=== PATIENT | female | born 1945 | race Caucasian/White ===

== ENCOUNTER 2016-07-03 12:09 | Inpatient (IN) | payer MEDICARE, OTHER ==
[2016-07-03] MEDS ORDERED: Aspirin Low Dose CHEW TAB* 81 MG PO ONE (12:24)
[2016-07-03 12:42] LABS: Hematocrit 39 % (35-47); Hemoglobin 12.9 g/dl (12.0-16.0); Mean Corpuscular HGB Conc 33 g/dl (31-36); Mean Corpuscular Hemoglobin 33 pg (27-31); Mean Corpuscular Volume 98 fL (80-97); Mean Platelet Volume 7 um3 (7.4-10.4); Red Blood Count 3.94 10^6/ul (4.0-5.4); Red Cell Distribution Width 14 % (10.5-15); White Blood Count 4.1 10^3/ul (3.5-10.8)
[2016-07-03] MEDS ORDERED: Diltiazem DRIP* 100 MG/100 ML ADDV.BAG IVPB ONE (12:43)
[2016-07-03 12:55] LABS: Albumin 2.9 g/dL (3.2-5.2); BUN/Creatinine Ratio 9.8 (8-20); Calcium 7.9 mg/dL (8.6-10.3); EGFR African American 15.7 (>60); EGFR Non-African American 12.2 (>60); Globulin 3.2 g/dL (2-4); Potassium 3.5 mmol/L (3.5-5.0); Total Bilirubin 0.6 mg/dL (0.2-1.0); Total Protein 6.1 g/dL (6.4-8.9)
[2016-07-03 13:01] LABS: Troponin I 2.07 ng/mL (<0.04)
[2016-07-03] MEDS ORDERED: Levofloxacin 500 MG IVPREMIX(* 500 MG/100 ML BAG IVPB ONE (13:07)
[2016-07-03] MEDS ORDERED: NS 0.9% 1000 ML* 1,000 ML IV ONE ×3 (13:07→14:40)
--- NOTE | 2016-07-03 13:19 | RAD ---
INDICATION: Weakness COMPARISON: Chest x-ray dated October 19, 2014 TECHNIQUE: Single AP portable view of the chest was obtained. FINDINGS: Image quality is compromised due to the relative inferiority of a portable chest x-ray. The heart and mediastinum exhibit normal size and contour. Relative to the previous chest x-ray the pulmonary vasculature is slightly engorged and indistinct. The lungs are otherwise grossly clear. There is no evidence of a large pleural effusion. Visualized bones are normal for the patient's age. IMPRESSION: In the correct clinical setting chest x-ray findings could BE compatible with exacerbation of congestive heart failure.
[2016-07-03] MEDS ORDERED: Heparin DRIP 25,000 UNITS(*) 25,000 UNITS/500 ML BAG IVPB SCH ×2 (13:30→15:00)
[2016-07-03 13:32] LABS: T4 8.5 g/dL (6.09-12.23)
[2016-07-03 13:33] LABS: TSH (Thyroid Stimulating Horm) 1.05 mcIU/mL (0.34-5.60)
[2016-07-03] MEDS ORDERED: HYDROcodone/ACETAMIN 5-325 MG* 1 TAB PO ONE (13:35)
[2016-07-03] MEDS ORDERED: Heparin VIAL(*) 5000 UNITS/ML VIAL (FIVE THOUSAND) IV SCH ×2 (14:00→15:00)
[2016-07-03] MEDS ORDERED: Diltiazem DRIP* 100 MG/100 ML ADDV.BAG IVPB SCH (15:00)
[2016-07-03] MEDS ORDERED: Potassium Chlor TAB* 20 MEQ TAB.ER PO ONE (15:11)
[2016-07-03 15:55] LABS: Magnesium 1.6 mg/dL (1.9-2.7)
[2016-07-03] MEDS ORDERED: Amiodarone 360 MG IVPREMIX* 360 MG/200 ML BAG IV ONE (15:56)
[2016-07-03] MEDS ORDERED: Amiodarone 150 MG IVPREMIX* 150 MG/100 ML BAG IV ONE ×2 (15:56)
[2016-07-03] MEDS: Amiodarone 360 MG IVPREMIX* 360 MG/200 ML BAG IV SCH ×2 (16:00→21:39)
[2016-07-03] MEDS ORDERED: Magnesium Sulfate 2 GM IV* 2 GM/50 ML BAG IVPB ONE (16:05)
[2016-07-03] MEDS: cefTRIAXone VIAL(*) 1,000 MG in NS 0.9% 50 ML* 50 ML IVPB SCH (16:07)
[2016-07-03] MEDS: Hydrocortisone INJ* 100 MG VIAL IV SCH (16:12)
[2016-07-03] MEDS: oxyCODONE TAB* 5 MG TAB PO PRN ×2 (16:24→22:53)
[2016-07-03] MEDS: Oseltamivir CAP* 30 MG CAP PO SCH (16:24)
[2016-07-03] MEDS: NS 0.9% 1000 ML* 1,000 ML IV SCH (16:38)
[2016-07-03] MEDS ORDERED: Azithromycin IV(*) 500 MG in NS 0.9% 250 ML* 250 ML IVPB SCH (17:00)
[2016-07-03] MEDS: Gabapentin CAP(*) 300 MG PO SCH ×2 (17:26→20:41)
[2016-07-03 18:54] LABS: BUN/Creatinine Ratio 10.6 (8-20); Calcium 7.1 mg/dL (8.6-10.3); EGFR African American 16.1 (>60); EGFR Non-African American 12.5 (>60); Potassium 4.4 mmol/L (3.5-5.0)
[2016-07-03 19:15] LABS: Troponin I 1.75 ng/mL (<0.04)
[2016-07-03] MEDS: Topiramate TAB(*) 100 MG PO SCH (20:41)
[2016-07-03] MEDS: Memantine XR CAP* 28 MG CAP.XR PO SCH (20:41)
[2016-07-03] MEDS: NON FORMULARY MED* (Melatonin [Melatonin] 10 MG) PO SCH (21:15)
[2016-07-03] MEDS: Vancomycin CAP* 125 MG CAP PO SCH (21:20)
--- NOTE | 2016-07-03 21:35 | PN ---
Hospitalist Progress Note Pt with hx of c-diff, pt states that if abx ordered it has been recommended by her MD that she be put on vanco PO due to hx, discussed risk associated with this and alternative of placing on pro-biotics, pt would like to proceed with PO vanco per her MD recommendations, will obtain records in am to clarify, placed on po vanco for now, await cdiff studies
--- NOTE | 2016-07-03 21:50 | ED ---
Polo Dubois Claudia, scribed for Antoine Frances MD on 07/03/16 at 1230 . Complex/Multi-Sys Presentation - HPI Summary HPI Summary: 71 year old female presents to the ED via EMS for a persistent cough and GARCIA. Pt notes that she has had this cough for about 1.5 weeks and it has worsened and causes her to have terrible GARCIA. Pt also admits to a mild fever. Pt denies being hospitalized in the past month and no recent use of antibiotics in the last week. History records reviewed. May 2015 she had a stress test and was deemed low risk. March 2015 echocardiogram is essentially nml. A note from consultation for abd pain,diarrhea and confusion; there they list mitral valve disorder, DONTRELL, as well as heart diastolic failure secondary to verapno. - History Of Current Complaint Chief Complaint: EDWeakness Time Seen by Provider: 07/03/16 12:24 Hx Obtained From: Patient, Medical Records Onset/Duration: Lasting Weeks, Still Present Associated Signs And Symptoms: Positive: Headache, Cough - Allergies/Home Medications Allergies/Adverse Reactions: Allergies Allergy/AdvReac Type Severity Reaction Status Date / Time Penicillins Allergy Intermediate Rash And Verified 07/20/15 12:43 Itching Verapamil AdvReac See Comment Verified 07/20/15 12:43 Home Medications: Home Medications Lisinopril TAB* [Prinivil TAB 5 MG*] 5 mg PO DAILY 07/03/16 [History Confirmed 07/03/16] Magnesium 500 mg PO DAILY 07/03/16 [History Confirmed 07/03/16] Potassium Chlor TAB* 20 meq PO BID 07/03/16 [History Confirmed 07/03/16] PMH/Surg Hx/FS Hx/Imm Hx Previously Healthy: Yes Endocrine/Hematology History: Reports: Hx Thyroid Disease, Hx Anemia Denies: Hx Diabetes, Hx Unexplained Bleeding Comment Only: Other Endocrine/Hematological Disorders - hypothalmus related headaches Cardiovascular History: Reports: Hx Angina, Hx Congestive Heart Failure - HX OF D/T DRUG REACTION, Hx Hypertension - TAKES MEDICATION Denies: Hx Aneurysm, Hx Angioplasty, Hx Auto Implanted Cardiovert Defib, Hx Cardiac Arrest, Hx Cardiomegaly, Hx Congenital Heart Disease, Hx Coronary Artery Disease, Hx Deep Vein Thrombosis, Hx Hypercholesterolemia, Hx Hypotension , Hx Pacemaker/ICD, Hx Peripheral Vascular Disease, Hx Rheumatic Fever, Hx Syncope, Hx Valvular Heart Disease, Other Cardiovascular Problems/Disorders Respiratory History: Reports: Hx Sleep Apnea - Bipap, Other Respiratory Problems /Disorders - SLEEP APNEA W/ BIPAP Denies: Hx Asthma, Hx Chronic Bronchitis, Hx Chronic Obstructive Pulmonary Disease (COPD), Hx Cystic Fibrosis, Hx Lung Cancer, Hx Pleural Effusion, Hx Pneumonia, Hx Pulmonary Edema, Hx Pulmonary Embolism, Hx Seasonal Allergies GI History: Reports: Hx Gall Bladder Disease, Hx Gastroesophageal Reflux Disease , Hx Irritable Bowel, Other GI Disorders - GERD Denies: Hx Cirrhosis, Hx Crohn's Disease, Hx Diverticulosis, Hx Gastrointestinal Bleed, Hx Hiatal Hernia, Hx Jaundice, Hx Obstructive Bowel, Hx Ileostomy, Hx Pyloric Stenosis, Hx Ulcer History: Denies: Hx Renal Disease Comment Only: Other Problems/Disorders - Burning on urination Musculoskeletal History: Reports: Hx Arthritis, Hx Rheumatoid Arthritis - WAS TREATED FOR IT, THEN STOPPED HER MEDS, Hx Back Problems, Hx Bursitis - Hip, Other Musculoskeletal History - ARTHRITIS LEFT HIP Denies: Hx Fibromyalgia, Hx Gout, Hx Orthopedic Injury, Hx Osteoporosis, Hx Scoliosis, Hx Tendonitis Sensory History: Reports: Hx Contacts or Glasses Denies: Hx Cataracts, Hx Eye Injury, Hx Eye Prosthesis, Hx Glaucoma, Hx Legally Blind, Hx Macular Degeneration, Hx Vision Problem, Hx Deafness, Hx Hearing Aid, Hx Hearing Problem, Other Sensory Impairments Opthamlomology History: Reports: Hx Contacts or Glasses Denies: Hx Cataracts, Hx Eye Injury, Hx Eye Prosthesis, Hx Glaucoma, Hx Legally Blind, Hx Macular Degeneration, Hx Vision Problem, Other Sensory Impairments Neurological History: Reports: Hx Headaches - CHRONIC CLUSTER GARCIA, Hx Migraine Denies: Hx Dementia, Hx Developmental Delay, Hx Seizures, Hx Spinal Cord Injury, Hx Transient Ischemic Attacks (TIA), Other Neuro Impairments/Disorders Psychiatric History: Reports: Hx Depression Denies: Hx Anxiety, Hx Panic Disorder - Cancer History Hx Chemotherapy: No Hx Radiation Therapy: No - Surgical History Surgery Procedure, Year, and Place: CHOLECYESTOMY [facility], DEVIATED SEPTUM [facility] COLECTOMY Hx Anesthesia Reactions: No - Immunization History Date of Tetanus Vaccine: unknown Infectious Disease History: No Infectious Disease History: Reports: Traveled Outside the [place] in Last 30 Days - [place] Denies: Hx Clostridium Difficile, Hx Hepatitis, Hx Human Immunodeficiency Virus (HIV), Hx Shingles, Hx Tuberculosis - Family History Family History: COPD, AFIB - Social History Occupation: Retired Lives: With Family Alcohol Use: None Substance Use Type: Reports: None Hx Tobacco Use: No Smoking Status (MU): Never Smoked Tobacco Have You Smoked in the Last Year: No Review of Systems Constitutional: Negative Eyes: Negative ENT: Negative Cardiovascular: Negative Positive: Cough Positive: Diarrhea Genitourinary: Negative Musculoskeletal: Negative Skin: Negative Positive: Headache Psychological: Normal All Other Systems Reviewed And Are Negative: Yes Physical Exam Triage Information Reviewed: Yes Vital Signs On Initial Exam: Initial Vitals Temp Pulse Resp BP Pulse Ox 98.2 F 100 22 118/46 98 07/03/16 12:16 07/03/16 12:16 07/03/16 12:16 07/03/16 12:16 07/03/16 12:16 Vital Signs Reviewed: Yes Appearance: Negative: Well-Appearing - uncomfortable with frequent harsh cough, tachypneic Eyes: Positive: EOMI ENT: Positive: Other - mucosa dry Neck: Positive: Supple Respiratory/Lung Sounds: Positive: Breath Sounds Present, Rales - right, Rhonchi - right Cardiovascular: Positive: Tachycardia - HR initially presented in the 170s but is currently at sinus tach of 117. Negative: Rub, Leg Edema Left, Leg Edema Right Abdomen Description: Positive: Nontender, Soft - flat Musculoskeletal: Negative: Edema Left, Edema Right Neurological: Positive: Alert, Oriented to Person Place, Time Psychiatric: Positive: Other - logical coherent Procedures - Procedure Summary Procedure Summary: US: Heart evaluation shows what geneally appears to be LVH with thickened LV with hypodynamic function with LV abel coapting. Diagnostics - Vital Signs Vital Signs Temp Pulse Resp BP Pulse Ox 07/03/16 12:16 98.2 F 100 22 118/46 98 - Laboratory Lab Results: Lab Results 07/03/16 07/03/16 07/03/16 Range/Units 12:36 12:36 12:36 WBC 4.1 (3.5-10.8) 10^3/ul RBC 3.94 L (4.0-5.4) 10^6/ul Hgb 12.9 (12.0-16.0) g/dl Hct 39 (35-47) % MCV 98 H (80-97) fL MCH 33 H (27-31) pg MCHC 33 (31-36) g/dl RDW 14 (10.5-15) % Plt Count 184 (150-450) 10^3/ul MPV 7 L (7.4-10.4) um3 Neut % (Auto) 80.3 (38-83) % Lymph % (Auto) 9.6 L (25-47) % [place] % (Auto) 10.0 H (1-9) % Eos % (Auto) 0 (0-6) % Baso % (Auto) 0.1 (0-2) % Absolute Neuts (auto) 3.3 (1.5-7.7) 10^3/ul Absolute Lymphs (auto) 0.4 L (1.0-4.8) 10^3/ul Absolute Monos (auto) 0.4 (0-0.8) 10^3/ul Absolute Eos (auto) 0 (0-0.6) 10^3/ul Absolute Basos (auto) 0 (0-0.2) 10^3/ul Absolute Nucleated RBC 0 10^3/ul Nucleated RBC % 0.1 INR (Anticoag Therapy) (0.89-1.11) Sodium 121 L (133-145) mmol/L Potassium 3.5 (3.5-5.0) mmol/L Chloride 91 L (101-111) mmol/L Carbon Dioxide 14 L* (22-32) mmol/L Anion Gap 16 H (2-11) mmol/L BUN 36 H (6-24) mg/dL Creatinine 3.67 H (0.51-0.95) mg/dL Est GFR ( Amer) 15.7 (>60) Est GFR (Non-Af Amer) 12.2 (>60) BUN/Creatinine Ratio 9.8 (8-20) Glucose 112 H (70-100) mg/dL Lactic Acid 3.3 H* (0.5-2.0) mmol/L Calcium 7.9 L (8.6-10.3) mg/dL Magnesium 1.6 L (1.9-2.7) mg/dL Total Bilirubin 0.60 (0.2-1.0) mg/dL AST 86 H (13-39) U/L ALT 28 (7-52) U/L Alkaline Phosphatase 44 (34-104) U/L Troponin I 2.07 H* (<0.04) ng/mL B-Natriuretic Peptide ( - 100) pg/mL Total Protein 6.1 L (6.4-8.9) g/dL Albumin 2.9 L (3.2-5.2) g/dL Globulin 3.2 (2-4) g/dL Albumin/Globulin Ratio 0.9 L (1-3) Procalcitonin (<0.6) ng/mL TSH 1.05 (0.34-5.60) mcIU/mL Thyroxine (T4) 8.50 (6.09-12.23) g/dL Influenza A (Rapid) (Negative) Influenza B (Rapid) (Negative) 07/03/16 07/03/16 07/03/16 Range/Units 12:36 12:36 12:36 WBC (3.5-10.8) 10^3/ul RBC (4.0-5.4) 10^6/ul Hgb (12.0-16.0) g/dl Hct (35-47) % MCV (80-97) fL MCH (27-31) pg MCHC (31-36) g/dl RDW (10.5-15) % Plt Count (150-450) 10^3/ul MPV (7.4-10.4) um3 Neut % (Auto) (38-83) % Lymph % (Auto) (25-47) % [place] % (Auto) (1-9) % Eos % (Auto) (0-6) % Baso % (Auto) (0-2) % Absolute Neuts (auto) (1.5-7.7) 10^3/ul Absolute Lymphs (auto) (1.0-4.8) 10^3/ul Absolute Monos (auto) (0-0.8) 10^3/ul Absolute Eos (auto) (0-0.6) 10^3/ul Absolute Basos (auto) (0-0.2) 10^3/ul Absolute Nucleated RBC 10^3/ul Nucleated RBC % INR (Anticoag Therapy) 1.04 (0.89-1.11) Sodium (133-145) mmol/L Potassium (3.5-5.0) mmol/L Chloride (101-111) mmol/L Carbon Dioxide (22-32) mmol/L Anion Gap (2-11) mmol/L BUN (6-24) mg/dL Creatinine (0.51-0.95) mg/dL Est GFR ( Amer) (>60) Est GFR (Non-Af Amer) (>60) BUN/Creatinine Ratio (8-20) Glucose (70-100) mg/dL Lactic Acid (0.5-2.0) mmol/L Calcium (8.6-10.3) mg/dL Magnesium (1.9-2.7) mg/dL Total Bilirubin (0.2-1.0) mg/dL AST (13-39) U/L ALT (7-52) U/L Alkaline Phosphatase (34-104) U/L Troponin I (<0.04) ng/mL B-Natriuretic Peptide 232 H ( - 100) pg/mL Total Protein (6.4-8.9) g/dL Albumin (3.2-5.2) g/dL Globulin (2-4) g/dL Albumin/Globulin Ratio (1-3) Procalcitonin 16.3 H (<0.6) ng/mL TSH (0.34-5.60) mcIU/mL Thyroxine (T4) (6.09-12.23) g/dL Influenza A (Rapid) (Negative) Influenza B (Rapid) (Negative) 07/03/16 Range/Units 12:47 WBC (3.5-10.8) 10^3/ul RBC (4.0-5.4) 10^6/ul Hgb (12.0-16.0) g/dl Hct (35-47) % MCV (80-97) fL MCH (27-31) pg MCHC (31-36) g/dl RDW (10.5-15) % Plt Count (150-450) 10^3/ul MPV (7.4-10.4) um3 Neut % (Auto) (38-83) % Lymph % (Auto) (25-47) % [place] % (Auto) (1-9) % Eos % (Auto) (0-6) % Baso % (Auto) (0-2) % Absolute Neuts (auto) (1.5-7.7) 10^3/ul Absolute Lymphs (auto) (1.0-4.8) 10^3/ul Absolute Monos (auto) (0-0.8) 10^3/ul Absolute Eos (auto) (0-0.6) 10^3/ul Absolute Basos (auto) (0-0.2) 10^3/ul Absolute Nucleated RBC 10^3/ul Nucleated RBC % INR (Anticoag Therapy) (0.89-1.11) Sodium (133-145) mmol/L Potassium (3.5-5.0) mmol/L Chloride (101-111) mmol/L Carbon Dioxide (22-32) mmol/L Anion Gap (2-11) mmol/L BUN (6-24) mg/dL Creatinine (0.51-0.95) mg/dL Est GFR ( Amer) (>60) Est GFR (Non-Af Amer) (>60) BUN/Creatinine Ratio (8-20) Glucose (70-100) mg/dL Lactic Acid (0.5-2.0) mmol/L Calcium (8.6-10.3) mg/dL Magnesium (1.9-2.7) mg/dL Total Bilirubin (0.2-1.0) mg/dL AST (13-39) U/L ALT (7-52) U/L Alkaline Phosphatase (34-104) U/L Troponin I (<0.04) ng/mL B-Natriuretic Peptide ( - 100) pg/mL Total Protein (6.4-8.9) g/dL Albumin (3.2-5.2) g/dL Globulin (2-4) g/dL Albumin/Globulin Ratio (1-3) Procalcitonin (<0.6) ng/mL TSH (0.34-5.60) mcIU/mL Thyroxine (T4) (6.09-12.23) g/dL Influenza A (Rapid) Positive H (Negative) Influenza B (Rapid) Negative (Negative) Result Diagrams: 07/03/16 12:36 07/03/16 18:25 Lab Statement: Any lab studies that have been ordered have been reviewed, and results considered in the medical decision making process. - Radiology CXR Xray Interpretation: Positive (See Comments) - IN THE CORRECT CLINICAL SETTING CHEST XRAY FINDINGS COULD BE COMPATIBLE WITH EXACERBATION OF CHF Radiology Interpretation Completed By: Radiologist - EKG 12:16 EKG Rhythm: Atrial Fibrillation - 175 BEATS/MIN 12:46 Cardiac Rate: Tachycardia EKG Rhythm: Sinus Tachycardia - 115 BEATS/MIN Re-Evaluation - Re-Evaluation 1 Re-Evaluation Time: 12:52 Comment: Patient spontaneously converted to sinus tachycardia. This EKG shows no ST changes and P enlargement in II. Also biphasic P and V1 suggestion of atrial enlargement. Complex Multi-Symp Course/Dx Assessment/Plan: She presents with tachycardia, evidence of sepsis, dehydration and volume depletion. Flu turns up positive. I informed hospitalist, Dr. Reagan is involved and she will be admitted. - Diagnoses Provider Diagnoses: SEPSIS, NSTEMI (non-ST elevated myocardial infarction) - Physician Notifications Discussed Care Of Patient With: Dr. Reagan is notified ot the patient and will consult. Dr. Godoy is informed of the patient and will accept patient for admission to [facility] [place]. Time Discussed With Above Provider: 13:07 - Critical Care Time Critical Care Time: 75-104 min - 90 minutes Discharge - Discharge Plan Condition: Stable Disposition: ADMITTED TO [facility] The documentation as recorded by the Polo alvares Claudia accurately reflects the service I personally performed and the decisions made by me, Antoine Frances MD.
[2016-07-03] MEDS ORDERED: Amiodarone 360 MG IVPREMIX* 360 MG/200 ML BAG IV SCH (22:00)
--- NOTE | 2016-07-03 23:29 | CONS ---
CARDIOLOGY CONSULTATION: DATE OF CONSULT: 07/03/16 REASON FOR CONSULTATION: Atrial fibrillation and elevated troponin. CHIEF COMPLAINT: Headaches, coughing, and diarrhea. HISTORY OF PRESENT ILLNESS: Mrs. Saez is a 71-year-old woman seen by my partner Dr. Laura Root for history of congestive heart failure when on high- dose verapamil. The patient states she was in stable health until she and her [place] grand kids and many other children and she and her both developed a severe viral illness with marked coughing. The patient states she never sought medical attention for her symptoms and her insisted she come in today after several days of severe coughing, headaches, diarrhea, nausea , and vomiting. In the emergency room, she was found to be in atrial fibrillation with a rapid ventricular rate, which broke prior to my seeing her and she is being treated for presumed sepsis. The patient states that she feels a bit better than when she came in but also mentioned that she does not really remember how she was feeling when she came in. PAST MEDICAL HISTORY: The patient has a past medical history of congestive heart failure, on high-dose verapamil; longstanding cluster headaches, treated by Dr. Tarango in [facility]; hypertension; obstructive sleep apnea ( severe); anemia with myelodysplasia; facial neuralgia; depression; B12 deficiency; possible connective tissue disease, treated transiently for rheumatoid arthritis; degenerative arthritis; reflux; vitamin D deficiency. CURRENT OUTPATIENT MEDICATIONS: Uncertain, but medication documented a year ago, 05/14/15, included: 1. Prednisone 20 mg a day. 2. Potassium 40 mEq a day. 3. Oxycodone p.r.n. 4. Relpax 40 mg a day. 5. Topiramate 200 mg a day. 6. Verapamil ER 120 mg q.h.s. and 80 mg p.o. b.i.d. a.m. and noon. 7. Neurontin 300 mg t.i.d. 8. Voltaren 1% p.r.n. 9. Lansoprazole 30 mg a day. 10. Cymbalta 30 mg t.i.d. 11. Lasix 20 mg a day. 12. Melatonin 3 mg p.r.n. 13. MultiVites. 14. Namenda XR 28 mg a day. ALLERGIES: Include PENICILLIN and high-dose VERAPAMIL, she is intolerant to. SOCIAL HISTORY: The patient is , supportive . Her daughter lives in [place]. She has 2 grandchildren. She has never smoked. No history of alcohol intake. No recreational drug use. FAMILY HISTORY: Significant for the patient's mother of polymyalgia rheumatica at age 79. She has brothers with heart disease. REVIEW OF SYSTEMS: See history of present illness. The patient denies chest pain, pressure, heaviness. Prior to her bronchitis, she denied exercise intolerance. They had traveled to [place] without problems and she was feeling well other than the above events. PHYSICAL EXAMINATION: The patient is an elderly woman, lying at 30 degrees, appears ill. She is 5 foot 4 inches, weighs a 158 pounds with a BMI of 27.1, blood pressure 118/46, pulses range from 100 to 160, temperature 98.2, saturation 98% on room air. While in the room, however, the patient's blood pressure was documented as 88 systolic. Skin is warm and dry. HEENT: Pupils are equal and round. Mucous membranes are somewhat dry. Neck: Without appreciable increase in JVD, palpable carotid pulses. Did not hear bruits, but oxygen on. Breath sounds diffuse, loud, rhonchi, and diminished throughout, predominantly diminished in the right mid lung base. Coronary: S1, S2, tachycardic gallop. Abdomen: Active bowel sounds, soft and nontender. Lower extremities were warm. DIAGNOSTIC STUDIES/LAB DATA: Chest x-ray today interpreted as congestive heart failure with engorgement of the pulmonary vasculature. No effusions or infiltrates noted. A 12-lead ECG today initially showed atrial fibrillation with a rapid ventricular rate of 175 beats a minute. QRS axis -30, normal intraventricular conduction time, poor R-wave progression with Qs in V1 and V2 and possible old inferior wall AR with Qs in lead III and aVF. Diffuse nonspecific ST changes. Repeat EKG post spontaneous electrical cardioversion shows sinus tachycardia, 115 beats a minutes, QRS axis -45. Normal AV and IV conduction times. Qs in V1 and V2 and left axis deviation with Qs in leads III and aVF. ST segments are normal. Her cardiac testing from 05/14/15 shows an exercise nuclear stress test showing she could exercise to stage 3 of the standard Dave protocol, and no inducible ischemia by nuclear criteria with an ejection fraction of 82% post exercise. Her echo from 03/11/15 showed mild left ventricular hypertrophy with an ejection fraction of 60% to 65% and abnormal diastolic feeling, normal right ventricular function, trace mitral and tricuspid insufficiency. Labs: White count 4.1, hemoglobin 12.9, platelets 184, sodium 121, potassium 3.5, chloride 91, bicarb 14, BUN 36, creatinine 3.67, glucose 112. AST elevated at 86, ALT 28, troponin #1 2.07, BMP of 232. Procalcitonin elevated at 16.3, TSH 1.05, thyroxine 8.4. Influenza A positive. Lipids from 06/30/16 showed total cholesterol 286, triglycerides 162, LDL cholesterol 191, and HDL cholesterol 62. IMPRESSION: In summary, Mrs. Saez is a 71-year-old woman who developed a respiratory illness following exposure to a large class of toddlers who was quite ill at home with persistent coughing, shortness of breath, nausea, vomiting, and diarrhea presented to the emergency room with atrial fibrillation and rapid ventricular rate, has mild elevation in troponins, and is testing positive for influenza A. Her chest x-ray suggestive of mild congestive heart failure, but no evidence of pneumonia. Additionally, the patient is acidemic. She has renal insufficiency, progressed significantly from March when her creatinine was 1.08. For the infectious issues, I will defer to the hospitalist service, but it appears that the influenza A led to complications of atrial fibrillation, tachycardia, and possibly some diastolic congestive heart failure. I am most suspicious of the atrial fibrillation as related to a combination of her influenza A including secondary metabolic derangements and acidemia as well as her underlying obstructive sleep apnea. It is uncertain how long she has had the atrial fibrillation, although it is a good time that she broke in the emergency room. I recommend unfractionated heparin for now and consideration of outpatient anticoagulation for a month at a minimum. When I examined her, her blood pressure was low. If able, I would continue her on her outpatient verapamil, perhaps convert to short-acting for the next 24 hours to ensure she tolerates this and we can adjust the dose as based on blood pressure and heart rate to avoid precipitating cluster head aches. The patient at risk for diastolic congestive heart failure and based on past history of systolic congestive heart failure, I do recommend we update an echo to ensure she does have a tachycardic cardiomyopathy. With elevated troponins, although her stress test a year ago is reassuring, if she is on chronic steroids and a family history of atherosclerotic heart disease , HTN and elevated LDL cholesterol, this does put her at risk for underlying coronary artery disease. Her second EKG showing normal ST is reassuring, but we should check serial EKGs and troponins. Consideration for adding a statin can be made as well and she is going to need a followup stress test versus cath, but non-urgently. She is too sick to undergo testing with either with these at this point in time. I am reluctant to withdraw the verapamil because of her history of severe cluster headaches but consideration of decreasing the verapamil and adding low- dose beta yann could be made, but I would do this in conjunction with Neurology, who has been following her actively over the years. She should get an aspirin 81 mg a day in addition to the unfractionated heparin and statin. Addressing the patient's severe sleep apnea well while inpatient is also going to be important for her pulmonary infectious and cardiac health. To summarize, the patient needs supportive care for her influenza including hydration and addressing her acidemia, appropriate oxygen replacement. For her cardiac issues, we will start a statin. Rate lowering agents are needed, with her history of cluster headaches, OK to continue verapamil or verapamil plus beta- yann and we will add unfractionated heparin and aspirin should help any other underlying ischemia. Differential for her elevated troponins includes CAD, atrial fibrillation alone and more. We will follow her actively with you. CC: Dr. Root; Dr. Nichelle Burgess* [id number]/[facility] #: [id number] [facility]
[2016-07-03 23:41] LABS: Urine Bacteria 1+ (Absent); Urine Bilirubin Negative (Negative); Urine Glucose Negative (Negative); Urine Nitrite Negative (Negative)
[2016-07-04] MEDS: Hydrocortisone INJ* 100 MG VIAL IV SCH ×2 (00:15→08:17)
--- NOTE | 2016-07-04 00:59 | HP ---
HISTORY AND PHYSICAL: DATE OF ADMISSION: 07/03/16 PRIMARY CARE PROVIDER: Dr. Burgess. CONSULTING CRISIS CLINICIAN: Dr. Reagan. ATTENDING PHYSICIAN: Dr. Adan Almonte *(report dictated by Andrew Gonzalez NP) CHIEF COMPLAINT: 1. Cough. 2. Weakness. HISTORY OF PRESENT ILLNESS: Mrs. Saez is a 71-year-old female patient. She has a history of osteoarthritis, fibromyalgia, CHF, hypertension, DONTRELL, chronic pain, restless leg syndrome, facial neuralgia, depression, GERD, cluster headaches, AFib, and PMR. She comes in today stating over the last 7 to 10 days , she has had sore throat, rhinorrhea, cough, chills. She states she recently was exposed to her with similar symptoms and also a grandchild with similar symptoms as well. The patient states that she also over the last 3 to 4 days has been having diarrhea 4 to 5 times a day. No recent antibiotics. She states she has been feeling short of breath. She has not been feeling well. She denies taking any [id number] medications such as Tylenol Cold and Flu or Advil Cold and Flu. She denies any naproxen or Aleve products. She does state that she was having some dyspnea on exertion, little bit short of breath. She in fact did not call the ambulance today, it was her because she just was not getting any better despite several days and she was getting progressively worse. She denies having abdominal pain. Denies any chest pain currently. She states that she did not have any palpitations or any fluttering in her chest. She came to the ER, was found to be in AFib with RVR, acute renal failure, elevated troponin of 2, and appeared to be septic from most likely influenza. Because of this, the hospitalist service was asked to evaluate for admission. PAST MEDICAL HISTORY: Significant for: 1. Osteoarthritis. 2. Fibromyalgia. 3. CHF. 4. Hypertension. 5. DONTRELL. 6. Chronic pain. 7. Restless leg. 8. Facial neuralgia. 9. Depression. 10. GERD. 11. Cluster headaches. 12. AFib, is newly diagnosed today and is paroxysmal. 13. PMR. PAST SURGICAL HISTORY: 1. Laparoscopic cholecystectomy. 2. Polypectomy. HOME MEDICATIONS: According to her recall: 1. Multivitamin 1 tablet daily. 2. Gabapentin 900 mg p.o. 4 times a day. 3. Magnesium 500 mg daily. 4. Potassium 20 mEq p.o. b.i.d. 5. Lisinopril 5 mg daily. 6. Cymbalta 90 mg daily. 7. Relpax 40 mg p.o. daily as needed. 8. Voltaren 1 application topically 4 times a day as needed. 9. Prevacid 30 mg p.o. daily. 10. Lactobacillus 1 capsule p.o. daily. 11. Melatonin 10 mg at bedtime. 12. Topamax 200 mg at bedtime. 13. Potassium 20 mEq p.o. daily. 14. Namenda 28 mg p.o. at bedtime. 15. Oxycodone 5 mg p.o. every 4 hours as needed. 16. Calan 80 mg take as directed. 17. Calan 120 mg p.o. daily. 18. Prednisone, she is actually on 12.5 mg p.o. daily. ALLERGIES TO MEDICATIONS: Include: 1. PENICILLIN. 2. VERAPAMIL, although she is taking it currently. FAMILY HISTORY: Her mother had PMR. Father had an CT and diabetes. SOCIAL HISTORY: She does not smoke, does not drink. Surrogate decision maker is her . REVIEW OF SYSTEMS: There is no documented fever. She denied having any significant weight change. There was no double vision. There was no ear discharge. There was no rhinorrhea. There was no sore throat. There was no thyroid enlargement. Denies having any chest pain. There is dyspnea on exertion. No orthopnea, no nocturnal dyspnea. There is no abdominal pain, no nausea, no vomiting. There was diarrhea. No dysuria. No frequency. No loss of consciousness. No pruritus. No skin ulcerations. Review of 14 systems completed, all others negative. PHYSICAL EXAMINATION GENERAL: At this time, Mrs. Saez is a 71-year-old female patient. She does appear to be ill. She does not appear to be in any acute distress. She is not tachypneic. She is talking in full sentences. VITAL SIGNS: Blood pressure 118/46, the last blood pressure is 85/45 with a pulse in the one-teens, respirations 20, O2 sat 98%, temperature 98.2. HEENT: Head is atraumatic and normocephalic. Eyes: EOMs are intact. Sclerae anicteric and not pale. Throat: Oral mucosa appears to be dry. No oropharyngeal erythema. NECK: Supple. LUNGS: She had rhonchi throughout. Equal diaphragmatic expansion. HEART: Sounds S1 and S2. Irregularly irregular rate. No murmurs, rubs, or gallops. ABDOMEN: Soft, flat, and nontender. Bowel sounds are present. EXTREMITIES: Pulses 2+ throughout. Able to move all 4 extremities with 5/5 strength. SKIN: Grossly intact. NEUROLOGIC: The patient is awake. She is alert. She is oriented x3. Tongue midline, lead security officer were equal, no focal neurologic deficits. LABORATORY DATA: Labs today revealed a WBC of 4.1, RBC of 3.94, hemoglobin of 2.9, hematocrit of 39, platelet count of 180. Sodium was 121, potassium was 3.5 , chloride of 91, bicarb 14, BUN 36, creatinine of 3.67, glucose 112, lactic 3.3 , calcium 7.9, total bili 0.6, AST 86, ALT 28, alk phos 44, troponin 2.07. BNP of 232. Albumin was 2.9, procalcitonin 16.3, TSH 1.05. Her influenza A was positive. EKG today, initial EKG showed atrial fibrillation with rate of 175. Repeat EKG showed a normal sinus rhythm with estimated sinus tachycardia, rate of 115. No ST elevations or T-wave inversions were noted. It was reviewed to previous EKGs, it is similar with the exception of the fact that the tachycardia is new and the previous EKG today does show atrial fibrillation, which also was new for the patient. Chest x-ray obtained today, which under my review, there does appear to be pulmonary vascular congestion. Radiology read it as in the correct clinical setting, the chest x-ray findings could be compatible with exacerbation of CHF. She did have an echo, which showed an EF lastly of 60% to 65% and she had a normal stress test last year. Old medical records reviewed. ASSESSMENT AND PLAN: Mrs. Saez is a 71-year-old female patient coming in today complaints of cough, sore throat, shortness of breath, and now having 4 to 5 days of diarrhea. She will be admitted under inpatient status for: 1. Severe sepsis as evidenced by again, she was noted to be tachycardic. She has flu positive. In addition to this, she has acute renal failure and an elevated troponin probably from demand ischemia. She is rhonchorous on exam. I do want to check her Strep legionella antigen and Strep pneumoniae antigen. In addition of this, go ahead and check her stools as well for C. diff and send off a stool culture and check a rotavirus and norovirus as well. She was pancultured already down here in the ED, which we will continue to follow cultures and titrate antibiotic therapy. We will give her 2 L of fluid upfront and then normal saline at 100 as she appears to be dry. 2. Acute renal failure with possible acute tubular necrosis. At this point, we will go ahead and send off a FENa. We will go ahead and place a Steward and we will continue to monitor her urine output and I will avoid nephrotoxic agent. She was taking lisinopril, we will hold that for now and renally dose medications. 3. Elevated troponin. At this point, again it is probably demand ischemia. She is not having any chest pain. Stress test was normal in addition of this a year ago; in addition to this, what is reassuring she had no ST elevations on the EKGs. The plans at this point, we will cycle her troponins, place her on the heparin and baby aspirin, get an echo, and we will continue to follow. 4. Congestive heart failure. I do not believe she is in congestive heart failure at this point, we will follow. 5. Hyponatremia. We will send off a urine osmal, send urine sodium to help us delineate where this is coming from, but it is probably dehydration, we will hydrate and we will follow. 6. Obstructive sleep apnea. She does not wear a CPAP and she states she has been tested and has been negative, but would like to follow up with her primary. 7. Hypertension. Holding her Calan for the time being and we are holding the lisinopril. 8. Atrial fibrillation. We will go ahead and strive for rate control with diltiazem and a heparin drip. Her blood pressures are hovering in the 90s. She is mentating well. Should she become hypotensive, obviously I would stop this and we will go ahead and put her on probably amiodarone. 9. Hypotension. Again, probably dehydration. In addition of this, she probably will need stress dose steroids. She is on a low dose of prednisone at all times. 10. Restless leg syndrome. Continue meds as prescribed. 11. Facial neuralgia. Continue meds as prescribed. 12. Depression. Continue Cymbalta. 13. Gastroesophageal reflux disease. Continue PPI therapy. 14. Cluster headaches. I am stopping the Calan because of the hypotension and just putting her on diltiazem for her rate control. If she does have recurrent headaches while she is here, we can consider putting her back on this if her blood pressure would tolerate, possibly get Neuro involved. 15. Polymyalgia rheumatica. Continue meds as prescribed with the exception we are going to put her on stress dose steroids. 16. DVT prophylaxis. She will be on heparin drip. 17. Code status. Full code. 18. Fluid, electrolytes, nutrition. She can have a regular diet. TIME SPENT: Time spent on this admission 90 minutes, greater than half the time was spent [id number] with the patient obtaining my history and physical, other half the time was spent going over the plan of care with the patient and implementing the plan of care. I did discuss the plan of care with my attending , Dr. Almonte, he is in agreement. ANDREW GONZALEZ NP CC: Dr. Burgess; Dr. Reagan* [id number]/CPS #: [id number]
[2016-07-04] MEDS: oxyCODONE TAB* 5 MG TAB PO PRN ×3 (03:24→20:48)
[2016-07-04] MEDS: NS 0.9% 1000 ML* 1,000 ML IV SCH (03:27)
[2016-07-04 05:51] LABS: Hematocrit 31 % (35-47); Hemoglobin 10.5 g/dl (12.0-16.0); Mean Corpuscular HGB Conc 34 g/dl (31-36); Mean Corpuscular Hemoglobin 33 pg (27-31); Mean Corpuscular Volume 97 fL (80-97); Mean Platelet Volume 7 um3 (7.4-10.4); Red Cell Distribution Width 14 % (10.5-15); White Blood Count 6.3 10^3/ul (3.5-10.8)
[2016-07-04 06:25] LABS: BUN/Creatinine Ratio 11.9 (8-20); Calcium 7.6 mg/dL (8.6-10.3); EGFR African American 16.9 (>60); EGFR Non-African American 13.2 (>60); Potassium 4.1 mmol/L (3.5-5.0)
[2016-07-04] MEDS: Lansoprazole SOLUTAB* 30 MG PO SCH (08:18)
[2016-07-04] MEDS: Aspirin EC Low Dose* 81 MG TAB.EC PO SCH (08:18)
[2016-07-04] MEDS: Gabapentin CAP(*) 300 MG PO SCH ×4 (08:18→20:48)
[2016-07-04] MEDS: DULoxetine DR CAP* 30 MG CAP.DR PO SCH (08:18)
[2016-07-04] MEDS: Oseltamivir CAP* 30 MG CAP PO SCH (08:18)
[2016-07-04] MEDS: Vancomycin CAP* 125 MG CAP PO SCH ×4 (08:18→20:48)
--- NOTE | 2016-07-04 11:32 | PN ---
Critical Care Services: 71 year old white female admitted yesterday with the following problems: 1. CAP - is strep antigen positive. 2. renal failure - creatinine in 3s - apparently recent onset 3. metabolic acidosis - high anion gap - probably related to renal failure and diarrhea 4. AFIb - first known episode, resolved on amiodarone. 4. Hyponatremia: possibly SIADH from pneumonia, but may also be partly due to the renal failure. Vital Signs: Temp Pulse Resp BP SpO2 FiO2 98.2 F 84 19 136/65 98 Physical Exam: Gen:Up in bed and appears comfortable. Eating breakfast. Lungs: Crackles on right anteriorly Cardiac: Reg rhythm Back:No CVA tenderness Extremities:Warm. No cyanosis or edema Fluid Balance (Past 24 Hours): 07/04/16 06:59 Intake Total 4633 Output Total 500 Balance +4133 Weight 175 lb Intake: IVPB 3601 NS (0.9%) 1601 Medicated IV 682 CC - Amiodarone 449 Heparin 233 Oral 350 Output: Urine 500 Labs: 07/04/16 07/04/16 07/04/16 01:15 05:35 05:35 WBC 6.3 Hgb 10.5 Hct 31 Plt Count 165 APTT 59.4 H Sodium 123 L Potassium 4.1 Chloride 97 L Carbon Dioxide 11 L* Anion Gap 15 H BUN 41 H Creatinine 3.44 H Glucose 106 H NOTE: APTT drawn on a heparin drip. Studies: Urine positive for strep pneumo antigen. Blood cultures negative so far. Nutrition: Regular diet Impression: Multiple medical problems, including pneumococcal pneumonia and newly discovered renal failure. Other problems include metabolic acidosis (probably multifactorial) and hyponatremia (SIADH vs renal failure). Plan: 1. Rx pneumonia with ceftriaxone. 2. Renal consult to evaluate renal failure 3. Limit fluids for the hyponatremia. 4. D/C amiodarone and heparin (for transient AFib) Critical Care Time: 40 minutes
[2016-07-04] MEDS ORDERED: NS 0.9% 1000 ML* 1,000 ML IV SCH (12:00)
--- NOTE | 2016-07-04 14:50 | ECHO ---
Patient: ROEL FRY [facility] Rec#: [id number] : 1945 Date: 07/04/2016 Age: 71y Height: 160 cm / 63.0 in Weight: 71.7 kg / 158.0 lbs Sex: F BSA: 1.8 Room#: ICU 8 Admit Date#: 07/03/2016 Type: Inpatient Referring: Andrew Gonzalez NP Reading: Dee Reagan MD [employer] Operator: Tierra Tijerina RN RDCS CC: Nichelle Burgess MD Transthoracic Echocardiogram Indication: Atrial fibrillation BP: 142/68 HR: 87 Rhythm: NSR Findings History: HTN, cluster headaches, dyslipidemia, DONTRELL, RA, anemia with myelodysplasia Technical Comments: The study is technically limited due to patient body habitus. Completed at 1315. Left Ventricle: The left ventricular chamber size is normal. Mild to moderate concentric left ventricular hypertrophy is observed. Global left ventricular wall motion and contractility are within normal limits. There is normal left ventricular systolic function. The estimated ejection fraction is 50-55%. Normal left ventricular diastolic filling is observed. Left Atrium: The left atrial chamber size is normal. Right Ventricle: The right ventricular chamber size and systolic function are within normal limits. Right Atrium: The right atrial cavity size is normal. Aortic Valve: The aortic valve is trileaflet. The aortic valve leaflets are mildly thickened. There is a trace of aortic regurgitation. There is no evidence of aortic stenosis. Mitral Valve: The mitral valve leaflets are mildly thickened. There is moderate mitral regurgitation. There is no evidence of mitral stenosis. Tricuspid Valve: The tricuspid valve leaflets are normal. There is trace tricuspid regurgitation. Unable to estimate the right ventricular systolic pressure. Pulmonic Valve: The pulmonic valve appears normal. There is a trace pulmonic regurgitation. There is no pulmonic stenosis. Pericardium: There is no significant pericardial effusion. A pericardial fat pad is visualized. Aorta: There is mild dilatation of the ascending aorta. There is no dilatation of the aortic arch. The aortic root is normal in size. Pulmonary Artery: The main pulmonary artery is not well visualized. Venous: The inferior vena cava appears normal in size. There is less than 50% respiratory change in the inferior vena cava dimension. Conclusions Mild to moderate concentric left ventricular hypertrophy is observed. Global left ventricular wall motion and contractility are within normal limits. The estimated ejection fraction is 50-55%. The right ventricular chamber size and systolic function are within normal limits. There is a trace of aortic regurgitation with aortic valve sclerosis. There is moderate mitral regurgitation. There is trace tricuspid regurgitation. Unable to estimate the right ventricular systolic pressure. Compared with prior echo of 03/11/15, EF previously 60-65%, MR has incresed from trace. Measurements Name Value Normal Range RVDdMajor (2D) 3.4 cm (2.2 - 4.4) RAd ISD 4CH 4.1 cm (3.4 - 4.9) RA (A4C)W 3.7 cm (2.9 - 4.6) IVSd (2D) 1.3 cm (0.6 - 1) LVPWd (2D) 1.2 cm (0.6 - 1) LVIDd (2D) 4.1 cm (3.6 - 5.4) LVIDs (2D) 2.8 cm - LV FS (2D) 31 % (25 - 45) Aortic Annulus 1.9 cm (1.4 - 2.6) Ao root diameter (2D) 3.1 cm (2.1 - 3.5) Ascending Ao 3.5 cm (2.1 - 3.4) Aortic arch 2.4 cm (1.8 - 3.4) LA dimension (AP) 2D 3.3 cm (2.3 - 3.8) LAd ISD 4CH 5.2 cm (2.9 - 5.3) LA ISD 4CH W 3.8 cm (2.5 - 4.5) Name Value Normal Range LA ESV SP 4CH (A/L) 51 ml - LA ESV SP 2CH (A/L) 39 ml - LA ESV BP (A/L) 48 ml - LA ESV BP (A/L) index 27.4 ml/m2 - LA ESV SP 4CH (MOD) 48 ml - LA ESV SP 2CH (MOD) 38 ml - Name Value Normal Range MV E-wave Vmax 1.1 m/sec - MV deceleration time 150 msec - MV A-wave Vmax 0.85 m/sec - MV E:A ratio 1.3 ratio - LV septal e' Vmax 0.08 m/sec - LV lateral e' Vmax 0.12 m/sec - LV E:e' septal ratio 13.8 ratio - LV E:e' lateral ratio 9.2 ratio - Name Value Normal Range AV Vmax 1.3 m/sec - LVOT Vmax 0.94 m/sec - NORY Vmax 0.69 m/sec - Name Value Normal Range IVC diameter 1.7 cm - Name Value Normal Range PV Vmax 0.8 m/sec -
[2016-07-04] MEDS: cefTRIAXone VIAL(*) 1,000 MG in NS 0.9% 50 ML* 50 ML IVPB SCH (15:11)
[2016-07-04] MEDS: Lisinopril TAB* 5 MG PO SCH (15:11)
--- NOTE | 2016-07-04 15:25 | PN ---
Subjective Date of Service: 07/04/16 - CC: SOB, diarrhea. Interval History: Breathing has improved, but pt continue to c/o generalized fatigue, coughing. No awareness of palpitations, racing, CP. Medications Active Medications: Aspirin (Aspirin Ec Low Dose*) 81 mg PO DAILY [facility] Last Admin: 07/04/16 08:18 Dose: 81 mg Duloxetine HCl (Cymbalta Cap*) 90 mg PO DAILY [facility] Last Admin: 07/04/16 08:18 Dose: 90 mg Gabapentin (Neurontin Cap(*)) 300 mg PO QID [facility] Last Admin: 07/04/16 13:07 Dose: 300 mg Heparin Sodium (Porcine) (Heparin Flush Picc/Ml/Cvc(*)) 1 ml FLUSH Q12H [facility] Last Admin: 07/04/16 11:22 Dose: Not Given Heparin Sodium (Porcine) (Heparin Vial(*)) 5,000 units SUBCUT Q12HR [facility] Ceftriaxone Sodium 1,000 mg/ (Sodium Chloride) 50 mls @ 200 mls/hr IVPB Q24H [facility] Last Admin: 07/04/16 15:11 Dose: 200 mls/hr Sodium Chloride (Ns 0.9% 1000 Ml*) 1,000 mls @ 5 mls/hr IV PER RATE [facility] Stop: 07/05/16 11:59 Last Admin: 07/04/16 13:07 Dose: 5 mls/hr Lansoprazole (Prevacid Solutab*) 30 mg PO DAILY [facility] Last Admin: 07/04/16 08:18 Dose: 30 mg Lisinopril (Prinivil Tab*) 5 mg PO DAILY [facility] Last Admin: 07/04/16 15:11 Dose: 5 mg Memantine (Namenda Xr Cap*) 28 mg PO BEDTIME [facility] Last Admin: 07/03/16 20:41 Dose: 28 mg Non-Formulary Medication (Melatonin [Melatonin]) 10 mg PO BEDTIME [facility] Last Admin: 07/03/16 21:15 Dose: Not Given Oxycodone HCl (Roxycodone Tab*) 5 mg PO Q4H PRN PRN Reason: PAIN Last Admin: 07/04/16 15:19 Dose: 5 mg Prednisone (Deltasone Tab*) 20 mg PO DAILY [facility] Topiramate (Topamax(*)) 200 mg PO BEDTIME [facility] Last Admin: 07/03/16 20:41 Dose: 200 mg Vancomycin HCl (Vancomycin Cap*) 125 mg PO QID [facility] Last Admin: 07/04/16 13:07 Dose: 125 mg Objective Vital Signs: Temp Pulse Resp BP Pulse Ox 98.2 F 87 16 144/66 97 07/04/16 11:20 07/04/16 14:00 07/04/16 14:00 07/04/16 14:00 07/04/16 14:00 Oxygen Devices in Use Now: Nasal Cannula Appearance: elderly female lying 20 degrees, appears wan but in NAD. Eyes: PERRLA Ears/Nose/Mouth/Throat: Mucous Membranes Moist Neck: Trachea Midline Respiratory: Symmetrical Chest Expansion and Respiratory Effort - persistent wheezing and rhonchi, coughs with deep breathing. Cardiovascular: RRR - no murmer. Skin: No Rash or Ulcers Neurological: Alert and Oriented x 3 Laboratory Results: 07/04/16 05:35 07/04/16 05:35 INR (Anticoag Therapy) 1.04 (0.89-1.11) 07/03/16 12:36 APTT 59.4 seconds (26.0-36.3) H 07/04/16 01:15 Total Bilirubin 0.60 mg/dL (0.2-1.0) 07/03/16 12:36 AST 86 U/L (13-39) H 07/03/16 12:36 ALT 28 U/L (7-52) 07/03/16 12:36 Alkaline Phosphatase 44 U/L (34-104) 07/03/16 12:36 B-Natriuretic Peptide 232 pg/mL (-100) H 07/03/16 12:36 Total Protein 6.1 g/dL (6.4-8.9) L 07/03/16 12:36 Albumin 2.9 g/dL (3.2-5.2) L 07/03/16 12:36 Globulin 3.2 g/dL (2-4) 07/03/16 12:36 Albumin/Globulin Ratio 0.9 (1-3) L 07/03/16 12:36 TSH 1.05 mcIU/mL (0.34-5.60) 07/03/16 12:36 07/03/16 07/03/16 07/03/16 16:01 18:25 21:20 Troponin I 1.78 H* 1.75 H* 1.47 H* Diagnostic Imaging: ECHO: EF 55-60%, Moderate MR (MR is new). EKG Data: Normal sinus rhythm Assessment/Plan 71 yo female with several days of respiratory illness, progressively sicker, presented to the ER yesterday with afib, RVR, Influenza A +, Strep Ag +, marked anion gap acidosis, MATTIE, small bump in troponins. The patient feels better s/p steroids, antibiotics, rate control, heparin and amoiodarone which kept her in NSR. Echo shows new MR, LV function mildly decreased from most recent baseline, no new wall motion abnormalities. Points of Discussion: Paroxysmal A. fib: Unknown duration, continue UF heparin for now, plan on outpatient anticoagulation. Rhythm: D/c of amiodarone noted, continue with supportive care of ID, option to resume diltiazem, verapamil or start beta yann when able. Troponin elevation: mild and stable, differential of demand ischemia vs. significant CAD + demand vs. afib alone. I don't recommend cath or stress now, when stable from pulmonary and ID standpoint consider a chemical or ambulatory stress test. Treat CAD risks Consider adding statin for LDL cholesterol o 191 ( or updating).
[2016-07-04] MEDS: NON FORMULARY MED* (Melatonin [Melatonin] 10 MG) PO SCH (20:38)
[2016-07-04] MEDS: Topiramate TAB(*) 100 MG PO SCH (20:48)
[2016-07-04] MEDS: Memantine XR CAP* 28 MG CAP.XR PO SCH (20:48)
[2016-07-04] MEDS: Heparin VIAL(*) 5000 UNITS/ML VIAL (FIVE THOUSAND) SUBCUT SCH (20:49)
[2016-07-05] MEDS ORDERED: Metoprolol Tartrate TAB* 25 MG PO ONE (02:00)
[2016-07-05] MEDS: oxyCODONE TAB* 5 MG TAB PO PRN ×2 (04:02→21:26)
[2016-07-05 05:18] LABS: Hematocrit 30 % (35-47); Hemoglobin 10.1 g/dl (12.0-16.0); Mean Corpuscular HGB Conc 34 g/dl (31-36); Mean Corpuscular Hemoglobin 33 pg (27-31); Mean Corpuscular Volume 97 fL (80-97); Mean Platelet Volume 7 um3 (7.4-10.4); Red Cell Distribution Width 14 % (10.5-15); White Blood Count 7.6 10^3/ul (3.5-10.8)
[2016-07-05 05:27] LABS: BUN/Creatinine Ratio 12.6 (8-20); Calcium 8.1 mg/dL (8.6-10.3); EGFR African American 17.6 (>60); EGFR Non-African American 13.7 (>60); Potassium 3.6 mmol/L (3.5-5.0)
--- NOTE | 2016-07-05 08:01 | RAD ---
INDICATION: Pneumonia. COMPARISON: Comparison is made with a prior study from July 03, 2016. TECHNIQUE: A portable view of the chest was obtained. FINDINGS: The heart is within normal limits on this portable exam. There is a PICC on the right side. The catheter tip projects over the right atrium. There are bilateral nodular infiltrates which appear new from the prior exam most consistent with pneumonia. No pleural effusion is seen. IMPRESSION: NEW BILATERAL INFILTRATES MOST CONSISTENT WITH PNEUMONIA, RECOMMEND FOLLOW-UP CHEST X-RAY STUDIES TO RESOLUTION.
[2016-07-05] MEDS ORDERED: Furosemide IV* 10 MG/ML 10 ML VIAL (100 MG) IV ONE ×2 (08:03)
[2016-07-05] MEDS: Lansoprazole SOLUTAB* 30 MG PO SCH (08:07)
[2016-07-05] MEDS: predniSONE TAB* 20 MG PO SCH (08:07)
[2016-07-05] MEDS: Aspirin EC Low Dose* 81 MG TAB.EC PO SCH (08:08)
[2016-07-05] MEDS: Lisinopril TAB* 5 MG PO SCH (08:08)
[2016-07-05] MEDS: Gabapentin CAP(*) 300 MG PO SCH ×4 (08:09→21:25)
[2016-07-05] MEDS: DULoxetine DR CAP* 30 MG CAP.DR PO SCH (08:09)
[2016-07-05] MEDS: Heparin VIAL(*) 5000 UNITS/ML VIAL (FIVE THOUSAND) SUBCUT SCH ×2 (08:12→21:26)
--- NOTE | 2016-07-05 08:19 | PN ---
Subjective Date of Service: 07/05/16 Interval History: Feels better today. No new c/o. She feels she is too weak to go home today. Objective Active Medications: Aspirin (Aspirin Ec Low Dose*) 81 mg PO DAILY [facility] Last Admin: 07/04/16 08:18 Dose: 81 mg Duloxetine HCl (Cymbalta Cap*) 90 mg PO DAILY [facility] Last Admin: 07/04/16 08:18 Dose: 90 mg Furosemide (Lasix Iv*) 40 mg IV ONCE ONE Stop: 07/05/16 08:04 Gabapentin (Neurontin Cap(*)) 300 mg PO QID [facility] Last Admin: 07/04/16 20:48 Dose: 300 mg Heparin Sodium (Porcine) (Heparin Flush Picc/Ml/Cvc(*)) 1 ml FLUSH Q12H [facility] Last Admin: 07/04/16 20:49 Dose: 1 ml Heparin Sodium (Porcine) (Heparin Vial(*)) 5,000 units SUBCUT Q12HR [facility] Last Admin: 07/04/16 20:49 Dose: 5,000 units Ceftriaxone Sodium 1,000 mg/ (Sodium Chloride) 50 mls @ 200 mls/hr IVPB Q24H [facility] Last Admin: 07/04/16 15:11 Dose: 200 mls/hr Lansoprazole (Prevacid Solutab*) 30 mg PO DAILY [facility] Last Admin: 07/04/16 08:18 Dose: 30 mg Lisinopril (Prinivil Tab*) 5 mg PO DAILY [facility] Last Admin: 07/04/16 15:11 Dose: 5 mg Memantine (Namenda Xr Cap*) 28 mg PO BEDTIME [facility] Last Admin: 07/04/16 20:48 Dose: 28 mg Non-Formulary Medication (Melatonin [Melatonin]) 10 mg PO BEDTIME [facility] Last Admin: 07/04/16 20:38 Dose: Not Given Oxycodone HCl (Roxycodone Tab*) 5 mg PO Q4H PRN PRN Reason: PAIN Last Admin: 07/05/16 04:02 Dose: 5 mg Prednisone (Deltasone Tab*) 20 mg PO DAILY [facility] Topiramate (Topamax(*)) 200 mg PO BEDTIME [facility] Last Admin: 07/04/16 20:48 Dose: 200 mg Vital Signs 07/04/16 07/04/16 07/04/16 08:28 08:30 09:00 Temperature Pulse Rate 81 81 83 Respiratory 20 22 22 Rate Blood Pressure 129/65 125/56 144/74 (mmHg) O2 Sat by Pulse 98 98 99 Oximetry 07/04/16 07/04/16 07/04/16 09:30 10:00 10:30 Temperature Pulse Rate 82 81 82 Respiratory 19 18 19 Rate Blood Pressure 118/73 121/64 132/62 (mmHg) O2 Sat by Pulse 97 98 98 Oximetry 07/04/16 07/04/16 07/04/16 11:00 11:20 11:30 Temperature 98.2 F Pulse Rate 84 81 Respiratory 19 19 Rate Blood Pressure 136/65 126/65 (mmHg) O2 Sat by Pulse 98 98 Oximetry 07/04/16 07/04/16 07/04/16 12:00 12:30 13:00 Temperature Pulse Rate 82 85 81 Respiratory 21 25 19 Rate Blood Pressure 135/65 140/67 134/70 (mmHg) O2 Sat by Pulse 98 98 97 Oximetry 07/04/16 07/04/16 07/04/16 13:30 14:00 14:30 Temperature Pulse Rate 87 87 86 Respiratory 20 23 26 Rate Blood Pressure 150/70 144/66 158/69 (mmHg) O2 Sat by Pulse 97 97 97 Oximetry 07/04/16 07/04/16 07/04/16 15:00 16:15 17:27 Temperature 97.5 F Pulse Rate 89 80 Respiratory 23 20 16 Rate Blood Pressure 138/65 136/64 (mmHg) O2 Sat by Pulse 97 95 Oximetry 07/04/16 07/04/16 07/04/16 19:27 20:00 20:29 Temperature Pulse Rate 92 Respiratory 18 28 18 Rate Blood Pressure (mmHg) O2 Sat by Pulse 96 Oximetry 07/04/16 07/04/16 07/04/16 20:48 22:48 23:37 Temperature Pulse Rate 104 Respiratory 18 28 28 Rate Blood Pressure 166/79 (mmHg) O2 Sat by Pulse 91 Oximetry 07/05/16 07/05/16 07/05/16 00:05 00:51 04:02 Temperature Pulse Rate Respiratory 18 Rate Blood Pressure 166/86 (mmHg) O2 Sat by Pulse 93 Oximetry 07/05/16 07/05/16 06:02 07:41 Temperature 98.4 F Pulse Rate 93 Respiratory 20 28 Rate Blood Pressure 127/55 (mmHg) O2 Sat by Pulse 86 Oximetry Oxygen Devices in Use Now: Nasal Cannula Appearance: Alert, sitting up in bed. In good psirits. Looks comfortable. Eyes: No Scleral Icterus Ears/Nose/Mouth/Throat: Clear Oropharnyx, Mucous Membranes Moist Neck: No Thyroid Enlargement, Masses, - - JVD at 30 degrees Respiratory: Symmetrical Chest Expansion and Respiratory Effort, Clear to Percussion - mild to mod rhonchi BL Cardiovascular: NL Sounds; No Murmurs; No JVD, RRR, No Edema, - Extremities: No Edema, No Clubbing, Cyanosis, - Skin: No Rash or Ulcers, No Nodules or Sclerosis, - Neurological: Alert and Oriented x 3, NL Sensation, - - Speech very halting. Result Diagrams: 07/05/16 04:45 07/05/16 04:45 Additional Lab and Data: Lab Results 07/03/16 07/03/16 07/03/16 Range/Units 12:36 12:36 12:36 WBC 4.1 (3.5-10.8) 10^3/ul RBC 3.94 L (4.0-5.4) 10^6/ul Hgb 12.9 (12.0-16.0) g/dl Hct 39 (35-47) % MCV 98 H (80-97) fL MCH 33 H (27-31) pg MCHC 33 (31-36) g/dl RDW 14 (10.5-15) % Plt Count 184 (150-450) 10^3/ul MPV 7 L (7.4-10.4) um3 Neut % (Auto) 80.3 (38-83) % Lymph % (Auto) 9.6 L (25-47) % [place] % (Auto) 10.0 H (1-9) % Eos % (Auto) 0 (0-6) % Baso % (Auto) 0.1 (0-2) % Absolute Neuts (auto) 3.3 (1.5-7.7) 10^3/ul Absolute Lymphs (auto) 0.4 L (1.0-4.8) 10^3/ul Absolute Monos (auto) 0.4 (0-0.8) 10^3/ul Absolute Eos (auto) 0 (0-0.6) 10^3/ul Absolute Basos (auto) 0 (0-0.2) 10^3/ul Absolute Nucleated RBC 0 10^3/ul Nucleated RBC % 0.1 INR (Anticoag Therapy) (0.89-1.11) Sodium 121 L (133-145) mmol/L Potassium 3.5 (3.5-5.0) mmol/L Chloride 91 L (101-111) mmol/L Carbon Dioxide 14 L* (22-32) mmol/L Anion Gap 16 H (2-11) mmol/L BUN 36 H (6-24) mg/dL Creatinine 3.67 H (0.51-0.95) mg/dL Est GFR ( Amer) 15.7 (>60) Est GFR (Non-Af Amer) 12.2 (>60) BUN/Creatinine Ratio 9.8 (8-20) Glucose 112 H (70-100) mg/dL Lactic Acid 3.3 H* (0.5-2.0) mmol/L Calcium 7.9 L (8.6-10.3) mg/dL Magnesium 1.6 L (1.9-2.7) mg/dL Total Bilirubin 0.60 (0.2-1.0) mg/dL AST 86 H (13-39) U/L ALT 28 (7-52) U/L Alkaline Phosphatase 44 (34-104) U/L Troponin I 2.07 H* (<0.04) ng/mL B-Natriuretic Peptide ( - 100) pg/mL Total Protein 6.1 L (6.4-8.9) g/dL Albumin 2.9 L (3.2-5.2) g/dL Globulin 3.2 (2-4) g/dL Albumin/Globulin Ratio 0.9 L (1-3) Procalcitonin (<0.6) ng/mL TSH 1.05 (0.34-5.60) mcIU/mL Thyroxine (T4) 8.50 (6.09-12.23) g/dL Influenza A (Rapid) (Negative) Influenza B (Rapid) (Negative) 07/03/16 07/03/16 07/03/16 Range/Units 12:36 12:36 12:36 WBC (3.5-10.8) 10^3/ul RBC (4.0-5.4) 10^6/ul Hgb (12.0-16.0) g/dl Hct (35-47) % MCV (80-97) fL MCH (27-31) pg MCHC (31-36) g/dl RDW (10.5-15) % Plt Count (150-450) 10^3/ul MPV (7.4-10.4) um3 Neut % (Auto) (38-83) % Lymph % (Auto) (25-47) % [place] % (Auto) (1-9) % Eos % (Auto) (0-6) % Baso % (Auto) (0-2) % Absolute Neuts (auto) (1.5-7.7) 10^3/ul Absolute Lymphs (auto) (1.0-4.8) 10^3/ul Absolute Monos (auto) (0-0.8) 10^3/ul Absolute Eos (auto) (0-0.6) 10^3/ul Absolute Basos (auto) (0-0.2) 10^3/ul Absolute Nucleated RBC 10^3/ul Nucleated RBC % INR (Anticoag Therapy) 1.04 (0.89-1.11) Sodium (133-145) mmol/L Potassium (3.5-5.0) mmol/L Chloride (101-111) mmol/L Carbon Dioxide (22-32) mmol/L Anion Gap (2-11) mmol/L BUN (6-24) mg/dL Creatinine (0.51-0.95) mg/dL Est GFR ( Amer) (>60) Est GFR (Non-Af Amer) (>60) BUN/Creatinine Ratio (8-20) Glucose (70-100) mg/dL Lactic Acid (0.5-2.0) mmol/L Calcium (8.6-10.3) mg/dL Magnesium (1.9-2.7) mg/dL Total Bilirubin (0.2-1.0) mg/dL AST (13-39) U/L ALT (7-52) U/L Alkaline Phosphatase (34-104) U/L Troponin I (<0.04) ng/mL B-Natriuretic Peptide 232 H ( - 100) pg/mL Total Protein (6.4-8.9) g/dL Albumin (3.2-5.2) g/dL Globulin (2-4) g/dL Albumin/Globulin Ratio (1-3) Procalcitonin 16.3 H (<0.6) ng/mL TSH (0.34-5.60) mcIU/mL Thyroxine (T4) (6.09-12.23) g/dL Influenza A (Rapid) (Negative) Influenza B (Rapid) (Negative) 07/03/16 Range/Units 12:47 WBC (3.5-10.8) 10^3/ul RBC (4.0-5.4) 10^6/ul Hgb (12.0-16.0) g/dl Hct (35-47) % MCV (80-97) fL MCH (27-31) pg MCHC (31-36) g/dl RDW (10.5-15) % Plt Count (150-450) 10^3/ul MPV (7.4-10.4) um3 Neut % (Auto) (38-83) % Lymph % (Auto) (25-47) % [place] % (Auto) (1-9) % Eos % (Auto) (0-6) % Baso % (Auto) (0-2) % Absolute Neuts (auto) (1.5-7.7) 10^3/ul Absolute Lymphs (auto) (1.0-4.8) 10^3/ul Absolute Monos (auto) (0-0.8) 10^3/ul Absolute Eos (auto) (0-0.6) 10^3/ul Absolute Basos (auto) (0-0.2) 10^3/ul Absolute Nucleated RBC 10^3/ul Nucleated RBC % INR (Anticoag Therapy) (0.89-1.11) Sodium (133-145) mmol/L Potassium (3.5-5.0) mmol/L Chloride (101-111) mmol/L Carbon Dioxide (22-32) mmol/L Anion Gap (2-11) mmol/L BUN (6-24) mg/dL Creatinine (0.51-0.95) mg/dL Est GFR ( Amer) (>60) Est GFR (Non-Af Amer) (>60) BUN/Creatinine Ratio (8-20) Glucose (70-100) mg/dL Lactic Acid (0.5-2.0) mmol/L Calcium (8.6-10.3) mg/dL Magnesium (1.9-2.7) mg/dL Total Bilirubin (0.2-1.0) mg/dL AST (13-39) U/L ALT (7-52) U/L Alkaline Phosphatase (34-104) U/L Troponin I (<0.04) ng/mL B-Natriuretic Peptide ( - 100) pg/mL Total Protein (6.4-8.9) g/dL Albumin (3.2-5.2) g/dL Globulin (2-4) g/dL Albumin/Globulin Ratio (1-3) Procalcitonin (<0.6) ng/mL TSH (0.34-5.60) mcIU/mL Thyroxine (T4) (6.09-12.23) g/dL Influenza A (Rapid) Positive H (Negative) Influenza B (Rapid) Negative (Negative) Microbiology and Other Data: Microbiology 07/03/16 22:50 Legionella Urinary Antigen - Final Urine Negative Legionella Streptococcus pneumoniae Ag Screen - Final Positive S. Pneumo Antigen 07/03/16 15:00 Nasal Screen MRSA (PCR)(JESSIE) - Final Nasal Mrsa Negative Assess/Plan/Problems-Billing Assessment: - Patient Problems (1) Severe sepsis Current Visit: Yes Status: Acute Code(s): A41.9 - SEPSIS, UNSPECIFIED ORGANISM; R65.20 - SEVERE SEPSIS WITHOUT SEPTIC SHOCK SNOMED Code(s): 95057178 Comment: Acidosis improved. Afebrile. BP back to normal, was low first hospital day. Flu swab pending. Pneumococcal antigen positive. Contine ceftriaxone. (2) PAF (paroxysmal atrial fibrillation) Current Visit: Yes Status: Acute Code(s): I48.0 - PAROXYSMAL ATRIAL FIBRILLATION SNOMED Code(s): 439091586 Comment: NSR on 07/05/16. Consider anticoagulation. (3) Volume overload Current Visit: Yes Status: Acute Code(s): E87.70 - FLUID OVERLOAD, UNSPECIFIED SNOMED Code(s): 89246239 Comment: Balance 5233 ml 07/04/16. Furosemide 40 mg IV 07/05/16. BMP 07/06/16. (4) Temporal arteritis Current Visit: Yes Status: Acute Code(s): M31.6 - OTHER GIANT CELL ARTERITIS SNOMED Code(s): 901552970 Comment: Under care of Dr. Tarango. Recently on prednisone 15 mg daily. ESR 07/06/16. Continue prednisone 20 mg daily for now. (5) Hypercholesterolemia Current Visit: Yes Status: Acute Code(s): E78.00 - PURE HYPERCHOLESTEROLEMIA , UNSPECIFIED SNOMED Code(s): 29729839 Comment: LDL 191 12/2014. Atorvastatin 20 mg daily to start 07/06/16. Lipid profile 07/06. (6) GERD (gastroesophageal reflux disease) Current Visit: Yes Status: Acute Code(s): K21.9 - GASTRO-ESOPHAGEAL REFLUX DISEASE WITHOUT ESOPHAGITIS SNOMED Code(s): 194938554 Comment: Continue lansoprazole.
[2016-07-05] MEDS: Metoprolol Tartrate IV* 1 MG/ML 5 ML VIAL IV PRN (11:11)
[2016-07-05] MEDS: Metoprolol Tartrate TAB* 25 MG PO SCH ×2 (11:13→21:25)
[2016-07-05] MEDS: cefTRIAXone VIAL(*) 1,000 MG in NS 0.9% 50 ML* 50 ML IVPB SCH (15:03)
[2016-07-05] MEDS ORDERED: Atorvastatin* 20 MG TAB PO SCH (17:00)
[2016-07-05] MEDS: Topiramate TAB(*) 100 MG PO SCH (21:25)
[2016-07-05] MEDS: Memantine XR CAP* 28 MG CAP.XR PO SCH (21:26)
[2016-07-05] MEDS ORDERED: Alteplase (CATHFLO)* 2 MG VIAL IV ONE (21:34)
[2016-07-06 01:07] LABS: BUN/Creatinine Ratio 13.5 (8-20); Calcium 8.4 mg/dL (8.6-10.3); EGFR African American 18.6 (>60); EGFR Non-African American 14.4 (>60); Magnesium 1.9 mg/dL (1.9-2.7); Potassium 3.7 mmol/L (3.5-5.0)
[2016-07-06 04:24] LABS: BUN/Creatinine Ratio 14.3 (8-20); Calcium 8.8 mg/dL (8.6-10.3); EGFR African American 19.2 (>60); HDL Cholesterol 22.1 mg/dL; Potassium 3.4 mmol/L (3.5-5.0)
[2016-07-06] MEDS: Heparin VIAL(*) 5000 UNITS/ML VIAL (FIVE THOUSAND) SUBCUT SCH (07:52)
[2016-07-06] MEDS: oxyCODONE TAB* 5 MG TAB PO PRN ×2 (07:53→13:27)
[2016-07-06] MEDS: predniSONE TAB* 20 MG PO SCH (07:53)
[2016-07-06] MEDS: Metoprolol Tartrate TAB* 25 MG PO SCH ×2 (07:53→20:33)
[2016-07-06] MEDS: Aspirin EC Low Dose* 81 MG TAB.EC PO SCH (07:54)
[2016-07-06] MEDS: Gabapentin CAP(*) 300 MG PO SCH ×2 (07:54→20:32)
[2016-07-06] MEDS: Lansoprazole SOLUTAB* 30 MG PO SCH (07:54)
[2016-07-06] MEDS ORDERED: Furosemide IV* 10 MG/ML VIAL (40 MG) IV ONE ×2 (09:31→13:56)
[2016-07-06] MEDS ORDERED: Furosemide IV* 10 MG/ML VIAL (40 MG) ONE (09:48)
[2016-07-06] MEDS ORDERED: Potassium Chlor TAB* 20 MEQ TAB.ER PO ONE (10:13)
[2016-07-06 11:17] LABS: Hematocrit 30 % (35-47); Hemoglobin 10.2 g/dl (12.0-16.0); Mean Corpuscular HGB Conc 34 g/dl (31-36); Mean Corpuscular Hemoglobin 33 pg (27-31); Mean Corpuscular Volume 97 fL (80-97); Mean Platelet Volume 7 um3 (7.4-10.4); Red Blood Count 3.07 10^6/ul (4.0-5.4); Red Cell Distribution Width 14 % (10.5-15); White Blood Count 10.3 10^3/ul (3.5-10.8)
[2016-07-06] MEDS: Heparin DRIP 25,000 UNITS(*) 25,000 UNITS/500 ML BAG IVPB SCH (11:34)
[2016-07-06] MEDS: Heparin VIAL(*) 5000 UNITS/ML VIAL (FIVE THOUSAND) IV SCH (11:35)
--- NOTE | 2016-07-06 13:21 | RAD ---
INDICATION: Renal failure COMPARISON: Similar examination dated October 19, 2014 TECHNIQUE: Real-time ultrasound examination of the bilateral kidneys and urinary bladder including grayscale and Doppler color flow analysis. FINDINGS: The right kidney measures 10 x 4.4 x 5.5 cm. The cortex measures a minimum width of 1.1 cm. There is a benign cyst incidentally noted. The left kidney measures 10.8 x 5.5 x 5.0 cm. IMPRESSION: No hydronephrosis or other acute abnormality of either kidney.
[2016-07-06] MEDS: Oseltamivir CAP* 30 MG CAP PO SCH (13:26)
[2016-07-06] MEDS: Verapamil TAB* 80 MG PO SCH ×2 (13:26→21:46)
--- NOTE | 2016-07-06 14:12 | PN ---
Subjective Date of Service: 07/06/16 Interval History: Pt is more SOB today. Needed to be placed on 10 L mask. confused last night, but today oriented, but occasionally confused as per daughter [place] visiting [place] Objective Active Medications: Aspirin (Aspirin Ec Low Dose*) 81 mg PO DAILY [facility] Last Admin: 07/06/16 07:54 Dose: 81 mg Atorvastatin Calcium (Lipitor*) 20 mg PO 1700 [facility] Furosemide (Lasix Iv*) 40 mg IV ONCE ONE Stop: 07/06/16 13:57 Gabapentin (Neurontin Cap(*)) 300 mg PO BID [facility] Last Admin: 07/06/16 07:54 Dose: 300 mg Heparin Sodium (Porcine) (Heparin Flush Picc/Ml/Cvc(*)) 1 ml FLUSH Q12H [facility] Last Admin: 07/06/16 07:51 Dose: 1 ml Heparin Sodium (Porcine) (Heparin Vial(*)) 0 units IV .PER PROTOCOL [facility] PRN Reason: Protocol Last Admin: 07/06/16 11:35 Dose: 5,900 units Ceftriaxone Sodium 1,000 mg/ (Sodium Chloride) 50 mls @ 200 mls/hr IVPB Q24H [facility] Last Admin: 07/05/16 15:03 Dose: 200 mls/hr Heparin Sodium/Dextrose (Heparin Drip 25,000 Units(*)) 25,000 units in 500 mls @ 0 mls/hr IVPB .PER RATE [facility]; Per Protocol PRN Reason: Protocol Last Admin: 07/06/16 11:34 Dose: 22 mls/hr Lactobacillus Rhamnosus (Culturelle*) 1 cap PO BID [facility] Lansoprazole (Prevacid Solutab*) 30 mg PO DAILY [facility] Last Admin: 07/06/16 07:54 Dose: 30 mg Memantine (Namenda Xr Cap*) 28 mg PO BEDTIME [facility] Last Admin: 07/05/16 21:26 Dose: 28 mg Metoprolol Tartrate (Lopressor Iv*) 5 mg IV Q3H PRN PRN Reason: TACHYCARDIA Last Admin: 07/05/16 11:11 Dose: 5 mg Metoprolol Tartrate (Lopressor Tab*) 25 mg PO BID [facility] Last Admin: 07/06/16 07:53 Dose: 25 mg Oseltamivir Phosphate (Tamiflu Cap*) 30 mg PO DAILY [facility] Stop: 07/10/16 09:01 Last Admin: 07/06/16 13:26 Dose: 30 mg Oxycodone HCl (Roxycodone Tab*) 5 mg PO Q4H PRN PRN Reason: PAIN Last Admin: 07/06/16 13:27 Dose: 5 mg Pharmacy Profile Note (Coumadin Daily Reminder*) 1 note FOLLOW UP 1700 [facility] Prednisone (Deltasone Tab*) 20 mg PO DAILY [facility] Last Admin: 07/06/16 07:53 Dose: 20 mg Topiramate (Topamax(*)) 200 mg PO BEDTIME [facility] Last Admin: 07/05/16 21:25 Dose: 200 mg Vancomycin HCl (Vancomycin Cap*) 250 mg PO Q8HR [facility] Verapamil HCl (Calan Tab*) 80 mg PO TID [facility] Last Admin: 07/06/16 13:26 Dose: 80 mg Warfarin Sodium (Coumadin Tab(*)) 5 mg PO DAILY@1700 [facility] PRN Reason: Protocol Vital Signs 07/05/16 07/05/16 07/05/16 15:38 16:22 18:22 Temperature 97.8 F Pulse Rate 106 Respiratory 28 23 28 Rate Blood Pressure 113/59 (mmHg) O2 Sat by Pulse 94 Oximetry 07/05/16 07/05/16 07/05/16 18:38 19:50 20:00 Temperature 97.7 F Pulse Rate 109 Respiratory 19 28 Rate Blood Pressure 114/76 (mmHg) O2 Sat by Pulse 94 94 Oximetry 07/05/16 07/05/16 07/05/16 21:25 21:26 23:25 Temperature Pulse Rate Respiratory 28 28 28 Rate Blood Pressure (mmHg) O2 Sat by Pulse Oximetry 07/05/16 07/05/16 07/06/16 23:26 23:55 00:00 Temperature Pulse Rate 91 Respiratory 28 32 Rate Blood Pressure 157/77 (mmHg) O2 Sat by Pulse 92 94 Oximetry 07/06/16 07/06/16 07/06/16 00:08 03:02 03:04 Temperature Pulse Rate 106 115 93 Respiratory 28 28 Rate Blood Pressure 121/48 160/72 134/73 (mmHg) O2 Sat by Pulse 94 95 95 Oximetry 07/06/16 07/06/16 07/06/16 07:52 07:53 07:54 Temperature 97.3 F Pulse Rate 107 Respiratory 22 22 Rate Blood Pressure 134/72 (mmHg) O2 Sat by Pulse 84 Oximetry 07/06/16 07/06/16 07/06/16 08:00 09:53 09:54 Temperature Pulse Rate Respiratory 24 20 20 Rate Blood Pressure (mmHg) O2 Sat by Pulse Oximetry 07/06/16 13:27 Temperature Pulse Rate Respiratory 24 Rate Blood Pressure (mmHg) O2 Sat by Pulse Oximetry Oxygen Devices in Use Now: Simple Face Mask - at 10 l Appearance: 74 yo F in nAD, aAOx3, poor historian Eyes: No Scleral Icterus, PERRLA Ears/Nose/Mouth/Throat: NL Teeth, Lips, Gums Neck: NL Appearance and Movements; NL JVP, Trachea Midline Respiratory: - - rales b/l Cardiovascular: NL Sounds; No Murmurs; No JVD, RRR Abdominal: NL Sounds; No Tenderness; No Distention Lymphatic: No Cervical Adenopathy Extremities: No Edema, No Clubbing, Cyanosis Skin: No Rash or Ulcers, No Nodules or Sclerosis Neurological: NL Muscle Strength and Tone Result Diagrams: 07/06/16 10:55 07/06/16 10:55 Additional Lab and Data: Lab Results 07/03/16 07/03/16 07/03/16 Range/Units 12:36 12:36 12:36 WBC 4.1 (3.5-10.8) 10^3/ul RBC 3.94 L (4.0-5.4) 10^6/ul Hgb 12.9 (12.0-16.0) g/dl Hct 39 (35-47) % MCV 98 H (80-97) fL MCH 33 H (27-31) pg MCHC 33 (31-36) g/dl RDW 14 (10.5-15) % Plt Count 184 (150-450) 10^3/ul MPV 7 L (7.4-10.4) um3 Neut % (Auto) 80.3 (38-83) % Lymph % (Auto) 9.6 L (25-47) % [place] % (Auto) 10.0 H (1-9) % Eos % (Auto) 0 (0-6) % Baso % (Auto) 0.1 (0-2) % Absolute Neuts (auto) 3.3 (1.5-7.7) 10^3/ul Absolute Lymphs (auto) 0.4 L (1.0-4.8) 10^3/ul Absolute Monos (auto) 0.4 (0-0.8) 10^3/ul Absolute Eos (auto) 0 (0-0.6) 10^3/ul Absolute Basos (auto) 0 (0-0.2) 10^3/ul Absolute Nucleated RBC 0 10^3/ul Nucleated RBC % 0.1 INR (Anticoag Therapy) (0.89-1.11) Sodium 121 L (133-145) mmol/L Potassium 3.5 (3.5-5.0) mmol/L Chloride 91 L (101-111) mmol/L Carbon Dioxide 14 L* (22-32) mmol/L Anion Gap 16 H (2-11) mmol/L BUN 36 H (6-24) mg/dL Creatinine 3.67 H (0.51-0.95) mg/dL Est GFR ( Amer) 15.7 (>60) Est GFR (Non-Af Amer) 12.2 (>60) BUN/Creatinine Ratio 9.8 (8-20) Glucose 112 H (70-100) mg/dL Lactic Acid 3.3 H* (0.5-2.0) mmol/L Calcium 7.9 L (8.6-10.3) mg/dL Magnesium 1.6 L (1.9-2.7) mg/dL Total Bilirubin 0.60 (0.2-1.0) mg/dL AST 86 H (13-39) U/L ALT 28 (7-52) U/L Alkaline Phosphatase 44 (34-104) U/L Troponin I 2.07 H* (<0.04) ng/mL B-Natriuretic Peptide ( - 100) pg/mL Total Protein 6.1 L (6.4-8.9) g/dL Albumin 2.9 L (3.2-5.2) g/dL Globulin 3.2 (2-4) g/dL Albumin/Globulin Ratio 0.9 L (1-3) Procalcitonin (<0.6) ng/mL TSH 1.05 (0.34-5.60) mcIU/mL Thyroxine (T4) 8.50 (6.09-12.23) g/dL Influenza A (Rapid) (Negative) Influenza B (Rapid) (Negative) 01/07/1907/03/16 07/03/16 Range/Units 12:36 12:36 12:36 WBC (3.5-10.8) 10^3/ul RBC (4.0-5.4) 10^6/ul Hgb (12.0-16.0) g/dl Hct (35-47) % MCV (80-97) fL MCH (27-31) pg MCHC (31-36) g/dl RDW (10.5-15) % Plt Count (150-450) 10^3/ul MPV (7.4-10.4) um3 Neut % (Auto) (38-83) % Lymph % (Auto) (25-47) % [place] % (Auto) (1-9) % Eos % (Auto) (0-6) % Baso % (Auto) (0-2) % Absolute Neuts (auto) (1.5-7.7) 10^3/ul Absolute Lymphs (auto) (1.0-4.8) 10^3/ul Absolute Monos (auto) (0-0.8) 10^3/ul Absolute Eos (auto) (0-0.6) 10^3/ul Absolute Basos (auto) (0-0.2) 10^3/ul Absolute Nucleated RBC 10^3/ul Nucleated RBC % INR (Anticoag Therapy) 1.04 (0.89-1.11) Sodium (133-145) mmol/L Potassium (3.5-5.0) mmol/L Chloride (101-111) mmol/L Carbon Dioxide (22-32) mmol/L Anion Gap (2-11) mmol/L BUN (6-24) mg/dL Creatinine (0.51-0.95) mg/dL Est GFR ( Amer) (>60) Est GFR (Non-Af Amer) (>60) BUN/Creatinine Ratio (8-20) Glucose (70-100) mg/dL Lactic Acid (0.5-2.0) mmol/L Calcium (8.6-10.3) mg/dL Magnesium (1.9-2.7) mg/dL Total Bilirubin (0.2-1.0) mg/dL AST (13-39) U/L ALT (7-52) U/L Alkaline Phosphatase (34-104) U/L Troponin I (<0.04) ng/mL B-Natriuretic Peptide 232 H ( - 100) pg/mL Total Protein (6.4-8.9) g/dL Albumin (3.2-5.2) g/dL Globulin (2-4) g/dL Albumin/Globulin Ratio (1-3) Procalcitonin 16.3 H (<0.6) ng/mL TSH (0.34-5.60) mcIU/mL Thyroxine (T4) (6.09-12.23) g/dL Influenza A (Rapid) (Negative) Influenza B (Rapid) (Negative) 07/03/16 Range/Units 12:47 WBC (3.5-10.8) 10^3/ul RBC (4.0-5.4) 10^6/ul Hgb (12.0-16.0) g/dl Hct (35-47) % MCV (80-97) fL MCH (27-31) pg MCHC (31-36) g/dl RDW (10.5-15) % Plt Count (150-450) 10^3/ul MPV (7.4-10.4) um3 Neut % (Auto) (38-83) % Lymph % (Auto) (25-47) % [place] % (Auto) (1-9) % Eos % (Auto) (0-6) % Baso % (Auto) (0-2) % Absolute Neuts (auto) (1.5-7.7) 10^3/ul Absolute Lymphs (auto) (1.0-4.8) 10^3/ul Absolute Monos (auto) (0-0.8) 10^3/ul Absolute Eos (auto) (0-0.6) 10^3/ul Absolute Basos (auto) (0-0.2) 10^3/ul Absolute Nucleated RBC 10^3/ul Nucleated RBC % INR (Anticoag Therapy) (0.89-1.11) Sodium (133-145) mmol/L Potassium (3.5-5.0) mmol/L Chloride (101-111) mmol/L Carbon Dioxide (22-32) mmol/L Anion Gap (2-11) mmol/L BUN (6-24) mg/dL Creatinine (0.51-0.95) mg/dL Est GFR ( Amer) (>60) Est GFR (Non-Af Amer) (>60) BUN/Creatinine Ratio (8-20) Glucose (70-100) mg/dL Lactic Acid (0.5-2.0) mmol/L Calcium (8.6-10.3) mg/dL Magnesium (1.9-2.7) mg/dL Total Bilirubin (0.2-1.0) mg/dL AST (13-39) U/L ALT (7-52) U/L Alkaline Phosphatase (34-104) U/L Troponin I (<0.04) ng/mL B-Natriuretic Peptide ( - 100) pg/mL Total Protein (6.4-8.9) g/dL Albumin (3.2-5.2) g/dL Globulin (2-4) g/dL Albumin/Globulin Ratio (1-3) Procalcitonin (<0.6) ng/mL TSH (0.34-5.60) mcIU/mL Thyroxine (T4) (6.09-12.23) g/dL Influenza A (Rapid) Positive H (Negative) Influenza B (Rapid) Negative (Negative) Microbiology and Other Data: Microbiology 07/03/16 22:50 Legionella Urinary Antigen - Final Urine Negative Legionella Streptococcus pneumoniae Ag Screen - Final Positive S. Pneumo Antigen 07/03/16 15:00 Nasal Screen MRSA (PCR)(JESSIE) - Final Nasal Mrsa Negative Assess/Plan/Problems-Billing Assessment: 71 yo F with h/o CHF, severe c. Diff (2 years ago) presented with sepsis, Influenza A, Strep pneumo PNA, A. fib with RVR - Patient Problems (1) Acute respiratory failure with hypoxemia Comment: Due to pneumonia and CHF (2) Severe sepsis Comment: due to strep pneumo pneumonia and Influenza A. Severe sepsis with acute renal failure and respratory failure was present at admission Cont Ceftriaxone and Tamiflu Due to h/o severe and life threatening C. diff infection 2 years ago family was alererted by doctors from [facility] to tx prophylactically with PO Vancomycin if pt requires antibiotics. Although there is no evidence re: prophylaxis with PO Vancomycin in pt with h/o c. diff who need antibiotic tx for other condition, pt is severely ill and it may be life threatening if she develops C. Diff. At this point the benefit of tx with PO Vanco outweights the risks and will start PO Vanc and cont Culturelle. (3) PAF (paroxysmal atrial fibrillation) Comment: currently in NSR, but is in A. fib nightly will start heparin gtt and coumadin for antocoagulation. Risks d/w pt and family. Cont metoprolol and restart Verapamil. echo shows EF 55% (4) Acute diastolic CHF (congestive heart failure) Comment: CXR from 07/05/16 consistent with b/l pneumonia and CHF will cont daily weights and 2 x Lasix IV 40 mg each today. (5) Temporal arteritis Comment: Under care of Dr. Tarango. Recently on prednisone 15 mg daily. ESR 07/06/16 at 120. Continue prednisone 20 mg daily for now. (6) Cluster headache Comment: none today. Verapamil restarted today (7) Acute renal failure Comment: due to severe sepsis renal US unremarkable FeNa 0.6 suggests prerenal azotemia, but abnormal UA with granular casts may be suggestive of ATN At this point I believe it is due to a combination of prerenal and ATN. due to worsening respiratory status will tx pt woith Lasix and monitor creat closely (8) Troponin I above reference range Comment: max at 1.7 at admission suspect demand ischemia. Echo shows mod MR and no wall motion abn. Cardiology consulted, no further diagnostics recommended (9) DVT prophylaxis Comment: on heparin gtt. coumadin started on 07/06/16, INR daily
[2016-07-06] MEDS: Vancomycin CAP* 250 MG CAP PO SCH ×2 (15:15→21:46)
[2016-07-06 16:08] LABS: FIO2 9
[2016-07-06 16:12] LABS: PCO2 Arterial 32 mmHg (35-45)
[2016-07-06] MEDS: Albuterol/Ipratropium NEB.SOL* Albuterol 2.5 MG/Ipratropium 0.5 MG 3 ML INH SCH ×2 (16:34→19:29)
--- NOTE | 2016-07-06 16:35 | PN ---
Progress Note - Progress Note Note: [facility] Progress Note Patient seen previously by Dr Almonte Admitted with Pneumonia...Strep Ag positive and Influenza A positive and TERRY for which she initially received IV fluids being overall positive >6.5 liters in first 2 days. She has since lost about 1 liter between ytdy and today so far. Contacted by Dr Zhao re concern for her respiratory status and possibility of decline to needing intubation and mechanical ventilation Reports she has received Lasix to treat for concern re pulmonary edema Seen up on 4th floor Patient laying in bed with O2 FM asleep When awakened looks about, makes eye contact, and is speaking in rather full sentences Does not appear toxic Has a fair cough effort but as she says "I was never one to expectorate" There is no audible congestion She is not using Strap muscles SBP 96 HR 73 RR 23 Skin no cyanosis, no diaphoresis Sclerae anicteric JVP no elevated Neck w/o stridor Lungs with good air entry, no wheezes Cor Irreg, no rub Abd soft, nontender Ext no cord, no calf tenderness, no significant edema RUE with PICC ABC 7.35/32/75 (FM) BUN/creat 43/3.0 BNP 1183 Last CXR is w/o central vascular prominence but demonstrates patchy alveolar and interstitial infiltrates more prominent on right vs left IMP: Hypoxemic Respiratory Failure mostly consequence of Influenza A and Strep pneumonia I am dubious that this is a consequence of CHF/hydrostatic pulmonary edema TERRY...stable over course of last few days A Fib...is on Heparin gtt Hyponatremia...I note that even on admission in 2013 her Na level was 130 , pneumonia and flu may be exacerbating as well as renal failure Hx Sleep Apnea Hx HTN Hx CHF Hx Anemia PLAN/REC: Concur with plans to move to ICU for closer observation I do not see immediate need for mechanical ventilatory support Can try changing to high flow NC Encourage cough and deep breathing and either expectoration or swallowing of phlegm Keep HOB raised As opposed to aggressive efforts to diurese would favor avoiding administration of added fluids Diuretics could been given with goal of maintaining euvolemia/ fluids balanced As she is currently on Prednisone in a moderate dose would continue same Discussed with Dr Zhao
[2016-07-06] MEDS: cefTRIAXone VIAL(*) 1,000 MG in NS 0.9% 50 ML* 50 ML IVPB SCH (16:37)
[2016-07-06] MEDS: Warfarin TAB(*) 5 MG PO SCH (16:45)
[2016-07-06] MEDS: Atorvastatin* 20 MG TAB PO SCH (16:45)
[2016-07-06] MEDS: Metoprolol Tartrate IV* 1 MG/ML 5 ML VIAL IV PRN (20:29)
[2016-07-06] MEDS: Lactobacillus Acidophilu (GG)* 1 CAP CAP PO SCH (20:33)
[2016-07-06] MEDS: Memantine XR CAP* 28 MG CAP.XR PO SCH (20:33)
[2016-07-06] MEDS: Topiramate TAB(*) 100 MG PO SCH (21:47)
[2016-07-07] MEDS: Albuterol/Ipratropium NEB.SOL* Albuterol 2.5 MG/Ipratropium 0.5 MG 3 ML INH SCH ×4 (01:28→19:25)
[2016-07-07] MEDS: Heparin DRIP 25,000 UNITS(*) 25,000 UNITS/500 ML BAG IVPB SCH ×2 (04:47→21:38)
[2016-07-07 05:20] LABS: Hematocrit 28 % (35-47); Hemoglobin 9.3 g/dl (12.0-16.0); Mean Corpuscular HGB Conc 34 g/dl (31-36); Mean Corpuscular Hemoglobin 32 pg (27-31); Mean Corpuscular Volume 97 fL (80-97); Mean Platelet Volume 7 um3 (7.4-10.4); Red Blood Count 2.87 10^6/ul (4.0-5.4); Red Cell Distribution Width 14 % (10.5-15); White Blood Count 9.5 10^3/ul (3.5-10.8)
[2016-07-07] MEDS: Vancomycin CAP* 250 MG CAP PO SCH ×3 (05:45→21:30)
--- NOTE | 2016-07-07 07:57 | PN ---
Subjective Date of Service: 07/07/16 Interval History: pt feels well today. no new complaints. confusion from last night resolved.On Vapotherm Objective Active Medications: Albuterol/Ipratropium (Duoneb Neb.Navya*) 1 neb INH [id number] AWAKE [facility] Last Admin: 07/07/16 07:29 Dose: 1 neb Aspirin (Aspirin Ec Low Dose*) 81 mg PO DAILY [facility] Last Admin: 07/06/16 07:54 Dose: 81 mg Atorvastatin Calcium (Lipitor*) 20 mg PO 1700 [facility] Last Admin: 07/06/16 16:45 Dose: 20 mg Gabapentin (Neurontin Cap(*)) 300 mg PO BID [facility] Last Admin: 07/06/16 20:32 Dose: 300 mg Heparin Sodium (Porcine) (Heparin Flush Picc/Ml/Cvc(*)) 1 ml FLUSH Q12H [facility] Last Admin: 07/06/16 21:12 Dose: Not Given Heparin Sodium (Porcine) (Heparin Vial(*)) 0 units IV .PER PROTOCOL [facility] PRN Reason: Protocol Last Admin: 07/06/16 11:35 Dose: 5,900 units Ceftriaxone Sodium 1,000 mg/ (Sodium Chloride) 50 mls @ 200 mls/hr IVPB Q24H [facility] Last Admin: 07/06/16 16:37 Dose: 200 mls/hr Heparin Sodium/Dextrose (Heparin Drip 25,000 Units(*)) 25,000 units in 500 mls @ 0 mls/hr IVPB .PER RATE CARMEN; Per Protocol PRN Reason: Protocol Last Admin: 07/07/16 04:47 Dose: 22 mls/hr Lactobacillus Rhamnosus (Culturelle*) 1 cap PO BID [facility] Last Admin: 07/06/16 20:33 Dose: 1 cap Lansoprazole (Prevacid Solutab*) 30 mg PO DAILY [facility] Last Admin: 07/06/16 07:54 Dose: 30 mg Memantine (Namenda Xr Cap*) 28 mg PO BEDTIME [facility] Last Admin: 07/06/16 20:33 Dose: 28 mg Metoprolol Tartrate (Lopressor Iv*) 5 mg IV Q3H PRN PRN Reason: TACHYCARDIA Last Admin: 07/06/16 20:29 Dose: 5 mg Metoprolol Tartrate (Lopressor Tab*) 25 mg PO BID [facility] Last Admin: 07/06/16 20:33 Dose: 25 mg Oseltamivir Phosphate (Tamiflu Cap*) 30 mg PO DAILY [facility] Stop: 07/10/16 09:01 Last Admin: 07/06/16 13:26 Dose: 30 mg Oxycodone HCl (Roxycodone Tab*) 5 mg PO Q4H PRN PRN Reason: PAIN Last Admin: 07/06/16 13:27 Dose: 5 mg Pharmacy Profile Note (Coumadin Daily Reminder*) 1 note FOLLOW UP 1700 [facility] Last Admin: 07/06/16 16:58 Dose: 1 note Prednisone (Deltasone Tab*) 20 mg PO DAILY [facility] Last Admin: 07/06/16 07:53 Dose: 20 mg Topiramate (Topamax(*)) 200 mg PO BEDTIME [facility] Last Admin: 07/06/16 21:47 Dose: 200 mg Vancomycin HCl (Vancomycin Cap*) 250 mg PO Q8HR [facility] Last Admin: 07/07/16 05:45 Dose: 250 mg Verapamil HCl (Calan Tab*) 80 mg PO TID [facility] Last Admin: 07/06/16 21:46 Dose: 80 mg Warfarin Sodium (Coumadin Tab(*)) 5 mg PO DAILY@1700 [facility] PRN Reason: Protocol Last Admin: 07/06/16 16:45 Dose: 5 mg Vital Signs 07/06/16 07/06/16 07/06/16 07:53 07:54 08:00 Temperature Pulse Rate Respiratory 22 22 24 Rate Blood Pressure (mmHg) O2 Sat by Pulse Oximetry 07/06/16 07/06/16 07/06/16 09:53 09:54 13:27 Temperature Pulse Rate Respiratory 20 20 24 Rate Blood Pressure (mmHg) O2 Sat by Pulse Oximetry 07/06/16 07/06/16 07/06/16 15:22 15:50 16:28 Temperature 98.2 F Pulse Rate 76 Respiratory 24 18 20 Rate Blood Pressure 107/55 (mmHg) O2 Sat by Pulse 93 Oximetry 07/06/16 07/06/16 07/06/16 16:30 16:40 16:45 Temperature Pulse Rate 73 73 Respiratory 25 26 Rate Blood Pressure 104/64 96/54 (mmHg) O2 Sat by Pulse 96 94 Oximetry 07/06/16 07/06/16 07/06/16 17:00 17:15 17:30 Temperature 97.4 F Pulse Rate 71 71 70 Respiratory 26 26 26 Rate Blood Pressure 92/59 97/59 89/56 (mmHg) O2 Sat by Pulse 99 99 99 Oximetry 07/06/16 07/06/16 07/06/16 17:45 17:46 18:00 Temperature Pulse Rate 70 70 71 Respiratory 27 24 27 Rate Blood Pressure 86/52 90/55 93/58 (mmHg) O2 Sat by Pulse 99 99 99 Oximetry 07/06/16 07/06/16 07/06/16 18:15 18:30 18:45 Temperature Pulse Rate 76 Respiratory 30 26 26 Rate Blood Pressure 105/71 118/72 121/61 (mmHg) O2 Sat by Pulse 90 99 100 Oximetry 07/06/16 07/06/16 07/06/16 19:00 19:15 19:30 Temperature Pulse Rate 79 80 Respiratory 25 24 21 Rate Blood Pressure 128/101 105/80 114/71 (mmHg) O2 Sat by Pulse 100 99 99 Oximetry 07/06/16 07/06/16 07/06/16 19:45 20:00 20:15 Temperature Pulse Rate 82 81 86 Respiratory 18 23 23 Rate Blood Pressure 112/60 109/55 111/53 (mmHg) O2 Sat by Pulse 98 99 99 Oximetry 07/06/16 07/06/16 07/06/16 20:30 20:32 20:52 Temperature Pulse Rate 102 Respiratory 22 24 Rate Blood Pressure 95/49 111/52 (mmHg) O2 Sat by Pulse 98 Oximetry 07/06/16 07/06/16 07/06/16 21:00 22:00 22:49 Temperature Pulse Rate Respiratory 25 24 24 Rate Blood Pressure (mmHg) O2 Sat by Pulse 99 98 99 Oximetry 07/06/16 07/06/16 07/07/16 23:00 23:15 00:00 Temperature Pulse Rate Respiratory 24 24 Rate Blood Pressure (mmHg) O2 Sat by Pulse 98 98 98 Oximetry 07/07/16 07/07/16 07/07/16 01:00 01:10 01:37 Temperature Pulse Rate Respiratory 26 22 23 Rate Blood Pressure 89/56 (mmHg) O2 Sat by Pulse 100 100 Oximetry 07/07/16 07/07/16 07/07/16 01:41 02:00 03:00 Temperature Pulse Rate Respiratory 24 25 27 Rate Blood Pressure 90/50 93/56 89/52 (mmHg) O2 Sat by Pulse 100 100 100 Oximetry 07/07/16 07/07/16 07/07/16 03:02 03:25 04:00 Temperature 98.3 F Pulse Rate Respiratory 26 27 Rate Blood Pressure 88/56 92/62 (mmHg) O2 Sat by Pulse 100 100 Oximetry 07/07/16 07/07/16 07/07/16 04:59 05:00 06:00 Temperature Pulse Rate Respiratory 24 31 31 Rate Blood Pressure 96/49 (mmHg) O2 Sat by Pulse 100 100 Oximetry 07/07/16 07:29 Temperature Pulse Rate 106 Respiratory 35 Rate Blood Pressure (mmHg) O2 Sat by Pulse 95 Oximetry Oxygen Devices in Use Now: High Flow Nasal Cannula - at 90% 02, 40 L flow of Vapotherm Appearance: 71 yo f in nAd, AAOx3 Eyes: No Scleral Icterus, PERRLA Ears/Nose/Mouth/Throat: NL Teeth, Lips, Gums, Mucous Membranes Moist Neck: NL Appearance and Movements; NL JVP, Trachea Midline Respiratory: Symmetrical Chest Expansion and Respiratory Effort, - - coarse rhonchi throughout Cardiovascular: NL Sounds; No Murmurs; No JVD, - - tachy, in a. fib Abdominal: NL Sounds; No Tenderness; No Distention, No Hepatosplenomegaly Lymphatic: No Cervical Adenopathy Extremities: No Edema, No Clubbing, Cyanosis Skin: No Rash or Ulcers, No Nodules or Sclerosis Neurological: Alert and Oriented x 3, NL Muscle Strength and Tone Result Diagrams: 07/07/16 05:01 07/06/16 10:55 Additional Lab and Data: Lab Results 07/03/16 07/03/16 07/03/16 Range/Units 12:36 12:36 12:36 WBC 4.1 (3.5-10.8) 10^3/ul RBC 3.94 L (4.0-5.4) 10^6/ul Hgb 12.9 (12.0-16.0) g/dl Hct 39 (35-47) % MCV 98 H (80-97) fL MCH 33 H (27-31) pg MCHC 33 (31-36) g/dl RDW 14 (10.5-15) % Plt Count 184 (150-450) 10^3/ul MPV 7 L (7.4-10.4) um3 Neut % (Auto) 80.3 (38-83) % Lymph % (Auto) 9.6 L (25-47) % [place] % (Auto) 10.0 H (1-9) % Eos % (Auto) 0 (0-6) % Baso % (Auto) 0.1 (0-2) % Absolute Neuts (auto) 3.3 (1.5-7.7) 10^3/ul Absolute Lymphs (auto) 0.4 L (1.0-4.8) 10^3/ul Absolute Monos (auto) 0.4 (0-0.8) 10^3/ul Absolute Eos (auto) 0 (0-0.6) 10^3/ul Absolute Basos (auto) 0 (0-0.2) 10^3/ul Absolute Nucleated RBC 0 10^3/ul Nucleated RBC % 0.1 INR (Anticoag Therapy) (0.89-1.11) Sodium 121 L (133-145) mmol/L Potassium 3.5 (3.5-5.0) mmol/L Chloride 91 L (101-111) mmol/L Carbon Dioxide 14 L* (22-32) mmol/L Anion Gap 16 H (2-11) mmol/L BUN 36 H (6-24) mg/dL Creatinine 3.67 H (0.51-0.95) mg/dL Est GFR ( Amer) 15.7 (>60) Est GFR (Non-Af Amer) 12.2 (>60) BUN/Creatinine Ratio 9.8 (8-20) Glucose 112 H (70-100) mg/dL Lactic Acid 3.3 H* (0.5-2.0) mmol/L Calcium 7.9 L (8.6-10.3) mg/dL Magnesium 1.6 L (1.9-2.7) mg/dL Total Bilirubin 0.60 (0.2-1.0) mg/dL AST 86 H (13-39) U/L ALT 28 (7-52) U/L Alkaline Phosphatase 44 (34-104) U/L Troponin I 2.07 H* (<0.04) ng/mL B-Natriuretic Peptide ( - 100) pg/mL Total Protein 6.1 L (6.4-8.9) g/dL Albumin 2.9 L (3.2-5.2) g/dL Globulin 3.2 (2-4) g/dL Albumin/Globulin Ratio 0.9 L (1-3) Procalcitonin (<0.6) ng/mL TSH 1.05 (0.34-5.60) mcIU/mL Thyroxine (T4) 8.50 (6.09-12.23) g/dL Influenza A (Rapid) (Negative) Influenza B (Rapid) (Negative) 07/03/16 07/03/16 07/03/16 Range/Units 12:36 12:36 12:36 WBC (3.5-10.8) 10^3/ul RBC (4.0-5.4) 10^6/ul Hgb (12.0-16.0) g/dl Hct (35-47) % MCV (80-97) fL MCH (27-31) pg MCHC (31-36) g/dl RDW (10.5-15) % Plt Count (150-450) 10^3/ul MPV (7.4-10.4) um3 Neut % (Auto) (38-83) % Lymph % (Auto) (25-47) % [place] % (Auto) (1-9) % Eos % (Auto) (0-6) % Baso % (Auto) (0-2) % Absolute Neuts (auto) (1.5-7.7) 10^3/ul Absolute Lymphs (auto) (1.0-4.8) 10^3/ul Absolute Monos (auto) (0-0.8) 10^3/ul Absolute Eos (auto) (0-0.6) 10^3/ul Absolute Basos (auto) (0-0.2) 10^3/ul Absolute Nucleated RBC 10^3/ul Nucleated RBC % INR (Anticoag Therapy) 1.04 (0.89-1.11) Sodium (133-145) mmol/L Potassium (3.5-5.0) mmol/L Chloride (101-111) mmol/L Carbon Dioxide (22-32) mmol/L Anion Gap (2-11) mmol/L BUN (6-24) mg/dL Creatinine (0.51-0.95) mg/dL Est GFR ( Amer) (>60) Est GFR (Non-Af Amer) (>60) BUN/Creatinine Ratio (8-20) Glucose (70-100) mg/dL Lactic Acid (0.5-2.0) mmol/L Calcium (8.6-10.3) mg/dL Magnesium (1.9-2.7) mg/dL Total Bilirubin (0.2-1.0) mg/dL AST (13-39) U/L ALT (7-52) U/L Alkaline Phosphatase (34-104) U/L Troponin I (<0.04) ng/mL B-Natriuretic Peptide 232 H ( - 100) pg/mL Total Protein (6.4-8.9) g/dL Albumin (3.2-5.2) g/dL Globulin (2-4) g/dL Albumin/Globulin Ratio (1-3) Procalcitonin 16.3 H (<0.6) ng/mL TSH (0.34-5.60) mcIU/mL Thyroxine (T4) (6.09-12.23) g/dL Influenza A (Rapid) (Negative) Influenza B (Rapid) (Negative) 07/03/16 Range/Units 12:47 WBC (3.5-10.8) 10^3/ul RBC (4.0-5.4) 10^6/ul Hgb (12.0-16.0) g/dl Hct (35-47) % MCV (80-97) fL MCH (27-31) pg MCHC (31-36) g/dl RDW (10.5-15) % Plt Count (150-450) 10^3/ul MPV (7.4-10.4) um3 Neut % (Auto) (38-83) % Lymph % (Auto) (25-47) % [place] % (Auto) (1-9) % Eos % (Auto) (0-6) % Baso % (Auto) (0-2) % Absolute Neuts (auto) (1.5-7.7) 10^3/ul Absolute Lymphs (auto) (1.0-4.8) 10^3/ul Absolute Monos (auto) (0-0.8) 10^3/ul Absolute Eos (auto) (0-0.6) 10^3/ul Absolute Basos (auto) (0-0.2) 10^3/ul Absolute Nucleated RBC 10^3/ul Nucleated RBC % INR (Anticoag Therapy) (0.89-1.11) Sodium (133-145) mmol/L Potassium (3.5-5.0) mmol/L Chloride (101-111) mmol/L Carbon Dioxide (22-32) mmol/L Anion Gap (2-11) mmol/L BUN (6-24) mg/dL Creatinine (0.51-0.95) mg/dL Est GFR ( Amer) (>60) Est GFR (Non-Af Amer) (>60) BUN/Creatinine Ratio (8-20) Glucose (70-100) mg/dL Lactic Acid (0.5-2.0) mmol/L Calcium (8.6-10.3) mg/dL Magnesium (1.9-2.7) mg/dL Total Bilirubin (0.2-1.0) mg/dL AST (13-39) U/L ALT (7-52) U/L Alkaline Phosphatase (34-104) U/L Troponin I (<0.04) ng/mL B-Natriuretic Peptide ( - 100) pg/mL Total Protein (6.4-8.9) g/dL Albumin (3.2-5.2) g/dL Globulin (2-4) g/dL Albumin/Globulin Ratio (1-3) Procalcitonin (<0.6) ng/mL TSH (0.34-5.60) mcIU/mL Thyroxine (T4) (6.09-12.23) g/dL Influenza A (Rapid) Positive H (Negative) Influenza B (Rapid) Negative (Negative) Microbiology and Other Data: Microbiology 07/03/16 22:50 Legionella Urinary Antigen - Final Urine Negative Legionella Streptococcus pneumoniae Ag Screen - Final Positive S. Pneumo Antigen 07/03/16 15:00 Nasal Screen MRSA (PCR)(JESSIE) - Final Nasal Mrsa Negative Assess/Plan/Problems-Billing Assessment: 71 yo F with h/o CHF, severe c. Diff (2 years ago) presented with sepsis, Influenza A, Strep pneumo PNA, A. fib with RVR - Patient Problems (1) Acute respiratory failure with hypoxemia Comment: Due to pneumonia and CHF transferred to ICU on 07/06/16 for worsening resp failure. appreciate Dr. Cowan' s imput. cont Vapotherm (2) Severe sepsis Comment: due to strep pneumo pneumonia and Influenza A. Severe sepsis with acute renal failure and respratory failure was present at admission Cont Ceftriaxone and Tamiflu Due to h/o severe and life threatening C. diff infection 2 years ago family was alerted by doctors from [facility] to tx prophylactically with PO Vancomycin if pt requires antibiotics. Although there is no evidence re: prophylaxis with PO Vancomycin in pt with h/o c. diff who need antibiotic tx for other condition, pt is severely ill and it may be life threatening if she develops C. Diff. At this point the benefit of tx with PO Vanco outweights the risks and will cont PO Vanc and cont Culturelle. (3) PAF (paroxysmal atrial fibrillation) Comment: currently .A. fib. cont BB and verapamil and lopressor IV prn. cont heparin gtt and coumadin for anticoagulation. Echo shows EF 55% (4) Acute diastolic CHF (congestive heart failure) Comment: CXR from 07/05/16 consistent with b/l pneumonia and CHF today pt appears euvolemic. (5) Temporal arteritis Comment: Under care of Dr. Tarango. Recently on prednisone 15 mg daily. ESR 07/06/16 at 120. Continue prednisone 20 mg daily for now. (6) Cluster headache Comment: none today. cont Verapamil (7) Acute renal failure Comment: due to severe sepsis renal US unremarkable FeNa 0.6 suggests prerenal azotemia, but abnormal UA with granular casts may be due to ATN At this point I believe it is due to a combination of prerenal and ATN. BMP pending today. no diuretics planned. (8) Troponin I above reference range Comment: max at 1.7 at admission suspect demand ischemia. Echo shows mod MR and no wall motion abn. Cardiology consulted, no further diagnostics recommended (9) DVT prophylaxis Comment: on heparin gtt. coumadin started on 07/06/16, INR daily
--- NOTE | 2016-07-07 08:22 | PN ---
Progress Note - Progress Note Note: [facility] Progress Note Patient laying in bed sleeping HF NC in place When awakened focuses gaze, participates in conversation, speaks in full phrases /sentences Says she slept OK Says she feels breathing is better SBP 119 HR 115 irreg RR 31 SpO2 100 (HF NC) UO 2275 ml ytdy I/Os neg 612 ml last 24 hrs Skin no cyanosis, no diaphoresis Sclerae anicteric, pupils equal JVP not elevated Lungs with good air entry, no wheezes, coarse crackles R>L Cor Irreg, no rub, no murmur Abd soft, nontender Ext no cord, no calf tenderness, no significant edema RUE with PICC WBC 9.5 Hgb 9.3 Plt 178 IMP: Hypoxemic Respiratory Failure mostly consequence of Influenza A and Strep pneumonia Remain dubious that this is a consequence of CHF/hydrostatic pulmonary edema TERRY...stable over course of last few days A Fib...is on Heparin gtt Hx Sleep Apnea Hx HTN Hx CHF Hx Anemia PLAN/REC: Continue with Tamiflu and Ceftriaxone Continue with HF NC Encourage cough and deep breathing and either expectoration or swallowing of phlegm Pulmonary toilet efforts...perhaps Flutter Valve or Incentive Spirometer Update CXR Keep HOB raised Maintain Fluids balanced that is, I~O Mobilize to at least chair position in bed if not to OOB if tolerated Discussed with Resp Tx and the rest of the ICU Multi-D team this AM
[2016-07-07 08:56] LABS: BUN/Creatinine Ratio 16.5 (8-20); Calcium 8.6 mg/dL (8.6-10.3); EGFR Non-African American 20.3 (>60); Potassium 3.3 mmol/L (3.5-5.0)
[2016-07-07] MEDS: Gabapentin CAP(*) 300 MG PO SCH ×2 (09:15→20:20)
[2016-07-07] MEDS: Verapamil TAB* 80 MG PO SCH ×3 (09:15→20:21)
[2016-07-07] MEDS: predniSONE TAB* 20 MG PO SCH (09:15)
[2016-07-07] MEDS: Oseltamivir CAP* 30 MG CAP PO SCH (09:15)
[2016-07-07] MEDS: Lactobacillus Acidophilu (GG)* 1 CAP CAP PO SCH ×2 (09:15→20:20)
[2016-07-07] MEDS: Metoprolol Tartrate TAB* 25 MG PO SCH ×2 (09:15→20:21)
[2016-07-07] MEDS: Lansoprazole SOLUTAB* 30 MG PO SCH (09:15)
[2016-07-07] MEDS: Aspirin EC Low Dose* 81 MG TAB.EC PO SCH (09:16)
[2016-07-07] MEDS ORDERED: Potassium Chloride LIQUID* 20 MEQ PACKET PO ONE (10:00)
--- NOTE | 2016-07-07 11:51 | RAD ---
HISTORY: Follow-up pneumonia COMPARISONS: July 05, 2016 VIEWS:1: Single frontal portable view of the chest at 11:30 AM FINDINGS: LINES AND TUBES: A right-sided PICC line is noted with the tip overlying the cavoatrial junction. CARDIOMEDIASTINAL SILHOUETTE: The cardiomediastinal silhouette is normal for portable technique. PLEURA: The costophrenic angles are sharp. No pleural abnormalities are noted. LUNG PARENCHYMA: Again noted is diffuse multifocal patchy alveolar opacification throughout both lungs arce. This is stable from the previous examination ABDOMEN: The upper abdomen is clear. There is no subphrenic gas. BONES AND SOFT TISSUES: No bone or soft tissue abnormalities are noted. IMPRESSION: STABLE DIFFUSE BILATERAL CONSOLIDATION. RECOMMEND FOLLOW-UP UNTIL RESOLUTION TO EXCLUDE UNDERLYING PULMONARY PARENCHYMAL PATHOLOGY
[2016-07-07] MEDS: Heparin VIAL(*) 5000 UNITS/ML VIAL (FIVE THOUSAND) IV SCH (14:33)
[2016-07-07] MEDS: Atorvastatin* 20 MG TAB PO SCH (16:34)
[2016-07-07] MEDS: Warfarin TAB(*) 5 MG PO SCH (16:34)
[2016-07-07] MEDS: cefTRIAXone VIAL(*) 1,000 MG in NS 0.9% 50 ML* 50 ML IVPB SCH (16:35)
[2016-07-07] MEDS: Topiramate TAB(*) 100 MG PO SCH (20:20)
[2016-07-07] MEDS: Memantine XR CAP* 28 MG CAP.XR PO SCH (20:21)
[2016-07-08] MEDS: Albuterol/Ipratropium NEB.SOL* Albuterol 2.5 MG/Ipratropium 0.5 MG 3 ML INH SCH ×4 (01:22→19:15)
[2016-07-08] MEDS: Vancomycin CAP* 250 MG CAP PO SCH ×3 (06:31→20:41)
[2016-07-08 06:43] LABS: Hematocrit 26 % (35-47); Hemoglobin 8.8 g/dl (12.0-16.0); Mean Corpuscular HGB Conc 34 g/dl (31-36); Mean Corpuscular Hemoglobin 33 pg (27-31); Mean Corpuscular Volume 98 fL (80-97); Mean Platelet Volume 8 um3 (7.4-10.4); Red Blood Count 2.66 10^6/ul (4.0-5.4); Red Cell Distribution Width 14 % (10.5-15); White Blood Count 7.8 10^3/ul (3.5-10.8)
[2016-07-08 06:46] LABS: Add Diff/Slide Review? Slide Review Added; Comments Flag Yes
[2016-07-08 06:56] LABS: BUN/Creatinine Ratio 19.3 (8-20); Calcium 8.8 mg/dL (8.6-10.3); EGFR African American 33.2 (>60); EGFR Non-African American 25.8 (>60); Potassium 3.8 mmol/L (3.5-5.0)
[2016-07-08] MEDS ORDERED: Docusate CAP* 100 MG PO PRN (07:59)
[2016-07-08] MEDS: Aspirin EC Low Dose* 81 MG TAB.EC PO SCH (08:40)
[2016-07-08] MEDS: Lactobacillus Acidophilu (GG)* 1 CAP CAP PO SCH ×2 (08:40→20:38)
[2016-07-08] MEDS: Oseltamivir CAP* 30 MG CAP PO SCH (08:40)
[2016-07-08] MEDS: oxyCODONE TAB* 5 MG TAB PO PRN ×4 (08:40→20:37)
[2016-07-08] MEDS: predniSONE TAB* 20 MG PO SCH (08:40)
[2016-07-08] MEDS: Lansoprazole SOLUTAB* 30 MG PO SCH (08:40)
[2016-07-08] MEDS: Verapamil TAB* 80 MG PO SCH ×3 (08:40→20:39)
[2016-07-08] MEDS: Gabapentin CAP(*) 300 MG PO SCH ×2 (08:40→20:39)
[2016-07-08] MEDS: Metoprolol Tartrate TAB* 25 MG PO SCH ×2 (08:41→20:40)
[2016-07-08] MEDS: Heparin DRIP 25,000 UNITS(*) 25,000 UNITS/500 ML BAG IVPB SCH (09:29)
--- NOTE | 2016-07-08 09:43 | ADMNOTE ---
Subjective Date of Service: 07/08/16 Review of Systems - Measurements Intake and Output: Intake and Output Last 24 Hours 07/06/16 07/07/16 07/08/16 07/09/16 06:59 06:59 06:59 06:59 Intake Total 1200 1663 874 Output Total 1540 2275 1450 Balance -340 -612 -576 Weight 164 lb 0.383 oz 161 lb 6.407 oz Intake: IV Fluids 170 200 NS (0.9%) 170 200 Medicated IV 273 294 Heparin 273 294 Oral 1200 1220 380 Output: Urine 1540 2275 1450 Other: # Bowel Movements 0 Estimated Stool Amount Small # Voids 0 3 Objective Active Medications: Albuterol/Ipratropium (Duoneb Neb.Navya*) 1 neb INH [id number] AWAKE [facility] Last Admin: 07/08/16 07:34 Dose: 1 neb Aspirin (Aspirin Ec Low Dose*) 81 mg PO DAILY [facility] Last Admin: 07/08/16 08:40 Dose: 81 mg Atorvastatin Calcium (Lipitor*) 20 mg PO 1700 [facility] Last Admin: 07/07/16 16:34 Dose: 20 mg Docusate Sodium (Colace Cap*) 100 mg PO BID PRN PRN Reason: CONSTIPATION Last Admin: 07/08/16 08:40 Dose: 100 mg Gabapentin (Neurontin Cap(*)) 300 mg PO BID [facility] Last Admin: 07/08/16 08:40 Dose: 300 mg Heparin Sodium (Porcine) (Heparin Flush Picc/Ml/Cvc(*)) 1 ml FLUSH Q12H [facility] Last Admin: 07/08/16 08:41 Dose: 1 ml Heparin Sodium (Porcine) (Heparin Vial(*)) 0 units IV .PER PROTOCOL [facility] PRN Reason: Protocol Last Admin: 07/07/16 14:33 Dose: 3,200 units Ceftriaxone Sodium 1,000 mg/ (Sodium Chloride) 50 mls @ 200 mls/hr IVPB Q24H [facility] Last Admin: 07/07/16 16:35 Dose: 200 mls/hr Heparin Sodium/Dextrose (Heparin Drip 25,000 Units(*)) 25,000 units in 500 mls @ 0 mls/hr IVPB .PER RATE CARMEN; Per Protocol PRN Reason: Protocol Last Admin: 07/08/16 09:29 Dose: 25 mls/hr Lactobacillus Rhamnosus (Culturelle*) 1 cap PO BID [facility] Last Admin: 07/08/16 08:40 Dose: 1 cap Lansoprazole (Prevacid Solutab*) 30 mg PO DAILY [facility] Last Admin: 07/08/16 08:40 Dose: 30 mg Memantine (Namenda Xr Cap*) 28 mg PO BEDTIME [facility] Last Admin: 07/07/16 20:21 Dose: 28 mg Metoprolol Tartrate (Lopressor Iv*) 5 mg IV Q3H PRN PRN Reason: TACHYCARDIA Last Admin: 07/06/16 20:29 Dose: 5 mg Metoprolol Tartrate (Lopressor Tab*) 25 mg PO BID [facility] Last Admin: 07/08/16 08:41 Dose: 25 mg Oseltamivir Phosphate (Tamiflu Cap*) 30 mg PO DAILY [facility] Last Admin: 07/08/16 08:40 Dose: 30 mg Oxycodone HCl (Roxycodone Tab*) 5 mg PO Q4H PRN PRN Reason: PAIN Last Admin: 07/08/16 08:40 Dose: 5 mg Pharmacy Profile Note (Coumadin Daily Reminder*) 1 note FOLLOW UP 1700 [facility] Last Admin: 07/07/16 16:34 Dose: 1 note Prednisone (Deltasone Tab*) 20 mg PO DAILY [facility] Last Admin: 07/08/16 08:40 Dose: 20 mg Topiramate (Topamax(*)) 200 mg PO BEDTIME [facility] Last Admin: 07/07/16 20:20 Dose: 200 mg Vancomycin HCl (Vancomycin Cap*) 250 mg PO Q8HR [facility] Last Admin: 07/08/16 06:31 Dose: Not Given Verapamil HCl (Calan Tab*) 80 mg PO TID [facility] Last Admin: 07/08/16 08:40 Dose: 80 mg Warfarin Sodium (Coumadin Tab(*)) 5 mg PO DAILY@1700 [facility] PRN Reason: Protocol Last Admin: 07/07/16 16:34 Dose: 5 mg Vital Signs 07/07/16 07/07/16 07/07/16 10:00 11:00 12:00 Temperature Pulse Rate 97 95 81 Respiratory 27 27 29 Rate Blood Pressure 112/55 122/51 90/48 (mmHg) O2 Sat by Pulse 96 96 93 Oximetry 07/07/16 07/07/16 07/07/16 12:33 12:58 13:00 Temperature 97.9 F Pulse Rate 107 69 Respiratory 31 24 Rate Blood Pressure 88/37 (mmHg) O2 Sat by Pulse 96 91 Oximetry 07/07/16 07/07/16 07/07/16 13:28 14:00 15:00 Temperature Pulse Rate 73 74 79 Respiratory 32 31 30 Rate Blood Pressure 97/46 101/47 (mmHg) O2 Sat by Pulse 95 96 97 Oximetry 07/07/16 07/07/16 07/07/16 15:49 16:00 17:00 Temperature 98.4 F Pulse Rate 80 80 Respiratory 27 28 Rate Blood Pressure 102/50 97/48 (mmHg) O2 Sat by Pulse 96 98 Oximetry 07/07/16 07/07/16 07/07/16 18:00 19:00 19:26 Temperature Pulse Rate 87 73 Respiratory 27 29 Rate Blood Pressure 119/52 103/48 (mmHg) O2 Sat by Pulse 96 91 93 Oximetry 07/07/16 07/07/16 07/07/16 19:59 20:00 20:50 Temperature 97.8 F Pulse Rate Respiratory 22 24 Rate Blood Pressure 97/50 (mmHg) O2 Sat by Pulse 94 Oximetry 07/07/16 07/07/16 07/07/16 21:00 22:00 23:00 Temperature Pulse Rate Respiratory 27 24 24 Rate Blood Pressure 102/58 117/54 122/60 (mmHg) O2 Sat by Pulse 96 95 95 Oximetry 07/07/16 07/07/16 07/08/16 23:01 23:09 00:00 Temperature Pulse Rate Respiratory 24 21 Rate Blood Pressure (mmHg) O2 Sat by Pulse 95 95 96 Oximetry 07/08/16 07/08/16 07/08/16 00:01 00:10 01:00 Temperature Pulse Rate Respiratory 25 22 25 Rate Blood Pressure 112/55 105/58 (mmHg) O2 Sat by Pulse 96 96 Oximetry 07/08/16 07/08/16 07/08/16 01:24 02:00 02:30 Temperature Pulse Rate Respiratory 19 23 22 Rate Blood Pressure 109/55 (mmHg) O2 Sat by Pulse 96 Oximetry 07/08/16 07/08/16 07/08/16 03:00 03:17 03:46 Temperature Pulse Rate Respiratory 26 22 Rate Blood Pressure 101/81 (mmHg) O2 Sat by Pulse 95 96 Oximetry 07/08/16 07/08/16 07/08/16 04:00 05:00 05:06 Temperature 98.0 F Pulse Rate Respiratory 25 26 20 Rate Blood Pressure 135/64 123/60 (mmHg) O2 Sat by Pulse 95 96 Oximetry 07/08/16 07/08/16 07/08/16 06:00 07:37 07:46 Temperature 97.4 F Pulse Rate 74 Respiratory 26 22 Rate Blood Pressure 128/59 (mmHg) O2 Sat by Pulse 97 97 Oximetry Oxygen Devices in Use Now: High Flow Nasal Cannula - at 90% 02, 40 L flow of Vapotherm Result Diagrams: 07/08/16 06:30 07/08/16 06:30 Additional Lab and Data: Lab Results 07/03/16 07/03/16 07/03/16 Range/Units 12:36 12:36 12:36 WBC 4.1 (3.5-10.8) 10^3/ul RBC 3.94 L (4.0-5.4) 10^6/ul Hgb 12.9 (12.0-16.0) g/dl Hct 39 (35-47) % MCV 98 H (80-97) fL MCH 33 H (27-31) pg MCHC 33 (31-36) g/dl RDW 14 (10.5-15) % Plt Count 184 (150-450) 10^3/ul MPV 7 L (7.4-10.4) um3 Neut % (Auto) 80.3 (38-83) % Lymph % (Auto) 9.6 L (25-47) % [place] % (Auto) 10.0 H (1-9) % Eos % (Auto) 0 (0-6) % Baso % (Auto) 0.1 (0-2) % Absolute Neuts (auto) 3.3 (1.5-7.7) 10^3/ul Absolute Lymphs (auto) 0.4 L (1.0-4.8) 10^3/ul Absolute Monos (auto) 0.4 (0-0.8) 10^3/ul Absolute Eos (auto) 0 (0-0.6) 10^3/ul Absolute Basos (auto) 0 (0-0.2) 10^3/ul Absolute Nucleated RBC 0 10^3/ul Nucleated RBC % 0.1 INR (Anticoag Therapy) (0.89-1.11) Sodium 121 L (133-145) mmol/L Potassium 3.5 (3.5-5.0) mmol/L Chloride 91 L (101-111) mmol/L Carbon Dioxide 14 L* (22-32) mmol/L Anion Gap 16 H (2-11) mmol/L BUN 36 H (6-24) mg/dL Creatinine 3.67 H (0.51-0.95) mg/dL Est GFR ( Amer) 15.7 (>60) Est GFR (Non-Af Amer) 12.2 (>60) BUN/Creatinine Ratio 9.8 (8-20) Glucose 112 H (70-100) mg/dL Lactic Acid 3.3 H* (0.5-2.0) mmol/L Calcium 7.9 L (8.6-10.3) mg/dL Magnesium 1.6 L (1.9-2.7) mg/dL Total Bilirubin 0.60 (0.2-1.0) mg/dL AST 86 H (13-39) U/L ALT 28 (7-52) U/L Alkaline Phosphatase 44 (34-104) U/L Troponin I 2.07 H* (<0.04) ng/mL B-Natriuretic Peptide ( - 100) pg/mL Total Protein 6.1 L (6.4-8.9) g/dL Albumin 2.9 L (3.2-5.2) g/dL Globulin 3.2 (2-4) g/dL Albumin/Globulin Ratio 0.9 L (1-3) Procalcitonin (<0.6) ng/mL TSH 1.05 (0.34-5.60) mcIU/mL Thyroxine (T4) 8.50 (6.09-12.23) g/dL Influenza A (Rapid) (Negative) Influenza B (Rapid) (Negative) 07/03/16 07/03/16 07/03/16 Range/Units 12:36 12:36 12:36 WBC (3.5-10.8) 10^3/ul RBC (4.0-5.4) 10^6/ul Hgb (12.0-16.0) g/dl Hct (35-47) % MCV (80-97) fL MCH (27-31) pg MCHC (31-36) g/dl RDW (10.5-15) % Plt Count (150-450) 10^3/ul MPV (7.4-10.4) um3 Neut % (Auto) (38-83) % Lymph % (Auto) (25-47) % [place] % (Auto) (1-9) % Eos % (Auto) (0-6) % Baso % (Auto) (0-2) % Absolute Neuts (auto) (1.5-7.7) 10^3/ul Absolute Lymphs (auto) (1.0-4.8) 10^3/ul Absolute Monos (auto) (0-0.8) 10^3/ul Absolute Eos (auto) (0-0.6) 10^3/ul Absolute Basos (auto) (0-0.2) 10^3/ul Absolute Nucleated RBC 10^3/ul Nucleated RBC % INR (Anticoag Therapy) 1.04 (0.89-1.11) Sodium (133-145) mmol/L Potassium (3.5-5.0) mmol/L Chloride (101-111) mmol/L Carbon Dioxide (22-32) mmol/L Anion Gap (2-11) mmol/L BUN (6-24) mg/dL Creatinine (0.51-0.95) mg/dL Est GFR ( Amer) (>60) Est GFR (Non-Af Amer) (>60) BUN/Creatinine Ratio (8-20) Glucose (70-100) mg/dL Lactic Acid (0.5-2.0) mmol/L Calcium (8.6-10.3) mg/dL Magnesium (1.9-2.7) mg/dL Total Bilirubin (0.2-1.0) mg/dL AST (13-39) U/L ALT (7-52) U/L Alkaline Phosphatase (34-104) U/L Troponin I (<0.04) ng/mL B-Natriuretic Peptide 232 H ( - 100) pg/mL Total Protein (6.4-8.9) g/dL Albumin (3.2-5.2) g/dL Globulin (2-4) g/dL Albumin/Globulin Ratio (1-3) Procalcitonin 16.3 H (<0.6) ng/mL TSH (0.34-5.60) mcIU/mL Thyroxine (T4) (6.09-12.23) g/dL Influenza A (Rapid) (Negative) Influenza B (Rapid) (Negative) 07/03/16 Range/Units 12:47 WBC (3.5-10.8) 10^3/ul RBC (4.0-5.4) 10^6/ul Hgb (12.0-16.0) g/dl Hct (35-47) % MCV (80-97) fL MCH (27-31) pg MCHC (31-36) g/dl RDW (10.5-15) % Plt Count (150-450) 10^3/ul MPV (7.4-10.4) um3 Neut % (Auto) (38-83) % Lymph % (Auto) (25-47) % [place] % (Auto) (1-9) % Eos % (Auto) (0-6) % Baso % (Auto) (0-2) % Absolute Neuts (auto) (1.5-7.7) 10^3/ul Absolute Lymphs (auto) (1.0-4.8) 10^3/ul Absolute Monos (auto) (0-0.8) 10^3/ul Absolute Eos (auto) (0-0.6) 10^3/ul Absolute Basos (auto) (0-0.2) 10^3/ul Absolute Nucleated RBC 10^3/ul Nucleated RBC % INR (Anticoag Therapy) (0.89-1.11) Sodium (133-145) mmol/L Potassium (3.5-5.0) mmol/L Chloride (101-111) mmol/L Carbon Dioxide (22-32) mmol/L Anion Gap (2-11) mmol/L BUN (6-24) mg/dL Creatinine (0.51-0.95) mg/dL Est GFR ( Amer) (>60) Est GFR (Non-Af Amer) (>60) BUN/Creatinine Ratio (8-20) Glucose (70-100) mg/dL Lactic Acid (0.5-2.0) mmol/L Calcium (8.6-10.3) mg/dL Magnesium (1.9-2.7) mg/dL Total Bilirubin (0.2-1.0) mg/dL AST (13-39) U/L ALT (7-52) U/L Alkaline Phosphatase (34-104) U/L Troponin I (<0.04) ng/mL B-Natriuretic Peptide ( - 100) pg/mL Total Protein (6.4-8.9) g/dL Albumin (3.2-5.2) g/dL Globulin (2-4) g/dL Albumin/Globulin Ratio (1-3) Procalcitonin (<0.6) ng/mL TSH (0.34-5.60) mcIU/mL Thyroxine (T4) (6.09-12.23) g/dL Influenza A (Rapid) Positive H (Negative) Influenza B (Rapid) Negative (Negative) Microbiology and Other Data: Microbiology 07/03/16 22:50 Legionella Urinary Antigen - Final Urine Negative Legionella Streptococcus pneumoniae Ag Screen - Final Positive S. Pneumo Antigen 07/03/16 15:00 Nasal Screen MRSA (PCR)(JESSIE) - Final Nasal Mrsa Negative Assess/Plan/Problems-Billing Assessment: 71 yo F with h/o CHF, severe c. Diff (2 years ago) presented with sepsis, Influenza A, Strep pneumo PNA, A. fib with RVR - Patient Problems (1) Acute respiratory failure with hypoxemia Comment: Due to pneumonia and CHF transferred to ICU on 07/06/16 for worsening resp failure. appreciate Dr. Cowan' s imput. cont Vapotherm (2) Severe sepsis Comment: due to strep pneumo pneumonia and Influenza A. Severe sepsis with acute renal failure and respratory failure was present at admission Cont Ceftriaxone and Tamiflu Due to h/o severe and life threatening C. diff infection 2 years ago family was alerted by doctors from [facility] to tx prophylactically with PO Vancomycin if pt requires antibiotics. Although there is no evidence re: prophylaxis with PO Vancomycin in pt with h/o c. diff who need antibiotic tx for other condition, pt is severely ill and it may be life threatening if she develops C. Diff. At this point the benefit of tx with PO Vanco outweights the risks and will cont PO Vanc and cont Culturelle. (3) PAF (paroxysmal atrial fibrillation) Comment: currently .A. fib. cont BB and verapamil and lopressor IV prn. cont heparin gtt and coumadin for anticoagulation. Echo shows EF 55% (4) Acute diastolic CHF (congestive heart failure) Comment: CXR from 07/05/16 consistent with b/l pneumonia and CHF today pt appears euvolemic. (5) Temporal arteritis Comment: Under care of Dr. Tarango. Recently on prednisone 15 mg daily. ESR 07/06/16 at 120. Continue prednisone 20 mg daily for now. (6) Cluster headache Comment: none today. cont Verapamil (7) Acute renal failure Comment: due to severe sepsis renal US unremarkable FeNa 0.6 suggests prerenal azotemia, but abnormal UA with granular casts may be due to ATN At this point I believe it is due to a combination of prerenal and ATN. BMP pending today. no diuretics planned. (8) Troponin I above reference range Comment: max at 1.7 at admission suspect demand ischemia. Echo shows mod MR and no wall motion abn. Cardiology consulted, no further diagnostics recommended (9) DVT prophylaxis Comment: on heparin gtt. coumadin started on 07/06/16, INR daily
--- NOTE | 2016-07-08 15:12 | PN ---
Subjective Date of Service: 07/08/16 Interval History: pt feels better today. coughing up more Objective Active Medications: Albuterol/Ipratropium (Duoneb Neb.Navya*) 1 neb INH [id number] AWAKE [facility] Last Admin: 07/08/16 13:20 Dose: 1 neb Aspirin (Aspirin Ec Low Dose*) 81 mg PO DAILY [facility] Last Admin: 07/08/16 08:40 Dose: 81 mg Atorvastatin Calcium (Lipitor*) 20 mg PO 1700 [facility] Last Admin: 07/07/16 16:34 Dose: 20 mg Docusate Sodium (Colace Cap*) 100 mg PO BID PRN PRN Reason: CONSTIPATION Last Admin: 07/08/16 08:40 Dose: 100 mg Gabapentin (Neurontin Cap(*)) 300 mg PO BID [facility] Last Admin: 07/08/16 08:40 Dose: 300 mg Heparin Sodium (Porcine) (Heparin Flush Picc/Ml/Cvc(*)) 1 ml FLUSH Q12H [facility] Last Admin: 07/08/16 08:41 Dose: 1 ml Heparin Sodium (Porcine) (Heparin Vial(*)) 0 units IV .PER PROTOCOL [facility] PRN Reason: Protocol Last Admin: 07/07/16 14:33 Dose: 3,200 units Ceftriaxone Sodium 1,000 mg/ (Sodium Chloride) 50 mls @ 200 mls/hr IVPB Q24H [facility] Last Admin: 07/07/16 16:35 Dose: 200 mls/hr Heparin Sodium/Dextrose (Heparin Drip 25,000 Units(*)) 25,000 units in 500 mls @ 0 mls/hr IVPB .PER RATE [facility]; Per Protocol PRN Reason: Protocol Last Admin: 07/08/16 09:29 Dose: 25 mls/hr Lactobacillus Rhamnosus (Culturelle*) 1 cap PO BID [facility] Last Admin: 07/08/16 08:40 Dose: 1 cap Lansoprazole (Prevacid Solutab*) 30 mg PO DAILY [facility] Last Admin: 07/08/16 08:40 Dose: 30 mg Memantine (Namenda Xr Cap*) 28 mg PO BEDTIME [facility] Last Admin: 07/07/16 20:21 Dose: 28 mg Metoprolol Tartrate (Lopressor Iv*) 5 mg IV Q3H PRN PRN Reason: TACHYCARDIA Last Admin: 07/06/16 20:29 Dose: 5 mg Metoprolol Tartrate (Lopressor Tab*) 25 mg PO BID [facility] Last Admin: 07/08/16 08:41 Dose: 25 mg Oseltamivir Phosphate (Tamiflu Cap*) 30 mg PO DAILY [facility] Last Admin: 07/08/16 08:40 Dose: 30 mg Oxycodone HCl (Roxycodone Tab*) 5 mg PO Q4H PRN PRN Reason: PAIN Last Admin: 07/08/16 12:27 Dose: 5 mg Pharmacy Profile Note (Coumadin Daily Reminder*) 1 note FOLLOW UP 1700 [facility] Last Admin: 07/07/16 16:34 Dose: 1 note Prednisone (Deltasone Tab*) 20 mg PO DAILY [facility] Last Admin: 07/08/16 08:40 Dose: 20 mg Topiramate (Topamax(*)) 200 mg PO BEDTIME [facility] Last Admin: 07/07/16 20:20 Dose: 200 mg Vancomycin HCl (Vancomycin Cap*) 250 mg PO Q8HR [facility] Last Admin: 07/08/16 06:31 Dose: Not Given Verapamil HCl (Calan Tab*) 80 mg PO TID [facility] Last Admin: 07/08/16 08:40 Dose: 80 mg Warfarin Sodium (Coumadin Tab(*)) 5 mg PO DAILY@1700 [facility] PRN Reason: Protocol Last Admin: 07/07/16 16:34 Dose: 5 mg Vital Signs 07/07/16 07/07/16 07/07/16 15:49 16:00 17:00 Temperature 98.4 F Pulse Rate 80 80 Respiratory 27 28 Rate Blood Pressure 102/50 97/48 (mmHg) O2 Sat by Pulse 96 98 Oximetry 07/07/16 07/07/16 07/07/16 18:00 19:00 19:26 Temperature Pulse Rate 87 73 Respiratory 27 29 Rate Blood Pressure 119/52 103/48 (mmHg) O2 Sat by Pulse 96 91 93 Oximetry 07/07/16 07/07/16 07/07/16 19:59 20:00 20:50 Temperature 97.8 F Pulse Rate Respiratory 22 24 Rate Blood Pressure 97/50 (mmHg) O2 Sat by Pulse 94 Oximetry 07/07/16 07/07/16 07/07/16 21:00 22:00 23:00 Temperature Pulse Rate Respiratory 27 24 24 Rate Blood Pressure 102/58 117/54 122/60 (mmHg) O2 Sat by Pulse 96 95 95 Oximetry 07/07/16 07/07/16 07/08/16 23:01 23:09 00:00 Temperature Pulse Rate Respiratory 24 21 Rate Blood Pressure (mmHg) O2 Sat by Pulse 95 95 96 Oximetry 07/08/16 07/08/16 07/08/16 00:01 00:10 01:00 Temperature Pulse Rate Respiratory 25 22 25 Rate Blood Pressure 112/55 105/58 (mmHg) O2 Sat by Pulse 96 96 Oximetry 07/08/16 07/08/16 07/08/16 01:24 02:00 02:30 Temperature Pulse Rate Respiratory 19 23 22 Rate Blood Pressure 109/55 (mmHg) O2 Sat by Pulse 96 Oximetry 07/08/16 07/08/16 07/08/16 03:00 03:17 03:46 Temperature Pulse Rate Respiratory 26 22 Rate Blood Pressure 101/81 (mmHg) O2 Sat by Pulse 95 96 Oximetry 07/08/16 07/08/16 07/08/16 04:00 05:00 05:06 Temperature 98.0 F Pulse Rate Respiratory 25 26 20 Rate Blood Pressure 135/64 123/60 (mmHg) O2 Sat by Pulse 95 96 Oximetry 07/08/16 07/08/16 07/08/16 06:00 07:37 07:46 Temperature 97.4 F Pulse Rate 74 Respiratory 26 22 Rate Blood Pressure 128/59 (mmHg) O2 Sat by Pulse 97 97 Oximetry 07/08/16 07/08/16 12:29 13:23 Temperature 98.2 F Pulse Rate 66 Respiratory 17 Rate Blood Pressure (mmHg) O2 Sat by Pulse 97 Oximetry Oxygen Devices in Use Now: High Flow Nasal Cannula - at 40% 02, 40 L flow of Vapotherm Appearance: 71 yo f in nAd, aAOx3 Eyes: No Scleral Icterus, PERRLA Ears/Nose/Mouth/Throat: NL Teeth, Lips, Gums, Mucous Membranes Moist Neck: NL Appearance and Movements; NL JVP Respiratory: Symmetrical Chest Expansion and Respiratory Effort, - - rhonchi b/ l lower to mid lungs Cardiovascular: NL Sounds; No Murmurs; No JVD, RRR Abdominal: NL Sounds; No Tenderness; No Distention, No Hepatosplenomegaly Lymphatic: No Cervical Adenopathy Extremities: No Edema, No Clubbing, Cyanosis Skin: No Rash or Ulcers, No Nodules or Sclerosis Neurological: Alert and Oriented x 3, NL Muscle Strength and Tone Result Diagrams: 07/08/16 06:30 07/08/16 06:30 Additional Lab and Data: Lab Results 07/03/16 07/03/16 07/03/16 Range/Units 12:36 12:36 12:36 WBC 4.1 (3.5-10.8) 10^3/ul RBC 3.94 L (4.0-5.4) 10^6/ul Hgb 12.9 (12.0-16.0) g/dl Hct 39 (35-47) % MCV 98 H (80-97) fL MCH 33 H (27-31) pg MCHC 33 (31-36) g/dl RDW 14 (10.5-15) % Plt Count 184 (150-450) 10^3/ul MPV 7 L (7.4-10.4) um3 Neut % (Auto) 80.3 (38-83) % Lymph % (Auto) 9.6 L (25-47) % Finney % (Auto) 10.0 H (1-9) % Eos % (Auto) 0 (0-6) % Baso % (Auto) 0.1 (0-2) % Absolute Neuts (auto) 3.3 (1.5-7.7) 10^3/ul Absolute Lymphs (auto) 0.4 L (1.0-4.8) 10^3/ul Absolute Monos (auto) 0.4 (0-0.8) 10^3/ul Absolute Eos (auto) 0 (0-0.6) 10^3/ul Absolute Basos (auto) 0 (0-0.2) 10^3/ul Absolute Nucleated RBC 0 10^3/ul Nucleated RBC % 0.1 INR (Anticoag Therapy) (0.89-1.11) Sodium 121 L (133-145) mmol/L Potassium 3.5 (3.5-5.0) mmol/L Chloride 91 L (101-111) mmol/L Carbon Dioxide 14 L* (22-32) mmol/L Anion Gap 16 H (2-11) mmol/L BUN 36 H (6-24) mg/dL Creatinine 3.67 H (0.51-0.95) mg/dL Est GFR ( Amer) 15.7 (>60) Est GFR (Non-Af Amer) 12.2 (>60) BUN/Creatinine Ratio 9.8 (8-20) Glucose 112 H (70-100) mg/dL Lactic Acid 3.3 H* (0.5-2.0) mmol/L Calcium 7.9 L (8.6-10.3) mg/dL Magnesium 1.6 L (1.9-2.7) mg/dL Total Bilirubin 0.60 (0.2-1.0) mg/dL AST 86 H (13-39) U/L ALT 28 (7-52) U/L Alkaline Phosphatase 44 (34-104) U/L Troponin I 2.07 H* (<0.04) ng/mL B-Natriuretic Peptide ( - 100) pg/mL Total Protein 6.1 L (6.4-8.9) g/dL Albumin 2.9 L (3.2-5.2) g/dL Globulin 3.2 (2-4) g/dL Albumin/Globulin Ratio 0.9 L (1-3) Procalcitonin (<0.6) ng/mL TSH 1.05 (0.34-5.60) mcIU/mL Thyroxine (T4) 8.50 (6.09-12.23) g/dL Influenza A (Rapid) (Negative) Influenza B (Rapid) (Negative) 07/03/16 07/03/16 07/03/16 Range/Units 12:36 12:36 12:36 WBC (3.5-10.8) 10^3/ul RBC (4.0-5.4) 10^6/ul Hgb (12.0-16.0) g/dl Hct (35-47) % MCV (80-97) fL MCH (27-31) pg MCHC (31-36) g/dl RDW (10.5-15) % Plt Count (150-450) 10^3/ul MPV (7.4-10.4) um3 Neut % (Auto) (38-83) % Lymph % (Auto) (25-47) % Finney % (Auto) (1-9) % Eos % (Auto) (0-6) % Baso % (Auto) (0-2) % Absolute Neuts (auto) (1.5-7.7) 10^3/ul Absolute Lymphs (auto) (1.0-4.8) 10^3/ul Absolute Monos (auto) (0-0.8) 10^3/ul Absolute Eos (auto) (0-0.6) 10^3/ul Absolute Basos (auto) (0-0.2) 10^3/ul Absolute Nucleated RBC 10^3/ul Nucleated RBC % INR (Anticoag Therapy) 1.04 (0.89-1.11) Sodium (133-145) mmol/L Potassium (3.5-5.0) mmol/L Chloride (101-111) mmol/L Carbon Dioxide (22-32) mmol/L Anion Gap (2-11) mmol/L BUN (6-24) mg/dL Creatinine (0.51-0.95) mg/dL Est GFR ( Amer) (>60) Est GFR (Non-Af Amer) (>60) BUN/Creatinine Ratio (8-20) Glucose (70-100) mg/dL Lactic Acid (0.5-2.0) mmol/L Calcium (8.6-10.3) mg/dL Magnesium (1.9-2.7) mg/dL Total Bilirubin (0.2-1.0) mg/dL AST (13-39) U/L ALT (7-52) U/L Alkaline Phosphatase (34-104) U/L Troponin I (<0.04) ng/mL B-Natriuretic Peptide 232 H ( - 100) pg/mL Total Protein (6.4-8.9) g/dL Albumin (3.2-5.2) g/dL Globulin (2-4) g/dL Albumin/Globulin Ratio (1-3) Procalcitonin 16.3 H (<0.6) ng/mL TSH (0.34-5.60) mcIU/mL Thyroxine (T4) (6.09-12.23) g/dL Influenza A (Rapid) (Negative) Influenza B (Rapid) (Negative) 07/03/16 Range/Units 12:47 WBC (3.5-10.8) 10^3/ul RBC (4.0-5.4) 10^6/ul Hgb (12.0-16.0) g/dl Hct (35-47) % MCV (80-97) fL MCH (27-31) pg MCHC (31-36) g/dl RDW (10.5-15) % Plt Count (150-450) 10^3/ul MPV (7.4-10.4) um3 Neut % (Auto) (38-83) % Lymph % (Auto) (25-47) % Finney % (Auto) (1-9) % Eos % (Auto) (0-6) % Baso % (Auto) (0-2) % Absolute Neuts (auto) (1.5-7.7) 10^3/ul Absolute Lymphs (auto) (1.0-4.8) 10^3/ul Absolute Monos (auto) (0-0.8) 10^3/ul Absolute Eos (auto) (0-0.6) 10^3/ul Absolute Basos (auto) (0-0.2) 10^3/ul Absolute Nucleated RBC 10^3/ul Nucleated RBC % INR (Anticoag Therapy) (0.89-1.11) Sodium (133-145) mmol/L Potassium (3.5-5.0) mmol/L Chloride (101-111) mmol/L Carbon Dioxide (22-32) mmol/L Anion Gap (2-11) mmol/L BUN (6-24) mg/dL Creatinine (0.51-0.95) mg/dL Est GFR ( Amer) (>60) Est GFR (Non-Af Amer) (>60) BUN/Creatinine Ratio (8-20) Glucose (70-100) mg/dL Lactic Acid (0.5-2.0) mmol/L Calcium (8.6-10.3) mg/dL Magnesium (1.9-2.7) mg/dL Total Bilirubin (0.2-1.0) mg/dL AST (13-39) U/L ALT (7-52) U/L Alkaline Phosphatase (34-104) U/L Troponin I (<0.04) ng/mL B-Natriuretic Peptide ( - 100) pg/mL Total Protein (6.4-8.9) g/dL Albumin (3.2-5.2) g/dL Globulin (2-4) g/dL Albumin/Globulin Ratio (1-3) Procalcitonin (<0.6) ng/mL TSH (0.34-5.60) mcIU/mL Thyroxine (T4) (6.09-12.23) g/dL Influenza A (Rapid) Positive H (Negative) Influenza B (Rapid) Negative (Negative) Microbiology and Other Data: Microbiology 07/03/16 22:50 Legionella Urinary Antigen - Final Urine Negative Legionella Streptococcus pneumoniae Ag Screen - Final Positive S. Pneumo Antigen 07/03/16 15:00 Nasal Screen MRSA (PCR)(JESSIE) - Final Nasal Mrsa Negative Assess/Plan/Problems-Billing Assessment: 71 yo F with h/o CHF, severe c. Diff (2 years ago) presented with sepsis, Influenza A, Strep pneumo PNA, A. fib with RVR - Patient Problems (1) Acute respiratory failure with hypoxemia Comment: Due to pneumonia and CHF transferred to ICU on 07/06/16 for worsening resp failure. appreciate Dr. Cowan' s imput. cont Vapotherm slowly improving. flutter valve used. OOB today (2) Severe sepsis Comment: due to strep pneumo pneumonia and Influenza A. Severe sepsis with acute renal failure and respratory failure was present at admission Cont Ceftriaxone and Tamiflu Due to h/o severe and life threatening C. diff infection 2 years ago family was alerted by doctors from [facility] to tx prophylactically with PO Vancomycin if pt requires antibiotics. Although there is no evidence re: prophylaxis with PO Vancomycin in pt with h/o c. diff who need antibiotic tx for other condition, pt is severely ill and it may be life threatening if she develops C. Diff. At this point the benefit of tx with PO Vanco outweights the risks and will cont PO Vanc and cont Culturelle. (3) PAF (paroxysmal atrial fibrillation) Comment: currently in NSR cont BB and verapamil and lopressor IV prn. cont heparin gtt and coumadin for anticoagulation. Echo shows EF 55% (4) Acute diastolic CHF (congestive heart failure) Comment: CXR from 07/05/16 consistent with b/l pneumonia and CHF today pt appears euvolemic. (5) Temporal arteritis Comment: Under care of Dr. Tarango. Recently on prednisone 15 mg daily. ESR 07/06/16 at 120. Continue prednisone 20 mg daily for now. (6) Cluster headache Comment: none today. cont Verapamil (7) Acute renal failure Comment: due to severe sepsis renal US unremarkable FeNa 0.6 suggests prerenal azotemia, but abnormal UA with granular casts may be due to ATN At this point I believe it is due to a combination of prerenal and ATN. improving daily (8) Troponin I above reference range Comment: max at 1.7 at admission suspect demand ischemia. Echo shows mod MR and no wall motion abn. Cardiology consulted, no further diagnostics recommended (9) DVT prophylaxis Comment: on heparin gtt. coumadin started on 07/06/16, INR daily Status and Disposition: cont inpatient ICU stay on Vapotherm
[2016-07-08] MEDS: cefTRIAXone VIAL(*) 1,000 MG in NS 0.9% 50 ML* 50 ML IVPB SCH (16:10)
[2016-07-08] MEDS: Morphine INJ* 2 MG/ML 1 ML CARPUJECT IV PRN (18:42)
[2016-07-08] MEDS: Atorvastatin* 20 MG TAB PO SCH (18:45)
[2016-07-08] MEDS: Warfarin TAB(*) 5 MG PO SCH (18:45)
[2016-07-08] MEDS: Memantine XR CAP* 28 MG CAP.XR PO SCH (20:38)
[2016-07-08] MEDS: Topiramate TAB(*) 100 MG PO SCH (20:40)
[2016-07-09] MEDS: Albuterol/Ipratropium NEB.SOL* Albuterol 2.5 MG/Ipratropium 0.5 MG 3 ML INH SCH ×4 (00:45→19:59)
[2016-07-09 04:23] LABS: Hematocrit 26 % (35-47); Hemoglobin 8.7 g/dl (12.0-16.0); Mean Corpuscular HGB Conc 34 g/dl (31-36); Mean Corpuscular Hemoglobin 33 pg (27-31); Mean Corpuscular Volume 97 fL (80-97); Mean Platelet Volume 8 um3 (7.4-10.4); Red Blood Count 2.65 10^6/ul (4.0-5.4); Red Cell Distribution Width 14 % (10.5-15)
[2016-07-09 04:30] LABS: Add Diff/Slide Review? Slide Review Added; Comments Flag Yes
[2016-07-09 04:38] LABS: BUN/Creatinine Ratio 22.5 (8-20); Calcium 8.6 mg/dL (8.6-10.3); EGFR Non-African American 31.9 (>60); Potassium 3.8 mmol/L (3.5-5.0)
[2016-07-09] MEDS: Heparin VIAL(*) 5000 UNITS/ML VIAL (FIVE THOUSAND) IV SCH (05:08)
[2016-07-09] MEDS: Vancomycin CAP* 250 MG CAP PO SCH ×3 (06:13→21:23)
--- NOTE | 2016-07-09 08:09 | PN ---
Subjective Date of Service: 07/09/16 Interval History: pt feels "OK". Developed cluster headache that got better this M after tx with overnight 100% 02. Last BM yesterday Objective Active Medications: Albuterol/Ipratropium (Duoneb Neb.Navya*) 1 neb INH [id number] AWAKE [facility] Last Admin: 07/09/16 07:34 Dose: 1 neb Aspirin (Aspirin Ec Low Dose*) 81 mg PO DAILY [facility] Last Admin: 07/08/16 08:40 Dose: 81 mg Atorvastatin Calcium (Lipitor*) 20 mg PO 1700 [facility] Last Admin: 07/08/16 18:45 Dose: 20 mg Docusate Sodium (Colace Cap*) 100 mg PO BID PRN PRN Reason: CONSTIPATION Last Admin: 07/08/16 08:40 Dose: 100 mg Gabapentin (Neurontin Cap(*)) 300 mg PO BID [facility] Last Admin: 07/08/16 20:39 Dose: 300 mg Heparin Sodium (Porcine) (Heparin Flush Picc/Ml/Cvc(*)) 1 ml FLUSH Q12H [facility] Last Admin: 07/09/16 05:09 Dose: Not Given Heparin Sodium (Porcine) (Heparin Vial(*)) 0 units IV .PER PROTOCOL [facility] PRN Reason: Protocol Last Admin: 07/09/16 05:08 Dose: 3,200 units Ceftriaxone Sodium 1,000 mg/ (Sodium Chloride) 50 mls @ 200 mls/hr IVPB Q24H [facility] Last Admin: 07/08/16 16:10 Dose: 200 mls/hr Heparin Sodium/Dextrose (Heparin Drip 25,000 Units(*)) 25,000 units in 500 mls @ 0 mls/hr IVPB .PER RATE CARMEN; Per Protocol PRN Reason: Protocol Last Admin: 07/08/16 09:29 Dose: 25 mls/hr Lactobacillus Rhamnosus (Culturelle*) 1 cap PO BID [facility] Last Admin: 07/08/16 20:38 Dose: 1 cap Lansoprazole (Prevacid Solutab*) 30 mg PO DAILY [facility] Last Admin: 07/08/16 08:40 Dose: 30 mg Memantine (Namenda Xr Cap*) 28 mg PO BEDTIME [facility] Last Admin: 07/08/16 20:38 Dose: 28 mg Metoprolol Tartrate (Lopressor Iv*) 5 mg IV Q3H PRN PRN Reason: TACHYCARDIA Last Admin: 07/06/16 20:29 Dose: 5 mg Metoprolol Tartrate (Lopressor Tab*) 25 mg PO BID [facility] Last Admin: 07/08/16 20:40 Dose: 25 mg Morphine Sulfate (Morphine Inj (Syringe)*) 2 mg IV Q4H PRN PRN Reason: PAIN Last Admin: 07/08/16 18:42 Dose: 2 mg Oseltamivir Phosphate (Tamiflu Cap*) 30 mg PO DAILY [facility] Last Admin: 07/08/16 08:40 Dose: 30 mg Oxycodone HCl (Roxycodone Tab*) 5 mg PO Q4H PRN PRN Reason: PAIN Last Admin: 07/08/16 20:37 Dose: 5 mg Pharmacy Profile Note (Coumadin Daily Reminder*) 1 note FOLLOW UP 1700 [facility] Last Admin: 07/08/16 18:45 Dose: 1 note Prednisone (Deltasone Tab*) 20 mg PO DAILY [facility] Last Admin: 07/08/16 08:40 Dose: 20 mg Topiramate (Topamax(*)) 200 mg PO BEDTIME [facility] Last Admin: 07/08/16 20:40 Dose: 200 mg Vancomycin HCl (Vancomycin Cap*) 250 mg PO Q8HR [facility] Last Admin: 07/09/16 06:13 Dose: 250 mg Verapamil HCl (Calan Tab*) 80 mg PO TID [facility] Last Admin: 07/08/16 20:39 Dose: 80 mg Warfarin Sodium (Coumadin Tab(*)) 5 mg PO DAILY@1700 [facility] PRN Reason: Protocol Last Admin: 07/08/16 18:45 Dose: 5 mg Vital Signs 07/08/16 07/08/16 07/08/16 09:00 10:00 11:00 Temperature Pulse Rate 84 64 64 Respiratory 26 17 22 Rate Blood Pressure 130/73 120/67 123/55 (mmHg) O2 Sat by Pulse 99 98 99 Oximetry 07/08/16 07/08/16 07/08/16 12:00 12:29 13:00 Temperature 98.2 F Pulse Rate 62 69 Respiratory 21 19 Rate Blood Pressure 139/66 123/65 (mmHg) O2 Sat by Pulse 100 99 Oximetry 07/08/16 07/08/16 07/08/16 13:23 14:00 15:00 Temperature Pulse Rate 66 77 77 Respiratory 17 20 26 Rate Blood Pressure 136/66 130/64 (mmHg) O2 Sat by Pulse 97 99 100 Oximetry 07/08/16 07/08/16 07/08/16 16:00 17:00 18:00 Temperature Pulse Rate 84 73 72 Respiratory 26 23 21 Rate Blood Pressure 136/65 118/46 128/48 (mmHg) O2 Sat by Pulse 98 100 98 Oximetry 07/08/16 07/08/16 07/08/16 18:42 19:00 19:18 Temperature Pulse Rate 68 73 Respiratory 26 17 23 Rate Blood Pressure 129/114 (mmHg) O2 Sat by Pulse 100 100 Oximetry 07/08/16 07/08/16 07/08/16 19:23 19:40 20:00 Temperature 98.5 F Pulse Rate 73 79 Respiratory 24 20 Rate Blood Pressure 121/63 (mmHg) O2 Sat by Pulse 100 100 Oximetry 07/08/16 07/08/16 07/08/16 21:00 22:00 23:00 Temperature Pulse Rate 79 70 66 Respiratory 17 20 16 Rate Blood Pressure 129/109 106/60 115/65 (mmHg) O2 Sat by Pulse 100 100 100 Oximetry 07/08/16 07/09/16 07/09/16 23:46 00:00 00:01 Temperature Pulse Rate 84 71 72 Respiratory 26 16 19 Rate Blood Pressure 143/69 (mmHg) O2 Sat by Pulse 95 100 100 Oximetry 07/09/16 07/09/16 07/09/16 00:02 01:00 01:39 Temperature 97.8 F Pulse Rate 71 Respiratory 20 Rate Blood Pressure 138/66 (mmHg) O2 Sat by Pulse 100 100 Oximetry 07/09/16 07/09/16 07/09/16 02:00 03:00 03:51 Temperature 99.0 F Pulse Rate 71 69 Respiratory 22 20 Rate Blood Pressure 142/69 129/65 (mmHg) O2 Sat by Pulse 100 100 Oximetry 07/09/16 07/09/16 07/09/16 04:00 05:00 06:00 Temperature Pulse Rate 74 70 67 Respiratory 21 18 20 Rate Blood Pressure 132/63 140/60 124/54 (mmHg) O2 Sat by Pulse 100 100 100 Oximetry 07/09/16 07/09/16 07:37 07:43 Temperature 97.1 F Pulse Rate 71 Respiratory 21 Rate Blood Pressure (mmHg) O2 Sat by Pulse 100 Oximetry Oxygen Devices in Use Now: High Flow Nasal Cannula - at 100% 02, 20 L flow of Vapotherm Appearance: 71 yo F in nAD, AAOx3 Eyes: No Scleral Icterus, PERRLA Ears/Nose/Mouth/Throat: NL Teeth, Lips, Gums, Mucous Membranes Moist Neck: NL Appearance and Movements; NL JVP, Trachea Midline Respiratory: Symmetrical Chest Expansion and Respiratory Effort, - - rhonchi in b/l lower lungs Cardiovascular: NL Sounds; No Murmurs; No JVD, RRR Abdominal: NL Sounds; No Tenderness; No Distention Lymphatic: No Cervical Adenopathy Extremities: No Edema, No Clubbing, Cyanosis Skin: No Rash or Ulcers, No Nodules or Sclerosis Neurological: Alert and Oriented x 3, NL Muscle Strength and Tone Result Diagrams: 07/09/16 04:10 07/09/16 04:10 Additional Lab and Data: Lab Results 07/03/16 07/03/16 07/03/16 Range/Units 12:36 12:36 12:36 WBC 4.1 (3.5-10.8) 10^3/ul RBC 3.94 L (4.0-5.4) 10^6/ul Hgb 12.9 (12.0-16.0) g/dl Hct 39 (35-47) % MCV 98 H (80-97) fL MCH 33 H (27-31) pg MCHC 33 (31-36) g/dl RDW 14 (10.5-15) % Plt Count 184 (150-450) 10^3/ul MPV 7 L (7.4-10.4) um3 Neut % (Auto) 80.3 (38-83) % Lymph % (Auto) 9.6 L (25-47) % [place] % (Auto) 10.0 H (1-9) % Eos % (Auto) 0 (0-6) % Baso % (Auto) 0.1 (0-2) % Absolute Neuts (auto) 3.3 (1.5-7.7) 10^3/ul Absolute Lymphs (auto) 0.4 L (1.0-4.8) 10^3/ul Absolute Monos (auto) 0.4 (0-0.8) 10^3/ul Absolute Eos (auto) 0 (0-0.6) 10^3/ul Absolute Basos (auto) 0 (0-0.2) 10^3/ul Absolute Nucleated RBC 0 10^3/ul Nucleated RBC % 0.1 INR (Anticoag Therapy) (0.89-1.11) Sodium 121 L (133-145) mmol/L Potassium 3.5 (3.5-5.0) mmol/L Chloride 91 L (101-111) mmol/L Carbon Dioxide 14 L* (22-32) mmol/L Anion Gap 16 H (2-11) mmol/L BUN 36 H (6-24) mg/dL Creatinine 3.67 H (0.51-0.95) mg/dL Est GFR ( Amer) 15.7 (>60) Est GFR (Non-Af Amer) 12.2 (>60) BUN/Creatinine Ratio 9.8 (8-20) Glucose 112 H (70-100) mg/dL Lactic Acid 3.3 H* (0.5-2.0) mmol/L Calcium 7.9 L (8.6-10.3) mg/dL Magnesium 1.6 L (1.9-2.7) mg/dL Total Bilirubin 0.60 (0.2-1.0) mg/dL AST 86 H (13-39) U/L ALT 28 (7-52) U/L Alkaline Phosphatase 44 (34-104) U/L Troponin I 2.07 H* (<0.04) ng/mL B-Natriuretic Peptide ( - 100) pg/mL Total Protein 6.1 L (6.4-8.9) g/dL Albumin 2.9 L (3.2-5.2) g/dL Globulin 3.2 (2-4) g/dL Albumin/Globulin Ratio 0.9 L (1-3) Procalcitonin (<0.6) ng/mL TSH 1.05 (0.34-5.60) mcIU/mL Thyroxine (T4) 8.50 (6.09-12.23) g/dL Influenza A (Rapid) (Negative) Influenza B (Rapid) (Negative) 07/03/16 07/03/16 07/03/16 Range/Units 12:36 12:36 12:36 WBC (3.5-10.8) 10^3/ul RBC (4.0-5.4) 10^6/ul Hgb (12.0-16.0) g/dl Hct (35-47) % MCV (80-97) fL MCH (27-31) pg MCHC (31-36) g/dl RDW (10.5-15) % Plt Count (150-450) 10^3/ul MPV (7.4-10.4) um3 Neut % (Auto) (38-83) % Lymph % (Auto) (25-47) % [place] % (Auto) (1-9) % Eos % (Auto) (0-6) % Baso % (Auto) (0-2) % Absolute Neuts (auto) (1.5-7.7) 10^3/ul Absolute Lymphs (auto) (1.0-4.8) 10^3/ul Absolute Monos (auto) (0-0.8) 10^3/ul Absolute Eos (auto) (0-0.6) 10^3/ul Absolute Basos (auto) (0-0.2) 10^3/ul Absolute Nucleated RBC 10^3/ul Nucleated RBC % INR (Anticoag Therapy) 1.04 (0.89-1.11) Sodium (133-145) mmol/L Potassium (3.5-5.0) mmol/L Chloride (101-111) mmol/L Carbon Dioxide (22-32) mmol/L Anion Gap (2-11) mmol/L BUN (6-24) mg/dL Creatinine (0.51-0.95) mg/dL Est GFR ( Amer) (>60) Est GFR (Non-Af Amer) (>60) BUN/Creatinine Ratio (8-20) Glucose (70-100) mg/dL Lactic Acid (0.5-2.0) mmol/L Calcium (8.6-10.3) mg/dL Magnesium (1.9-2.7) mg/dL Total Bilirubin (0.2-1.0) mg/dL AST (13-39) U/L ALT (7-52) U/L Alkaline Phosphatase (34-104) U/L Troponin I (<0.04) ng/mL B-Natriuretic Peptide 232 H ( - 100) pg/mL Total Protein (6.4-8.9) g/dL Albumin (3.2-5.2) g/dL Globulin (2-4) g/dL Albumin/Globulin Ratio (1-3) Procalcitonin 16.3 H (<0.6) ng/mL TSH (0.34-5.60) mcIU/mL Thyroxine (T4) (6.09-12.23) g/dL Influenza A (Rapid) (Negative) Influenza B (Rapid) (Negative) 07/03/16 Range/Units 12:47 WBC (3.5-10.8) 10^3/ul RBC (4.0-5.4) 10^6/ul Hgb (12.0-16.0) g/dl Hct (35-47) % MCV (80-97) fL MCH (27-31) pg MCHC (31-36) g/dl RDW (10.5-15) % Plt Count (150-450) 10^3/ul MPV (7.4-10.4) um3 Neut % (Auto) (38-83) % Lymph % (Auto) (25-47) % [place] % (Auto) (1-9) % Eos % (Auto) (0-6) % Baso % (Auto) (0-2) % Absolute Neuts (auto) (1.5-7.7) 10^3/ul Absolute Lymphs (auto) (1.0-4.8) 10^3/ul Absolute Monos (auto) (0-0.8) 10^3/ul Absolute Eos (auto) (0-0.6) 10^3/ul Absolute Basos (auto) (0-0.2) 10^3/ul Absolute Nucleated RBC 10^3/ul Nucleated RBC % INR (Anticoag Therapy) (0.89-1.11) Sodium (133-145) mmol/L Potassium (3.5-5.0) mmol/L Chloride (101-111) mmol/L Carbon Dioxide (22-32) mmol/L Anion Gap (2-11) mmol/L BUN (6-24) mg/dL Creatinine (0.51-0.95) mg/dL Est GFR ( Amer) (>60) Est GFR (Non-Af Amer) (>60) BUN/Creatinine Ratio (8-20) Glucose (70-100) mg/dL Lactic Acid (0.5-2.0) mmol/L Calcium (8.6-10.3) mg/dL Magnesium (1.9-2.7) mg/dL Total Bilirubin (0.2-1.0) mg/dL AST (13-39) U/L ALT (7-52) U/L Alkaline Phosphatase (34-104) U/L Troponin I (<0.04) ng/mL B-Natriuretic Peptide ( - 100) pg/mL Total Protein (6.4-8.9) g/dL Albumin (3.2-5.2) g/dL Globulin (2-4) g/dL Albumin/Globulin Ratio (1-3) Procalcitonin (<0.6) ng/mL TSH (0.34-5.60) mcIU/mL Thyroxine (T4) (6.09-12.23) g/dL Influenza A (Rapid) Positive H (Negative) Influenza B (Rapid) Negative (Negative) Microbiology and Other Data: Microbiology 07/03/16 22:50 Legionella Urinary Antigen - Final Urine Negative Legionella Streptococcus pneumoniae Ag Screen - Final Positive S. Pneumo Antigen 07/03/16 15:00 Nasal Screen MRSA (PCR)(JESSIE) - Final Nasal Mrsa Negative Assess/Plan/Problems-Billing Assessment: 71 yo F with h/o CHF, severe c. Diff (2 years ago) presented with sepsis, Influenza A, Strep pneumo PNA, A. fib with RVR - Patient Problems (1) Acute respiratory failure with hypoxemia Comment: Due to pneumonia and CHF transferred to ICU on 07/06/16 for worsening resp failure. appreciate Dr. Cowan' s imput. cont Vapotherm slowly improving. flutter valve used. OOB today cont (2) Severe sepsis Comment: due to strep pneumo pneumonia and Influenza A. Severe sepsis with acute renal failure and respiratory failure was present at admission Cont Ceftriaxone and Tamiflu Due to h/o severe and life threatening C. diff infection 2 years ago family was alerted by doctors from [facility] to tx prophylactically with PO Vancomycin if pt requires antibiotics. Although there is no evidence re: prophylaxis with PO Vancomycin in pt with h/o c. diff who need antibiotic tx for other condition, pt is severely ill and it may be life threatening if she develops C. Diff. At this point the benefit of tx with PO Vanco outweights the risks and will cont PO Vanc and cont Culturelle. (3) PAF (paroxysmal atrial fibrillation) Comment: currently in NSR cont BB and verapamil and lopressor IV prn. cont heparin gtt and coumadin for anticoagulation. Echo shows EF 55% (4) Acute diastolic CHF (congestive heart failure) Comment: CXR from 07/05/16 consistent with b/l pneumonia and CHF today pt appears euvolemic. (5) Temporal arteritis Comment: Under care of Dr. Tarango. Recently on prednisone 15 mg daily. ESR 07/06/16 at 120. Continue prednisone 20 mg daily for now. (6) Cluster headache Comment: improving, but due to being on heparin gtt will check CT head to r/o ICH. cont Verapamil (7) Acute renal failure Comment: due to severe sepsis renal US unremarkable FeNa 0.6 suggests prerenal azotemia, but abnormal UA with granular casts may be due to ATN At this point I believe it is due to a combination of prerenal and ATN. improving daily (8) Troponin I above reference range Comment: max at 1.7 at admission suspect demand ischemia. Echo shows mod MR and no wall motion abn. Cardiology consulted, no further diagnostics recommended (9) DVT prophylaxis Comment: on heparin gtt. coumadin started on 07/06/16, INR daily (10) Normocytic anemia Comment: due to severe sepsis, partial hemodilution and blood draws. Stable. Stool heme negative, no evidence of bleeding Status and Disposition: cont inpatient ICU stay on Vapotherm
--- NOTE | 2016-07-09 09:39 | RAD ---
HISTORY: Cluster headaches, intermittent confusion, rule out intracranial hemorrhage COMPARISONS: MRI of the brain dated July 23, 2015 TECHNIQUE: Multiple contiguous axial CT scans were obtained of the head without intravenous contrast. FINDINGS: HEMORRHAGE/INFARCT: There is no hemorrhage or acute infarct. MASSES/SHIFT: There is no mass or shift. EXTRA-AXIAL SPACES: There are no extra-axial fluid collections. SULCI AND VENTRICLES: The sulci and ventricles are normal in size and position for the patient's stated age. CEREBRUM: There is hypoattenuation of the periventricular and subcortical white matter. BRAINSTEM: There are no focal parenchymal abnormalities. CEREBELLUM: There are no focal parenchymal abnormalities. VESSELS: There is calcification of the cavernous segments of the internal carotid arteries bilaterally. PARANASAL SINUSES: The paranasal sinuses are clear. ORBITS: The orbits are unremarkable. BONES AND SOFT TISSUE: No bone or soft tissue abnormalities are noted. OTHER: None IMPRESSION: NO ACUTE INTRACRANIAL PATHOLOGY.
[2016-07-09] MEDS: Lansoprazole SOLUTAB* 30 MG PO SCH (09:58)
[2016-07-09] MEDS: Verapamil TAB* 80 MG PO SCH ×3 (09:58→21:23)
[2016-07-09] MEDS: Gabapentin CAP(*) 300 MG PO SCH ×2 (09:58→21:22)
[2016-07-09] MEDS: Lactobacillus Acidophilu (GG)* 1 CAP CAP PO SCH ×2 (09:58→21:23)
[2016-07-09] MEDS: Aspirin EC Low Dose* 81 MG TAB.EC PO SCH (09:58)
[2016-07-09] MEDS: predniSONE TAB* 20 MG PO SCH (09:59)
[2016-07-09] MEDS: Oseltamivir CAP* 30 MG CAP PO SCH (09:59)
[2016-07-09] MEDS: Metoprolol Tartrate TAB* 25 MG PO SCH ×2 (09:59→21:23)
[2016-07-09] MEDS: Heparin DRIP 25,000 UNITS(*) 25,000 UNITS/500 ML BAG IVPB SCH ×2 (12:12→15:57)
[2016-07-09] MEDS: cefTRIAXone VIAL(*) 1,000 MG in NS 0.9% 50 ML* 50 ML IVPB SCH (17:27)
[2016-07-09] MEDS: Warfarin TAB(*) 5 MG PO SCH (17:27)
[2016-07-09] MEDS: Atorvastatin* 20 MG TAB PO SCH (17:27)
[2016-07-09] MEDS: oxyCODONE TAB* 5 MG TAB PO PRN ×2 (17:41→21:50)
[2016-07-09] MEDS: Topiramate TAB(*) 100 MG PO SCH (21:23)
[2016-07-09] MEDS: Memantine XR CAP* 28 MG CAP.XR PO SCH (21:23)
[2016-07-09] MEDS ORDERED: Albuterol/Ipratropium NEB.SOL* Albuterol 2.5 MG/Ipratropium 0.5 MG 3 ML INH PRN (23:03)
[2016-07-10] MEDS: Morphine INJ* 2 MG/ML 1 ML CARPUJECT IV PRN ×4 (00:19→22:09)
[2016-07-10] MEDS: Vancomycin CAP* 250 MG CAP PO SCH ×3 (05:33→22:08)
[2016-07-10 05:54] LABS: Hematocrit 25 % (35-47); Hemoglobin 8.4 g/dl (12.0-16.0); Mean Corpuscular HGB Conc 34 g/dl (31-36); Mean Corpuscular Hemoglobin 33 pg (27-31); Mean Corpuscular Volume 98 fL (80-97); Mean Platelet Volume 8 um3 (7.4-10.4); Red Blood Count 2.54 10^6/ul (4.0-5.4); Red Cell Distribution Width 14 % (10.5-15)
[2016-07-10 06:03] LABS: Add Diff/Slide Review? Slide Review Added; Comments Flag Yes
[2016-07-10 06:11] LABS: BUN/Creatinine Ratio 25.7 (8-20); Calcium 8.9 mg/dL (8.6-10.3); EGFR African American 47.8 (>60); EGFR Non-African American 37.2 (>60); Potassium 3.8 mmol/L (3.5-5.0)
[2016-07-10 06:50] LABS: Eosinophils % 2 % (0-6); Immature Granulocytes 6 % (0-9); Metamyelocytes % 1 % (0-2); Myelocytes % 4 % (0-1); Neutrophil % 71 % (38-83); Reactive Lymph % 1 % (0-6)
[2016-07-10 06:51] LABS: RBC Morphology Normal (Normal)
[2016-07-10] MEDS: oxyCODONE TAB* 5 MG TAB PO PRN ×3 (08:13→20:03)
[2016-07-10] MEDS: predniSONE TAB* 20 MG PO SCH (08:14)
[2016-07-10] MEDS: Gabapentin CAP(*) 300 MG PO SCH ×2 (08:14→20:04)
[2016-07-10] MEDS: Aspirin EC Low Dose* 81 MG TAB.EC PO SCH (08:14)
[2016-07-10] MEDS: Lactobacillus Acidophilu (GG)* 1 CAP CAP PO SCH ×2 (08:14→20:00)
[2016-07-10] MEDS: Verapamil TAB* 80 MG PO SCH ×3 (08:14→20:02)
[2016-07-10] MEDS: Lansoprazole SOLUTAB* 30 MG PO SCH (08:15)
[2016-07-10] MEDS: Metoprolol Tartrate TAB* 25 MG PO SCH ×2 (08:15→20:01)
--- NOTE | 2016-07-10 08:40 | PN ---
Subjective Date of Service: 07/10/16 Interval History: c/o "slight headache". ambulated to bathroom. Objective Active Medications: Albuterol/Ipratropium (Duoneb Neb.Navya*) 1 neb INH Q4H PRN PRN Reason: SHORTNESS OF BREATH Aspirin (Aspirin Ec Low Dose*) 81 mg PO DAILY [facility] Last Admin: 07/10/16 08:14 Dose: 81 mg Atorvastatin Calcium (Lipitor*) 20 mg PO 1700 [facility] Last Admin: 07/09/16 17:27 Dose: 20 mg Docusate Sodium (Colace Cap*) 100 mg PO BID PRN PRN Reason: CONSTIPATION Last Admin: 07/08/16 08:40 Dose: 100 mg Gabapentin (Neurontin Cap(*)) 300 mg PO BID [facility] Last Admin: 07/10/16 08:14 Dose: 300 mg Heparin Sodium (Porcine) (Heparin Flush Picc/Ml/Cvc(*)) 1 ml FLUSH Q12H [facility] Last Admin: 07/10/16 08:15 Dose: 1 ml Ceftriaxone Sodium 1,000 mg/ (Sodium Chloride) 50 mls @ 200 mls/hr IVPB Q24H [facility] Last Admin: 07/09/16 17:27 Dose: 200 mls/hr Lactobacillus Rhamnosus (Culturelle*) 1 cap PO BID [facility] Last Admin: 07/10/16 08:14 Dose: 1 cap Lansoprazole (Prevacid Solutab*) 30 mg PO DAILY [facility] Last Admin: 07/10/16 08:15 Dose: 30 mg Memantine (Namenda Xr Cap*) 28 mg PO BEDTIME [facility] Last Admin: 07/09/16 21:23 Dose: 28 mg Metoprolol Tartrate (Lopressor Iv*) 5 mg IV Q3H PRN PRN Reason: TACHYCARDIA Last Admin: 07/06/16 20:29 Dose: 5 mg Metoprolol Tartrate (Lopressor Tab*) 25 mg PO BID [facility] Last Admin: 07/10/16 08:15 Dose: 25 mg Morphine Sulfate (Morphine Inj (Syringe)*) 2 mg IV Q4H PRN PRN Reason: PAIN Last Admin: 07/10/16 00:19 Dose: 2 mg Oseltamivir Phosphate (Tamiflu Cap*) 30 mg PO DAILY [facility] Last Admin: 07/09/16 09:59 Dose: 30 mg Oxycodone HCl (Roxycodone Tab*) 5 mg PO Q4H PRN PRN Reason: PAIN Last Admin: 07/10/16 08:13 Dose: 5 mg Pharmacy Profile Note (Coumadin Daily Reminder*) 1 note FOLLOW UP 1700 [facility] Last Admin: 07/09/16 19:40 Dose: 1 note Prednisone (Deltasone Tab*) 20 mg PO DAILY [facility] Last Admin: 07/10/16 08:14 Dose: 20 mg Topiramate (Topamax(*)) 200 mg PO BEDTIME [facility] Last Admin: 07/09/16 21:23 Dose: 200 mg Vancomycin HCl (Vancomycin Cap*) 250 mg PO Q8HR [facility] Last Admin: 07/10/16 05:33 Dose: 250 mg Verapamil HCl (Calan Tab*) 80 mg PO TID [facility] Last Admin: 07/10/16 08:14 Dose: 80 mg Warfarin Sodium (Coumadin Tab(*)) 5 mg PO DAILY@1700 [facility] PRN Reason: Protocol Last Admin: 07/09/16 17:27 Dose: 5 mg Vital Signs 07/09/16 07/09/16 07/09/16 09:00 10:00 10:23 Temperature Pulse Rate 83 95 Respiratory 19 23 Rate Blood Pressure (mmHg) O2 Sat by Pulse 100 80 100 Oximetry 07/09/16 07/09/16 07/09/16 10:34 11:00 12:00 Temperature Pulse Rate 89 77 70 Respiratory 26 22 24 Rate Blood Pressure 131/59 122/61 126/64 (mmHg) O2 Sat by Pulse 100 100 100 Oximetry 07/09/16 07/09/16 07/09/16 12:16 13:00 14:00 Temperature 98.2 F Pulse Rate 74 70 Respiratory 27 22 Rate Blood Pressure 128/44 119/63 (mmHg) O2 Sat by Pulse 98 100 Oximetry 07/09/16 07/09/16 07/09/16 14:14 15:28 17:41 Temperature 98.3 F Pulse Rate 72 77 Respiratory 21 18 16 Rate Blood Pressure 139/59 (mmHg) O2 Sat by Pulse 100 100 Oximetry 07/09/16 07/09/16 07/09/16 19:41 19:58 20:00 Temperature 98.0 F Pulse Rate 89 91 Respiratory 14 18 16 Rate Blood Pressure 157/72 (mmHg) O2 Sat by Pulse 100 100 Oximetry 0107/09/16 07/09/16 21:22 21:50 23:33 Temperature 98.4 F Pulse Rate 83 Respiratory 16 18 20 Rate Blood Pressure 127/53 (mmHg) O2 Sat by Pulse 95 Oximetry 07/10/16 07/10/16 07/10/16 00:19 01:19 03:45 Temperature 98.7 F Pulse Rate 69 Respiratory 20 16 20 Rate Blood Pressure 113/47 (mmHg) O2 Sat by Pulse 95 Oximetry 07/10/16 07/10/16 07/10/16 07:14 08:13 08:14 Temperature 98.1 F Pulse Rate 76 Respiratory 16 18 18 Rate Blood Pressure 142/70 (mmHg) O2 Sat by Pulse 97 Oximetry Oxygen Devices in Use Now: Nasal Cannula - at 4 L, 02 sat 96% Appearance: 71 yo F in nAD, aAOx3 Eyes: No Scleral Icterus, PERRLA Ears/Nose/Mouth/Throat: NL Teeth, Lips, Gums, Mucous Membranes Moist Neck: NL Appearance and Movements; NL JVP, Trachea Midline Respiratory: - - diffuse b/l rhonchi Cardiovascular: NL Sounds; No Murmurs; No JVD, RRR Abdominal: NL Sounds; No Tenderness; No Distention Lymphatic: No Cervical Adenopathy Extremities: No Edema, No Clubbing, Cyanosis Skin: No Rash or Ulcers, No Nodules or Sclerosis Neurological: Alert and Oriented x 3, NL Muscle Strength and Tone Result Diagrams: 07/10/16 05:42 07/10/16 05:42 Additional Lab and Data: Lab Results 07/03/16 07/03/16 07/03/16 Range/Units 12:36 12:36 12:36 WBC 4.1 (3.5-10.8) 10^3/ul RBC 3.94 L (4.0-5.4) 10^6/ul Hgb 12.9 (12.0-16.0) g/dl Hct 39 (35-47) % MCV 98 H (80-97) fL MCH 33 H (27-31) pg MCHC 33 (31-36) g/dl RDW 14 (10.5-15) % Plt Count 184 (150-450) 10^3/ul MPV 7 L (7.4-10.4) um3 Neut % (Auto) 80.3 (38-83) % Lymph % (Auto) 9.6 L (25-47) % [place] % (Auto) 10.0 H (1-9) % Eos % (Auto) 0 (0-6) % Baso % (Auto) 0.1 (0-2) % Absolute Neuts (auto) 3.3 (1.5-7.7) 10^3/ul Absolute Lymphs (auto) 0.4 L (1.0-4.8) 10^3/ul Absolute Monos (auto) 0.4 (0-0.8) 10^3/ul Absolute Eos (auto) 0 (0-0.6) 10^3/ul Absolute Basos (auto) 0 (0-0.2) 10^3/ul Absolute Nucleated RBC 0 10^3/ul Nucleated RBC % 0.1 INR (Anticoag Therapy) (0.89-1.11) Sodium 121 L (133-145) mmol/L Potassium 3.5 (3.5-5.0) mmol/L Chloride 91 L (101-111) mmol/L Carbon Dioxide 14 L* (22-32) mmol/L Anion Gap 16 H (2-11) mmol/L BUN 36 H (6-24) mg/dL Creatinine 3.67 H (0.51-0.95) mg/dL Est GFR ( Amer) 15.7 (>60) Est GFR (Non-Af Amer) 12.2 (>60) BUN/Creatinine Ratio 9.8 (8-20) Glucose 112 H (70-100) mg/dL Lactic Acid 3.3 H* (0.5-2.0) mmol/L Calcium 7.9 L (8.6-10.3) mg/dL Magnesium 1.6 L (1.9-2.7) mg/dL Total Bilirubin 0.60 (0.2-1.0) mg/dL AST 86 H (13-39) U/L ALT 28 (7-52) U/L Alkaline Phosphatase 44 (34-104) U/L Troponin I 2.07 H* (<0.04) ng/mL B-Natriuretic Peptide ( - 100) pg/mL Total Protein 6.1 L (6.4-8.9) g/dL Albumin 2.9 L (3.2-5.2) g/dL Globulin 3.2 (2-4) g/dL Albumin/Globulin Ratio 0.9 L (1-3) Procalcitonin (<0.6) ng/mL TSH 1.05 (0.34-5.60) mcIU/mL Thyroxine (T4) 8.50 (6.09-12.23) g/dL Influenza A (Rapid) (Negative) Influenza B (Rapid) (Negative) 07/03/16 07/03/16 07/03/16 Range/Units 12:36 12:36 12:36 WBC (3.5-10.8) 10^3/ul RBC (4.0-5.4) 10^6/ul Hgb (12.0-16.0) g/dl Hct (35-47) % MCV (80-97) fL MCH (27-31) pg MCHC (31-36) g/dl RDW (10.5-15) % Plt Count (150-450) 10^3/ul MPV (7.4-10.4) um3 Neut % (Auto) (38-83) % Lymph % (Auto) (25-47) % [place] % (Auto) (1-9) % Eos % (Auto) (0-6) % Baso % (Auto) (0-2) % Absolute Neuts (auto) (1.5-7.7) 10^3/ul Absolute Lymphs (auto) (1.0-4.8) 10^3/ul Absolute Monos (auto) (0-0.8) 10^3/ul Absolute Eos (auto) (0-0.6) 10^3/ul Absolute Basos (auto) (0-0.2) 10^3/ul Absolute Nucleated RBC 10^3/ul Nucleated RBC % INR (Anticoag Therapy) 1.04 (0.89-1.11) Sodium (133-145) mmol/L Potassium (3.5-5.0) mmol/L Chloride (101-111) mmol/L Carbon Dioxide (22-32) mmol/L Anion Gap (2-11) mmol/L BUN (6-24) mg/dL Creatinine (0.51-0.95) mg/dL Est GFR ( Amer) (>60) Est GFR (Non-Af Amer) (>60) BUN/Creatinine Ratio (8-20) Glucose (70-100) mg/dL Lactic Acid (0.5-2.0) mmol/L Calcium (8.6-10.3) mg/dL Magnesium (1.9-2.7) mg/dL Total Bilirubin (0.2-1.0) mg/dL AST (13-39) U/L ALT (7-52) U/L Alkaline Phosphatase (34-104) U/L Troponin I (<0.04) ng/mL B-Natriuretic Peptide 232 H ( - 100) pg/mL Total Protein (6.4-8.9) g/dL Albumin (3.2-5.2) g/dL Globulin (2-4) g/dL Albumin/Globulin Ratio (1-3) Procalcitonin 16.3 H (<0.6) ng/mL TSH (0.34-5.60) mcIU/mL Thyroxine (T4) (6.09-12.23) g/dL Influenza A (Rapid) (Negative) Influenza B (Rapid) (Negative) 07/03/16 Range/Units 12:47 WBC (3.5-10.8) 10^3/ul RBC (4.0-5.4) 10^6/ul Hgb (12.0-16.0) g/dl Hct (35-47) % MCV (80-97) fL MCH (27-31) pg MCHC (31-36) g/dl RDW (10.5-15) % Plt Count (150-450) 10^3/ul MPV (7.4-10.4) um3 Neut % (Auto) (38-83) % Lymph % (Auto) (25-47) % [place] % (Auto) (1-9) % Eos % (Auto) (0-6) % Baso % (Auto) (0-2) % Absolute Neuts (auto) (1.5-7.7) 10^3/ul Absolute Lymphs (auto) (1.0-4.8) 10^3/ul Absolute Monos (auto) (0-0.8) 10^3/ul Absolute Eos (auto) (0-0.6) 10^3/ul Absolute Basos (auto) (0-0.2) 10^3/ul Absolute Nucleated RBC 10^3/ul Nucleated RBC % INR (Anticoag Therapy) (0.89-1.11) Sodium (133-145) mmol/L Potassium (3.5-5.0) mmol/L Chloride (101-111) mmol/L Carbon Dioxide (22-32) mmol/L Anion Gap (2-11) mmol/L BUN (6-24) mg/dL Creatinine (0.51-0.95) mg/dL Est GFR ( Amer) (>60) Est GFR (Non-Af Amer) (>60) BUN/Creatinine Ratio (8-20) Glucose (70-100) mg/dL Lactic Acid (0.5-2.0) mmol/L Calcium (8.6-10.3) mg/dL Magnesium (1.9-2.7) mg/dL Total Bilirubin (0.2-1.0) mg/dL AST (13-39) U/L ALT (7-52) U/L Alkaline Phosphatase (34-104) U/L Troponin I (<0.04) ng/mL B-Natriuretic Peptide ( - 100) pg/mL Total Protein (6.4-8.9) g/dL Albumin (3.2-5.2) g/dL Globulin (2-4) g/dL Albumin/Globulin Ratio (1-3) Procalcitonin (<0.6) ng/mL TSH (0.34-5.60) mcIU/mL Thyroxine (T4) (6.09-12.23) g/dL Influenza A (Rapid) Positive H (Negative) Influenza B (Rapid) Negative (Negative) Microbiology and Other Data: Microbiology 07/03/16 22:50 Legionella Urinary Antigen - Final Urine Negative Legionella Streptococcus pneumoniae Ag Screen - Final Positive S. Pneumo Antigen 07/03/16 15:00 Nasal Screen MRSA (PCR)(JESSIE) - Final Nasal Mrsa Negative Assess/Plan/Problems-Billing Assessment: 71 yo F with h/o CHF, severe c. Diff (2 years ago) presented with sepsis, Influenza A, Strep pneumo PNA, A. fib with RVR - Patient Problems (1) Acute respiratory failure with hypoxemia Comment: Due to pneumonia and CHF transferred to ICU on 07/06/16 for worsening resp failure. Now off high flow , back on medical floor on 07/09/16 slowly improving. (2) Severe sepsis Comment: due to strep pneumo pneumonia and Influenza A. Severe sepsis with acute renal failure and respiratory failure was present at admission Cont Ceftriaxone and Tamiflu Due to h/o severe and life threatening C. diff infection 2 years ago family was alerted by doctors from [facility] to tx prophylactically with PO Vancomycin if pt requires antibiotics. Although there is no evidence re: prophylaxis with PO Vancomycin in pt with h/o c. diff who need antibiotic tx for other condition, pt is severely ill and it may be life threatening if she develops C. Diff. At this point the benefit of tx with PO Vanco outweights the risks and will cont PO Vanc and cont Culturelle. (3) PAF (paroxysmal atrial fibrillation) Comment: currently in NSR cont BB and verapamil and lopressor IV prn. cont coumadin for anticoagulation. D/.c heparin gtt, INR nearly therapeutic today Echo shows EF 55% (4) Acute diastolic CHF (congestive heart failure) Comment: CXR from 07/05/16 consistent with b/l pneumonia and CHF today pt appears euvolemic. (5) Temporal arteritis Comment: Under care of Dr. Tarango. Recently on prednisone 15 mg daily. ESR 07/06/16 at 120. Continue prednisone 20 mg daily for now. (6) Cluster headache Comment: improving, but due to being on heparin gtt will check CT head to r/o ICH. cont Verapamil (7) Acute renal failure Comment: due to severe sepsis renal US unremarkable FeNa 0.6 suggests prerenal azotemia, but abnormal UA with granular casts may be due to ATN At this point I believe it is due to a combination of prerenal and ATN. improving daily (8) Troponin I above reference range Comment: max at 1.7 at admission suspect demand ischemia. Echo shows mod MR and no wall motion abn. Cardiology consulted, no further diagnostics recommended (9) DVT prophylaxis Comment: coumadin (10) Normocytic anemia Comment: due to severe sepsis, partial hemodilution and blood draws. Stable. Stool heme negative, no evidence of bleeding Status and Disposition: plan to d/c to STR in 1-2 days
[2016-07-10] MEDS: Oseltamivir CAP* 30 MG CAP PO SCH (09:48)
[2016-07-10] MEDS: cefTRIAXone VIAL(*) 1,000 MG in NS 0.9% 50 ML* 50 ML IVPB SCH (16:14)
[2016-07-10] MEDS: Warfarin TAB(*) 5 MG PO SCH (16:17)
[2016-07-10] MEDS: Atorvastatin* 20 MG TAB PO SCH (16:17)
[2016-07-10] MEDS: Topiramate TAB(*) 100 MG PO SCH (20:00)
[2016-07-10] MEDS: Memantine XR CAP* 28 MG CAP.XR PO SCH (20:05)
[2016-07-11] MEDS: Vancomycin CAP* 250 MG CAP PO SCH ×3 (06:22→21:40)
[2016-07-11] MEDS: Lactobacillus Acidophilu (GG)* 1 CAP CAP PO SCH ×2 (08:07→20:44)
[2016-07-11] MEDS: Aspirin EC Low Dose* 81 MG TAB.EC PO SCH (08:08)
[2016-07-11] MEDS: predniSONE TAB* 20 MG PO SCH (08:08)
[2016-07-11] MEDS: Gabapentin CAP(*) 300 MG PO SCH ×2 (08:08→20:45)
[2016-07-11] MEDS: Verapamil TAB* 80 MG PO SCH ×3 (08:08→20:45)
[2016-07-11] MEDS: Metoprolol Tartrate TAB* 25 MG PO SCH ×2 (08:08→20:45)
[2016-07-11] MEDS: Lansoprazole SOLUTAB* 30 MG PO SCH (08:08)
--- NOTE | 2016-07-11 11:01 | PN ---
Subjective Date of Service: 07/11/16 Interval History: Pt got "panicky" when ambulating to bathroom yesterday. 02 sat's dropped and she required to be placed on 10 L 02 Nc. Objective Active Medications: Albuterol/Ipratropium (Duoneb Neb.Navya*) 1 neb INH Q4H PRN PRN Reason: SHORTNESS OF BREATH Aspirin (Aspirin Ec Low Dose*) 81 mg PO DAILY [facility] Last Admin: 07/11/16 08:08 Dose: 81 mg Atorvastatin Calcium (Lipitor*) 20 mg PO 1700 [facility] Last Admin: 07/10/16 16:17 Dose: 20 mg Docusate Sodium (Colace Cap*) 100 mg PO BID PRN PRN Reason: CONSTIPATION Last Admin: 07/08/16 08:40 Dose: 100 mg Gabapentin (Neurontin Cap(*)) 300 mg PO BID [facility] Last Admin: 07/11/16 08:08 Dose: 300 mg Heparin Sodium (Porcine) (Heparin Flush Picc/Ml/Cvc(*)) 1 ml FLUSH Q12H [facility] Last Admin: 07/11/16 08:11 Dose: Not Given Ceftriaxone Sodium 1,000 mg/ (Sodium Chloride) 50 mls @ 200 mls/hr IVPB Q24H [facility] Last Admin: 07/10/16 16:14 Dose: 200 mls/hr Lactobacillus Rhamnosus (Culturelle*) 1 cap PO BID [facility] Last Admin: 07/11/16 08:07 Dose: 1 cap Lansoprazole (Prevacid Solutab*) 30 mg PO DAILY [facility] Last Admin: 07/11/16 08:08 Dose: 30 mg Memantine (Namenda Xr Cap*) 28 mg PO BEDTIME [facility] Last Admin: 07/10/16 20:05 Dose: 28 mg Metoprolol Tartrate (Lopressor Iv*) 5 mg IV Q3H PRN PRN Reason: TACHYCARDIA Last Admin: 07/06/16 20:29 Dose: 5 mg Metoprolol Tartrate (Lopressor Tab*) 25 mg PO BID [facility] Last Admin: 07/11/16 08:08 Dose: 25 mg Morphine Sulfate (Morphine Inj (Syringe)*) 2 mg IV Q4H PRN PRN Reason: PAIN Last Admin: 07/10/16 22:09 Dose: 2 mg Oxycodone HCl (Roxycodone Tab*) 5 mg PO Q4H PRN PRN Reason: PAIN Last Admin: 07/10/16 20:03 Dose: 5 mg Pharmacy Profile Note (Coumadin Daily Reminder*) 1 note FOLLOW UP 1700 [facility] Last Admin: 07/10/16 16:17 Dose: 1 note Prednisone (Deltasone Tab*) 20 mg PO DAILY [facility] Last Admin: 07/11/16 08:08 Dose: 20 mg Topiramate (Topamax(*)) 200 mg PO BEDTIME [facility] Last Admin: 07/10/16 20:00 Dose: 200 mg Vancomycin HCl (Vancomycin Cap*) 250 mg PO Q8HR [facility] Last Admin: 07/11/16 06:22 Dose: 250 mg Verapamil HCl (Calan Tab*) 80 mg PO TID [facility] Last Admin: 07/11/16 08:08 Dose: 80 mg Warfarin Sodium (Coumadin Tab(*)) 5 mg PO DAILY@1700 [facility] PRN Reason: Protocol Last Admin: 07/10/16 16:17 Dose: 5 mg Vital Signs 07/10/16 07/10/16 07/10/16 11:08 12:41 14:41 Temperature 98.6 F Pulse Rate 65 Respiratory 16 16 18 Rate Blood Pressure 120/58 (mmHg) O2 Sat by Pulse 98 Oximetry 07/10/16 07/10/16 07/10/16 14:58 15:24 15:58 Temperature 98.0 F Pulse Rate 65 Respiratory 16 16 16 Rate Blood Pressure 143/66 (mmHg) O2 Sat by Pulse 98 Oximetry 07/10/16 07/10/16 07/10/16 20:00 20:03 20:04 Temperature Pulse Rate Respiratory 20 16 16 Rate Blood Pressure (mmHg) O2 Sat by Pulse Oximetry 07/10/16 07/10/16 07/10/16 20:05 21:58 22:03 Temperature 97.8 F Pulse Rate 74 Respiratory 16 16 Rate Blood Pressure 141/70 (mmHg) O2 Sat by Pulse 98 94 Oximetry 07/10/16 07/10/16 07/10/16 22:04 22:09 23:09 Temperature Pulse Rate Respiratory 16 16 16 Rate Blood Pressure (mmHg) O2 Sat by Pulse Oximetry 07/10/16 07/11/16 07/11/16 23:46 03:14 06:27 Temperature 98.1 F 97.6 F Pulse Rate 64 76 Respiratory 20 20 Rate Blood Pressure 151/66 157/67 (mmHg) O2 Sat by Pulse 100 99 94 Oximetry 07/11/16 07/11/16 07/11/16 07:16 08:00 08:08 Temperature 98.3 F Pulse Rate 71 Respiratory 16 16 16 Rate Blood Pressure 135/49 (mmHg) O2 Sat by Pulse 98 Oximetry Oxygen Devices in Use Now: Nasal Cannula - at 4 L Appearance: 71 yo F in NAD, AAOx3 Eyes: No Scleral Icterus, PERRLA Ears/Nose/Mouth/Throat: NL Teeth, Lips, Gums, Mucous Membranes Moist Neck: NL Appearance and Movements; NL JVP, Trachea Midline Respiratory: Symmetrical Chest Expansion and Respiratory Effort, - - dry crackles in b/l lower to mid lungs, occasional wheeze Cardiovascular: NL Sounds; No Murmurs; No JVD, RRR Abdominal: NL Sounds; No Tenderness; No Distention Lymphatic: No Cervical Adenopathy Extremities: No Edema, No Clubbing, Cyanosis Skin: No Rash or Ulcers, No Nodules or Sclerosis Neurological: Alert and Oriented x 3, NL Muscle Strength and Tone Result Diagrams: 07/10/16 05:42 07/10/16 05:42 Additional Lab and Data: Lab Results 07/03/16 07/03/16 07/03/16 Range/Units 12:36 12:36 12:36 WBC 4.1 (3.5-10.8) 10^3/ul RBC 3.94 L (4.0-5.4) 10^6/ul Hgb 12.9 (12.0-16.0) g/dl Hct 39 (35-47) % MCV 98 H (80-97) fL MCH 33 H (27-31) pg MCHC 33 (31-36) g/dl RDW 14 (10.5-15) % Plt Count 184 (150-450) 10^3/ul MPV 7 L (7.4-10.4) um3 Neut % (Auto) 80.3 (38-83) % Lymph % (Auto) 9.6 L (25-47) % Shannon % (Auto) 10.0 H (1-9) % Eos % (Auto) 0 (0-6) % Baso % (Auto) 0.1 (0-2) % Absolute Neuts (auto) 3.3 (1.5-7.7) 10^3/ul Absolute Lymphs (auto) 0.4 L (1.0-4.8) 10^3/ul Absolute Monos (auto) 0.4 (0-0.8) 10^3/ul Absolute Eos (auto) 0 (0-0.6) 10^3/ul Absolute Basos (auto) 0 (0-0.2) 10^3/ul Absolute Nucleated RBC 0 10^3/ul Nucleated RBC % 0.1 INR (Anticoag Therapy) (0.89-1.11) Sodium 121 L (133-145) mmol/L Potassium 3.5 (3.5-5.0) mmol/L Chloride 91 L (101-111) mmol/L Carbon Dioxide 14 L* (22-32) mmol/L Anion Gap 16 H (2-11) mmol/L BUN 36 H (6-24) mg/dL Creatinine 3.67 H (0.51-0.95) mg/dL Est GFR ( Amer) 15.7 (>60) Est GFR (Non-Af Amer) 12.2 (>60) BUN/Creatinine Ratio 9.8 (8-20) Glucose 112 H (70-100) mg/dL Lactic Acid 3.3 H* (0.5-2.0) mmol/L Calcium 7.9 L (8.6-10.3) mg/dL Magnesium 1.6 L (1.9-2.7) mg/dL Total Bilirubin 0.60 (0.2-1.0) mg/dL AST 86 H (13-39) U/L ALT 28 (7-52) U/L Alkaline Phosphatase 44 (34-104) U/L Troponin I 2.07 H* (<0.04) ng/mL B-Natriuretic Peptide ( - 100) pg/mL Total Protein 6.1 L (6.4-8.9) g/dL Albumin 2.9 L (3.2-5.2) g/dL Globulin 3.2 (2-4) g/dL Albumin/Globulin Ratio 0.9 L (1-3) Procalcitonin (<0.6) ng/mL TSH 1.05 (0.34-5.60) mcIU/mL Thyroxine (T4) 8.50 (6.09-12.23) g/dL Influenza A (Rapid) (Negative) Influenza B (Rapid) (Negative) 07/03/16 07/03/16 07/03/16 Range/Units 12:36 12:36 12:36 WBC (3.5-10.8) 10^3/ul RBC (4.0-5.4) 10^6/ul Hgb (12.0-16.0) g/dl Hct (35-47) % MCV (80-97) fL MCH (27-31) pg MCHC (31-36) g/dl RDW (10.5-15) % Plt Count (150-450) 10^3/ul MPV (7.4-10.4) um3 Neut % (Auto) (38-83) % Lymph % (Auto) (25-47) % Shannon % (Auto) (1-9) % Eos % (Auto) (0-6) % Baso % (Auto) (0-2) % Absolute Neuts (auto) (1.5-7.7) 10^3/ul Absolute Lymphs (auto) (1.0-4.8) 10^3/ul Absolute Monos (auto) (0-0.8) 10^3/ul Absolute Eos (auto) (0-0.6) 10^3/ul Absolute Basos (auto) (0-0.2) 10^3/ul Absolute Nucleated RBC 10^3/ul Nucleated RBC % INR (Anticoag Therapy) 1.04 (0.89-1.11) Sodium (133-145) mmol/L Potassium (3.5-5.0) mmol/L Chloride (101-111) mmol/L Carbon Dioxide (22-32) mmol/L Anion Gap (2-11) mmol/L BUN (6-24) mg/dL Creatinine (0.51-0.95) mg/dL Est GFR ( Amer) (>60) Est GFR (Non-Af Amer) (>60) BUN/Creatinine Ratio (8-20) Glucose (70-100) mg/dL Lactic Acid (0.5-2.0) mmol/L Calcium (8.6-10.3) mg/dL Magnesium (1.9-2.7) mg/dL Total Bilirubin (0.2-1.0) mg/dL AST (13-39) U/L ALT (7-52) U/L Alkaline Phosphatase (34-104) U/L Troponin I (<0.04) ng/mL B-Natriuretic Peptide 232 H ( - 100) pg/mL Total Protein (6.4-8.9) g/dL Albumin (3.2-5.2) g/dL Globulin (2-4) g/dL Albumin/Globulin Ratio (1-3) Procalcitonin 16.3 H (<0.6) ng/mL TSH (0.34-5.60) mcIU/mL Thyroxine (T4) (6.09-12.23) g/dL Influenza A (Rapid) (Negative) Influenza B (Rapid) (Negative) 07/03/16 Range/Units 12:47 WBC (3.5-10.8) 10^3/ul RBC (4.0-5.4) 10^6/ul Hgb (12.0-16.0) g/dl Hct (35-47) % MCV (80-97) fL MCH (27-31) pg MCHC (31-36) g/dl RDW (10.5-15) % Plt Count (150-450) 10^3/ul MPV (7.4-10.4) um3 Neut % (Auto) (38-83) % Lymph % (Auto) (25-47) % Shannon % (Auto) (1-9) % Eos % (Auto) (0-6) % Baso % (Auto) (0-2) % Absolute Neuts (auto) (1.5-7.7) 10^3/ul Absolute Lymphs (auto) (1.0-4.8) 10^3/ul Absolute Monos (auto) (0-0.8) 10^3/ul Absolute Eos (auto) (0-0.6) 10^3/ul Absolute Basos (auto) (0-0.2) 10^3/ul Absolute Nucleated RBC 10^3/ul Nucleated RBC % INR (Anticoag Therapy) (0.89-1.11) Sodium (133-145) mmol/L Potassium (3.5-5.0) mmol/L Chloride (101-111) mmol/L Carbon Dioxide (22-32) mmol/L Anion Gap (2-11) mmol/L BUN (6-24) mg/dL Creatinine (0.51-0.95) mg/dL Est GFR ( Amer) (>60) Est GFR (Non-Af Amer) (>60) BUN/Creatinine Ratio (8-20) Glucose (70-100) mg/dL Lactic Acid (0.5-2.0) mmol/L Calcium (8.6-10.3) mg/dL Magnesium (1.9-2.7) mg/dL Total Bilirubin (0.2-1.0) mg/dL AST (13-39) U/L ALT (7-52) U/L Alkaline Phosphatase (34-104) U/L Troponin I (<0.04) ng/mL B-Natriuretic Peptide ( - 100) pg/mL Total Protein (6.4-8.9) g/dL Albumin (3.2-5.2) g/dL Globulin (2-4) g/dL Albumin/Globulin Ratio (1-3) Procalcitonin (<0.6) ng/mL TSH (0.34-5.60) mcIU/mL Thyroxine (T4) (6.09-12.23) g/dL Influenza A (Rapid) Positive H (Negative) Influenza B (Rapid) Negative (Negative) Microbiology and Other Data: Microbiology 07/03/16 22:50 Legionella Urinary Antigen - Final Urine Negative Legionella Streptococcus pneumoniae Ag Screen - Final Positive S. Pneumo Antigen 07/03/16 15:00 Nasal Screen MRSA (PCR)(JESSIE) - Final Nasal Mrsa Negative Assess/Plan/Problems-Billing Assessment: 71 yo F with h/o CHF, severe c. Diff (2 years ago) presented with sepsis, Influenza A, Strep pneumo PNA, A. fib with RVR - Patient Problems (1) Acute respiratory failure with hypoxemia Comment: Due to pneumonia and CHF transferred to ICU on 07/06/16 for worsening resp failure. Now off high flow 02, back on medical floor on 07/09/16 slowly improving, but still reguires 10 L 02 when ambulating. Suspect she will need 1-2 days of acute stay prior to rehab (2) Severe sepsis Comment: due to strep pneumo pneumonia and Influenza A. Severe sepsis with acute renal failure and respiratory failure was present at admission Cont Ceftriaxone (today is day 01/06) . Tamiflu (finished 7 days tx) Due to h/o severe and life threatening C. diff infection 2 years ago family was alerted by doctors from [facility] to tx prophylactically with PO Vancomycin if pt requires antibiotics. Although there is no evidence re: prophylaxis with PO Vancomycin in pt with h/o c. diff who need antibiotic tx for other condition, pt is severely ill and it may be life threatening if she develops C. Diff. At this point the benefit of tx with PO Vanco outweights the risks and will cont PO Vanc (today is last day)and cont Culturelle. (3) PAF (paroxysmal atrial fibrillation) Comment: currently in NSR cont BB and verapamil and lopressor IV prn. cont coumadin for anticoagulation. INR nearly therapeutic today Echo shows EF 55% (4) Acute diastolic CHF (congestive heart failure) Comment: CXR from 07/05/16 consistent with b/l pneumonia and CHF today pt appears euvolemic. (5) Temporal arteritis Comment: Under care of Dr. Tarango. Recently on prednisone 15 mg daily. ESR 07/06/16 at 120. Continue prednisone 20 mg daily for now. (6) Cluster headache Comment: resolved cont Verapamil (7) Acute renal failure Comment: due to severe sepsis renal US unremarkable FeNa 0.6 suggests prerenal azotemia, but abnormal UA with granular casts may be due to ATN At this point I believe it is due to a combination of prerenal and ATN. improving daily (8) Troponin I above reference range Comment: max at 1.7 at admission suspect demand ischemia. Echo shows mod MR and no wall motion abn. Cardiology consulted, no further diagnostics recommended (9) DVT prophylaxis Comment: coumadin (10) Normocytic anemia Comment: due to severe sepsis, partial hemodilution and blood draws. Stable. Stool heme negative, no evidence of bleeding Status and Disposition: plan to d/c to [facility] in 1-2 days
[2016-07-11] MEDS: DULoxetine DR CAP* 30 MG CAP.DR PO SCH (12:08)
[2016-07-11] MEDS: cefTRIAXone VIAL(*) 1,000 MG in NS 0.9% 50 ML* 50 ML IVPB SCH (15:52)
[2016-07-11] MEDS: Warfarin TAB(*) 5 MG PO SCH (15:56)
[2016-07-11] MEDS: Atorvastatin* 20 MG TAB PO SCH (15:56)
[2016-07-11] MEDS: oxyCODONE TAB* 5 MG TAB PO PRN ×2 (17:51→21:45)
[2016-07-11] MEDS: Topiramate TAB(*) 100 MG PO SCH (20:44)
[2016-07-11] MEDS: Memantine XR CAP* 28 MG CAP.XR PO SCH (20:46)
[2016-07-12] MEDS: oxyCODONE TAB* 5 MG TAB PO PRN ×5 (02:30→20:55)
[2016-07-12 05:46] LABS: BUN/Creatinine Ratio 29.1 (8-20); Calcium 8.7 mg/dL (8.6-10.3); EGFR African American 53.5 (>60); EGFR Non-African American 41.6 (>60)
[2016-07-12] MEDS: predniSONE TAB* 20 MG PO SCH (07:51)
[2016-07-12] MEDS: Aspirin EC Low Dose* 81 MG TAB.EC PO SCH (07:51)
[2016-07-12] MEDS: Metoprolol Tartrate TAB* 25 MG PO SCH ×2 (07:51→20:50)
[2016-07-12] MEDS: Gabapentin CAP(*) 300 MG PO SCH ×4 (07:51→20:50)
[2016-07-12] MEDS: Verapamil TAB* 80 MG PO SCH ×3 (07:52→20:50)
[2016-07-12] MEDS: DULoxetine DR CAP* 30 MG CAP.DR PO SCH (07:52)
[2016-07-12] MEDS: Lansoprazole SOLUTAB* 30 MG PO SCH (07:53)
--- NOTE | 2016-07-12 08:17 | PN ---
Subjective Date of Service: 07/12/16 Interval History: Dry cough, no change. Walked to [place] yesterday. Needs higher O2 flow while walking. No bowel c/o. Her headache is at her usual level. She takes gabapentin tid at home Objective Active Medications: Albuterol/Ipratropium (Duoneb Neb.Navya*) 1 neb INH Q4H PRN PRN Reason: SHORTNESS OF BREATH Aspirin (Aspirin Ec Low Dose*) 81 mg PO DAILY [facility] Last Admin: 07/12/16 07:51 Dose: 81 mg Atorvastatin Calcium (Lipitor*) 20 mg PO 1700 [facility] Last Admin: 07/11/16 15:56 Dose: 20 mg Docusate Sodium (Colace Cap*) 100 mg PO BID PRN PRN Reason: CONSTIPATION Last Admin: 07/08/16 08:40 Dose: 100 mg Duloxetine HCl (Cymbalta Cap*) 90 mg PO DAILY [facility] Last Admin: 07/12/16 07:52 Dose: 90 mg Gabapentin (Neurontin Cap(*)) 300 mg PO TID [facility] Heparin Sodium (Porcine) (Heparin Flush Picc/Ml/Cvc(*)) 1 ml FLUSH Q12H [facility] Last Admin: 07/12/16 07:53 Dose: 1 ml Lactobacillus Rhamnosus (Culturelle*) 1 cap PO BID [facility] Last Admin: 07/11/16 20:44 Dose: 1 cap Lansoprazole (Prevacid Solutab*) 30 mg PO DAILY [facility] Last Admin: 07/12/16 07:53 Dose: 30 mg Memantine (Namenda Xr Cap*) 28 mg PO BEDTIME [facility] Last Admin: 07/11/16 20:46 Dose: 28 mg Metoprolol Tartrate (Lopressor Iv*) 5 mg IV Q3H PRN PRN Reason: TACHYCARDIA Last Admin: 07/06/16 20:29 Dose: 5 mg Metoprolol Tartrate (Lopressor Tab*) 25 mg PO BID [facility] Last Admin: 07/12/16 07:51 Dose: 25 mg Morphine Sulfate (Morphine Inj (Syringe)*) 2 mg IV Q4H PRN PRN Reason: PAIN Last Admin: 07/10/16 22:09 Dose: 2 mg Oxycodone HCl (Roxycodone Tab*) 5 mg PO Q4H PRN PRN Reason: PAIN Last Admin: 07/12/16 07:53 Dose: 5 mg Pharmacy Profile Note (Coumadin Daily Reminder*) 1 note FOLLOW UP 1700 [facility] Last Admin: 07/11/16 15:56 Dose: 1 note Prednisone (Deltasone Tab*) 20 mg PO DAILY [facility] Last Admin: 07/12/16 07:51 Dose: 20 mg Topiramate (Topamax(*)) 200 mg PO BEDTIME [facility] Last Admin: 07/11/16 20:44 Dose: 200 mg Verapamil HCl (Calan Tab*) 80 mg PO TID [facility] Last Admin: 07/12/16 07:52 Dose: 80 mg Warfarin Sodium (Coumadin Tab(*)) 5 mg PO DAILY@1700 [facility] PRN Reason: Protocol Last Admin: 07/11/16 15:56 Dose: 5 mg Vital Signs 07/11/16 07/11/16 07/11/16 10:08 11:12 16:28 Temperature 97.3 F 98.1 F Pulse Rate 72 71 Respiratory 16 16 14 Rate Blood Pressure 130/60 132/64 (mmHg) O2 Sat by Pulse 95 98 Oximetry 07/11/16 07/11/16 07/11/16 17:22 17:51 19:51 Temperature Pulse Rate Respiratory 16 17 Rate Blood Pressure (mmHg) O2 Sat by Pulse 97 Oximetry 07/11/16 07/11/16 07/11/16 20:00 20:45 21:45 Temperature 98.5 F Pulse Rate 76 Respiratory 18 17 17 Rate Blood Pressure 136/65 (mmHg) O2 Sat by Pulse 98 Oximetry 07/11/16 07/11/16 07/11/16 22:45 22:59 23:05 Temperature 98.2 F Pulse Rate 74 Respiratory 16 16 Rate Blood Pressure 123/62 (mmHg) O2 Sat by Pulse 96 95 Oximetry 07/11/16 07/12/16 07/12/16 23:45 02:30 03:10 Temperature Pulse Rate 64 Respiratory 16 16 20 Rate Blood Pressure 139/66 (mmHg) O2 Sat by Pulse 96 Oximetry 07/12/16 07/12/16 07/12/16 03:33 04:30 07:28 Temperature 99.6 F 98.2 F Pulse Rate 66 Respiratory 16 16 Rate Blood Pressure 131/63 (mmHg) O2 Sat by Pulse 99 Oximetry 07/12/16 07/12/16 07:51 07:53 Temperature Pulse Rate Respiratory 18 18 Rate Blood Pressure (mmHg) O2 Sat by Pulse Oximetry Oxygen Devices in Use Now: Nasal Cannula - at 4 L Appearance: Alerr, partly up in bed. In good spirits. Looks comfortablel. Eyes: No Scleral Icterus Ears/Nose/Mouth/Throat: Clear Oropharnyx, Mucous Membranes Moist Neck: NL Appearance and Movements; NL JVP, No Thyroid Enlargement, Masses Respiratory: Symmetrical Chest Expansion and Respiratory Effort, Clear to Percussion - rales all lung arce, good air movement. Extremities: No Edema, No Clubbing, Cyanosis, - Neurological: Alert and Oriented x 3, NL Sensation Result Diagrams: 07/10/16 05:42 07/12/16 05:04 Additional Lab and Data: Lab Results 07/03/16 07/03/16 07/03/16 Range/Units 12:36 12:36 12:36 WBC 4.1 (3.5-10.8) 10^3/ul RBC 3.94 L (4.0-5.4) 10^6/ul Hgb 12.9 (12.0-16.0) g/dl Hct 39 (35-47) % MCV 98 H (80-97) fL MCH 33 H (27-31) pg MCHC 33 (31-36) g/dl RDW 14 (10.5-15) % Plt Count 184 (150-450) 10^3/ul MPV 7 L (7.4-10.4) um3 Neut % (Auto) 80.3 (38-83) % Lymph % (Auto) 9.6 L (25-47) % Hawkins % (Auto) 10.0 H (1-9) % Eos % (Auto) 0 (0-6) % Baso % (Auto) 0.1 (0-2) % Absolute Neuts (auto) 3.3 (1.5-7.7) 10^3/ul Absolute Lymphs (auto) 0.4 L (1.0-4.8) 10^3/ul Absolute Monos (auto) 0.4 (0-0.8) 10^3/ul Absolute Eos (auto) 0 (0-0.6) 10^3/ul Absolute Basos (auto) 0 (0-0.2) 10^3/ul Absolute Nucleated RBC 0 10^3/ul Nucleated RBC % 0.1 INR (Anticoag Therapy) (0.89-1.11) Sodium 121 L (133-145) mmol/L Potassium 3.5 (3.5-5.0) mmol/L Chloride 91 L (101-111) mmol/L Carbon Dioxide 14 L* (22-32) mmol/L Anion Gap 16 H (2-11) mmol/L BUN 36 H (6-24) mg/dL Creatinine 3.67 H (0.51-0.95) mg/dL Est GFR ( Amer) 15.7 (>60) Est GFR (Non-Af Amer) 12.2 (>60) BUN/Creatinine Ratio 9.8 (8-20) Glucose 112 H (70-100) mg/dL Lactic Acid 3.3 H* (0.5-2.0) mmol/L Calcium 7.9 L (8.6-10.3) mg/dL Magnesium 1.6 L (1.9-2.7) mg/dL Total Bilirubin 0.60 (0.2-1.0) mg/dL AST 86 H (13-39) U/L ALT 28 (7-52) U/L Alkaline Phosphatase 44 (34-104) U/L Troponin I 2.07 H* (<0.04) ng/mL B-Natriuretic Peptide ( - 100) pg/mL Total Protein 6.1 L (6.4-8.9) g/dL Albumin 2.9 L (3.2-5.2) g/dL Globulin 3.2 (2-4) g/dL Albumin/Globulin Ratio 0.9 L (1-3) Procalcitonin (<0.6) ng/mL TSH 1.05 (0.34-5.60) mcIU/mL Thyroxine (T4) 8.50 (6.09-12.23) g/dL Influenza A (Rapid) (Negative) Influenza B (Rapid) (Negative) 07/03/16 07/03/16 07/03/16 Range/Units 12:36 12:36 12:36 WBC (3.5-10.8) 10^3/ul RBC (4.0-5.4) 10^6/ul Hgb (12.0-16.0) g/dl Hct (35-47) % MCV (80-97) fL MCH (27-31) pg MCHC (31-36) g/dl RDW (10.5-15) % Plt Count (150-450) 10^3/ul MPV (7.4-10.4) um3 Neut % (Auto) (38-83) % Lymph % (Auto) (25-47) % Hawkins % (Auto) (1-9) % Eos % (Auto) (0-6) % Baso % (Auto) (0-2) % Absolute Neuts (auto) (1.5-7.7) 10^3/ul Absolute Lymphs (auto) (1.0-4.8) 10^3/ul Absolute Monos (auto) (0-0.8) 10^3/ul Absolute Eos (auto) (0-0.6) 10^3/ul Absolute Basos (auto) (0-0.2) 10^3/ul Absolute Nucleated RBC 10^3/ul Nucleated RBC % INR (Anticoag Therapy) 1.04 (0.89-1.11) Sodium (133-145) mmol/L Potassium (3.5-5.0) mmol/L Chloride (101-111) mmol/L Carbon Dioxide (22-32) mmol/L Anion Gap (2-11) mmol/L BUN (6-24) mg/dL Creatinine (0.51-0.95) mg/dL Est GFR ( Amer) (>60) Est GFR (Non-Af Amer) (>60) BUN/Creatinine Ratio (8-20) Glucose (70-100) mg/dL Lactic Acid (0.5-2.0) mmol/L Calcium (8.6-10.3) mg/dL Magnesium (1.9-2.7) mg/dL Total Bilirubin (0.2-1.0) mg/dL AST (13-39) U/L ALT (7-52) U/L Alkaline Phosphatase (34-104) U/L Troponin I (<0.04) ng/mL B-Natriuretic Peptide 232 H ( - 100) pg/mL Total Protein (6.4-8.9) g/dL Albumin (3.2-5.2) g/dL Globulin (2-4) g/dL Albumin/Globulin Ratio (1-3) Procalcitonin 16.3 H (<0.6) ng/mL TSH (0.34-5.60) mcIU/mL Thyroxine (T4) (6.09-12.23) g/dL Influenza A (Rapid) (Negative) Influenza B (Rapid) (Negative) 07/03/16 Range/Units 12:47 WBC (3.5-10.8) 10^3/ul RBC (4.0-5.4) 10^6/ul Hgb (12.0-16.0) g/dl Hct (35-47) % MCV (80-97) fL MCH (27-31) pg MCHC (31-36) g/dl RDW (10.5-15) % Plt Count (150-450) 10^3/ul MPV (7.4-10.4) um3 Neut % (Auto) (38-83) % Lymph % (Auto) (25-47) % Hawkins % (Auto) (1-9) % Eos % (Auto) (0-6) % Baso % (Auto) (0-2) % Absolute Neuts (auto) (1.5-7.7) 10^3/ul Absolute Lymphs (auto) (1.0-4.8) 10^3/ul Absolute Monos (auto) (0-0.8) 10^3/ul Absolute Eos (auto) (0-0.6) 10^3/ul Absolute Basos (auto) (0-0.2) 10^3/ul Absolute Nucleated RBC 10^3/ul Nucleated RBC % INR (Anticoag Therapy) (0.89-1.11) Sodium (133-145) mmol/L Potassium (3.5-5.0) mmol/L Chloride (101-111) mmol/L Carbon Dioxide (22-32) mmol/L Anion Gap (2-11) mmol/L BUN (6-24) mg/dL Creatinine (0.51-0.95) mg/dL Est GFR ( Amer) (>60) Est GFR (Non-Af Amer) (>60) BUN/Creatinine Ratio (8-20) Glucose (70-100) mg/dL Lactic Acid (0.5-2.0) mmol/L Calcium (8.6-10.3) mg/dL Magnesium (1.9-2.7) mg/dL Total Bilirubin (0.2-1.0) mg/dL AST (13-39) U/L ALT (7-52) U/L Alkaline Phosphatase (34-104) U/L Troponin I (<0.04) ng/mL B-Natriuretic Peptide ( - 100) pg/mL Total Protein (6.4-8.9) g/dL Albumin (3.2-5.2) g/dL Globulin (2-4) g/dL Albumin/Globulin Ratio (1-3) Procalcitonin (<0.6) ng/mL TSH (0.34-5.60) mcIU/mL Thyroxine (T4) (6.09-12.23) g/dL Influenza A (Rapid) Positive H (Negative) Influenza B (Rapid) Negative (Negative) Microbiology and Other Data: Microbiology 07/03/16 22:50 Legionella Urinary Antigen - Final Urine Negative Legionella Streptococcus pneumoniae Ag Screen - Final Positive S. Pneumo Antigen 07/03/16 15:00 Nasal Screen MRSA (PCR)(JESSIE) - Final Nasal Mrsa Negative Assess/Plan/Problems-Billing Assessment: 71 yo F with h/o CHF, severe c. Diff (2 years ago) presented with sepsis, Influenza A, Strep pneumo PNA, A. fib with RVR - Patient Problems (1) Severe sepsis Current Visit: Yes Status: Acute Code(s): A41.9 - SEPSIS, UNSPECIFIED ORGANISM; R65.20 - SEVERE SEPSIS WITHOUT SEPTIC SHOCK SNOMED Code(s): 67054723 Comment: due to strep pneumo pneumonia and Influenza A. Severe sepsis with acute renal failure and respiratory failure was present at admission Finished tx with Ceftriaxone and Tamiflu. Finished course prophylactic PO Vancomycin. Cont lactobacillus. (2) PAF (paroxysmal atrial fibrillation) Current Visit: Yes Status: Acute Code(s): I48.0 - PAROXYSMAL ATRIAL FIBRILLATION SNOMED Code(s): 016537723 Comment: currently in NSR cont BB and verapamil and lopressor IV prn. cont coumadin for anticoagulation. INR therapeutic 07/12. INR 07/13. Echo shows EF 55% (3) Volume overload Current Visit: Yes Status: Acute Code(s): E87.70 - FLUID OVERLOAD, UNSPECIFIED SNOMED Code(s): 86181864 Comment: Weight down 16 pounds since admission, creatinine continues to improve. (4) Temporal arteritis Current Visit: Yes Status: Acute Code(s): M31.6 - OTHER GIANT CELL ARTERITIS SNOMED Code(s): 391877186 Comment: Under care of Dr. Tarango. Recently on prednisone 15 mg daily. ESR 07/06/16 at 120. ESR for 07/13. Continue prednisone 20 mg daily for now. Increase gabapentin to 300 mg tid. (5) Hypercholesterolemia Current Visit: Yes Status: Acute Code(s): E78.00 - PURE HYPERCHOLESTEROLEMIA , UNSPECIFIED SNOMED Code(s): 79196242 Comment: LDL 191 12/2014. Atorvastatin 20 mg daily to start 07/06/16. Lipid profile 07/06. (6) GERD (gastroesophageal reflux disease) Current Visit: Yes Status: Acute Code(s): K21.9 - GASTRO-ESOPHAGEAL REFLUX DISEASE WITHOUT ESOPHAGITIS SNOMED Code(s): 687385678 Comment: Continue lansoprazole. Status and Disposition: plan to d/c to [facility] in 1-2 days
[2016-07-12] MEDS ORDERED: amLODIPine TAB* 5 MG PO SCH (09:00)
[2016-07-12] MEDS: Lactobacillus Acidophilu (GG)* 1 CAP CAP PO SCH ×2 (12:40→20:50)
[2016-07-12] MEDS: Saline NASAL SPRAY 0.65%* BTL BOTH NARES PRN (14:13)
[2016-07-12] MEDS: Atorvastatin* 20 MG TAB PO SCH (17:02)
[2016-07-12] MEDS: Warfarin TAB(*) 5 MG PO SCH (17:02)
[2016-07-12] MEDS: Topiramate TAB(*) 100 MG PO SCH (20:50)
[2016-07-12] MEDS: Memantine XR CAP* 28 MG CAP.XR PO SCH (20:51)
[2016-07-13] MEDS: DULoxetine DR CAP* 30 MG CAP.DR PO SCH (09:17)
[2016-07-13] MEDS: Aspirin EC Low Dose* 81 MG TAB.EC PO SCH (09:17)
[2016-07-13] MEDS: Metoprolol Tartrate TAB* 25 MG PO SCH ×2 (09:17→21:18)
[2016-07-13] MEDS: Gabapentin CAP(*) 300 MG PO SCH ×3 (09:18→21:16)
[2016-07-13] MEDS: Verapamil TAB* 80 MG PO SCH ×3 (09:18→21:18)
[2016-07-13] MEDS: Lansoprazole SOLUTAB* 30 MG PO SCH (09:18)
[2016-07-13] MEDS: oxyCODONE TAB* 5 MG TAB PO PRN ×4 (09:19→21:29)
[2016-07-13] MEDS: predniSONE TAB* 20 MG PO SCH (09:19)
[2016-07-13] MEDS: Saline NASAL SPRAY 0.65%* BTL BOTH NARES PRN (09:22)
[2016-07-13] MEDS: Lactobacillus Acidophilu (GG)* 1 CAP CAP PO SCH ×2 (09:25→21:16)
--- NOTE | 2016-07-13 14:15 | PN ---
Subjective Date of Service: 07/13/16 Interval History: Coughing less, very little sputum. Less SOB, walking more. No new c/o. Objective Active Medications: Albuterol/Ipratropium (Duoneb Neb.Navya*) 1 neb INH Q4H PRN PRN Reason: SHORTNESS OF BREATH Aspirin (Aspirin Ec Low Dose*) 81 mg PO DAILY [facility] Last Admin: 07/13/16 09:17 Dose: 81 mg Atorvastatin Calcium (Lipitor*) 20 mg PO 1700 [facility] Last Admin: 07/12/16 17:02 Dose: 20 mg Docusate Sodium (Colace Cap*) 100 mg PO BID PRN PRN Reason: CONSTIPATION Last Admin: 07/08/16 08:40 Dose: 100 mg Duloxetine HCl (Cymbalta Cap*) 90 mg PO DAILY [facility] Last Admin: 07/13/16 09:17 Dose: 90 mg Gabapentin (Neurontin Cap(*)) 300 mg PO TID [facility] Last Admin: 07/13/16 13:53 Dose: 300 mg Heparin Sodium (Porcine) (Heparin Flush Picc/Ml/Cvc(*)) 1 ml FLUSH Q12H [facility] Last Admin: 07/13/16 09:20 Dose: 1 ml Lactobacillus Rhamnosus (Culturelle*) 1 cap PO BID [facility] Last Admin: 07/13/16 09:25 Dose: 1 cap Lansoprazole (Prevacid Solutab*) 30 mg PO DAILY [facility] Last Admin: 07/13/16 09:18 Dose: 30 mg Memantine (Namenda Xr Cap*) 28 mg PO BEDTIME [facility] Last Admin: 07/12/16 20:51 Dose: 28 mg Metoprolol Tartrate (Lopressor Iv*) 5 mg IV Q3H PRN PRN Reason: TACHYCARDIA Last Admin: 07/06/16 20:29 Dose: 5 mg Metoprolol Tartrate (Lopressor Tab*) 25 mg PO BID [facility] Last Admin: 07/13/16 09:17 Dose: 25 mg Morphine Sulfate (Morphine Inj (Syringe)*) 2 mg IV Q4H PRN PRN Reason: PAIN Last Admin: 07/10/16 22:09 Dose: 2 mg Oxycodone HCl (Roxycodone Tab*) 5 mg PO Q4H PRN PRN Reason: PAIN Last Admin: 07/13/16 13:52 Dose: 5 mg Pharmacy Profile Note (Coumadin Daily Reminder*) 1 note FOLLOW UP 1700 [facility] Last Admin: 07/12/16 17:42 Dose: 1 note Prednisone (Deltasone Tab*) 20 mg PO DAILY [facility] Last Admin: 07/13/16 09:19 Dose: 20 mg Sodium Chloride (Sodium Chloride 0.65% Nasal [place]*) 1 spray BOTH NARES Q4H PRN PRN Reason: DISCOMFORT Last Admin: 07/13/16 09:22 Dose: 1 spray Topiramate (Topamax(*)) 200 mg PO BEDTIME [facility] Last Admin: 07/12/16 20:50 Dose: 200 mg Verapamil HCl (Calan Tab*) 80 mg PO TID [facility] Last Admin: 07/13/16 13:52 Dose: 80 mg Warfarin Sodium (Coumadin Tab(*)) 5 mg PO DAILY@1700 [facility] PRN Reason: Protocol Last Admin: 07/12/16 17:02 Dose: 5 mg Vital Signs 07/12/16 07/12/16 07/12/16 14:39 15:38 16:05 Temperature 97.8 F Pulse Rate 65 Respiratory 18 18 18 Rate Blood Pressure 109/56 (mmHg) O2 Sat by Pulse 99 Oximetry 07/12/16 07/12/16 07/12/16 17:02 19:02 19:57 Temperature 98.3 F Pulse Rate 58 Respiratory 18 16 20 Rate Blood Pressure 114/52 (mmHg) O2 Sat by Pulse 98 Oximetry 07/12/16 07/12/16 07/12/16 20:00 20:50 20:55 Temperature Pulse Rate Respiratory 17 16 17 Rate Blood Pressure (mmHg) O2 Sat by Pulse Oximetry 07/12/16 07/12/16 07/12/16 20:57 22:50 22:55 Temperature Pulse Rate Respiratory 16 16 Rate Blood Pressure 135/60 (mmHg) O2 Sat by Pulse Oximetry 07/12/16 07/13/16 07/13/16 23:24 00:00 03:53 Temperature 98.0 F 98.4 F Pulse Rate 57 62 Respiratory 20 20 Rate Blood Pressure 112/54 144/63 (mmHg) O2 Sat by Pulse 90 96 97 Oximetry 07/13/16 07/13/16 07/13/16 07:51 08:00 09:18 Temperature 98.1 F Pulse Rate 62 Respiratory 16 18 16 Rate Blood Pressure 142/58 (mmHg) O2 Sat by Pulse 100 Oximetry 07/13/16 07/13/16 07/13/16 09:19 11:12 11:18 Temperature 98.2 F Pulse Rate 60 Respiratory 16 16 18 Rate Blood Pressure 106/57 (mmHg) O2 Sat by Pulse 98 Oximetry 07/13/16 07/13/16 07/13/16 11:19 12:54 13:52 Temperature Pulse Rate Respiratory 18 18 Rate Blood Pressure (mmHg) O2 Sat by Pulse 98 Oximetry 07/13/16 13:53 Temperature Pulse Rate Respiratory 18 Rate Blood Pressure (mmHg) O2 Sat by Pulse Oximetry Oxygen Devices in Use Now: Nasal Cannula - at 4 L Appearance: Alert, partly up in bed. In good spirits, seems excited about goint to [facility] tomorrow. Looks comfortable. Eyes: No Scleral Icterus Neck: NL Appearance and Movements; NL JVP, No Thyroid Enlargement, Masses Respiratory: Symmetrical Chest Expansion and Respiratory Effort, Clear to Auscultation, Clear to Percussion Cardiovascular: NL Sounds; No Murmurs; No JVD, RRR, No Edema, - Extremities: No Edema, No Clubbing, Cyanosis, - Skin: No Rash or Ulcers, No Nodules or Sclerosis, - Neurological: Alert and Oriented x 3, NL Sensation Result Diagrams: 07/10/16 05:42 07/12/16 05:04 Additional Lab and Data: Lab Results 07/03/16 07/03/16 07/03/16 Range/Units 12:36 12:36 12:36 WBC 4.1 (3.5-10.8) 10^3/ul RBC 3.94 L (4.0-5.4) 10^6/ul Hgb 12.9 (12.0-16.0) g/dl Hct 39 (35-47) % MCV 98 H (80-97) fL MCH 33 H (27-31) pg MCHC 33 (31-36) g/dl RDW 14 (10.5-15) % Plt Count 184 (150-450) 10^3/ul MPV 7 L (7.4-10.4) um3 Neut % (Auto) 80.3 (38-83) % Lymph % (Auto) 9.6 L (25-47) % Camp % (Auto) 10.0 H (1-9) % Eos % (Auto) 0 (0-6) % Baso % (Auto) 0.1 (0-2) % Absolute Neuts (auto) 3.3 (1.5-7.7) 10^3/ul Absolute Lymphs (auto) 0.4 L (1.0-4.8) 10^3/ul Absolute Monos (auto) 0.4 (0-0.8) 10^3/ul Absolute Eos (auto) 0 (0-0.6) 10^3/ul Absolute Basos (auto) 0 (0-0.2) 10^3/ul Absolute Nucleated RBC 0 10^3/ul Nucleated RBC % 0.1 INR (Anticoag Therapy) (0.89-1.11) Sodium 121 L (133-145) mmol/L Potassium 3.5 (3.5-5.0) mmol/L Chloride 91 L (101-111) mmol/L Carbon Dioxide 14 L* (22-32) mmol/L Anion Gap 16 H (2-11) mmol/L BUN 36 H (6-24) mg/dL Creatinine 3.67 H (0.51-0.95) mg/dL Est GFR ( Amer) 15.7 (>60) Est GFR (Non-Af Amer) 12.2 (>60) BUN/Creatinine Ratio 9.8 (8-20) Glucose 112 H (70-100) mg/dL Lactic Acid 3.3 H* (0.5-2.0) mmol/L Calcium 7.9 L (8.6-10.3) mg/dL Magnesium 1.6 L (1.9-2.7) mg/dL Total Bilirubin 0.60 (0.2-1.0) mg/dL AST 86 H (13-39) U/L ALT 28 (7-52) U/L Alkaline Phosphatase 44 (34-104) U/L Troponin I 2.07 H* (<0.04) ng/mL B-Natriuretic Peptide ( - 100) pg/mL Total Protein 6.1 L (6.4-8.9) g/dL Albumin 2.9 L (3.2-5.2) g/dL Globulin 3.2 (2-4) g/dL Albumin/Globulin Ratio 0.9 L (1-3) Procalcitonin (<0.6) ng/mL TSH 1.05 (0.34-5.60) mcIU/mL Thyroxine (T4) 8.50 (6.09-12.23) g/dL Influenza A (Rapid) (Negative) Influenza B (Rapid) (Negative) 07/03/16 07/03/16 07/03/16 Range/Units 12:36 12:36 12:36 WBC (3.5-10.8) 10^3/ul RBC (4.0-5.4) 10^6/ul Hgb (12.0-16.0) g/dl Hct (35-47) % MCV (80-97) fL MCH (27-31) pg MCHC (31-36) g/dl RDW (10.5-15) % Plt Count (150-450) 10^3/ul MPV (7.4-10.4) um3 Neut % (Auto) (38-83) % Lymph % (Auto) (25-47) % Camp % (Auto) (1-9) % Eos % (Auto) (0-6) % Baso % (Auto) (0-2) % Absolute Neuts (auto) (1.5-7.7) 10^3/ul Absolute Lymphs (auto) (1.0-4.8) 10^3/ul Absolute Monos (auto) (0-0.8) 10^3/ul Absolute Eos (auto) (0-0.6) 10^3/ul Absolute Basos (auto) (0-0.2) 10^3/ul Absolute Nucleated RBC 10^3/ul Nucleated RBC % INR (Anticoag Therapy) 1.04 (0.89-1.11) Sodium (133-145) mmol/L Potassium (3.5-5.0) mmol/L Chloride (101-111) mmol/L Carbon Dioxide (22-32) mmol/L Anion Gap (2-11) mmol/L BUN (6-24) mg/dL Creatinine (0.51-0.95) mg/dL Est GFR ( Amer) (>60) Est GFR (Non-Af Amer) (>60) BUN/Creatinine Ratio (8-20) Glucose (70-100) mg/dL Lactic Acid (0.5-2.0) mmol/L Calcium (8.6-10.3) mg/dL Magnesium (1.9-2.7) mg/dL Total Bilirubin (0.2-1.0) mg/dL AST (13-39) U/L ALT (7-52) U/L Alkaline Phosphatase (34-104) U/L Troponin I (<0.04) ng/mL B-Natriuretic Peptide 232 H ( - 100) pg/mL Total Protein (6.4-8.9) g/dL Albumin (3.2-5.2) g/dL Globulin (2-4) g/dL Albumin/Globulin Ratio (1-3) Procalcitonin 16.3 H (<0.6) ng/mL TSH (0.34-5.60) mcIU/mL Thyroxine (T4) (6.09-12.23) g/dL Influenza A (Rapid) (Negative) Influenza B (Rapid) (Negative) 07/03/16 Range/Units 12:47 WBC (3.5-10.8) 10^3/ul RBC (4.0-5.4) 10^6/ul Hgb (12.0-16.0) g/dl Hct (35-47) % MCV (80-97) fL MCH (27-31) pg MCHC (31-36) g/dl RDW (10.5-15) % Plt Count (150-450) 10^3/ul MPV (7.4-10.4) um3 Neut % (Auto) (38-83) % Lymph % (Auto) (25-47) % Camp % (Auto) (1-9) % Eos % (Auto) (0-6) % Baso % (Auto) (0-2) % Absolute Neuts (auto) (1.5-7.7) 10^3/ul Absolute Lymphs (auto) (1.0-4.8) 10^3/ul Absolute Monos (auto) (0-0.8) 10^3/ul Absolute Eos (auto) (0-0.6) 10^3/ul Absolute Basos (auto) (0-0.2) 10^3/ul Absolute Nucleated RBC 10^3/ul Nucleated RBC % INR (Anticoag Therapy) (0.89-1.11) Sodium (133-145) mmol/L Potassium (3.5-5.0) mmol/L Chloride (101-111) mmol/L Carbon Dioxide (22-32) mmol/L Anion Gap (2-11) mmol/L BUN (6-24) mg/dL Creatinine (0.51-0.95) mg/dL Est GFR ( Amer) (>60) Est GFR (Non-Af Amer) (>60) BUN/Creatinine Ratio (8-20) Glucose (70-100) mg/dL Lactic Acid (0.5-2.0) mmol/L Calcium (8.6-10.3) mg/dL Magnesium (1.9-2.7) mg/dL Total Bilirubin (0.2-1.0) mg/dL AST (13-39) U/L ALT (7-52) U/L Alkaline Phosphatase (34-104) U/L Troponin I (<0.04) ng/mL B-Natriuretic Peptide ( - 100) pg/mL Total Protein (6.4-8.9) g/dL Albumin (3.2-5.2) g/dL Globulin (2-4) g/dL Albumin/Globulin Ratio (1-3) Procalcitonin (<0.6) ng/mL TSH (0.34-5.60) mcIU/mL Thyroxine (T4) (6.09-12.23) g/dL Influenza A (Rapid) Positive H (Negative) Influenza B (Rapid) Negative (Negative) Microbiology and Other Data: Microbiology 07/03/16 22:50 Legionella Urinary Antigen - Final Urine Negative Legionella Streptococcus pneumoniae Ag Screen - Final Positive S. Pneumo Antigen 07/03/16 15:00 Nasal Screen MRSA (PCR)(JESSIE) - Final Nasal Mrsa Negative Assess/Plan/Problems-Billing Assessment: 71 yo F with h/o CHF, severe c. Diff (2 years ago) presented with sepsis, Influenza A, Strep pneumo PNA, A. fib with RVR - Patient Problems (1) Severe sepsis Current Visit: Yes Status: Acute Code(s): A41.9 - SEPSIS, UNSPECIFIED ORGANISM; R65.20 - SEVERE SEPSIS WITHOUT SEPTIC SHOCK SNOMED Code(s): 70482686 Comment: due to strep pneumo pneumonia and Influenza A. Severe sepsis with acute renal failure and respiratory failure was present at admission Finished tx with Ceftriaxone and Tamiflu. Finished course prophylactic PO Vancomycin. Cont lactobacillus. Lung exam much improved on 07/13/16. (2) PAF (paroxysmal atrial fibrillation) Current Visit: Yes Status: Acute Code(s): I48.0 - PAROXYSMAL ATRIAL FIBRILLATION SNOMED Code(s): 780064370 Comment: currently in NSR cont BB and verapamil and lopressor IV prn. cont coumadin for anticoagulation. INR therapeutic 07/12. INR 07/13 2.16. Repeat INR at [facility]. Echo shows EF 55%. (3) Volume overload Current Visit: Yes Status: Acute Code(s): E87.70 - FLUID OVERLOAD, UNSPECIFIED SNOMED Code(s): 27494594 Comment: Weight down 16 pounds since admission, creatinine continues to improve. (4) Temporal arteritis Current Visit: Yes Status: Acute Code(s): M31.6 - OTHER GIANT CELL ARTERITIS SNOMED Code(s): 315033036 Comment: Under care of Dr. Tarango. Recently on prednisone 15 mg daily. ESR 07/06/16 at 120. ESR for 07/13. Continue prednisone 20 mg daily for now. Increase gabapentin to 300 mg tid. (5) Hypercholesterolemia Current Visit: Yes Status: Acute Code(s): E78.00 - PURE HYPERCHOLESTEROLEMIA , UNSPECIFIED SNOMED Code(s): 93624209 Comment: LDL 191 12/2014. Atorvastatin 20 mg daily to start 07/06/16. LDL 73 on 07/06. (6) GERD (gastroesophageal reflux disease) Current Visit: Yes Status: Acute Code(s): K21.9 - GASTRO-ESOPHAGEAL REFLUX DISEASE WITHOUT ESOPHAGITIS SNOMED Code(s): 167140095 Comment: Continue lansoprazole. (7) Demand ischemia Current Visit: Yes Status: Acute Code(s): I24.8 - OTHER FORMS OF ACUTE ISCHEMIC HEART DISEASE SNOMED Code(s): 843207447 Comment: Troponin 2.07 peak 07/03/16. Status and Disposition: plan to d/c to [facility] in 1-2 days
[2016-07-13] MEDS: Warfarin TAB(*) 5 MG PO SCH (16:48)
[2016-07-13] MEDS: Atorvastatin* 20 MG TAB PO SCH (16:49)
[2016-07-13] MEDS: Morphine INJ* 2 MG/ML 1 ML CARPUJECT IV PRN (19:32)
[2016-07-13] MEDS: Memantine XR CAP* 28 MG CAP.XR PO SCH (21:15)
[2016-07-13] MEDS: Topiramate TAB(*) 100 MG PO SCH (21:19)
[2016-07-14] MEDS: oxyCODONE TAB* 5 MG TAB PO PRN ×3 (03:13→23:00)
[2016-07-14] MEDS: Morphine INJ* 2 MG/ML 1 ML CARPUJECT IV PRN (05:45)
[2016-07-14] MEDS: DULoxetine DR CAP* 30 MG CAP.DR PO SCH (08:09)
[2016-07-14] MEDS: Verapamil TAB* 80 MG PO SCH ×3 (08:09→21:19)
[2016-07-14] MEDS: Aspirin EC Low Dose* 81 MG TAB.EC PO SCH (08:10)
[2016-07-14] MEDS: Lansoprazole SOLUTAB* 30 MG PO SCH (08:10)
[2016-07-14] MEDS: Lactobacillus Acidophilu (GG)* 1 CAP CAP PO SCH ×2 (08:10→21:19)
[2016-07-14] MEDS: predniSONE TAB* 20 MG PO SCH (08:10)
[2016-07-14] MEDS: Metoprolol Tartrate TAB* 25 MG PO SCH ×2 (08:10→21:17)
[2016-07-14] MEDS: Gabapentin CAP(*) 300 MG PO SCH ×3 (08:11→21:17)
--- NOTE | 2016-07-14 08:37 | DCNOTE ---
Subjective Date of Service: 07/14/16 Interval History: Feels well, almost no cough. No new c/o. Objective Active Medications: Albuterol/Ipratropium (Duoneb Neb.Navya*) 1 neb INH Q4H PRN PRN Reason: SHORTNESS OF BREATH Aspirin (Aspirin Ec Low Dose*) 81 mg PO DAILY [facility] Last Admin: 07/14/16 08:10 Dose: 81 mg Atorvastatin Calcium (Lipitor*) 20 mg PO 1700 [facility] Last Admin: 07/13/16 16:49 Dose: 20 mg Docusate Sodium (Colace Cap*) 100 mg PO BID PRN PRN Reason: CONSTIPATION Last Admin: 07/08/16 08:40 Dose: 100 mg Duloxetine HCl (Cymbalta Cap*) 90 mg PO DAILY [facility] Last Admin: 07/14/16 08:09 Dose: 90 mg Gabapentin (Neurontin Cap(*)) 300 mg PO TID [facility] Last Admin: 07/14/16 08:11 Dose: 300 mg Heparin Sodium (Porcine) (Heparin Flush Picc/Ml/Cvc(*)) 1 - 3 ml FLUSH 0600, 1800 [facility] PRN Reason: Protocol Last Admin: 07/14/16 05:34 Dose: 2 ml Lactobacillus Rhamnosus (Culturelle*) 1 cap PO BID [facility] Last Admin: 07/14/16 08:10 Dose: 1 cap Lansoprazole (Prevacid Solutab*) 30 mg PO DAILY [facility] Last Admin: 07/14/16 08:10 Dose: 30 mg Memantine (Namenda Xr Cap*) 28 mg PO BEDTIME [facility] Last Admin: 07/13/16 21:15 Dose: 28 mg Metoprolol Tartrate (Lopressor Iv*) 5 mg IV Q3H PRN PRN Reason: TACHYCARDIA Last Admin: 07/06/16 20:29 Dose: 5 mg Metoprolol Tartrate (Lopressor Tab*) 25 mg PO BID [facility] Last Admin: 07/14/16 08:10 Dose: 25 mg Morphine Sulfate (Morphine Inj (Syringe)*) 2 mg IV Q4H PRN PRN Reason: PAIN Last Admin: 07/14/16 05:45 Dose: 2 mg Oxycodone HCl (Roxycodone Tab*) 5 mg PO Q4H PRN PRN Reason: PAIN Last Admin: 07/14/16 03:13 Dose: 5 mg Pharmacy Profile Note (Coumadin Daily Reminder*) 1 note FOLLOW UP 1700 [facility] Last Admin: 07/13/16 16:50 Dose: 1 note Prednisone (Deltasone Tab*) 20 mg PO DAILY [facility] Last Admin: 07/14/16 08:10 Dose: 20 mg Sodium Chloride (Sodium Chloride 0.65% Nasal [place]*) 1 spray BOTH NARES Q4H PRN PRN Reason: DISCOMFORT Last Admin: 07/13/16 09:22 Dose: 1 spray Topiramate (Topamax(*)) 200 mg PO BEDTIME [facility] Last Admin: 07/13/16 21:19 Dose: 200 mg Verapamil HCl (Calan Tab*) 80 mg PO TID [facility] Last Admin: 07/14/16 08:09 Dose: 80 mg Vital Signs 07/13/16 07/13/16 07/13/16 09:18 09:19 11:12 Temperature 98.2 F Pulse Rate 60 Respiratory 16 16 16 Rate Blood Pressure 106/57 (mmHg) O2 Sat by Pulse 98 Oximetry 07/13/16 07/13/16 07/13/16 11:18 11:19 12:54 Temperature Pulse Rate Respiratory 18 18 Rate Blood Pressure (mmHg) O2 Sat by Pulse 98 Oximetry 07/13/16 07/13/16 07/13/16 13:52 13:53 15:18 Temperature 97.7 F Pulse Rate 63 Respiratory 18 18 18 Rate Blood Pressure 111/51 (mmHg) O2 Sat by Pulse 99 Oximetry 07/13/16 07/13/16 07/13/16 15:52 15:53 16:52 Temperature Pulse Rate Respiratory 18 18 18 Rate Blood Pressure (mmHg) O2 Sat by Pulse Oximetry 07/13/16 07/13/16 07/13/16 18:52 19:15 19:32 Temperature 97.4 F Pulse Rate 62 Respiratory 24 18 24 Rate Blood Pressure 116/56 (mmHg) O2 Sat by Pulse 97 Oximetry 07/13/16 07/13/16 07/13/16 20:00 20:32 21:16 Temperature Pulse Rate Respiratory 24 22 22 Rate Blood Pressure (mmHg) O2 Sat by Pulse Oximetry 07/13/16 07/13/16 07/13/16 21:29 21:32 23:16 Temperature Pulse Rate Respiratory 22 22 22 Rate Blood Pressure (mmHg) O2 Sat by Pulse Oximetry 07/13/16 07/14/16 07/14/16 23:29 00:00 03:13 Temperature 98.6 F Pulse Rate 62 Respiratory 20 22 Rate Blood Pressure 112/54 (mmHg) O2 Sat by Pulse 96 96 Oximetry 07/14/16 07/14/16 07/14/16 04:25 05:13 05:45 Temperature 98.2 F Pulse Rate 64 Respiratory 20 20 20 Rate Blood Pressure 120/51 (mmHg) O2 Sat by Pulse 90 Oximetry 07/14/16 07/14/16 07/14/16 06:45 07:18 08:00 Temperature 98.5 F Pulse Rate 63 Respiratory 16 16 16 Rate Blood Pressure 122/62 (mmHg) O2 Sat by Pulse 97 Oximetry 07/14/16 07/14/16 08:10 08:11 Temperature Pulse Rate Respiratory 16 Rate Blood Pressure (mmHg) O2 Sat by Pulse 96 Oximetry Oxygen Devices in Use Now: Nasal Cannula - at 4 L Result Diagrams: 07/10/16 05:42 07/12/16 05:04 Additional Lab and Data: Lab Results 07/03/16 07/03/16 07/03/16 Range/Units 12:36 12:36 12:36 WBC 4.1 (3.5-10.8) 10^3/ul RBC 3.94 L (4.0-5.4) 10^6/ul Hgb 12.9 (12.0-16.0) g/dl Hct 39 (35-47) % MCV 98 H (80-97) fL MCH 33 H (27-31) pg MCHC 33 (31-36) g/dl RDW 14 (10.5-15) % Plt Count 184 (150-450) 10^3/ul MPV 7 L (7.4-10.4) um3 Neut % (Auto) 80.3 (38-83) % Lymph % (Auto) 9.6 L (25-47) % [place] % (Auto) 10.0 H (1-9) % Eos % (Auto) 0 (0-6) % Baso % (Auto) 0.1 (0-2) % Absolute Neuts (auto) 3.3 (1.5-7.7) 10^3/ul Absolute Lymphs (auto) 0.4 L (1.0-4.8) 10^3/ul Absolute Monos (auto) 0.4 (0-0.8) 10^3/ul Absolute Eos (auto) 0 (0-0.6) 10^3/ul Absolute Basos (auto) 0 (0-0.2) 10^3/ul Absolute Nucleated RBC 0 10^3/ul Nucleated RBC % 0.1 INR (Anticoag Therapy) (0.89-1.11) Sodium 121 L (133-145) mmol/L Potassium 3.5 (3.5-5.0) mmol/L Chloride 91 L (101-111) mmol/L Carbon Dioxide 14 L* (22-32) mmol/L Anion Gap 16 H (2-11) mmol/L BUN 36 H (6-24) mg/dL Creatinine 3.67 H (0.51-0.95) mg/dL Est GFR ( Amer) 15.7 (>60) Est GFR (Non-Af Amer) 12.2 (>60) BUN/Creatinine Ratio 9.8 (8-20) Glucose 112 H (70-100) mg/dL Lactic Acid 3.3 H* (0.5-2.0) mmol/L Calcium 7.9 L (8.6-10.3) mg/dL Magnesium 1.6 L (1.9-2.7) mg/dL Total Bilirubin 0.60 (0.2-1.0) mg/dL AST 86 H (13-39) U/L ALT 28 (7-52) U/L Alkaline Phosphatase 44 (34-104) U/L Troponin I 2.07 H* (<0.04) ng/mL B-Natriuretic Peptide ( - 100) pg/mL Total Protein 6.1 L (6.4-8.9) g/dL Albumin 2.9 L (3.2-5.2) g/dL Globulin 3.2 (2-4) g/dL Albumin/Globulin Ratio 0.9 L (1-3) Procalcitonin (<0.6) ng/mL TSH 1.05 (0.34-5.60) mcIU/mL Thyroxine (T4) 8.50 (6.09-12.23) g/dL Influenza A (Rapid) (Negative) Influenza B (Rapid) (Negative) 07/03/16 07/03/16 07/03/16 Range/Units 12:36 12:36 12:36 WBC (3.5-10.8) 10^3/ul RBC (4.0-5.4) 10^6/ul Hgb (12.0-16.0) g/dl Hct (35-47) % MCV (80-97) fL MCH (27-31) pg MCHC (31-36) g/dl RDW (10.5-15) % Plt Count (150-450) 10^3/ul MPV (7.4-10.4) um3 Neut % (Auto) (38-83) % Lymph % (Auto) (25-47) % [place] % (Auto) (1-9) % Eos % (Auto) (0-6) % Baso % (Auto) (0-2) % Absolute Neuts (auto) (1.5-7.7) 10^3/ul Absolute Lymphs (auto) (1.0-4.8) 10^3/ul Absolute Monos (auto) (0-0.8) 10^3/ul Absolute Eos (auto) (0-0.6) 10^3/ul Absolute Basos (auto) (0-0.2) 10^3/ul Absolute Nucleated RBC 10^3/ul Nucleated RBC % INR (Anticoag Therapy) 1.04 (0.89-1.11) Sodium (133-145) mmol/L Potassium (3.5-5.0) mmol/L Chloride (101-111) mmol/L Carbon Dioxide (22-32) mmol/L Anion Gap (2-11) mmol/L BUN (6-24) mg/dL Creatinine (0.51-0.95) mg/dL Est GFR ( Amer) (>60) Est GFR (Non-Af Amer) (>60) BUN/Creatinine Ratio (8-20) Glucose (70-100) mg/dL Lactic Acid (0.5-2.0) mmol/L Calcium (8.6-10.3) mg/dL Magnesium (1.9-2.7) mg/dL Total Bilirubin (0.2-1.0) mg/dL AST (13-39) U/L ALT (7-52) U/L Alkaline Phosphatase (34-104) U/L Troponin I (<0.04) ng/mL B-Natriuretic Peptide 232 H ( - 100) pg/mL Total Protein (6.4-8.9) g/dL Albumin (3.2-5.2) g/dL Globulin (2-4) g/dL Albumin/Globulin Ratio (1-3) Procalcitonin 16.3 H (<0.6) ng/mL TSH (0.34-5.60) mcIU/mL Thyroxine (T4) (6.09-12.23) g/dL Influenza A (Rapid) (Negative) Influenza B (Rapid) (Negative) 07/03/16 Range/Units 12:47 WBC (3.5-10.8) 10^3/ul RBC (4.0-5.4) 10^6/ul Hgb (12.0-16.0) g/dl Hct (35-47) % MCV (80-97) fL MCH (27-31) pg MCHC (31-36) g/dl RDW (10.5-15) % Plt Count (150-450) 10^3/ul MPV (7.4-10.4) um3 Neut % (Auto) (38-83) % Lymph % (Auto) (25-47) % [place] % (Auto) (1-9) % Eos % (Auto) (0-6) % Baso % (Auto) (0-2) % Absolute Neuts (auto) (1.5-7.7) 10^3/ul Absolute Lymphs (auto) (1.0-4.8) 10^3/ul Absolute Monos (auto) (0-0.8) 10^3/ul Absolute Eos (auto) (0-0.6) 10^3/ul Absolute Basos (auto) (0-0.2) 10^3/ul Absolute Nucleated RBC 10^3/ul Nucleated RBC % INR (Anticoag Therapy) (0.89-1.11) Sodium (133-145) mmol/L Potassium (3.5-5.0) mmol/L Chloride (101-111) mmol/L Carbon Dioxide (22-32) mmol/L Anion Gap (2-11) mmol/L BUN (6-24) mg/dL Creatinine (0.51-0.95) mg/dL Est GFR ( Amer) (>60) Est GFR (Non-Af Amer) (>60) BUN/Creatinine Ratio (8-20) Glucose (70-100) mg/dL Lactic Acid (0.5-2.0) mmol/L Calcium (8.6-10.3) mg/dL Magnesium (1.9-2.7) mg/dL Total Bilirubin (0.2-1.0) mg/dL AST (13-39) U/L ALT (7-52) U/L Alkaline Phosphatase (34-104) U/L Troponin I (<0.04) ng/mL B-Natriuretic Peptide ( - 100) pg/mL Total Protein (6.4-8.9) g/dL Albumin (3.2-5.2) g/dL Globulin (2-4) g/dL Albumin/Globulin Ratio (1-3) Procalcitonin (<0.6) ng/mL TSH (0.34-5.60) mcIU/mL Thyroxine (T4) (6.09-12.23) g/dL Influenza A (Rapid) Positive H (Negative) Influenza B (Rapid) Negative (Negative) Microbiology and Other Data: Microbiology 07/03/16 22:50 Legionella Urinary Antigen - Final Urine Negative Legionella Streptococcus pneumoniae Ag Screen - Final Positive S. Pneumo Antigen 07/03/16 15:00 Nasal Screen MRSA (PCR)(JESSIE) - Final Nasal Mrsa Negative Assess/Plan/Problems-Billing Assessment: 71 yo F with h/o CHF, severe c. Diff (2 years ago) presented with sepsis, Influenza A, Strep pneumo PNA, A. fib with RVR - Patient Problems (1) Severe sepsis Current Visit: Yes Status: Acute Code(s): A41.9 - SEPSIS, UNSPECIFIED ORGANISM; R65.20 - SEVERE SEPSIS WITHOUT SEPTIC SHOCK SNOMED Code(s): 54761267 Comment: due to strep pneumo pneumonia and Influenza A. Severe sepsis with acute renal failure and respiratory failure was present at admission Finished tx with Ceftriaxone and Tamiflu. Finished course prophylactic PO Vancomycin. Cont lactobacillus. Lung exam much improved on 07/13/16. (2) PAF (paroxysmal atrial fibrillation) Current Visit: Yes Status: Acute Code(s): I48.0 - PAROXYSMAL ATRIAL FIBRILLATION SNOMED Code(s): 265240455 Comment: currently in NSR cont BB and verapamil and lopressor IV prn. cont coumadin for anticoagulation. INR therapeutic 07/12. INR 07/13 2.16. Repeat INR at [facility]. Echo shows EF 55%. (3) Volume overload Current Visit: Yes Status: Acute Code(s): E87.70 - FLUID OVERLOAD, UNSPECIFIED SNOMED Code(s): 00864917 Comment: Weight down 16 pounds since admission, creatinine continues to improve. (4) Temporal arteritis Current Visit: Yes Status: Acute Code(s): M31.6 - OTHER GIANT CELL ARTERITIS SNOMED Code(s): 493747578 Comment: Under care of Dr. Tarango. Recently on prednisone 15 mg daily. ESR 07/06/16 at 120. ESR for 07/13. Continue prednisone 20 mg daily for now. Increase gabapentin to 300 mg tid. (5) Hypercholesterolemia Current Visit: Yes Status: Acute Code(s): E78.00 - PURE HYPERCHOLESTEROLEMIA , UNSPECIFIED SNOMED Code(s): 31697416 Comment: LDL 191 12/2014. Atorvastatin 20 mg daily to start 07/06/16. LDL 73 on 07/06. (6) GERD (gastroesophageal reflux disease) Current Visit: Yes Status: Acute Code(s): K21.9 - GASTRO-ESOPHAGEAL REFLUX DISEASE WITHOUT ESOPHAGITIS SNOMED Code(s): 041557618 Comment: Continue lansoprazole. (7) Demand ischemia Current Visit: Yes Status: Acute Code(s): I24.8 - OTHER FORMS OF ACUTE ISCHEMIC HEART DISEASE SNOMED Code(s): 605759095 Comment: Troponin 2.07 peak 07/03/16. Status and Disposition: plan to d/c to STR in 1-2 days
--- NOTE | 2016-07-14 08:37 | PN ---
Progress Note - Progress Note Note: Time spent on discharge 45 minutes.
--- NOTE | 2016-07-14 11:42 | TRS ---
DATE OF ADMISSION: 07/03/2016. DATE OF TRANSFER: 07/14/2016. HISTORY: This 71-year-old woman presented with cough and weakness. She was found to have severe sepsis. She had tachycardia. She was positive for influenza A on molecular testing. She was felt to have demand ischemia. Her troponin peaked at 2.07 on the admission, it declined after that. She was treated with intravenous antibiotics, initially seemed to improve, but then got worse. Initial chest x-ray showed little in the way of infiltrate, but she had bilateral consolidation by July 07. She had good clinical improvement after that with steady decrease in her oxygen needs and overall clinical appearance improving. Her lung exam returned to normal. She also had paroxysmal atrial fibrillation along with the other acute cardiac events. She was started on Warfarin anticoagulation. Her INR on July 13 was 2.16. It seemed to be near the plateau. She received eight daily doses of Warfarin 5 mg. I would suggest she get another INR on July 15 to be sure she is stable. She has a history of polymyalgia rheumatica. I do not think she ever had a temporal artery biopsy. Some of her symptoms sound suggestive of temporal arteritis. She had been maintained on Prednisone 15 mg daily at home. We kept her on Prednisone 20 mg daily. I note her ESR was 101 on July 13. I would repeat this about once a week and correlate this with her clinical picture. In the meantime, I would continue on Prednisone 20 mg daily. If her sed rate does come down significantly, it may be possible to reduce her Prednisone dose. She had an echocardiogram on July 03 that showed an ejection fraction of 50 to 55 percent. There was mild to moderate concentric left ventricular hypertrophy. There were no wall motion abnormalities. There is moderate mitral regurgitation. FINAL DIAGNOSES: 1. Severe sepsis with pneumonia. 2. Paroxysmal atrial fibrillation. 3. Demand ischemia. 4. Temporal arteritis and/or polymyalgia rheumatica. 5. Hypercholesterolemia. 6. Gastroesophageal reflux disease. MEDICATIONS ON TRANSFER: 1. Multivitamin with mineral daily. 2. Memantine XR 28 mg at bedtime. 3. Duloxetine DR 90 mg daily. 4. Lansoprazole SoluTab 30 mg daily. 5. Diclofenac 1 percent gel q.i.d. prn. 6. Verapamil 120 mg t.i.d. 7. Gabapentin 900 mg q.i.d. 8. Topiramate 200 mg at bedtime. 9. Relpax 40 mg daily prn. 10. Lactobacillus one capsule daily. 11. Potassium chloride 20 mEq daily. 12. Prednisone 20 mg daily. 13. Melatonin 10 mg at bedtime. 14. Lisinopril 500 mg daily. 15. Magnesium 500 mg daily. 16. Warfarin 5 mg daily at 5:00 p.m. [id number]/[facility] #: [id number] [facility]
[2016-07-14] MEDS ORDERED: Warfarin TAB(*) 5 MG PO SCH (17:00)
[2016-07-14] MEDS: Atorvastatin* 20 MG TAB PO SCH (17:08)
[2016-07-14] MEDS: oxyCODONE/Acetamin 5/325 MG* TAB PO PRN (18:02)
[2016-07-14] MEDS: Topiramate TAB(*) 100 MG PO SCH (21:19)
[2016-07-14] MEDS: Memantine XR CAP* 28 MG CAP.XR PO SCH (21:20)
[2016-07-15] MEDS: oxyCODONE/Acetamin 5/325 MG* TAB PO PRN (02:02)
[2016-07-15] MEDS: oxyCODONE TAB* 5 MG TAB PO PRN (05:19)
[2016-07-15 07:44] VITALS: BP 121/57
[2016-07-15] MEDS: Lactobacillus Acidophilu (GG)* 1 CAP CAP PO SCH (08:07)
[2016-07-15] MEDS: DULoxetine DR CAP* 30 MG CAP.DR PO SCH (08:07)
[2016-07-15] MEDS: Metoprolol Tartrate TAB* 25 MG PO SCH (08:08)
[2016-07-15] MEDS: Gabapentin CAP(*) 300 MG PO SCH (08:08)
[2016-07-15] MEDS: predniSONE TAB* 20 MG PO SCH (08:09)
[2016-07-15] MEDS: Lansoprazole SOLUTAB* 30 MG PO SCH (08:09)
[2016-07-15] MEDS: Verapamil TAB* 80 MG PO SCH (08:09)
[2016-07-15] MEDS: Aspirin EC Low Dose* 81 MG TAB.EC PO SCH (08:09)
== END 2016-07-15 09:23 | DRG 871 ==
LOC: ED 12:09 → ICU 14:31 → MEDTELE 07-04 12:25 → ICU 07-06 15:45 → MEDTELE 07-09 16:23
PROVIDERS: ADMIT Internal Medicine; ATTEND Internal Medicine
DX: A41.9 Sepsis, unspecified organism (principal); J13 Pneumonia due to Streptococcus pneumoniae; J96.01 Acute respiratory failure with hypoxia; N17.9 Acute kidney failure, unspecified; I50.33 Acute on chronic diastolic (congestive) heart failure; E87.2 Acidosis; I24.8 Other forms of acute ischemic heart disease; I11.0 Hypertensive heart disease with heart failure; I95.9 Hypotension, unspecified; E87.1 Hypo-osmolality and hyponatremia; M31.6 Other giant cell arteritis; R65.20 Severe sepsis without septic shock; G47.33 Obstructive sleep apnea (adult) (pediatric); Z88.0 Allergy status to penicillin; Z88.8 Allergy status to other drugs, medicaments and biological substances; K21.9 Gastro-esophageal reflux disease without esophagitis; K58.9 Irritable bowel syndrome, unspecified; M06.9 Rheumatoid arthritis, unspecified; F32.9 Major depressive disorder, single episode, unspecified; E86.0 Dehydration; M79.7 Fibromyalgia; G89.29 Other chronic pain; G25.81 Restless legs syndrome; M35.3 Polymyalgia rheumatica; I48.0 Paroxysmal atrial fibrillation; Z82.49 Family history of ischemic heart disease and other diseases of the circulatory system; Z83.3 Family history of diabetes mellitus; G58.8 Other specified mononeuropathies; G44.009 Cluster headache syndrome, unspecified, not intractable; Z79.52 Long term (current) use of systemic steroids; I34.0 Nonrheumatic mitral (valve) insufficiency; E78.00 Pure hypercholesterolemia, unspecified; Z79.01 Long term (current) use of anticoagulants; E87.70 Fluid overload, unspecified; J09.X2 Influenza due to identified novel influenza A virus with other respiratory manifestations; D64.9 Anemia, unspecified
CPT/HCPCS: 36415; 36600; 70450; 71010; 76775; 80048; 80053; 80061; 81003; 81015; 82272; 82570; 82803; 83605; 83735; 83880; 83930; 83935; 84145; 84300; 84436; 84443; 84484; 84520; 85025; 85027; 85610; 85652; 85730; 87040; 87045; 87046; 87086; 87502; 87641; 87899; 93005; 93306; 94003; 94640; 94668; 94760; 99285; A9270-GY; J0282; J0456; J0696; J1644; J1720; J1940; J1956; J2270; J2997; J3475; J3490; J7512

== ENCOUNTER 2016-07-30 20:12 | Emergency (ER) | payer MEDICARE, OTHER ==
[2016-07-30 20:59] VITALS: BP 116/62
--- NOTE | 2016-07-31 01:49 | ED ---
Upper Extremity Pain - HPI Summary HPI Summary: Patient presents to the ED after tripping over an oxygen tank at home. She was recently in the ED for PNA and sent to rehab. Discharged yesterday from rehab. Now presents with pain in upper right shoulder radiating to the elbow. States she is unable to move the extremity and upon attempt, experiences 10/10 pain. Denies pain at rest without movement. Denies elbow or wrist pain. She has never injured this arm before. Denies numbness or tingling. Jorge Alberto LOC or hitting head. - History of Current Complaint Chief Complaint: EDExtremityUpper Stated Complaint: POSS BROKEN RIGHT ARM Time Seen by Provider: 07/30/16 23:02 Hx Obtained From: Patient Mechanism Of Injury: Fall From A Standing Position Onset/Duration: Started Hours Ago Timing: Intermittent - only upon movement Severity Currently: Moderate Pain Location: Shoulder Character: Sharp, Aching Aggravating Factor(s): Movement Alleviating Factor(s): Rest Associated Signs & Symptoms: Positive: Negative - Risk Factors Compartment Syndrome Risk Factors: Pain - Allergies/Home Medications Allergies/Adverse Reactions: Allergies Allergy/AdvReac Type Severity Reaction Status Date / Time Penicillins Allergy Intermediate Rash And Verified 07/30/16 21:18 Itching Verapamil AdvReac See Comment Verified 07/30/16 21:18 PMH/Surg Hx/FS Hx/Imm Hx Previously Healthy: Yes Endocrine/Hematology History: Reports: Hx Thyroid Disease, Hx Anemia Denies: Hx Diabetes, Hx Unexplained Bleeding Comment Only: Other Endocrine/Hematological Disorders - hypothalmus related headaches Cardiovascular History: Reports: Hx Angina, Hx Congestive Heart Failure - HX OF D/T DRUG REACTION, Hx Hypertension - TAKES MEDICATION Denies: Hx Aneurysm, Hx Angioplasty, Hx Auto Implanted Cardiovert Defib, Hx Cardiac Arrest, Hx Cardiomegaly, Hx Congenital Heart Disease, Hx Coronary Artery Disease, Hx Deep Vein Thrombosis, Hx Hypercholesterolemia, Hx Hypotension , Hx Pacemaker/ICD, Hx Peripheral Vascular Disease, Hx Rheumatic Fever, Hx Syncope, Hx Valvular Heart Disease, Other Cardiovascular Problems/Disorders Respiratory History: Reports: Hx Sleep Apnea - Bipap, Other Respiratory Problems /Disorders - SLEEP APNEA W/ BIPAP Denies: Hx Asthma, Hx Chronic Bronchitis, Hx Chronic Obstructive Pulmonary Disease (COPD), Hx Cystic Fibrosis, Hx Lung Cancer, Hx Pleural Effusion, Hx Pneumonia, Hx Pulmonary Edema, Hx Pulmonary Embolism, Hx Seasonal Allergies GI History: Reports: Hx Gall Bladder Disease, Hx Gastroesophageal Reflux Disease , Hx Irritable Bowel, Other GI Disorders - GERD Denies: Hx Cirrhosis, Hx Crohn's Disease, Hx Diverticulosis, Hx Gastrointestinal Bleed, Hx Hiatal Hernia, Hx Jaundice, Hx Obstructive Bowel, Hx Ileostomy, Hx Pyloric Stenosis, Hx Ulcer History: Denies: Hx Renal Disease Comment Only: Other Problems/Disorders - Burning on urination Musculoskeletal History: Reports: Hx Arthritis, Hx Rheumatoid Arthritis - WAS TREATED FOR IT, THEN STOPPED HER MEDS, Hx Back Problems, Hx Bursitis - Hip, Other Musculoskeletal History - ARTHRITIS LEFT HIP Denies: Hx Fibromyalgia, Hx Gout, Hx Orthopedic Injury, Hx Osteoporosis, Hx Scoliosis, Hx Tendonitis Sensory History: Reports: Hx Contacts or Glasses Denies: Hx Cataracts, Hx Eye Injury, Hx Eye Prosthesis, Hx Glaucoma, Hx Legally Blind, Hx Macular Degeneration, Hx Vision Problem, Hx Deafness, Hx Hearing Aid, Hx Hearing Problem, Other Sensory Impairments Opthamlomology History: Reports: Hx Contacts or Glasses Denies: Hx Cataracts, Hx Eye Injury, Hx Eye Prosthesis, Hx Glaucoma, Hx Legally Blind, Hx Macular Degeneration, Hx Vision Problem, Other Sensory Impairments Neurological History: Reports: Hx Headaches - CHRONIC CLUSTER GARCIA, Hx Migraine Denies: Hx Dementia, Hx Developmental Delay, Hx Seizures, Hx Spinal Cord Injury, Hx Transient Ischemic Attacks (TIA), Other Neuro Impairments/Disorders Psychiatric History: Reports: Hx Depression Denies: Hx Anxiety, Hx Panic Disorder - Cancer History Hx Chemotherapy: No Hx Radiation Therapy: No - Surgical History Surgery Procedure, Year, and Place: CHOLECYESTOMY [facility], DEVIATED SEPTUM [facility] COLECTOMY Hx Anesthesia Reactions: No - Immunization History Date of Tetanus Vaccine: unknown Date of Influenza Vaccine: utd Infectious Disease History: No Infectious Disease History: Denies: Hx Clostridium Difficile, Hx Hepatitis, Hx Human Immunodeficiency Virus (HIV), Hx of Known/Suspected MRSA, Hx Shingles, Hx Tuberculosis, History Other Infectious Disease, Traveled Outside the [place] in Last 30 Days - Family History Family History: COPD, AFIB - Social History Occupation: Retired Lives: With Family Alcohol Use: None Hx Substance Use: No Substance Use Type: Reports: None Hx Tobacco Use: No Smoking Status (MU): Never Smoked Tobacco Have You Smoked in the Last Year: No Review of Systems Constitutional: Negative Cardiovascular: Negative Respiratory: Negative Gastrointestinal: Negative Genitourinary: Negative Positive: no symptoms reported, see HPI Positive: Arthralgia, Myalgia, Decreased ROM - right shoulder Skin: Negative Neurological: Negative Psychological: Normal All Other Systems Reviewed And Are Negative: Yes Physical Exam Triage Information Reviewed: Yes Vital Signs On Initial Exam: Initial Vitals Temp Pulse Resp BP Pulse Ox 98.2 F 75 20 116/62 100 07/30/16 20:53 07/30/16 20:53 07/30/16 20:53 07/30/16 20:53 07/30/16 20:53 Vital Signs Reviewed: Yes Appearance: Positive: Well-Appearing, No Pain Distress, Well-Nourished Skin: Positive: Warm, Skin Color Reflects Adequate Perfusion Head/Face: Positive: Normal Head/Face Inspection Eyes: Positive: Normal, EOMI, Conjunctiva Clear ENT: Positive: Hearing grossly normal Neck: Positive: Supple, Nontender Respiratory/Lung Sounds: Positive: Clear to Auscultation, Breath Sounds Present Cardiovascular: Positive: Normal Musculoskeletal: Positive: Limited @ - shoulder adduction/abduction. Unable to perform special tests d/t pain, Pain @ - pain at acromion process, pain expressed over proximal humerus both posteriorly and anteriorly Neurological: Positive: Normal Psychiatric: Positive: Normal AVPU Assessment: Alert - [place] Coma Scale Coma Scale Total: 15 Diagnostics - Vital Signs Vital Signs Temp Pulse Resp BP Pulse Ox 07/30/16 20:53 98.2 F 75 20 116/62 100 - Laboratory Lab Statement: Any lab studies that have been ordered have been reviewed, and results considered in the medical decision making process. - Radiology No standard instances Xray Interpretation: Positive (See Comments) - humeral head fracture. no radiology read. Radiology Interpretation Completed By: ED Physician Course/Dx - Course Course Of Treatment: Patient sent to xray. No radiology read. ED physician Reuben read xray as humeral head fracture. Will follow up with Gene on Monday as outpatient. Patient with support at home until Monday. Given shoulder immobilizer. Patient comfortable to be sent home with OP follow up. - Diagnoses Differential Diagnosis/HQI/PQRI: Positive: Contusion, Fracture (Closed), Strain , Sprain Provider Diagnoses: Fracture of humeral head, right, closed Discharge - Discharge Plan Condition: Stable Disposition: HOME Patient Education Materials: Arm Fracture in Adults (ED) Referrals: Nichelle Burgess MD [Primary Care Provider] - Additional Instructions: Return to ED for worsening pain. Follow up with Ortho. Call Monday.
--- NOTE | 2016-07-31 08:41 | RAD ---
Indication: Fall, arm injury. 2 views of the arm demonstrates question fracture of the neck of the humerus. There may be a fracture of the greater tuberosity. IMPRESSION: Fracture through the surgical neck of the right humerus with involvement of the greater tuberosity.
== END 2016-07-31 00:52 | disposition home or self-care (01) ==
LOC: ED 20:12
DX: S42.291A Other displaced fracture of upper end of right humerus, initial encounter for closed fracture (principal); I10 Essential (primary) hypertension; W18.09XA Striking against other object with subsequent fall, initial encounter; Y92.9 Unspecified place or not applicable; Z88.0 Allergy status to penicillin; G47.30 Sleep apnea, unspecified; K21.9 Gastro-esophageal reflux disease without esophagitis
CPT/HCPCS: 99282

== ENCOUNTER 2017-01-05 09:33 | Inpatient (IN) | payer MEDICARE, OTHER ==
--- NOTE | 2017-01-05 11:24 | RAD ---
INDICATION: Right hip pain COMPARISON: None TECHNIQUE: An AP view of the pelvis and AP views of the hip in neutral and abducted position were obtained FINDINGS: Bones: There are no acute bony findings. Joint spaces: There is minor symmetric narrowing about both hip joint spaces. SI joints/symphysis: There is sclerosis with left SI joint compatible with sacroiliitis. Other: Vascular calcifications. Osteoarthritis lower lumbar spine. IMPRESSION: MINOR SYMMETRIC NARROWING ABOUT BOTH HIP JOINT SPACES.
--- NOTE | 2017-01-05 12:01 | ED ---
Lower Extremity - History of Current Complaint Chief Complaint: EDHipPelvisInjury Stated Complaint: HIP PAIN Time Seen by Provider: 01/05/17 10:18 Pain Intensity: 10 - Allergies/Home Medications Allergies/Adverse Reactions: Allergies Allergy/AdvReac Type Severity Reaction Status Date / Time Penicillins Allergy Intermediate Rash And Verified 07/30/16 21:18 Itching Verapamil AdvReac See Comment Verified 07/30/16 21:18 PMH/Surg Hx/FS Hx/Imm Hx Endocrine/Hematology History: Reports: Hx Thyroid Disease, Hx Anemia Denies: Hx Diabetes, Hx Unexplained Bleeding Comment Only: Other Endocrine/Hematological Disorders - hypothalmus related headaches Cardiovascular History: Reports: Hx Angina, Hx Congestive Heart Failure - HX OF D/T DRUG REACTION, Hx Hypertension - TAKES MEDICATION Denies: Hx Aneurysm, Hx Angioplasty, Hx Auto Implanted Cardiovert Defib, Hx Cardiac Arrest, Hx Cardiomegaly, Hx Congenital Heart Disease, Hx Coronary Artery Disease, Hx Deep Vein Thrombosis, Hx Hypercholesterolemia, Hx Hypotension , Hx Pacemaker/ICD, Hx Peripheral Vascular Disease, Hx Rheumatic Fever, Hx Syncope, Hx Valvular Heart Disease, Other Cardiovascular Problems/Disorders Respiratory History: Reports: Hx Sleep Apnea - Bipap, Other Respiratory Problems /Disorders - SLEEP APNEA W/ BIPAP Denies: Hx Asthma, Hx Chronic Bronchitis, Hx Chronic Obstructive Pulmonary Disease (COPD), Hx Cystic Fibrosis, Hx Lung Cancer, Hx Pleural Effusion, Hx Pneumonia, Hx Pulmonary Edema, Hx Pulmonary Embolism, Hx Seasonal Allergies GI History: Reports: Hx Gall Bladder Disease, Hx Gastroesophageal Reflux Disease , Hx Irritable Bowel, Other GI Disorders - GERD Denies: Hx Cirrhosis, Hx Crohn's Disease, Hx Diverticulosis, Hx Gastrointestinal Bleed, Hx Hiatal Hernia, Hx Jaundice, Hx Obstructive Bowel, Hx Ileostomy, Hx Pyloric Stenosis, Hx Ulcer History: Denies: Hx Renal Disease Comment Only: Other Problems/Disorders - Burning on urination Musculoskeletal History: Reports: Hx Arthritis, Hx Rheumatoid Arthritis - WAS TREATED FOR IT, THEN STOPPED HER MEDS, Hx Back Problems, Hx Bursitis - Hip, Other Musculoskeletal History - ARTHRITIS LEFT HIP Denies: Hx Fibromyalgia, Hx Gout, Hx Orthopedic Injury, Hx Osteoporosis, Hx Scoliosis, Hx Tendonitis Sensory History: Reports: Hx Contacts or Glasses Denies: Hx Cataracts, Hx Eye Injury, Hx Eye Prosthesis, Hx Glaucoma, Hx Legally Blind, Hx Macular Degeneration, Hx Vision Problem, Hx Deafness, Hx Hearing Aid, Hx Hearing Problem, Other Sensory Impairments Opthamlomology History: Reports: Hx Contacts or Glasses Denies: Hx Cataracts, Hx Eye Injury, Hx Eye Prosthesis, Hx Glaucoma, Hx Legally Blind, Hx Macular Degeneration, Hx Vision Problem, Other Sensory Impairments Neurological History: Reports: Hx Headaches - CHRONIC CLUSTER GARCIA, Hx Migraine Denies: Hx Dementia, Hx Developmental Delay, Hx Seizures, Hx Spinal Cord Injury, Hx Transient Ischemic Attacks (TIA), Other Neuro Impairments/Disorders Psychiatric History: Reports: Hx Depression Denies: Hx Anxiety, Hx Panic Disorder - Cancer History Hx Chemotherapy: No Hx Radiation Therapy: No - Surgical History Surgery Procedure, Year, and Place: CHOLECYESTOMY [facility], DEVIATED SEPTUM [facility] COLECTOMY Hx Anesthesia Reactions: No - Immunization History Date of Tetanus Vaccine: unknown Date of Influenza Vaccine: utd Infectious Disease History: No Infectious Disease History: Denies: Hx Clostridium Difficile, Hx Hepatitis, Hx Human Immunodeficiency Virus (HIV), Hx of Known/Suspected MRSA, Hx Shingles, Hx Tuberculosis, History Other Infectious Disease, Traveled Outside the [place] in Last 30 Days - Family History Family History: COPD, AFIB - Social History Alcohol Use: None Substance Use Type: Reports: None Hx Tobacco Use: No Smoking Status (MU): Never Smoked Tobacco Have You Smoked in the Last Year: No Physical Exam Vital Signs On Initial Exam: Initial Vitals Temp Pulse Resp BP Pulse Ox 96.8 F 84 18 158/71 99 01/05/17 09:43 01/05/17 09:43 01/05/17 09:43 01/05/17 09:43 01/05/17 09:43 - Samreen Coma Scale Coma Scale Total: 15 Diagnostics - Vital Signs Vital Signs Temp Pulse Resp BP Pulse Ox 01/05/17 10:20 96.8 F 84 18 158/71 99 01/05/17 09:43 96.8 F 84 18 158/71 99 - Laboratory Lab Statement: Any lab studies that have been ordered have been reviewed, and results considered in the medical decision making process. - Radiology hip and pelvis Xray Interpretation: No Acute Changes - minor narrowing of both hip joint spaces Radiology Interpretation Completed By: Radiologist - CT hip pelvis CT Interpretation: Positive (See Comments) - FINDINGS MOST CONSISTENT WITH A STRESS FRACTURE OF THE SACRUM ON THE LEFT SIDE. CT Interpretation Completed By: Radiologist Lower Extremity Course/Dx - Diagnoses Provider Diagnoses: Acute right hip pain Discharge - Discharge Plan Condition: Stable Disposition: ADMITTED TO [facility] Patient Education Materials: Muscle Strain (ED), Hip Pain (ED) Referrals: Nichelle Burgess MD [Primary Care Provider] -
[2017-01-05] MEDS ORDERED: Ketorolac INJ* 30 MG/ML 1 ML VIAL IM ONE (12:18)
[2017-01-05] MEDS ORDERED: Orphenadrine Citrate IV* 30 MG/ML 2 ML VIAL IM ONE (12:18)
[2017-01-05] MEDS ORDERED: HYDROcodone/ACETAMIN 5-325 MG* 1 TAB PO ONE ×2 (12:18→14:05)
--- NOTE | 2017-01-05 16:16 | RAD ---
INDICATION: Injury, right hip pain. COMPARISON: Comparison is made with a prior x-ray study of the right hip from January 05, 2017. Correlation is also made with a prior CT of the pelvis from October 19, 2014. TECHNIQUE: Contiguous axial sections were obtained through the pelvis without intravenous or oral contrast. Images were reconstructed in the coronal and sagittal planes. FINDINGS: The bones are in normal alignment. There is mild sclerosis in the left sacral ala at the S1 and S2 levels most consistent with a subacute fracture which is nondisplaced. No other fractures are seen. There is mild bilateral osteoarthritic change in the hips. No joint effusion is seen. The visualized portion of the small bowel colon appear nondistended. No free intraperitoneal fluid is present. No significant enlarged pelvic or inguinal lymph nodes are seen. IMPRESSION: FINDINGS MOST CONSISTENT WITH A STRESS FRACTURE OF THE SACRUM ON THE LEFT SIDE.
[2017-01-05] MEDS ORDERED: Acetaminophen TAB* 325 MG PO PRN (17:15)
[2017-01-05] MEDS ORDERED: PROCHLORPERAZINE INJ 5 MG/ML 2 ML VIAL IV PRN (17:15)
[2017-01-05] MEDS: HYDROcodone/ACETAMIN 5-325 MG* 1 TAB PO PRN ×2 (18:26→21:31)
[2017-01-05 18:48] LABS: Hematocrit 31 % (35-47); Hemoglobin 10.5 g/dl (12.0-16.0); Mean Corpuscular HGB Conc 34 g/dl (31-36); Mean Corpuscular Hemoglobin 34 pg (27-31); Mean Corpuscular Volume 98 fL (80-97); Mean Platelet Volume 7 um3 (7.4-10.4); Red Blood Count 3.11 10^6/ul (4.0-5.4); Red Cell Distribution Width 15 % (10.5-15); White Blood Count 6.5 10^3/ul (3.5-10.8)
[2017-01-05 19:09] LABS: BUN/Creatinine Ratio 17.3 (8-20); Calcium 8.8 mg/dL (8.6-10.3); EGFR African American 89.9 (>60); EGFR Non-African American 69.9 (>60)
--- NOTE | 2017-01-05 21:20 | HP ---
CC: Nichelle Burgess MD * HISTORY AND PHYSICAL: DATE OF ADMISSION: 01/05/17 TIME OF EVALUATION: 04:45 p.m. PRIMARY CARE PROVIDER: Nichelle Burgess MD CHIEF COMPLAINT: Right hip pain. HISTORY OF PRESENT ILLNESS: Ms. Saez is a 71-year-old lady with a past medical history of osteoarthritis, fibromyalgia/chronic pain, CHF, hypertension, sleep apnea, restless leg, facial neuralgia, depression, GERD, cluster headaches, atrial fibrillation, fibromyalgia rheumatica, who presents to the emergency room with complaints of right hip pain. The patient states that 2 days ago, she was bending over to shred a large amount of paper and after doing that for a prolonged period of time, she started to have right hip pain when she straightened up. She states that the pain was worse with movement, but she was able to ambulate, able to walk up and down the stairs at home, but the pain continued to progress up to a 9/10 to the point that today, she could not walk, so she decided to come to the emergency room for further evaluation. She also states that she had some falls at home especially when she rolls in bed and falls from bed, but she states that this pain she feels is related to her posture when shredding paper. She stayed in the emergency room for 7 hours, received multiple doses of hydrocodone, Toradol with no significant improvement, so for that reason, the hospitalist service was contacted for admission for intractable pain. PAST MEDICAL HISTORY: 1. Osteoarthritis. 2. Fibromyalgia. 3. Chronic pain. 4. CHF. 5. Hypertension. 6. Sleep apnea. 7. Restless leg syndrome. 8. Facial neuralgia. 9. Depression. 10. GERD. 11. Cluster headaches. 12. Atrial fibrillation. 13. Polymyalgia rheumatica. PAST SURGICAL HISTORY: 1. Status post cholecystectomy. 2. Status post polypectomy. MEDICATIONS: Medication list is not available at this time, but the physician will be notified after it is updated. ALLERGIES: To PENICILLIN and VERAPAMIL. FAMILY HISTORY: Her mother had PMR. Father had CAD and diabetes. SOCIAL HISTORY: She denies history of tobacco, alcohol or drug use. Surrogate decision maker is her , You Saez, phone number is [phone]. REVIEW OF SYSTEMS: A 14-point review of systems was performed and all the pertinent negatives and positive findings are in the HPI. PHYSICAL EXAMINATION GENERAL: The patient is a pleasant elderly lady, lying in the ER stretcher, not in acute distress. VITAL SIGNS: Temperature 97.5, heart rate is 91, respiratory rate is 18, oxygen saturation 98% on room air, blood pressure is 131/57. HEENT: Pupils are equal. Moist mucous membranes. CHEST: Breath sounds present bilaterally with no added sounds. CVS: Normal S1, S2. Regular rate and rhythm. ABDOMEN: Soft. Bowel sounds are present. EXTREMITIES: No edema. NEUROLOGIC: She is alert, awake, and oriented x3. Able to move all 4 extremities. SKIN: The patient has multiple bruises on different stages of healing. LABORATORY AND IMAGING DATA: Laboratory tests were not performed in the emergency room. They are being ordered now and the physician will be notified when the results are back. Hip and pelvis x-ray showed minor symmetric narrowing about both hip joint spaces. CT of the pelvis showed findings most consistent with a stress fracture of the sacrum on the left side. ASSESSMENT AND PLAN: Ms. Seaz is a 71-year-old lady with past medical history of osteoarthritis, fibromyalgia, congestive heart failure, hypertension, sleep apnea, chronic pain, restless leg syndrome, facial neuralgia, depression, gastroesophageal reflux disease, cluster headaches, atrial fibrillation, polymyalgia rheumatica who presented to the emergency room with complaints of right hip pain that has not responded to treatment done in the emergency room. 1. Intractable right hip pain: I believe this is likely musculoskeletal in nature secondary to her position while working on shredding papers at home. The patient states that she had a similar episode in the past when she was in the similar position wrapping many [employer] gifts. She will be admitted as observation to the medical floor. She will receive pain management. The patient is on hydrocodone as outpatient and the physician assistant commissioner, who took care of the patient in the emergency room, states that the patient's is concerned with medication abuse. The patient states that she usually takes 5 hydrocodone a day, but there are days that she may take more, up to 8 a day, but she never uses more than what is prescribed for her in a month. She states that if she takes more in 1 day, she will compensate and take less the next day. Her was not present during my interview, but I believe further information could be obtained from him regarding his concern about abuse. For now, she is going to continue to receive hydrocodone. She will have acetaminophen and also lidocaine patch available for pain control. She will be seen in consultation by Physical Therapy and Occupational Therapy. It is unclear if this sacral fracture is acute or if it is also playing a role in her symptoms since most of her pain is on her right hip. The patient has polymyalgia rheumatica, and she is being on steroids chronically, so I believe this sacral fracture is likely osteoporotic in nature and it might be chronic. 2. Atrial fibrillation: The patient's heart rate sounds regular at this time. We are going to check her INR and wait for her medication list to be reconciled. 3. DVT prophylaxis: The patient has a score of 3 on the DVT Prophylaxis Risk Assessment Guide and she will have SCDs for now and we are going to wait for her INR level and probably resume her warfarin after her medication list is reconciled. 4. Code status: Full. TIME SPENT: Approximately 50 minutes were spent with the patient interview, medical records review, physical examination to complete the admission, more than half of this time was spent [id number] with the patient in coordination of care. [id number]/CPS #: [id number] MONIK
[2017-01-05] MEDS: Lidocaine PATCH 5%* 1 PATCH TRANSDERM SCH (21:31)
[2017-01-05] MEDS: Gabapentin CAP(*) 300 MG PO SCH (21:32)
[2017-01-05] MEDS: DULoxetine DR CAP* 30 MG CAP.DR PO SCH (21:32)
[2017-01-05] MEDS: CMCS:Melatonin (NF) 3 MG TAB PO SCH (21:32)
[2017-01-05] MEDS: Verapamil TAB* 120 MG PO SCH (21:33)
[2017-01-05] MEDS: Topiramate TAB(*) 100 MG PO SCH (21:33)
[2017-01-05] MEDS: Heparin VIAL(*) 5000 UNITS/ML VIAL (FIVE THOUSAND) SUBCUT SCH (21:33)
[2017-01-05] MEDS: Memantine XR CAP* 28 MG CAP.XR PO SCH (22:40)
[2017-01-06] MEDS: Heparin VIAL(*) 5000 UNITS/ML VIAL (FIVE THOUSAND) SUBCUT SCH ×3 (06:17→22:23)
[2017-01-06] MEDS: Omeprazole CAP* 20 MG PO SCH (07:36)
[2017-01-06] MEDS: Lidocaine Patch REMOVE* 1 NOTE MISC PATCH OFF SCH ×2 (07:37→20:49)
[2017-01-06] MEDS: HYDROcodone/ACETAMIN 5-325 MG* 1 TAB PO PRN ×2 (07:59→20:48)
[2017-01-06] MEDS: DULoxetine DR CAP* 30 MG CAP.DR PO SCH (08:02)
[2017-01-06] MEDS: Gabapentin CAP(*) 300 MG PO SCH ×3 (08:03→20:48)
[2017-01-06] MEDS: predniSONE TAB* 5 MG PO SCH (08:04)
[2017-01-06] MEDS: Lisinopril TAB* 5 MG PO SCH (08:05)
[2017-01-06] MEDS: Verapamil TAB* 120 MG PO SCH ×3 (08:06→20:49)
[2017-01-06] MEDS: Multivitamins/Minerals TAB PO SCH (08:06)
[2017-01-06] MEDS: Potassium Chlor TAB* 20 MEQ TAB.ER PO SCH (08:06)
[2017-01-06] MEDS ORDERED: DULoxetine DR CAP* 30 MG CAP.DR PO SCH (09:00)
[2017-01-06] MEDS: oxyCODONE TAB* 5 MG TAB PO PRN ×3 (10:20→22:20)
[2017-01-06] MEDS: Lidocaine PATCH 5%* 1 PATCH TRANSDERM SCH (10:22)
--- NOTE | 2017-01-06 12:48 | PN ---
Subjective Date of Service: 01/06/17 Interval History: Little change in pain R hip/gluteal area. Good relief with oxycodone 10 mg po. Walked to with walker although it was painful. No new c/o. Objective Active Medications: Acetaminophen (Tylenol Tab*) 650 mg PO Q6H PRN PRN Reason: pain/fever Hydrocodone Bitart/Acetaminophen ([place] 5-325 Tab*) 1 tab PO Q4H PRN PRN Reason: PAIN Last Admin: 01/06/17 07:59 Dose: 1 tab Duloxetine HCl (Cymbalta Cap*) 90 mg PO DAILY [facility] Last Admin: 01/06/17 08:02 Dose: 90 mg Gabapentin (Neurontin Cap(*)) 900 mg PO TID [facility] Last Admin: 01/06/17 08:03 Dose: 900 mg Heparin Sodium (Porcine) (Heparin Vial(*)) 5,000 units SUBCUT Q8HR [facility] Last Admin: 01/06/17 06:17 Dose: 5,000 units Lidocaine (Lidoderm 5% Patch*) 1 patch TRANSDERM .ON 0900 OFF AT 2100 [facility] Last Admin: 01/06/17 10:22 Dose: 1 patch Lisinopril (Prinivil Tab*) 5 mg PO DAILY [facility] Last Admin: 01/06/17 08:05 Dose: 5 mg Melatonin (Melatonin (Nf)) 15 mg PO BEDTIME [facility] Last Admin: 01/05/17 21:32 Dose: 15 mg Memantine (Namenda Xr Cap*) 28 mg PO BEDTIME [facility] Last Admin: 01/05/17 22:40 Dose: 28 mg Multivitamins/Minerals (Theragran/Minerals Tab*) 1 tab PO DAILY [facility] Last Admin: 01/06/17 08:06 Dose: 1 tab Omeprazole (Prilosec Cap*) 20 mg PO DAILY@0730 [facility] Last Admin: 01/06/17 07:36 Dose: 20 mg Oxycodone HCl (Roxycodone Tab*) 10 mg PO Q4H PRN PRN Reason: PAIN Last Admin: 01/06/17 10:20 Dose: 10 mg Pharmacy Profile Note (Lidocaine Patch Remove*) 1 note PATCH OFF 2100 [facility] Last Admin: 01/06/17 07:37 Dose: 1 note Potassium Chloride (Klor Con Er Tab*) 20 meq PO DAILY [facility] Last Admin: 01/06/17 08:06 Dose: 20 meq Prednisone (Deltasone Tab*) 15 mg PO DAILY [facility] Last Admin: 01/06/17 08:04 Dose: 15 mg Prochlorperazine Edisylate (Compazine Inj*) 5 mg IV Q6H PRN PRN Reason: NAUSEA/VOMITING Topiramate (Topamax(*)) 200 mg PO BEDTIME [facility] Last Admin: 01/05/17 21:33 Dose: 200 mg Verapamil HCl (Calan Tab*) 120 mg PO TID [facility] Last Admin: 01/06/17 08:06 Dose: 120 mg Vital Signs 01/05/17 01/05/17 01/05/17 18:16 18:26 19:18 Temperature 97.6 F 98 F Pulse Rate 65 88 Respiratory 16 16 18 Rate Blood Pressure 172/82 144/64 (mmHg) O2 Sat by Pulse 96 99 Oximetry 01/05/17 01/05/17 01/05/17 20:26 20:57 21:31 Temperature Pulse Rate Respiratory 18 18 18 Rate Blood Pressure (mmHg) O2 Sat by Pulse Oximetry 01/05/17 01/05/17 01/05/17 21:32 23:06 23:31 Temperature 98.0 F Pulse Rate 76 Respiratory 18 16 16 Rate Blood Pressure 124/52 (mmHg) O2 Sat by Pulse 98 Oximetry 01/05/17 01/06/17 01/06/17 23:32 03:33 07:35 Temperature 98.3 F 98.2 F Pulse Rate 75 76 Respiratory 16 18 16 Rate Blood Pressure 153/80 142/68 (mmHg) O2 Sat by Pulse 96 95 Oximetry 01/06/17 01/06/17 01/06/17 07:59 08:00 08:03 Temperature Pulse Rate Respiratory 16 16 16 Rate Blood Pressure (mmHg) O2 Sat by Pulse Oximetry 01/06/17 01/06/17 10:03 10:20 Temperature Pulse Rate Respiratory 16 17 Rate Blood Pressure (mmHg) O2 Sat by Pulse Oximetry Oxygen Devices in Use Now: None Appearance: Alert, partly up in bed. In good spirits. Looks comfortable at rest. Eyes: No Scleral Icterus Extremities: No Edema, No Clubbing, Cyanosis, - Skin: No Rash or Ulcers, No Nodules or Sclerosis, - Neurological: Alert and Oriented x 3, NL Sensation - moves all limbs well. Result Diagrams: 01/05/17 17:50 01/05/17 17:50 Assess/Plan/Problems-Billing Assessment: - Patient Problems (1) Right hip pain Current Visit: Yes Status: Acute Code(s): M25.551 - PAIN IN RIGHT HIP SNOMED Code(s): 17863109 Comment: CT showed subacute sacral rx on Left side. MRI R hip/gluteal area requested. (2) Cluster headache Current Visit: No Status: Acute Comment: Continue sumatriptan, amitirptyline , topiramate. (3) HTN (hypertension) Current Visit: Yes Status: Acute Code(s): I10 - ESSENTIAL (PRIMARY) HYPERTENSION SNOMED Code(s): 60163877 Comment: Continue lisinopril.
--- NOTE | 2017-01-06 15:40 | RAD ---
INDICATION: Right hip and gluteal pain. COMPARISON: Correlation is made with prior x-ray studies of the right hip and a CT of the pelvis from January 05, 2017. TECHNIQUE: Axial, sagittal and coronal T1 and T2-weighted images of the hips were obtained. FINDINGS: The bones are in normal alignment. There is edema signal intensity present on both sides of the sacrum. The prior CT study showed a subacute stress fracture of the sacrum on the left side and the edema on the right side likely indicates a more acute fracture. There is edema extending into the right iliacus muscle. No other focal osseous abnormalities are seen. No joint effusion is present within the hips. There is no evidence for avascular necrosis. There is mild bilateral osteoarthritic change in the hips. The visualized portion of the small large bowel appear nondistended. No free intraperineal fluid is seen. IMPRESSION: FINDINGS MOST CONSISTENT WITH BILATERAL STRESS FRACTURES WITHIN THE SACRUM. THE FRACTURE ON THE RIGHT SIDE IS LIKELY MORE ACUTE WITH ADJACENT EDEMA IN THE ADJACENT RIGHT ILIACUS MUSCLE.
[2017-01-06] MEDS: Memantine XR CAP* 28 MG CAP.XR PO SCH (20:48)
[2017-01-06] MEDS: CMCS:Melatonin (NF) 3 MG TAB PO SCH (20:48)
[2017-01-06] MEDS: Topiramate TAB(*) 100 MG PO SCH (20:50)
[2017-01-07] MEDS: HYDROcodone/ACETAMIN 5-325 MG* 1 TAB PO PRN ×3 (01:17→13:12)
[2017-01-07] MEDS: Heparin VIAL(*) 5000 UNITS/ML VIAL (FIVE THOUSAND) SUBCUT SCH ×3 (06:26→23:32)
[2017-01-07] MEDS: Gabapentin CAP(*) 300 MG PO SCH ×3 (08:17→20:53)
[2017-01-07] MEDS: predniSONE TAB* 5 MG PO SCH (08:17)
[2017-01-07] MEDS: Multivitamins/Minerals TAB PO SCH (08:17)
[2017-01-07] MEDS: DULoxetine DR CAP* 30 MG CAP.DR PO SCH (08:17)
[2017-01-07] MEDS: Verapamil TAB* 120 MG PO SCH ×3 (08:18→20:54)
[2017-01-07] MEDS: Potassium Chlor TAB* 20 MEQ TAB.ER PO SCH (08:18)
[2017-01-07] MEDS: Lisinopril TAB* 5 MG PO SCH (08:18)
[2017-01-07] MEDS: Omeprazole CAP* 20 MG PO SCH (08:18)
[2017-01-07] MEDS: oxyCODONE TAB* 5 MG TAB PO PRN ×2 (08:23→18:22)
--- NOTE | 2017-01-07 11:17 | PN ---
Subjective Date of Service: 01/07/17 Interval History: Had cluster headache last night, lasted a long time as she did not have her eletriptan. She has it now. Pain R pelvis about the same, relieved by po oxycodone. Objective Active Medications: Acetaminophen (Tylenol Tab*) 650 mg PO Q6H PRN PRN Reason: pain/fever Hydrocodone Bitart/Acetaminophen ([place] 5-325 Tab*) 1 tab PO Q4H PRN PRN Reason: PAIN Last Admin: 01/07/17 01:17 Dose: 1 tab Cholecalciferol (Vitamin D Tab*) 1,000 units PO DAILY [facility] Duloxetine HCl (Cymbalta Cap*) 90 mg PO DAILY [facility] Last Admin: 01/07/17 08:17 Dose: 90 mg Eletriptan (Relpax (Nf)) 40 mg PO DAILY PRN PRN Reason: CLUSTER HEADACHE Gabapentin (Neurontin Cap(*)) 900 mg PO TID [facility] Last Admin: 01/07/17 08:17 Dose: 900 mg Heparin Sodium (Porcine) (Heparin Vial(*)) 5,000 units SUBCUT Q8HR [facility] Last Admin: 01/07/17 06:26 Dose: 5,000 units Lidocaine (Lidoderm 5% Patch*) 1 patch TRANSDERM .ON 0900 OFF AT 2100 [facility] Last Admin: 01/06/17 10:22 Dose: 1 patch Lisinopril (Prinivil Tab*) 5 mg PO DAILY [facility] Last Admin: 01/07/17 08:18 Dose: 5 mg Melatonin (Melatonin (Nf)) 15 mg PO BEDTIME [facility] Last Admin: 01/06/17 20:48 Dose: 15 mg Memantine (Namenda Xr Cap*) 28 mg PO BEDTIME [facility] Last Admin: 01/06/17 20:48 Dose: 28 mg Multivitamins/Minerals (Theragran/Minerals Tab*) 1 tab PO DAILY [facility] Last Admin: 01/07/17 08:17 Dose: 1 tab Omeprazole (Prilosec Cap*) 20 mg PO DAILY@0730 [facility] Last Admin: 01/07/17 08:18 Dose: 20 mg Oxycodone HCl (Roxycodone Tab*) 10 mg PO Q4H PRN PRN Reason: PAIN Last Admin: 01/07/17 08:23 Dose: 10 mg Oxycodone HCl (Oxycontin(*)) 10 mg PO Q12HR [facility] Pharmacy Profile Note (Lidocaine Patch Remove*) 1 note PATCH OFF 2099 [facility] Last Admin: 01/06/17 20:49 Dose: 1 note Polyethylene Glycol/Electrolytes (Miralax*) 17 gm PO 0800,2099 [facility] Potassium Chloride (Klor Con Er Tab*) 20 meq PO DAILY [facility] Last Admin: 01/07/17 08:18 Dose: 20 meq Prednisone (Deltasone Tab*) 10 mg PO DAILY [facility] Prochlorperazine Edisylate (Compazine Inj*) 5 mg IV Q6H PRN PRN Reason: NAUSEA/VOMITING Topiramate (Topamax(*)) 200 mg PO BEDTIME [facility] Last Admin: 01/06/17 20:50 Dose: 200 mg Verapamil HCl (Calan Tab*) 120 mg PO TID [facility] Last Admin: 01/07/17 08:18 Dose: 120 mg Vital Signs 01/06/17 01/06/17 01/06/17 15:23 15:32 15:42 Temperature 97.5 F Pulse Rate 87 Respiratory 20 18 20 Rate Blood Pressure 129/59 (mmHg) O2 Sat by Pulse 96 Oximetry 01/06/17 01/06/17 01/06/17 17:23 20:22 20:41 Temperature 98.5 F Pulse Rate 86 Respiratory 20 20 20 Rate Blood Pressure 136/72 (mmHg) O2 Sat by Pulse 96 Oximetry 01/06/17 01/06/17 01/06/17 20:48 22:20 22:48 Temperature Pulse Rate Respiratory 20 16 18 Rate Blood Pressure (mmHg) O2 Sat by Pulse Oximetry 01/06/17 01/06/17 01/07/17 23:46 23:55 00:20 Temperature Pulse Rate 75 Respiratory 16 18 Rate Blood Pressure 144/75 (mmHg) O2 Sat by Pulse 97 97 Oximetry 01/07/17 01/07/17 01/07/17 01:17 03:17 08:03 Temperature 98.3 F Pulse Rate 64 Respiratory 18 16 17 Rate Blood Pressure 125/57 (mmHg) O2 Sat by Pulse 98 Oximetry 01/07/17 01/07/17 01/07/17 08:16 08:17 08:23 Temperature Pulse Rate Respiratory 16 16 Rate Blood Pressure (mmHg) O2 Sat by Pulse 98 Oximetry Oxygen Devices in Use Now: None Appearance: Alert, supine in bed. In good spirits. Looks comfortable at rest. Extremities: No Edema, No Clubbing, Cyanosis, - Skin: No Rash or Ulcers, No Nodules or Sclerosis, - Neurological: Alert and Oriented x 3, NL Sensation Result Diagrams: 01/05/17 17:50 01/05/17 17:50 Assess/Plan/Problems-Billing Assessment: - Patient Problems (1) Right hip pain Current Visit: Yes Status: Acute Code(s): M25.551 - PAIN IN RIGHT HIP SNOMED Code(s): 76395478 Comment: CT showed subacute sacral rx on Left side. MRI showed acute R sacral fx. Add oxycodone SR 10 mg q 12 hr. PEG 17 gm bid. PT, OT consult pending. (2) Cluster headache Current Visit: No Status: Acute Comment: Continue eletriptan, amitirptyline , topiramate. (3) HTN (hypertension) Current Visit: Yes Status: Acute Code(s): I10 - ESSENTIAL (PRIMARY) HYPERTENSION SNOMED Code(s): 11439571 Comment: Continue lisinopril. (4) PMR (polymyalgia rheumatica) Current Visit: Yes Status: Acute Code(s): M35.3 - POLYMYALGIA RHEUMATICA SNOMED Code(s): 28210504 Comment: Dr. Altamirano has been slowly tapering her prednisone. She has been on 12 mg prednisone for over a month. Start 10 mg daily on 01/08. ESR 01/08.
[2017-01-07] MEDS: Cholecalciferol TAB* 1000 UNITS PO SCH (13:12)
[2017-01-07] MEDS: oxyCODONE SR TAB(*) 10 MG TAB.SR PO SCH ×2 (13:12→20:55)
[2017-01-07] MEDS: Memantine XR CAP* 28 MG CAP.XR PO SCH (20:52)
[2017-01-07] MEDS: Polyethylene Glycol 3350* 17 GM PACKET PO SCH (20:52)
[2017-01-07] MEDS: Topiramate TAB(*) 100 MG PO SCH (20:54)
[2017-01-07] MEDS: CMCS:Melatonin (NF) 3 MG TAB PO SCH (20:54)
[2017-01-08] MEDS: Heparin VIAL(*) 5000 UNITS/ML VIAL (FIVE THOUSAND) SUBCUT SCH ×3 (05:55→22:17)
[2017-01-08] MEDS: ELETRIPTAN 40 MG PO PRN (05:55)
[2017-01-08] MEDS: Polyethylene Glycol 3350* 17 GM PACKET PO SCH ×2 (08:37→20:43)
[2017-01-08] MEDS: Lidocaine PATCH 5%* 1 PATCH TRANSDERM SCH (08:37)
[2017-01-08] MEDS: Lisinopril TAB* 5 MG PO SCH (08:38)
[2017-01-08] MEDS: Gabapentin CAP(*) 300 MG PO SCH ×3 (08:38→20:44)
[2017-01-08] MEDS: Multivitamins/Minerals TAB PO SCH (08:38)
[2017-01-08] MEDS: Verapamil TAB* 120 MG PO SCH ×3 (08:38→20:44)
[2017-01-08] MEDS: oxyCODONE TAB* 5 MG TAB PO PRN ×4 (08:38→23:17)
[2017-01-08] MEDS: DULoxetine DR CAP* 30 MG CAP.DR PO SCH (08:38)
[2017-01-08] MEDS: predniSONE TAB* 10 MG PO SCH (08:38)
[2017-01-08] MEDS: Omeprazole CAP* 20 MG PO SCH (08:39)
[2017-01-08] MEDS: Cholecalciferol TAB* 1000 UNITS PO SCH (08:39)
[2017-01-08] MEDS: oxyCODONE SR TAB(*) 10 MG TAB.SR PO SCH ×2 (08:39→20:45)
[2017-01-08] MEDS: Potassium Chlor TAB* 20 MEQ TAB.ER PO SCH (08:39)
[2017-01-08] MEDS: Lidocaine Patch REMOVE* 1 NOTE MISC PATCH OFF SCH ×2 (08:40→20:46)
--- NOTE | 2017-01-08 16:04 | PN ---
Subjective Date of Service: 01/08/17 Objective Active Medications: Acetaminophen (Tylenol Tab*) 650 mg PO Q6H PRN PRN Reason: pain/fever Hydrocodone Bitart/Acetaminophen ([place] 5-325 Tab*) 1 tab PO Q4H PRN PRN Reason: PAIN Last Admin: 01/07/17 13:12 Dose: 1 tab Cholecalciferol (Vitamin D Tab*) 1,000 units PO DAILY [facility] Last Admin: 01/08/17 08:39 Dose: 1,000 units Duloxetine HCl (Cymbalta Cap*) 90 mg PO DAILY [facility] Last Admin: 01/08/17 08:38 Dose: 90 mg Eletriptan (Relpax (Nf)) 40 mg PO DAILY PRN PRN Reason: CLUSTER HEADACHE Last Admin: 01/08/17 05:55 Dose: 40 mg Gabapentin (Neurontin Cap(*)) 900 mg PO TID [facility] Last Admin: 01/08/17 14:57 Dose: 900 mg Heparin Sodium (Porcine) (Heparin Vial(*)) 5,000 units SUBCUT Q8HR [facility] Last Admin: 01/08/17 14:58 Dose: 5,000 units Lidocaine (Lidoderm 5% Patch*) 1 patch TRANSDERM DAILY [facility] Last Admin: 01/08/17 08:37 Dose: 1 patch Lisinopril (Prinivil Tab*) 5 mg PO DAILY [facility] Last Admin: 01/08/17 08:38 Dose: 5 mg Melatonin (Melatonin (Nf)) 15 mg PO BEDTIME [facility] Last Admin: 01/07/17 20:54 Dose: 15 mg Memantine (Namenda Xr Cap*) 28 mg PO BEDTIME [facility] Last Admin: 01/07/17 20:52 Dose: 28 mg Multivitamins/Minerals (Theragran/Minerals Tab*) 1 tab PO DAILY [facility] Last Admin: 01/08/17 08:38 Dose: 1 tab Omeprazole (Prilosec Cap*) 20 mg PO DAILY@0730 [facility] Last Admin: 01/08/17 08:39 Dose: 20 mg Oxycodone HCl (Roxycodone Tab*) 10 mg PO Q4H PRN PRN Reason: PAIN Last Admin: 01/08/17 12:49 Dose: 10 mg Oxycodone HCl (Oxycontin(*)) 10 mg PO Q12HR [facility] Last Admin: 01/08/17 08:39 Dose: 10 mg Pharmacy Profile Note (Lidocaine Patch Remove*) 1 note PATCH OFF 2099 [facility] Last Admin: 01/08/17 08:40 Dose: Not Given Polyethylene Glycol/Electrolytes (Miralax*) 17 gm PO 08,2099 [facility] Last Admin: 01/08/17 08:37 Dose: 17 gm Potassium Chloride (Klor Con Er Tab*) 20 meq PO DAILY [facility] Last Admin: 01/08/17 08:39 Dose: 20 meq Prednisone (Deltasone Tab*) 10 mg PO DAILY [facility] Last Admin: 01/08/17 08:38 Dose: 10 mg Prochlorperazine Edisylate (Compazine Inj*) 5 mg IV Q6H PRN PRN Reason: NAUSEA/VOMITING Topiramate (Topamax(*)) 200 mg PO BEDTIME [facility] Last Admin: 01/07/17 20:54 Dose: 200 mg Verapamil HCl (Calan Tab*) 120 mg PO TID [facility] Last Admin: 01/08/17 14:58 Dose: 120 mg Vital Signs 01/07/17 01/07/17 01/07/17 16:00 18:22 20:00 Temperature Pulse Rate Respiratory 16 18 Rate Blood Pressure (mmHg) O2 Sat by Pulse 95 Oximetry 01/07/17 01/07/17 01/07/17 20:16 20:22 20:53 Temperature 97.6 F Pulse Rate 80 Respiratory 16 18 18 Rate Blood Pressure 133/66 (mmHg) O2 Sat by Pulse 96 Oximetry 01/07/17 01/07/17 01/07/17 20:55 22:53 22:55 Temperature Pulse Rate Respiratory 18 18 18 Rate Blood Pressure (mmHg) O2 Sat by Pulse Oximetry 01/07/17 01/08/17 01/08/17 23:35 07:27 08:00 Temperature 98.3 F 98.2 F Pulse Rate 111 82 Respiratory 16 16 22 Rate Blood Pressure 150/76 158/80 (mmHg) O2 Sat by Pulse 97 96 95 Oximetry 01/08/17 01/08/17 01/08/17 08:07 08:38 08:39 Temperature 97.9 F Pulse Rate 88 Respiratory 22 20 20 Rate Blood Pressure 186/88 (mmHg) O2 Sat by Pulse 95 Oximetry 01/08/17 01/08/17 01/08/17 10:38 12:49 14:57 Temperature Pulse Rate Respiratory 18 20 18 Rate Blood Pressure (mmHg) O2 Sat by Pulse Oximetry Oxygen Devices in Use Now: None Result Diagrams: 01/05/17 17:50 01/05/17 17:50 Assess/Plan/Problems-Billing Assessment: - Patient Problems (1) Right hip pain Current Visit: Yes Status: Acute Code(s): M25.551 - PAIN IN RIGHT HIP SNOMED Code(s): 97203958 Comment: CT showed subacute sacral rx on Left side. MRI showed acute R sacral fx. Add oxycodone SR 10 mg q 12 hr. PEG 17 gm bid. PT, OT consult pending. (2) Cluster headache Current Visit: No Status: Acute Comment: Continue eletriptan, amitirptyline , topiramate. (3) HTN (hypertension) Current Visit: Yes Status: Acute Code(s): I10 - ESSENTIAL (PRIMARY) HYPERTENSION SNOMED Code(s): 70485996 Comment: Continue lisinopril. (4) PMR (polymyalgia rheumatica) Current Visit: Yes Status: Acute Code(s): M35.3 - POLYMYALGIA RHEUMATICA SNOMED Code(s): 02678592 Comment: Dr. Altamirano has been slowly tapering her prednisone. She has been on 12 mg prednisone for over a month. Start 10 mg daily on 01/08. ESR 01/08.
--- NOTE | 2017-01-08 16:39 | PN ---
Subjective Date of Service: 01/08/17 Interval History: Pain control better today. No new c/o. Objective Active Medications: Acetaminophen (Tylenol Tab*) 650 mg PO Q6H PRN PRN Reason: pain/fever Hydrocodone Bitart/Acetaminophen ([place] 5-325 Tab*) 1 tab PO Q4H PRN PRN Reason: PAIN Last Admin: 01/07/17 13:12 Dose: 1 tab Cholecalciferol (Vitamin D Tab*) 1,000 units PO DAILY [facility] Last Admin: 01/08/17 08:39 Dose: 1,000 units Duloxetine HCl (Cymbalta Cap*) 90 mg PO DAILY [facility] Last Admin: 01/08/17 08:38 Dose: 90 mg Eletriptan (Relpax (Nf)) 40 mg PO DAILY PRN PRN Reason: CLUSTER HEADACHE Last Admin: 01/08/17 05:55 Dose: 40 mg Gabapentin (Neurontin Cap(*)) 900 mg PO TID [facility] Last Admin: 01/08/17 14:57 Dose: 900 mg Heparin Sodium (Porcine) (Heparin Vial(*)) 5,000 units SUBCUT Q8HR [facility] Last Admin: 01/08/17 14:58 Dose: 5,000 units Lidocaine (Lidoderm 5% Patch*) 1 patch TRANSDERM DAILY [facility] Last Admin: 01/08/17 08:37 Dose: 1 patch Lisinopril (Prinivil Tab*) 5 mg PO DAILY [facility] Last Admin: 01/08/17 08:38 Dose: 5 mg Melatonin (Melatonin (Nf)) 15 mg PO BEDTIME [facility] Last Admin: 01/07/17 20:54 Dose: 15 mg Memantine (Namenda Xr Cap*) 28 mg PO BEDTIME [facility] Last Admin: 01/07/17 20:52 Dose: 28 mg Multivitamins/Minerals (Theragran/Minerals Tab*) 1 tab PO DAILY [facility] Last Admin: 01/08/17 08:38 Dose: 1 tab Omeprazole (Prilosec Cap*) 20 mg PO DAILY@0730 [facility] Last Admin: 01/08/17 08:39 Dose: 20 mg Oxycodone HCl (Roxycodone Tab*) 10 mg PO Q4H PRN PRN Reason: PAIN Last Admin: 01/08/17 12:49 Dose: 10 mg Oxycodone HCl (Oxycontin(*)) 10 mg PO Q12HR [facility] Last Admin: 01/08/17 08:39 Dose: 10 mg Pharmacy Profile Note (Lidocaine Patch Remove*) 1 note PATCH OFF 2099 [facility] Last Admin: 01/08/17 08:40 Dose: Not Given Polyethylene Glycol/Electrolytes (Miralax*) 17 gm PO 0800,2099 [facility] Last Admin: 01/08/17 08:37 Dose: 17 gm Potassium Chloride (Klor Con Er Tab*) 20 meq PO DAILY [facility] Last Admin: 01/08/17 08:39 Dose: 20 meq Prednisone (Deltasone Tab*) 10 mg PO DAILY [facility] Last Admin: 01/08/17 08:38 Dose: 10 mg Prochlorperazine Edisylate (Compazine Inj*) 5 mg IV Q6H PRN PRN Reason: NAUSEA/VOMITING Topiramate (Topamax(*)) 200 mg PO BEDTIME [facility] Last Admin: 01/07/17 20:54 Dose: 200 mg Verapamil HCl (Calan Tab*) 120 mg PO TID [facility] Last Admin: 01/08/17 14:58 Dose: 120 mg Vital Signs 01/07/17 01/07/17 01/07/17 18:22 20:00 20:16 Temperature 97.6 F Pulse Rate 80 Respiratory 16 18 16 Rate Blood Pressure 133/66 (mmHg) O2 Sat by Pulse 96 Oximetry 01/07/17 01/07/17 01/07/17 20:22 20:53 20:55 Temperature Pulse Rate Respiratory 18 18 18 Rate Blood Pressure (mmHg) O2 Sat by Pulse Oximetry 01/07/17 01/07/17 01/07/17 22:53 22:55 23:35 Temperature 98.3 F Pulse Rate 111 Respiratory 18 18 16 Rate Blood Pressure 150/76 (mmHg) O2 Sat by Pulse 97 Oximetry 01/08/17 01/08/17 01/08/17 07:27 08:00 08:07 Temperature 98.2 F 97.9 F Pulse Rate 82 88 Respiratory 16 22 22 Rate Blood Pressure 158/80 186/88 (mmHg) O2 Sat by Pulse 96 95 95 Oximetry 01/08/17 01/08/17 01/08/17 08:38 08:39 10:38 Temperature Pulse Rate Respiratory 20 20 18 Rate Blood Pressure (mmHg) O2 Sat by Pulse Oximetry 01/08/17 01/08/17 12:49 14:57 Temperature Pulse Rate Respiratory 20 18 Rate Blood Pressure (mmHg) O2 Sat by Pulse Oximetry Oxygen Devices in Use Now: None Appearance: Alert, supine in bed. In good spirits. Looks comfortable at rest. Extremities: No Edema, No Clubbing, Cyanosis, - Skin: No Rash or Ulcers, No Nodules or Sclerosis, - Neurological: Alert and Oriented x 3, NL Sensation Result Diagrams: 01/05/17 17:50 01/05/17 17:50 Assess/Plan/Problems-Billing Assessment: - Patient Problems (1) Right hip pain Current Visit: Yes Status: Acute Code(s): M25.551 - PAIN IN RIGHT HIP SNOMED Code(s): 07713375 Comment: CT showed subacute sacral rx on Left side. MRI showed acute R sacral fx. Continue oxycodone SR 10 mg q 12 hr. PEG 17 gm bid. PT, OT consults appreciated. (2) Cluster headache Current Visit: No Status: Acute Comment: Continue eletriptan, amitirptyline , topiramate. (3) HTN (hypertension) Current Visit: Yes Status: Acute Code(s): I10 - ESSENTIAL (PRIMARY) HYPERTENSION SNOMED Code(s): 41301919 Comment: Continue lisinopril. (4) PMR (polymyalgia rheumatica) Current Visit: Yes Status: Acute Code(s): M35.3 - POLYMYALGIA RHEUMATICA SNOMED Code(s): 14296286 Comment: Dr. Altamirano has been slowly tapering her prednisone. She has been on 12 mg prednisone for over a month. Start 10 mg daily on 01/08. ESR 80 on 01/08, may in part reflect her acute fx. I would repeat in about 2-3 weeks. She states her PMR pain (shoulders, knees, jaws) is under good control. (5) Sleep apnea Current Visit: No Status: Acute Code(s): G47.30 - SLEEP APNEA, UNSPECIFIED SNOMED Code(s): 71230333 Comment: Previous dx DONTRELL. She has never used CPAP or nocturnal O2 at home. She has an O2 tank which she uses for her cluster headaches. Overnight oximetry ordered 01/08-01/09.
[2017-01-08] MEDS: Memantine XR CAP* 28 MG CAP.XR PO SCH (20:44)
[2017-01-08] MEDS: Topiramate TAB(*) 100 MG PO SCH (20:44)
[2017-01-08] MEDS: CMCS:Melatonin (NF) 3 MG TAB PO SCH (20:45)
[2017-01-09] MEDS: Heparin VIAL(*) 5000 UNITS/ML VIAL (FIVE THOUSAND) SUBCUT SCH ×3 (06:00→21:51)
[2017-01-09] MEDS: Polyethylene Glycol 3350* 17 GM PACKET PO SCH ×2 (08:02→19:41)
[2017-01-09] MEDS: Omeprazole CAP* 20 MG PO SCH (08:02)
[2017-01-09] MEDS: Multivitamins/Minerals TAB PO SCH (09:08)
[2017-01-09] MEDS: DULoxetine DR CAP* 30 MG CAP.DR PO SCH (09:08)
[2017-01-09] MEDS: Verapamil TAB* 120 MG PO SCH ×3 (09:08→19:43)
[2017-01-09] MEDS: Cholecalciferol TAB* 1000 UNITS PO SCH (09:09)
[2017-01-09] MEDS: Potassium Chlor TAB* 20 MEQ TAB.ER PO SCH (09:09)
[2017-01-09] MEDS: Gabapentin CAP(*) 300 MG PO SCH ×3 (09:10→19:42)
[2017-01-09] MEDS: oxyCODONE SR TAB(*) 10 MG TAB.SR PO SCH ×2 (09:10→21:50)
[2017-01-09] MEDS: Lisinopril TAB* 5 MG PO SCH (09:10)
[2017-01-09] MEDS: predniSONE TAB* 10 MG PO SCH (09:10)
[2017-01-09] MEDS: Lidocaine PATCH 5%* 1 PATCH TRANSDERM SCH (09:11)
--- NOTE | 2017-01-09 11:28 | PN ---
Subjective Date of Service: 01/09/17 Interval History: Pt is feeling ok when lying flat in bed. She states as soon as she starts moving she has pain just to the right of midline in her sacrum. She states she has not had a BM in a couple of days. She denies any SOB. She has been having one of her cluster headaches and it has been unrelenting. Objective Active Medications: Acetaminophen (Tylenol Tab*) 650 mg PO Q6H PRN PRN Reason: pain/fever Hydrocodone Bitart/Acetaminophen ([place] 5-325 Tab*) 1 tab PO Q4H PRN PRN Reason: PAIN Last Admin: 01/07/17 13:12 Dose: 1 tab Cholecalciferol (Vitamin D Tab*) 1,000 units PO DAILY [facility] Last Admin: 01/09/17 09:09 Dose: 1,000 units Duloxetine HCl (Cymbalta Cap*) 90 mg PO DAILY [facility] Last Admin: 01/09/17 09:08 Dose: 90 mg Eletriptan (Relpax (Nf)) 40 mg PO DAILY PRN PRN Reason: CLUSTER HEADACHE Last Admin: 01/08/17 05:55 Dose: 40 mg Gabapentin (Neurontin Cap(*)) 900 mg PO TID [facility] Last Admin: 01/09/17 09:10 Dose: 900 mg Heparin Sodium (Porcine) (Heparin Vial(*)) 5,000 units SUBCUT Q8HR [facility] Last Admin: 01/09/17 06:00 Dose: 5,000 units Lidocaine (Lidoderm 5% Patch*) 1 patch TRANSDERM DAILY [facility] Last Admin: 01/09/17 09:11 Dose: 1 patch Lisinopril (Prinivil Tab*) 5 mg PO DAILY [facility] Last Admin: 01/09/17 09:10 Dose: 5 mg Melatonin (Melatonin (Nf)) 15 mg PO BEDTIME [facility] Last Admin: 01/08/17 20:45 Dose: 15 mg Memantine (Namenda Xr Cap*) 28 mg PO BEDTIME [facility] Last Admin: 01/08/17 20:44 Dose: 28 mg Multivitamins/Minerals (Theragran/Minerals Tab*) 1 tab PO DAILY [facility] Last Admin: 01/09/17 09:08 Dose: 1 tab Omeprazole (Prilosec Cap*) 20 mg PO DAILY@0730 [facility] Last Admin: 01/09/17 08:02 Dose: 20 mg Oxycodone HCl (Roxycodone Tab*) 10 mg PO Q4H PRN PRN Reason: PAIN Last Admin: 01/08/17 23:17 Dose: 10 mg Oxycodone HCl (Oxycontin(*)) 10 mg PO Q12HR [facility] Last Admin: 01/09/17 09:10 Dose: 10 mg Pharmacy Profile Note (Lidocaine Patch Remove*) 1 note PATCH OFF 2099 [facility] Last Admin: 01/08/17 20:46 Dose: 1 note Polyethylene Glycol/Electrolytes (Miralax*) 17 gm PO 0800,2099 [facility] Last Admin: 01/09/17 08:02 Dose: 17 gm Potassium Chloride (Klor Con Er Tab*) 20 meq PO DAILY [facility] Last Admin: 01/09/17 09:09 Dose: 20 meq Prednisone (Deltasone Tab*) 10 mg PO DAILY [facility] Last Admin: 01/09/17 09:10 Dose: 10 mg Prochlorperazine Edisylate (Compazine Inj*) 5 mg IV Q6H PRN PRN Reason: NAUSEA/VOMITING Topiramate (Topamax(*)) 200 mg PO BEDTIME [facility] Last Admin: 01/08/17 20:44 Dose: 200 mg Verapamil HCl (Calan Tab*) 120 mg PO TID [facility] Last Admin: 01/09/17 09:08 Dose: 120 mg Vital Signs 01/08/17 01/08/17 01/08/17 12:31 12:49 14:57 Temperature 98.3 F Pulse Rate 83 Respiratory 17 20 18 Rate Blood Pressure 132/60 (mmHg) O2 Sat by Pulse 95 Oximetry 01/08/17 01/08/17 01/08/17 15:18 16:00 16:57 Temperature 97.4 F Pulse Rate 83 Respiratory 17 19 Rate Blood Pressure 143/66 (mmHg) O2 Sat by Pulse 93 93 Oximetry 01/08/17 01/08/17 01/08/17 18:19 19:31 20:19 Temperature 98.0 F Pulse Rate 81 Respiratory 18 17 20 Rate Blood Pressure 124/64 (mmHg) O2 Sat by Pulse 96 Oximetry 01/08/17 01/08/17 01/08/17 20:44 20:45 20:52 Temperature Pulse Rate Respiratory 20 20 20 Rate Blood Pressure (mmHg) O2 Sat by Pulse Oximetry 0701/08/17 01/08/17 22:44 22:45 23:17 Temperature Pulse Rate Respiratory 18 18 18 Rate Blood Pressure (mmHg) O2 Sat by Pulse Oximetry 01/08/17 01/09/17 01/09/17 23:23 01:17 09:10 Temperature 98.1 F Pulse Rate 84 Respiratory 16 18 18 Rate Blood Pressure 143/71 (mmHg) O2 Sat by Pulse 96 Oximetry Oxygen Devices in Use Now: Simple Face Mask Appearance: Elderly female lying sleeping in bed, NAD Eyes: No Scleral Icterus Ears/Nose/Mouth/Throat: Mucous Membranes Moist Respiratory: Symmetrical Chest Expansion and Respiratory Effort, Clear to Auscultation Cardiovascular: NL Sounds; No Murmurs; No JVD, RRR, No Edema Abdominal: NL Sounds; No Tenderness; No Distention Extremities: No Clubbing, Cyanosis Skin: No Rash or Ulcers, No Nodules or Sclerosis Neurological: Alert and Oriented x 3 Result Diagrams: 01/05/17 17:50 01/05/17 17:50 Assess/Plan/Problems-Billing Ms Saez is a 71 yo F who has a h/o PMR on chronic prednisone, HTN, afib, depression and cluster headaches who presented to the ER with c/o R hip pain and was found to have a subacute L sacral fracture and acute R sacral fracture. - Patient Problems (1) Sacral fracture, closed Current Visit: Yes Status: Acute Code(s): S32.10XA - UNSP FRACTURE OF SACRUM , INIT ENCNTR FOR CLOSED FRACTURE SNOMED Code(s): 871024115 Comment: The patient was found to have a subacute L sacral fracture and acute R sacral fracture. Continue PT and pain control. Pt has agreed to STR. (2) PMR (polymyalgia rheumatica) Current Visit: Yes Status: Acute Code(s): M35.3 - POLYMYALGIA RHEUMATICA SNOMED Code(s): 93087683 Comment: Continue prednisone 10mg daily (reduced on 01/08/17). Follow up with Dr. Altamirano as outpatient. (3) HTN (hypertension) Current Visit: Yes Status: Acute Code(s): I10 - ESSENTIAL (PRIMARY) HYPERTENSION SNOMED Code(s): 02869731 Comment: BP is under fair control. Continue lisinopril. (4) Cluster headache Current Visit: Yes Status: Acute Comment: Continue eletriptan, amitirptyline , topiramate. Continue prn oxygen. (5) PAF (paroxysmal atrial fibrillation) Current Visit: Yes Status: Acute Code(s): I48.0 - PAROXYSMAL ATRIAL FIBRILLATION SNOMED Code(s): 552005023 Comment: Pt is in NSR. She remains on verapamil. She has not been on coumadin recently. (6) GERD (gastroesophageal reflux disease) Current Visit: Yes Status: Acute Code(s): K21.9 - GASTRO-ESOPHAGEAL REFLUX DISEASE WITHOUT ESOPHAGITIS SNOMED Code(s): 017629997 Comment: Continue omeprazole. (7) DVT prophylaxis Current Visit: Yes Status: Acute Code(s): NOF7288 - SNOMED Code(s): 284664207 Comment: SQ heparin (8) Full code status Current Visit: Yes Status: Acute Code(s): Z78.9 - OTHER SPECIFIED HEALTH STATUS SNOMED Code(s): 283056836
[2017-01-09] MEDS: oxyCODONE TAB* 5 MG TAB PO PRN (13:53)
[2017-01-09] MEDS: Lidocaine Patch REMOVE* 1 NOTE MISC PATCH OFF SCH (19:43)
[2017-01-09] MEDS: Topiramate TAB(*) 100 MG PO SCH (19:45)
[2017-01-09] MEDS: CMCS:Melatonin (NF) 3 MG TAB PO SCH (21:50)
[2017-01-09] MEDS: Memantine XR CAP* 28 MG CAP.XR PO SCH (21:50)
[2017-01-10] MEDS: oxyCODONE TAB* 5 MG TAB PO PRN ×3 (05:00→13:43)
[2017-01-10] MEDS: Heparin VIAL(*) 5000 UNITS/ML VIAL (FIVE THOUSAND) SUBCUT SCH ×2 (05:51→13:48)
[2017-01-10] MEDS: ELETRIPTAN 40 MG PO PRN (06:39)
[2017-01-10 08:05] VITALS: BP 126/68
[2017-01-10] MEDS: Polyethylene Glycol 3350* 17 GM PACKET PO SCH (08:15)
[2017-01-10] MEDS: Potassium Chlor TAB* 20 MEQ TAB.ER PO SCH (08:16)
[2017-01-10] MEDS: Omeprazole CAP* 20 MG PO SCH (08:16)
[2017-01-10] MEDS: Multivitamins/Minerals TAB PO SCH (08:16)
[2017-01-10] MEDS: Cholecalciferol TAB* 1000 UNITS PO SCH (08:17)
[2017-01-10] MEDS: Gabapentin CAP(*) 300 MG PO SCH ×2 (08:17→13:32)
[2017-01-10] MEDS: DULoxetine DR CAP* 30 MG CAP.DR PO SCH (08:17)
[2017-01-10] MEDS: predniSONE TAB* 10 MG PO SCH (08:17)
[2017-01-10] MEDS: Lisinopril TAB* 5 MG PO SCH (08:18)
[2017-01-10] MEDS: Verapamil TAB* 120 MG PO SCH ×2 (08:18→13:32)
[2017-01-10] MEDS: oxyCODONE SR TAB(*) 10 MG TAB.SR PO SCH (08:18)
[2017-01-10] MEDS: Lidocaine PATCH 5%* 1 PATCH TRANSDERM SCH (08:19)
--- NOTE | 2017-01-10 12:46 | DS ---
CC: Jessica; Dr. Burgess * DATE OF ADMISSION: 01/05/2017. DATE OF DISCHARGE: 01/10/2017. PRIMARY CARE PROVIDER: Dr. Burgess. PRINCIPAL DIAGNOSES: 1. Acute right sacral fracture. 2. Subacute left sacral fracture. SECONDARY DIAGNOSES: 1. Polymyalgia rheumatica on chronic Prednisone. 2. Hypertension. 3. Cluster headaches. 4. Paroxysmal atrial fibrillation. 5. GERD. DISCHARGE MEDICATIONS: 1. Verapamil 120 mg p.o. t.i.d. 2. Topamax 200 mg p.o. at bedtime. 3. Potassium Chloride 20 mEq p.o. daily. 4. Multivitamin one tab p.o. daily. 5. Namenda XR 28 mg p.o. at bedtime. 6. Melatonin 15 mg p.o. at bedtime. 7. Magnesium 500 mg p.o. daily. 8. Lisinopril 5 mg p.o. daily. 9. Prevacid 30 mg p.o. daily. 10. Lactobacillus one cap p.o. daily. 11. Gabapentin 900 mg p.o. t.i.d. 12. Relpax 40 mg p.o. daily prn headache, may repeat times one after 2 hours, no more than two tablets per day. 13. Diclofenac gel applied topically q.i.d. prn pain. 14. Cymbalta 90 mg p.o. daily. 15. Prednisone 10 mg p.o. daily (reduced dose). 16. Oxycodone IR 10 mg p.o. q.4 hours prn pain. 17. Oxycodone SR 10 mg p.o. q.12 hours. 18. MiraLax 17 gm p.o. b.i.d. prn constipation. 19. Lidocaine patch applied topically daily. 20. Vitamin D 1000 units p.o. daily. 21. Tylenol 650 mg p.o. q.6 hours prn pain. HOSPITAL COURSE: Ms. Saez is a 71-year-old female who presented to the emergency room on 01/05/2017 with complaints of right hip/sacral pain. The patient stated that two days prior to admission, she was bending over to shred a large amount of paper and after doing that for a prolonged period to time, she began to have right hip pain when she straightened up. She was initially able to ambulate and walk up and down the stairs at home, but the pain continued to progress. She got to the point where she was unable to walk and presented to the emergency room for evaluation. The patient underwent hip and pelvis x-rays. This revealed minor symmetric narrowing about both hip joint spaces. She then underwent a pelvis CT which showed findings most consistent with a stress fracture of the sacrum on the left side. Given the patient on her right side, she then underwent a hip MRI. This revealed bilateral stress fractures within the sacrum. The fracture on the right side is likely more acute with adjacent edema and adjacent right iliacus muscle. The patient was treated with pain control. She was started on OxyContin 10 mg twice daily and prn Oxycodone. With this, her pain is under good control. The patient has chronic pain issues related to her PMR, fibromyalgia, and cluster headaches. Overall, she is feeling better now at the time of discharge than she was on admission. She does state that her pain is very well-controlled while lying flat, but if she gets up and moves, at that point she notices that the pain is quite significant. At this point, the patient is stable for discharge to subacute rehab. She will be maintained on her usual home medication regimen; however, her Prednisone dose has been decreased to 10 mg daily. He will need to follow-up with Dr. Altamirano as an outpatient to determine the next time the Prednisone can be tapered. At this point, the patient is going to be discharged to [facility]. On the day of discharge, the patient is awake, alert and oriented, lying in bed in no acute distress. She is afebrile with normal blood pressure, heart rate and respiratory rate. Her O2 saturation is 100 percent. The patient's cardiac exam revealed a normal S1 and S2 with a regular rate and rhythm. No murmurs were noted. Her lungs were clear to auscultation bilaterally. Her abdomen is soft, nontender, nondistended. Her musculoskeletal exam reveals symmetric movement of all extremities. FOLLOW-UP CONCERNS: The patient is being discharged to [facility] today, 01/10/2017. ACTIVITY LEVEL: As tolerated. DIET: Regular. CONDITION ON DISCHARGE: Stable. Thirty-five minutes were spent discharging this patient. [id number]/[facility] #: [id number] [facility] CENTERJaylyn
== END 2017-01-10 14:15 | DRG 544 ==
LOC: ED 09:33 → MED 16:16 → OBSVTOIN 01-06 12:30
PROVIDERS: ADMIT Internal Medicine; ATTEND Hospitalist
DX: M48.48XA Fatigue fracture of vertebra, sacral and sacrococcygeal region, initial encounter for fracture (principal); I50.9 Heart failure, unspecified; I48.0 Paroxysmal atrial fibrillation; I10 Essential (primary) hypertension; G47.33 Obstructive sleep apnea (adult) (pediatric); G25.81 Restless legs syndrome; F32.9 Major depressive disorder, single episode, unspecified; M35.3 Polymyalgia rheumatica; G44.009 Cluster headache syndrome, unspecified, not intractable; K21.9 Gastro-esophageal reflux disease without esophagitis; M19.90 Unspecified osteoarthritis, unspecified site; M79.7 Fibromyalgia; G58.8 Other specified mononeuropathies; Z88.0 Allergy status to penicillin; Z88.8 Allergy status to other drugs, medicaments and biological substances; Z82.49 Family history of ischemic heart disease and other diseases of the circulatory system; Z83.3 Family history of diabetes mellitus
CPT/HCPCS: 36415; 72192; 80048; 85025; 85610; 85652; 93005; 94762; A9270-GY; G0378; G8978-GP-CJ; G8979-GP-CI; G8980-GP-CJ; G8987-GO-CL; G8988-GO-CI; J1644; J1885; J2360; J7512

== ENCOUNTER 2017-07-04 04:02 | Inpatient (IN) | payer MEDICARE, OTHER ==
[2017-07-04] MEDS ORDERED: NS 0.9% 1000 ML*IV.FLUID IV ONE (04:03)
[2017-07-04] MEDS ORDERED: Levofloxacin 750 MG IVPREMIX(* 750 MG/150 ML BAG IVPB ONE (04:07)
[2017-07-04] MEDS ORDERED: metroNIDAZOLE IV 500 MG/100ML* 500 MG/100 ML BAG IVPB ONE (04:07)
[2017-07-04] MEDS ORDERED: Hydrocortisone INJ* 100 MG VIAL IV ONE (04:15)
[2017-07-04] MEDS ORDERED: Digoxin IV* 0.5 MG/2 ML AMP (0.25 MG/ML) IV SLOW PU ONE (04:22)
[2017-07-04] MEDS ORDERED: NS 0.9% 1000 ML* 1,000 ML IV ONE ×2 (04:32→05:43)
[2017-07-04 04:33] LABS: ABS Basophils 0 10^3/ul (0-0.2); ABS Eosinophils 0 10^3/ul (0-0.6); ABS Lymphocytes 2.4 10^3/ul (1.0-4.8); ABS Neutrophils 11.6 10^3/ul (1.5-7.7); ABS Nucleated RBC 0 10^3/ul; Eosinophil % 0.3 % (0-6); Hematocrit 40 % (35-47); Hemoglobin 13.6 g/dl (12.0-16.0); Lymphocyte % 14.6 % (25-47); Mean Corpuscular HGB Conc 34 g/dl (31-36); Mean Corpuscular Hemoglobin 34 pg (27-31); Mean Corpuscular Volume 101 fL (80-97); Mean Platelet Volume 7 um3 (7.4-10.4); Nucleated Red Blood Cells % 0; Platelet Count 215 10^3/ul (150-450); Red Blood Count 3.97 10^6/ul (4.0-5.4); Red Cell Distribution Width 13 % (10.5-15); White Blood Count 16.1 10^3/ul (3.5-10.8)
[2017-07-04 04:40] LABS: INR 0.88 (0.77-1.02)
[2017-07-04 04:44] LABS: EGFR Non-African American 28.5 (>60)
[2017-07-04] MEDS ORDERED: Vancomycin(*) 1,000 MG in NS 0.9% 250 ML* 250 ML IVPB ONE (04:58)
[2017-07-04] MEDS ORDERED: Midazolam* 1 MG/ML 10 ML VIAL (10 MG) ONE (05:01)
[2017-07-04] MEDS ORDERED: Amiodarone 360 MG IVPREMIX* 360 MG/200 ML BAG IV ONE ×2 (05:16→05:42)
[2017-07-04] MEDS ORDERED: Norepinephrine 16MCG/ML IVPRE* 4,000 MCG/250 ML BAG IV ONE (05:22)
[2017-07-04] MEDS ORDERED: Vancomycin(*) 1,000 MG BAG IVPB ONE (05:37)
[2017-07-04] MEDS ORDERED: Aspirin Low Dose CHEW TAB* 81 MG PO ONE (05:41)
[2017-07-04] MEDS ORDERED: Amiodarone 150 MG IVPREMIX* 150 MG/100 ML BAG IV ONE (05:41)
[2017-07-04] MEDS ORDERED: Midazolam* 1 MG/ML 10 ML VIAL (10 MG) IV ONE (05:42)
[2017-07-04] MEDS ORDERED: Acetaminophen TAB* 325 MG PO PRN (05:57)
[2017-07-04] MEDS ORDERED: Albuterol 2.5 MG/3 ML NEB.SOL* (0.083%) INH PRN (05:57)
[2017-07-04] MEDS ORDERED: Norepinephrine 16MCG/ML IVPRE* 4,000 MCG/250 ML BAG IV SCH ×2 (06:00→07:01)
[2017-07-04] MEDS ORDERED: Vancomycin per Pharmacy* NOTE FOLLOW UP SCH (07:00)
[2017-07-04] MEDS ORDERED: Ondansetron INJ* 2 MG/ML VIAL IV PRN (07:01)
--- NOTE | 2017-07-04 07:03 | HP ---
H&P (Free Text) History and Physical: PCP: Reji Burgess MD Rheumatology: Dr Altamirano Date/Time: 07/04/2016 0883 CC: SOB HPI: Mrs Saez is a 72YO female HX PMR on prednisone, CHF, & AFIB (although she vehemently denies HX AFIB, a positive ECG was found in her record) who reports onset of a "cold" before Alen which became rapidly severe over the past 24hours with fatigue, generalized weakness, & SOB. She reports "passing out" yesterday and hitting her head. She is uncertain how long she was unconscious. She began having copious diarrhea yesterday which she thinks may have had some blood. She denies chest pain, N/V, or other issues. ED evaluation is notable for AFIB/RVR rates upto 160 associated with hypotension with a systolic as low as the 50s. WBCs are 16k 72% neutrophils. Sodium 128, creatinine is 1.7 (baseline ~1.0), & troponin is 0.48. CXR shows dense RUL consolidation. She reports her is at home and ill. PMedHx AFIB unspecified CHF polymyalgia rheumatica on 6mg prednisone daily HTN DONTRELL facial neuralgia cluster headaches GERD depression restless leg syndrome fibromyalgia Ambulatory Orders Nursing to reconcile. DULoxetine DR CAP* [Cymbalta CAP*] 90 mg PO DAILY 10/19/14 Diclofenac 1% GEL (NF) [Voltaren 1% GEL (NF)] 1 applic TOPICAL QID PRN 10/19/14 Eletriptan Hydrobromide [Relpax] 40 mg PO DAILY PRN 10/19/14 Gabapentin CAP(*) [Neurontin 300 CAP(*)] 900 mg PO TID 10/19/14 Lansoprazole SOLUTAB* [Prevacid Solutab*] 30 mg PO DAILY 10/19/14 Memantine XR CAP* [Namenda XR CAP*] 28 mg PO BEDTIME 10/19/14 Multivitamins/Minerals TAB* [Thera M Plus TAB*] 1 tab PO DAILY 10/19/14 Topiramate TAB(*) [Topamax 100 mg tab] 200 mg PO BEDTIME 10/19/14 Verapamil TAB* [Calan TAB*] 120 mg PO TID 10/19/14 Lactobacillus [Probiotic] 1 cap PO DAILY 05/13/15 Potassium Chlor TAB* [Potassium Chlor TAB 20 MEQ*] 20 meq PO DAILY 05/13/15 Melatonin 15 mg PO BEDTIME 05/14/15 Lisinopril TAB* [Prinivil TAB 5 MG*] 5 mg PO DAILY 07/03/16 Magnesium 500 mg PO DAILY 07/03/16 Acetaminophen TAB* [Tylenol TAB*] 650 mg PO Q6H PRN #0 tab 01/10/17 Cholecalciferol TAB* [Vitamin D TAB*] 1,000 units PO DAILY tab 01/10/17 Lidocaine PATCH 5%* [Lidoderm 5% Patch*] 1 patch TRANSDERM DAILY patch Lidocaine Patch REMOVE* 1 note PATCH OFF 209901/10/17 Polyethylene Glycol 3350* [Miralax*] 17 gm PO 0800,2100 PRN packet 01/10/17 oxyCODONE SR TAB(*) [Oxycontin 10 mg (*)] 10 mg PO Q12HR tab.sr MDD 20mg oxyCODONE TAB* [Roxycodone TAB 5 mg*] 10 mg PO Q4H PRN #0 tab MDD 60mg 01/10/17 predniSONE TAB* [Deltasone TAB*] 10 mg PO DAILY tab 01/10/17 Allergies Penicillins Allergy (Intermediate, Verified 01/05/17 18:16) Rash And Itching Verapamil Adverse Reaction (Verified 02/28/17 10:48) See Comment CHF,WAS ON OTHER MEDS AT TIME,TOLD LOWER DOSES- was taking high doses- TOLERATES LOW DOSE WITHOUT EFFECT. NO ANAPHYLACTIC PSurgHx cholecystectomy SocHx: no tobacco, alcohol, or recreational drugs; lives with her ; full code status FamHx: positive for PMR, HTN, DM, CAD ROS: as above, otherwise reviewed and all were negative vitals: Vital Signs Temp 37.4 C 07/04/17 04:02 Pulse 147 07/04/17 06:00 Resp 23 07/04/17 06:00 BP 86/43 07/04/17 06:00 Pulse Ox 99 07/04/17 06:00 Intake & Output 07/03/17 07/03/17 07/04/17 11:59 23:59 11:59 Weight 72.575 kg Constitutional: NAD, normally developed, obese elderly white female HEENM: atraumatic; sclera/conjunctiva: anicteric/clear; hearing: clinically intact; oropharynx: clear, mucosa tacky Neck: soft tissue: no nuchal rigidity; thyroid: normal Pulmonary: diminished R upper field, fair to poor aeration, no accessory muscle use CV: TIR/TR, normal S1S2, no carotid bruit, no jugular venous distention, 2+ B DP /PT, no edema Abdominal: soft, non-distended, non-tender, no rebound/guarding/rigidity, normoactive bowel sounds, no hepatosplenomegaly or masses, no costovertebral angle tenderness Musculoskeletal: general: grossly intact, no palpable tenderness Integumental: no rash or open wounds noted Psychiatric orientation: AA&O to PPS affect: calm mood: cooperative eye contact: fair to good content: reliable responses: mildly slowed insight: fair Testing: Lab Results 07/04/17 07/04/17 07/04/17 Range/Units 04:06 04:10 04:10 WBC 16.1 H (3.5-10.8) 10^3/ul RBC 3.97 L (4.0-5.4) 10^6/ul Hgb 13.6 (12.0-16.0) g/dl Hct 40 (35-47) % MCV 101 H (80-97) fL MCH 34 H (27-31) pg MCHC 34 (31-36) g/dl RDW 13 (10.5-15) % Plt Count 215 (150-450) 10^3/ul MPV 7 L (7.4-10.4) um3 Neut % (Auto) 72.2 (38-83) % Lymph % (Auto) 14.6 L (25-47) % Dodge % (Auto) 12.7 H (1-9) % Eos % (Auto) 0.3 (0-6) % Baso % (Auto) 0.2 (0-2) % Absolute Neuts (auto) 11.6 H (1.5-7.7) 10^3/ul Absolute Lymphs (auto) 2.4 (1.0-4.8) 10^3/ul Absolute Monos (auto) 2.0 H (0-0.8) 10^3/ul Absolute Eos (auto) 0 (0-0.6) 10^3/ul Absolute Basos (auto) 0 (0-0.2) 10^3/ul Absolute Nucleated RBC 0 10^3/ul Nucleated RBC % 0 INR (Anticoag Therapy) 0.88 (0.77-1.02) APTT 18.1 L (26.0-36.3) seconds Sodium (133-145) mmol/L Potassium Chloride (101-111) mmol/L Carbon Dioxide (22-32) mmol/L Anion Gap (2-11) mmol/L BUN (6-24) mg/dL Creatinine (0.51-0.95) mg/dL Est GFR ( Amer) (>60) Est GFR (Non-Af Amer) (>60) BUN/Creatinine Ratio (8-20) Glucose (70-100) mg/dL Calcium (8.6-10.3) mg/dL Total Bilirubin (0.2-1.0) mg/dL AST ALT (7-52) U/L Alkaline Phosphatase (34-104) U/L Total Creatine Kinase (10-223) U/L Troponin I (<0.04) ng/mL C-Reactive Protein (< 5.00) mg/L Total Protein (6.4-8.9) g/dL Albumin (3.2-5.2) g/dL Globulin (2-4) g/dL Albumin/Globulin Ratio (1-3) Influenza A (Rapid) (Negative) Influenza B (Rapid) (Negative) Blood Type O Positive Antibody Screen Negative 07/04/17 07/04/17 Range/Units 04:10 04:36 WBC (3.5-10.8) 10^3/ul RBC (4.0-5.4) 10^6/ul Hgb (12.0-16.0) g/dl Hct (35-47) % MCV (80-97) fL MCH (27-31) pg MCHC (31-36) g/dl RDW (10.5-15) % Plt Count (150-450) 10^3/ul MPV (7.4-10.4) um3 Neut % (Auto) (38-83) % Lymph % (Auto) (25-47) % Dodge % (Auto) (1-9) % Eos % (Auto) (0-6) % Baso % (Auto) (0-2) % Absolute Neuts (auto) (1.5-7.7) 10^3/ul Absolute Lymphs (auto) (1.0-4.8) 10^3/ul Absolute Monos (auto) (0-0.8) 10^3/ul Absolute Eos (auto) (0-0.6) 10^3/ul Absolute Basos (auto) (0-0.2) 10^3/ul Absolute Nucleated RBC 10^3/ul Nucleated RBC % INR (Anticoag Therapy) (0.77-1.02) APTT (26.0-36.3) seconds Sodium 128 L (133-145) mmol/L Potassium TNP Chloride 98 L (101-111) mmol/L Carbon Dioxide 19 L (22-32) mmol/L Anion Gap 11 (2-11) mmol/L BUN 14 (6-24) mg/dL Creatinine 1.76 H (0.51-0.95) mg/dL Est GFR ( Amer) 36.6 (>60) Est GFR (Non-Af Amer) 28.5 (>60) BUN/Creatinine Ratio 8.0 (8-20) Glucose 120 H (70-100) mg/dL Calcium 8.7 (8.6-10.3) mg/dL Total Bilirubin 0.70 (0.2-1.0) mg/dL AST TNP ALT 25 (7-52) U/L Alkaline Phosphatase 78 (34-104) U/L Total Creatine Kinase 291 H (10-223) U/L Troponin I 0.48 H* (<0.04) ng/mL C-Reactive Protein 54.01 H (< 5.00) mg/L Total Protein 6.0 L (6.4-8.9) g/dL Albumin 3.5 (3.2-5.2) g/dL Globulin 2.5 (2-4) g/dL Albumin/Globulin Ratio 1.4 (1-3) Influenza A (Rapid) Negative (Negative) Influenza B (Rapid) Negative (Negative) Blood Type Antibody Screen ECG, personally reviewed: AFIB rate 127, ST depression V2-6/I CXR, personally reviewed: dense RUL consolidation Impression: 72F presenting in septic shock 2nd dense RUL pneumonia complicated by daily prednisone for PMR & AFIB/RVR DIAGNOSIS & PLAN Primary septic shock 2nd RUL pneumonia : immunocompromised 2nd 6mg daily prednisone for PMR (has been tapering from 20mg daily) : stress dose hydrocortisone IV : IVFs : IV vancomycin, cefepime, & levofloxacin : blood & sputum CXs : rapid influenza negative : check urine Legionella & S pneumo antigens : supplemental oxygen : Nestor Almonte MD garment patternmaker apprised : supportive care AFIB/RVR : failed cardioversion in ED x3 : given 20mg diltiazem bolus by EMS : amiodarone bolus/GTT in ED : likely will have to tolerate until sepsis/pneumonia better controlled Secondary unspecified CHF : monitor respiratory status closely given volume of resuscitative fluids : daily weights : strict I&Os polymyalgia rheumatica : IV hydrocortisone as above HTN : hold for now give hypotension facial neuralgia : review meds once reconciled cluster headaches : review meds once reconciled GERD : omeprazole depression : review meds once reconciled restless leg syndrome : review meds once reconciled fibromyalgia : review meds once reconciled Admission Rational: inpatient for septic shock 2nd RUL pneumonia in patient at high risk for mortality DVTp: SCDs, no anticoagulation given concern for blood in stool Code Status: full HCP: , You
[2017-07-04 07:51] LABS: Urine Appearance Clear; Urine Blood 2+ (Negative); Urine Color Yellow; Urine Ketones Negative (Negative); Urine Protein Negative (Negative); Urine Urobilinogen Negative (Negative)
[2017-07-04] MEDS: Cefepime 2 GM in Dextrose(*) 2 GM/50 ML BAG IV SCH ×2 (08:05→18:55)
--- NOTE | 2017-07-04 08:14 | RAD ---
HISTORY: Shortness of breath COMPARISONS: April 06, 2017 VIEWS: 1: frontal portable view of the chest at 4:15 AM FINDINGS: LINES AND TUBES: None. CARDIOMEDIASTINAL SILHOUETTE: The cardiomediastinal silhouette is normal for portable technique. PLEURA: The costophrenic angles are sharp. No pleural abnormalities are noted. LUNG PARENCHYMA: The lung volumes are low. There is confluent alveolar opacification of the right midlung field ABDOMEN: The upper abdomen is clear. There is no subphrenic gas. BONES AND SOFT TISSUES: No bone or soft tissue abnormalities are noted. IMPRESSION: RIGHT MIDLUNG CONSOLIDATION. RECOMMEND FOLLOW-UP UNTIL RESOLUTION TO EXCLUDE UNDERLYING PULMONARY PARENCHYMAL PATHOLOGY.
[2017-07-04] MEDS: NS 0.9% 1000 ML* 1,000 ML IV SCH (08:16)
--- NOTE | 2017-07-04 08:17 | RAD ---
Indication: Triple lumen catheter placement. Single view of the chest done at 0555 hours demonstrates central line in place with the tip in the superior vena cava. Cardiomegaly is noted. Right perihilar density likely representing atelectasis is noted. Defibrillator pads are in place. IMPRESSION: Right internal jugular vein catheter in place with no pneumothorax. Right perihilar density likely representing atelectasis. Left lung field is clear.
[2017-07-04] MEDS: guaiFENesin ER TAB 600 MG PO SCH ×2 (09:00→21:00)
[2017-07-04 10:51] LABS: Hematocrit 34 % (35-47); Hemoglobin 11.5 g/dl (12.0-16.0)
[2017-07-04 11:12] LABS: EGFR Non-African American 45.6 (>60)
--- NOTE | 2017-07-04 11:23 | RAD ---
Indication: Central line placement. Single frontal view of the chest performed at 1045 hours was reviewed. Comparison is made with previous exam dated earlier the same day. Previous identified right sided internal jugular vein catheter is not visualized. Clinical correlation for removal is suggested. Right upper lobe consolidation is noted. Left lung field is clear. IMPRESSION: RIGHT-SIDED INTERNAL JUGULAR VEIN CATHETER IS NO LONGER PRESENT. RIGHT UPPER LOBE CONSOLIDATION AND PNEUMONIA IS PRESENT.
[2017-07-04] MEDS ORDERED: Hydrocortisone INJ* 100 MG VIAL IV SCH (12:00)
[2017-07-04] MEDS: Gabapentin CAP(*) 300 MG PO SCH ×2 (13:05→21:07)
[2017-07-04] MEDS ORDERED: Gabapentin CAP(*) 300 MG PO SCH (14:00)
--- NOTE | 2017-07-04 16:11 | PN ---
Progress Note - Progress Note Date of Service: 07/04/17 Note: 72 y/o female with polymyalgia rheumatica admitted last night with atrial fibrillation, pneumonia and hypotension - No evidence of septic shock (by lactate criteria). AFIB responded to amiodarone, and also given empiric antibiotic Rx with levofloxacin and cefepime. Was admitted on vasopressor Rx but this has been weaned off. Only other problem has been increasing troponins (from 0.48 to 8.49), which may be from the electrical cardioversion attempts (x3 ) in the ED. Cardiology service has been consulted. Presently, patient is alert , oriented, and appears very comfortable.
--- NOTE | 2017-07-04 16:37 | ECHO ---
Patient: ROEL FRY Rec#: [id number] : 1945 Date: 07/04/2017 Age: 72y Height: 160.02 cm / 63.0 in Weight: 76.66 kg / 169.0 lbs Sex: F BSA: 1.8 Room#: [facility] Admit Date#: 07/04/2017 Type: Inpatient Referring: Adan Almonte MD Reading: Adan Magana MD [employer] Swimming [employer] Installer: Beba Izaguirre RDCS CC: Nichelle Burgess MD Transthoracic Echocardiogram Indication: Elevated troponin levels, a-fib RVR. BP: 112/71 HR: 87 Rhythm: NSR Findings History: CHF, A-fib, HTN, DONTRELL, restless leg syndrome, GERD. Technical Comments: The study quality is fair. Completed at 1530. Left Ventricle: The left ventricular chamber size is normal. Mild concentric left ventricular hypertrophy is observed. Global left ventricular wall motion and contractility are within normal limits. There is normal left ventricular systolic function. The estimated ejection fraction is 60-65%. There is no consistent Doppler evidence of clinically significant diastolic dysfunction. Left Atrium: The left atrial chamber size is normal. Right Ventricle: The right ventricular chamber size and systolic function are within normal limits. The right ventricular global systolic function is low normal. Right Atrium: The right atrial cavity size is normal. Aortic Valve: The aortic valve is trileaflet. The aortic valve leaflets are mildly thickened. There is a trace of aortic regurgitation. There is no evidence of aortic stenosis. Mitral Valve: The mitral valve leaflets are moderately thickened. There is trace to mild mitral regurgitation. There is no evidence of mitral stenosis. Tricuspid Valve: The tricuspid valve leaflets are normal. There is trace tricuspid regurgitation. The right ventricular systolic pressure is estimated at 39 mmHg. There is evidence of mild pulmonary hypertension. There is no tricuspid stenosis. Pulmonic Valve: The pulmonic valve appears normal. There is a trace pulmonic regurgitation. There is no pulmonic stenosis. Pericardium: There is no significant pericardial effusion. Aorta: There is mild dilatation of the ascending aorta. There is no dilatation of the aortic arch. The aortic root is normal in size. Pulmonary Artery: The main pulmonary artery is not well visualized. Venous: The inferior vena cava appears normal in size. There is less than 50% respiratory change in the inferior vena cava dimension. Conclusions Mild concentric left ventricular hypertrophy is observed. There is normal left ventricular systolic function. The estimated ejection fraction is 60-65%. There is a trace of aortic regurgitation. There is trace to mild mitral regurgitation. There is trace tricuspid regurgitation. There is evidence of mild pulmonary hypertension. There is a trace pulmonic regurgitation. There is mild dilatation of the ascending aorta. Compared to report of study from 07/04/2016 the overall LV systolic function is better (was 50-55%). The degree of mitral regurgitation is less (was moderate). Measurements Name Value Normal Range RVIDd (AP) 2D 2.4 cm (0.9 - 2.6) RVDdMajor (2D) 4.2 cm (2.2 - 4.4) RAd ISD 4CH 4.8 cm (3.4 - 4.9) RA (A4C)W 3.4 cm (2.9 - 4.6) IVSd (2D) 1.2 cm (0.6 - 1) LVPWd (2D) 1.2 cm (0.6 - 1) LVIDd (2D) 3.9 cm (3.6 - 5.4) LVIDs (2D) 2.8 cm - LV FS (2D) 29 % (25 - 45) Aortic Annulus 1.7 cm (1.4 - 2.6) Ao root diameter (2D) 3.3 cm (2.1 - 3.5) Ascending Ao 3.6 cm (2.1 - 3.4) Aortic arch 2.4 cm (1.8 - 3.4) LA dimension (AP) 2D 3.2 cm (2.3 - 3.8) LAd ISD 4CH 5 cm (2.9 - 5.3) LA ISD 4CH W 4.2 cm (2.5 - 4.5) Name Value Normal Range LA ESV SP 4CH (A/L) 51 ml - LA ESV SP 2CH (A/L) 57 ml - LA ESV BP (A/L) 56 ml - LA ESV BP (A/L) index 31 ml/m2 - LA ESV SP 4CH (MOD) 48 ml - LA ESV SP 2CH (MOD) 54 ml - Name Value Normal Range MV E-wave Vmax 0.62 m/sec - MV deceleration time 160.2 msec - MV A-wave Vmax 0.87 m/sec - MV E:A ratio 0.72 ratio - LV septal e' Vmax 0.07 m/sec - LV lateral e' Vmax 0.11 m/sec - LV E:e' septal ratio 8.86 ratio - LV E:e' lateral ratio 5.64 ratio - Name Value Normal Range AV Vmax 1.4 m/sec - AV VTI 27.77 cm - AV peak gradient 7.88 mmHg - AV mean gradient 5.09 mmHg - LVOT Vmax 1.07 m/sec - LVOT VTI 20.18 cm - LVOT peak gradient 4.55 mmHg - LVOT mean gradient 2.89 mmHg - NORY Vmax 0.75 m/sec - Name Value Normal Range TR Vmax 2.8 m/sec - TR peak gradient 31 mmHg - RAP 8 mmHg - RVSP 39 mmHg - IVC diameter 2 cm - Name Value Normal Range PV Vmax 0.87 m/sec - PV peak gradient 3.07 mmHg -
--- NOTE | 2017-07-04 16:42 | RAD ---
Indication: Fall with head injury. Flulike symptoms. Septic shock. Comparison: July 09, 2016 CT. Technique: Noncontrast CT vertex of skull through foramen magnum. Report: Mild prominence of the cerebral sulci and cerebellar fissures reflecting involutional change. Decreased density in the periventricular and subcortical white matter while non-specific is most likely due to chronic microangiopathy. Negative for pate matter white matter obscuration, intra or extra-axial hemorrhage, or mass effect. Unremarkable visualized orbital contents. No fracture or suspicious skull base or calvarial lesion. Indolent thickening of the inner table of the frontal bone without concern. Mucosal thickening at the partially visualized LEFT maxillary sinus. Clear mastoid air spaces. Negative for scalp hematoma. IMPRESSION: 1. No acute intracranial process or traumatic injury evident. 2. Mild involutional change and stigmata of chronic small vessel ischemic disease.
[2017-07-04] MEDS: Amiodarone TAB* 400 MG PO SCH (17:00)
[2017-07-04] MEDS: Vancomycin(*) 1,000 MG in NS 0.9% 250 ML* 250 ML IVPB SCH (17:13)
[2017-07-04] MEDS: Ketorolac INJ* 30 MG/ML 1 ML VIAL IV PUSH PRN (17:13)
[2017-07-04] MEDS: Ketorolac INJ* 30 MG/ML 1 ML VIAL ONE ×2 (17:13→18:05)
[2017-07-04] MEDS: Pregabalin CAP(*) 100 MG PO SCH ×2 (17:13→21:08)
[2017-07-04] MEDS ORDERED: fentaNYL* 50 MCG/ML 2 ML VIAL (100 MCG VIAL) IV SLOW PU PRN (17:45)
[2017-07-04] MEDS: fentaNYL* 50 MCG/ML 2 ML VIAL (100 MCG VIAL) IV SLOW PU PRN (18:57)
[2017-07-04] MEDS: Hydrocortisone INJ* 100 MG VIAL IV SCH (21:03)
[2017-07-04] MEDS: OXcarbazepine TAB(*) 300 MG PO SCH (21:04)
[2017-07-04] MEDS: Topiramate TAB(*) 100 MG PO SCH (21:08)
[2017-07-05] MEDS: Ketorolac INJ* 30 MG/ML 1 ML VIAL IV PUSH PRN ×3 (00:59→23:51)
[2017-07-05] MEDS: NS 0.9% 1000 ML* 1,000 ML IV SCH (02:24)
[2017-07-05] MEDS: Vancomycin(*) 1,000 MG in NS 0.9% 250 ML* 250 ML IVPB SCH ×2 (04:46→17:32)
[2017-07-05] MEDS ORDERED: Omeprazole CAP* 20 MG PO SCH (06:00)
[2017-07-05 06:46] LABS: EGFR Non-African American 60.2 (>60)
[2017-07-05] MEDS: guaiFENesin ER TAB 600 MG PO SCH ×2 (07:54→21:01)
[2017-07-05] MEDS: Gabapentin CAP(*) 300 MG PO SCH ×3 (07:55→21:01)
[2017-07-05] MEDS: Famotidine TAB* 20 MG PO SCH (07:55)
[2017-07-05] MEDS: Amiodarone TAB* 400 MG PO SCH (07:55)
[2017-07-05] MEDS: Pregabalin CAP(*) 100 MG PO SCH ×3 (07:55→21:01)
[2017-07-05] MEDS: Hydrocortisone INJ* 100 MG VIAL IV SCH (07:55)
[2017-07-05] MEDS: OXcarbazepine TAB(*) 300 MG PO SCH ×2 (07:56→21:02)
[2017-07-05] MEDS: DULoxetine DR CAP* 30 MG CAP.DR PO SCH (07:56)
[2017-07-05] MEDS ORDERED: Verapamil TAB* 120 MG PO SCH (10:00)
[2017-07-05] MEDS ORDERED: hydrALAZINE IV* 20 MG/ML VIAL IV SLOW PU ONE (10:33)
[2017-07-05] MEDS ORDERED: Morphine INJ* 4 MG/ML 1 ML CARPUJECT IV PRN (10:34)
[2017-07-05] MEDS: Lisinopril TAB* 5 MG PO SCH (10:54)
[2017-07-05] MEDS: predniSONE TAB* 10 MG PO SCH (10:54)
[2017-07-05] MEDS ORDERED: SUMAtriptan TAB* 50 MG PO PRN (11:19)
--- NOTE | 2017-07-05 11:44 | PN ---
Progress Note - Progress Note Date of Service: 07/05/17 Note: CRITICAL CARE MEDICINE Date: 07/05/2017 Time: 1030 SUBJECTIVE: Patient seen and examined. c/o garcia PHYSICAL EXAM: Vital Signs: Reviewed. Neurologic: communicating, follows commands HEENT: pupils equal. Sclera anicteric. Trachea midline. Cardiovascular: S1 S2 Respiratory: mild rhonchi on right Abdomen: Soft, nt. No r/g/r. Extremities: Warm. LABS: Reviewed. IMAGING: Reviewed. CXR with RUL pna, new since prior cxr 04/18 MEDICATIONS: Reviewed. ASSESSMENT: 72 F presenting with RUL pna, more likely CAP pathogens, and afib rvr s/p cardioversion. Demand ischemia at most sec to sepsis, or moreso post cardioversion attempts tx for relative adrenal insuff on admission with h/o of PMR on steroids Fibromyalgia PLAN: Neurologic: stable. pain management as able. Cardiovascular: perfusing. vol status met. dc ivf. NSR. received amio. can place on cardizem po and look to hold off on emt intermediate amio with realtively nml echo, but given her history (paf more likely) and elelvated troponins post attempted cardiversion will allow cards to eval and determine needs. Respiratory: selina on RA. pulm toilet as needed Gastrointestinal: po diet. Renal/Metabolic: stable. hyperCl acidosis - allow her to drink fluids to equilibrate. Infectious Disease: improved. can utilize levaquin po for tx of cx neg cap. Hematology: stable. vte prophylaxis; longer term anticoags per cards. Endocrine: post stress dose steroid pulse and can dec back to 10mg and wean down for sx home dose needs. Musculoskeletal: oob. carol ann noble Psych/Social: f/u needs Supportive and preventative care as ordered. Disposition: floor with tele Code Status: Full Critical Care Time: 45min Arnoldo King DO
[2017-07-05] MEDS ORDERED: Metoprolol Tartrate IV* 1 MG/ML 5 ML VIAL IV ONE (11:59)
[2017-07-05] MEDS ORDERED: Nitroglycerin TAB 0.3 MG* 0.3 MG TAB SL PRN (12:02)
[2017-07-05] MEDS: Diltiazem TAB* 60 MG PO SCH ×3 (12:29→23:48)
[2017-07-05] MEDS: oxyCODONE TAB* 5 MG TAB PO PRN ×3 (12:29→21:03)
[2017-07-05] MEDS: Aspirin EC Low Dose* 81 MG TAB.EC PO SCH (12:29)
[2017-07-05] MEDS ORDERED: Vancomycin Trough Check NOTE FOLLOW UP ONE (16:30)
[2017-07-05] MEDS ORDERED: ELETRIPTAN 40 MG PO PRN (16:49)
[2017-07-05] MEDS: Topiramate TAB(*) 100 MG PO SCH (21:02)
[2017-07-06] MEDS: oxyCODONE TAB* 5 MG TAB PO PRN ×3 (02:37→19:25)
[2017-07-06] MEDS: Levofloxacin 750 MG IVPREMIX(* 750 MG/150 ML BAG IVPB SCH (03:40)
[2017-07-06] MEDS: Diltiazem TAB* 60 MG PO SCH ×3 (05:19→19:25)
[2017-07-06] MEDS: Vancomycin(*) 1,000 MG in NS 0.9% 250 ML* 250 ML IVPB SCH ×2 (05:19→17:32)
[2017-07-06] MEDS: Ketorolac INJ* 30 MG/ML 1 ML VIAL IV PUSH PRN (05:20)
[2017-07-06 05:49] LABS: ABS Basophils 0.1 10^3/ul (0-0.2); ABS Eosinophils 0.3 10^3/ul (0-0.6); ABS Lymphocytes 2.5 10^3/ul (1.0-4.8); ABS Monocytes 1.6 10^3/ul (0-0.8); ABS Neutrophils 17.9 10^3/ul (1.5-7.7); ABS Nucleated RBC 0 10^3/ul; Eosinophil % 1.3 % (0-6); Hematocrit 29 % (35-47); Hemoglobin 9.8 g/dl (12.0-16.0); Lymphocyte % 11.1 % (25-47); Mean Corpuscular HGB Conc 33 g/dl (31-36); Mean Corpuscular Hemoglobin 34 pg (27-31); Mean Corpuscular Volume 101 fL (80-97); Mean Platelet Volume 8 um3 (7.4-10.4); Nucleated Red Blood Cells % 0; Platelet Count 167 10^3/ul (150-450); Red Blood Count 2.91 10^6/ul (4.0-5.4); Red Cell Distribution Width 13 % (10.5-15); White Blood Count 22.4 10^3/ul (3.5-10.8)
[2017-07-06 06:03] LABS: EGFR Non-African American 49.5 (>60)
--- NOTE | 2017-07-06 06:04 | ED ---
Abbie Dubois Gabriel, scribandriy for Andrade Hoover MD on 07/04/17 at 0426 . Complex/Multi-Sys Presentation - HPI Summary HPI Summary: This patient is a 72 year old F BIBA to [facility] with a chief complaint of flu like symptoms for a week. Patient reports myalgia, fatigue, and diarrhea. The patient denies difficulty breathing. Patient was in atrial fibrillation in route and medicated with Cardizem 10mg IV by [facility]. The patient reports her is sick too. Patient seems disoriented and has multiple health issues. - History Of Current Complaint Chief Complaint: EDGeneral Time Seen by Provider: 07/04/17 04:03 Hx Obtained From: Patient, EMS Onset/Duration: Lasting Weeks - 1, Still Present Timing: Constant Severity Currently: Mild Severity Initially: Mild Associated Signs And Symptoms: Positive: Diarrhea, Other - fatigue and myalgia - Allergies/Home Medications Allergies/Adverse Reactions: Allergies Allergy/AdvReac Type Severity Reaction Status Date / Time Penicillins Allergy Intermediate Rash And Verified 01/05/17 18:16 Itching Verapamil AdvReac See Comment Verified 02/28/17 10:48 PMH/Surg Hx/FS Hx/Imm Hx Endocrine/Hematology History: Reports: Hx Thyroid Disease, Hx Anemia Denies: Hx Diabetes, Hx Unexplained Bleeding Comment Only: Other Endocrine/Hematological Disorders - hypothalmus related headaches Cardiovascular History: Reports: Hx Angina, Hx Congestive Heart Failure - HX OF D/T DRUG REACTION, Hx Hypertension Denies: Hx Aneurysm, Hx Angioplasty, Hx Auto Implanted Cardiovert Defib, Hx Cardiac Arrest, Hx Cardiomegaly, Hx Congenital Heart Disease, Hx Coronary Artery Disease, Hx Deep Vein Thrombosis, Hx Hypercholesterolemia, Hx Hypotension , Hx Pacemaker/ICD, Hx Peripheral Vascular Disease, Hx Rheumatic Fever, Hx Syncope, Hx Valvular Heart Disease, Other Cardiovascular Problems/Disorders Respiratory History: Reports: Hx Sleep Apnea - Bipap, Other Respiratory Problems /Disorders - SLEEP APNEA W/ BIPAP Denies: Hx Asthma, Hx Chronic Bronchitis, Hx Chronic Obstructive Pulmonary Disease (COPD), Hx Cystic Fibrosis, Hx Lung Cancer, Hx Pleural Effusion, Hx Pneumonia, Hx Pulmonary Edema, Hx Pulmonary Embolism, Hx Seasonal Allergies GI History: Reports: Hx Gall Bladder Disease, Hx Gastroesophageal Reflux Disease , Hx Irritable Bowel, Other GI Disorders - GERD Denies: Hx Cirrhosis, Hx Crohn's Disease, Hx Diverticulosis, Hx Gastrointestinal Bleed, Hx Hiatal Hernia, Hx Jaundice, Hx Obstructive Bowel, Hx Ileostomy, Hx Pyloric Stenosis, Hx Ulcer History: Reports: Hx Renal Disease - abnormal gfr Denies: Hx Dialysis Comment Only: Other Problems/Disorders - Burning on urination Musculoskeletal History: Reports: Hx Arthritis, Hx Rheumatoid Arthritis - WAS TREATED FOR IT, THEN DR STOPPED HER MEDS, Hx Back Problems, Hx Bursitis - Hip, Other Musculoskeletal History - ARTHRITIS LEFT HIP Denies: Hx Fibromyalgia, Hx Gout, Hx Orthopedic Injury, Hx Osteoporosis, Hx Scoliosis, Hx Tendonitis Sensory History: Reports: Hx Contacts or Glasses Denies: Hx Cataracts, Hx Eye Injury, Hx Eye Prosthesis, Hx Glaucoma, Hx Legally Blind, Hx Macular Degeneration, Hx Vision Problem, Hx Deafness, Hx Hearing Aid, Hx Hearing Problem, Other Sensory Impairments Opthamlomology History: Reports: Hx Contacts or Glasses Denies: Hx Cataracts, Hx Eye Injury, Hx Eye Prosthesis, Hx Glaucoma, Hx Legally Blind, Hx Macular Degeneration, Hx Vision Problem, Other Sensory Impairments Neurological History: Reports: Hx Headaches - CHRONIC CLUSTER GARCIA, Hx Migraine Denies: Hx Dementia, Hx Developmental Delay, Hx Seizures, Hx Spinal Cord Injury, Hx Transient Ischemic Attacks (TIA), Other Neuro Impairments/Disorders Psychiatric History: Reports: Hx Depression Denies: Hx Anxiety, Hx Panic Disorder - Cancer History Hx Chemotherapy: No Hx Radiation Therapy: No - Surgical History Surgery Procedure, Year, and Place: [facility]LECYESTOMY [facility], DEVIATED SEPTUM [facility] COLECTOMY Hx Anesthesia Reactions: No - Immunization History Date of Tetanus Vaccine: unknown Date of Influenza Vaccine: utd Infectious Disease History: No Infectious Disease History: Reports: Traveled Outside the [place] in Last 30 Days - [place] Denies: Hx Clostridium Difficile, Hx Hepatitis, Hx Human Immunodeficiency Virus (HIV), Hx of Known/Suspected MRSA, Hx Shingles, Hx Tuberculosis, History Other Infectious Disease - Family History Family History: COPD, AFIB - Social History Alcohol Use: None Substance Use Type: Reports: None Hx Tobacco Use: No Smoking Status (MU): Never Smoked Tobacco Have You Smoked in the Last Year: No Review of Systems Positive: Fatigue Positive: Other - difficulty breathing Positive: Diarrhea Positive: Myalgia All Other Systems Reviewed And Are Negative: Yes Physical Exam - Summary Physical Exam Summary: VITAL SIGNS: Reviewed. GENERAL: patient is a pale and ill looking female HEAD AND FACE: No signs of trauma. No ecchymosis, hematomas or skull depressions. No sinus tenderness. EYES: PERRLA, EOMI x 2, No injected conjunctiva, no nystagmus. EARS: Hearing grossly intact. Ear canals and tympanic membranes are within normal limits. MOUTH: Oropharynx within normal limits. NECK: Supple, trachea is midline, no adenopathy, no JVD, no carotid bruit, no c- spine tenderness, neck with full ROM. CHEST: Symmetric, no tenderness at palpation LUNGS: Clear to auscultation bilaterally. No wheezing or crackles. CVS: Tachycardic and irregular, S1 and S2 present, no murmurs or gallops appreciated. Patient is hypotensive ABDOMEN: Soft, non-tender. No signs of distention. No rebound no guarding, and no masses palpated. Bowel sounds are normal. Patient has soft stool EXTREMITIES: FROM in all major joints, no edema, no cyanosis or clubbing. NEURO: Alert and oriented x 3. No acute neurological deficits. Speech is normal and follows commands. SKIN: Dry and warm Triage Information Reviewed: Yes Vital Signs On Initial Exam: Initial Vitals Temp Pulse Resp BP Pulse Ox 99.4 F 93 30 69/35 97 07/04/17 04:02 07/04/17 04:02 07/04/17 04:02 07/04/17 04:02 07/04/17 04:02 Vital Signs Reviewed: Yes Procedures - Procedure Summary Procedure Summary: Procedure 1: emergent cardioversion patient gave oral consent, patient was cardiovertered 3 times using 200 Joules of biphasic it was unsuccessful she remained in rapid afib. She was given versed for sedation Procedure 2: Central line placement verbal consent from patient using antiseptic central line protocol techniques a central line was placed in the right IJ all ports flushed easily and had good blood flow. Diagnostics - Vital Signs Vital Signs Temp Pulse Resp BP Pulse Ox 07/04/17 04:22 89 07/04/17 04:20 99 20 85/43 97 07/04/17 04:18 100 22 80/30 97 07/04/17 04:16 95 30 96 07/04/17 04:02 99.4 F 93 30 69/35 97 - Laboratory Lab Results: Lab Results 01/02/18 01/02/18 01/02/18 Range/Units 04:06 04:10 04:10 WBC 16.1 H (3.5-10.8) 10^3/ul RBC 3.97 L (4.0-5.4) 10^6/ul Hgb 13.6 (12.0-16.0) g/dl Hct 40 (35-47) % MCV 101 H (80-97) fL MCH 34 H (27-31) pg MCHC 34 (31-36) g/dl RDW 13 (10.5-15) % Plt Count 215 (150-450) 10^3/ul MPV 7 L (7.4-10.4) um3 Neut % (Auto) 72.2 (38-83) % Lymph % (Auto) 14.6 L (25-47) % Gila % (Auto) 12.7 H (1-9) % Eos % (Auto) 0.3 (0-6) % Baso % (Auto) 0.2 (0-2) % Absolute Neuts (auto) 11.6 H (1.5-7.7) 10^3/ul Absolute Lymphs (auto) 2.4 (1.0-4.8) 10^3/ul Absolute Monos (auto) 2.0 H (0-0.8) 10^3/ul Absolute Eos (auto) 0 (0-0.6) 10^3/ul Absolute Basos (auto) 0 (0-0.2) 10^3/ul Absolute Nucleated RBC 0 10^3/ul Nucleated RBC % 0 INR (Anticoag Therapy) 0.88 (0.77-1.02) APTT 18.1 L (26.0-36.3) seconds Sodium (133-145) mmol/L Potassium Chloride (101-111) mmol/L Carbon Dioxide (22-32) mmol/L Anion Gap (2-11) mmol/L BUN (6-24) mg/dL Creatinine (0.51-0.95) mg/dL Est GFR ( Amer) (>60) Est GFR (Non-Af Amer) (>60) BUN/Creatinine Ratio (8-20) Glucose (70-100) mg/dL Calcium (8.6-10.3) mg/dL Total Bilirubin (0.2-1.0) mg/dL AST ALT (7-52) U/L Alkaline Phosphatase (34-104) U/L Total Creatine Kinase (10-223) U/L Troponin I (<0.04) ng/mL C-Reactive Protein (< 5.00) mg/L Total Protein (6.4-8.9) g/dL Albumin (3.2-5.2) g/dL Globulin (2-4) g/dL Albumin/Globulin Ratio (1-3) Influenza A (Rapid) (Negative) Influenza B (Rapid) (Negative) Blood Type O Positive Antibody Screen Negative 07/04/17 07/04/17 Range/Units 04:10 04:36 WBC (3.5-10.8) 10^3/ul RBC (4.0-5.4) 10^6/ul Hgb (12.0-16.0) g/dl Hct (35-47) % MCV (80-97) fL MCH (27-31) pg MCHC (31-36) g/dl RDW (10.5-15) % Plt Count (150-450) 10^3/ul MPV (7.4-10.4) um3 Neut % (Auto) (38-83) % Lymph % (Auto) (25-47) % Gila % (Auto) (1-9) % Eos % (Auto) (0-6) % Baso % (Auto) (0-2) % Absolute Neuts (auto) (1.5-7.7) 10^3/ul Absolute Lymphs (auto) (1.0-4.8) 10^3/ul Absolute Monos (auto) (0-0.8) 10^3/ul Absolute Eos (auto) (0-0.6) 10^3/ul Absolute Basos (auto) (0-0.2) 10^3/ul Absolute Nucleated RBC 10^3/ul Nucleated RBC % INR (Anticoag Therapy) (0.77-1.02) APTT (26.0-36.3) seconds Sodium 128 L (133-145) mmol/L Potassium TNP Chloride 98 L (101-111) mmol/L Carbon Dioxide 19 L (22-32) mmol/L Anion Gap 11 (2-11) mmol/L BUN 14 (6-24) mg/dL Creatinine 1.76 H (0.51-0.95) mg/dL Est GFR ( Amer) 36.6 (>60) Est GFR (Non-Af Amer) 28.5 (>60) BUN/Creatinine Ratio 8.0 (8-20) Glucose 120 H (70-100) mg/dL Calcium 8.7 (8.6-10.3) mg/dL Total Bilirubin 0.70 (0.2-1.0) mg/dL AST TNP ALT 25 (7-52) U/L Alkaline Phosphatase 78 (34-104) U/L Total Creatine Kinase 291 H (10-223) U/L Troponin I 0.48 H* (<0.04) ng/mL C-Reactive Protein 54.01 H (< 5.00) mg/L Total Protein 6.0 L (6.4-8.9) g/dL Albumin 3.5 (3.2-5.2) g/dL Globulin 2.5 (2-4) g/dL Albumin/Globulin Ratio 1.4 (1-3) Influenza A (Rapid) Negative (Negative) Influenza B (Rapid) Negative (Negative) Blood Type Antibody Screen Result Diagrams: 07/06/17 05:35 07/06/17 05:35 Lab Statement: Any lab studies that have been ordered have been reviewed, and results considered in the medical decision making process. - Radiology CXR Radiology Interpretation Completed By: ED Physician - right middle lobe infiltrate CXR 2 Radiology Interpretation Completed By: ED Physician - Central line in the superior distal vena cava no PNX - EKG 0444 Cardiac Rate: Tachycardia EKG Rhythm: Sinus Tachycardia - at 116 BPM EKG Interpretation: ST depression in anterior leads 0512 Cardiac Rate: Other Rate EKG Rhythm: Atrial Fibrillation - at 127 BPM EKG Interpretation: ST depression in the anterior lead however less than the previous EKG Complex Multi-Symp Course/Dx Assessment/Plan: This patient is a 72 year old F BIBA to [facility] with a chief complaint of flu like symptoms for a week. Patient reports myalgia, fatigue, and diarrhea. The patient denies difficulty breathing. Patient was in atrial fibrillation in route and medicated with Cardizem 10mg IV by [facility]. The patient reports her is sick too. Patient seems disoriented and has multiple health issues. An EKG reveals sinus tachycardia st depression in anterior leads. EKG [address] depression in the anterior lead however less than the previous. CXR reveals, right middle lobe infiltrate. CXR Central line in the superior distal vena cava no PNX. Patient became tachycardic with A -Fibd up to 160-170 beats per minute, she was hypotensive she was given Digoxin and 3 l of IV fluids, despite that she remains hypotensive and tachycardia. At this point I decided to cardiovert the patient due to unstable AFib, she was cardio 3 times. After she would go to sinus rhythm for less than a minute than back to rapid afib, she was given amiodarone, bolus, and drip and central line through right IJ started and started levophed. Given ASA due to high trop she denies cp currently and cp at home will follow with second troponin. Test results with no significant abnormalities except for trop I of .48. In the ED course the patient was given *see meditech*. Patient will be admitted to ICU. The patient is agreeable with this plan. - Diagnoses Provider Diagnoses: PNA (pneumonia), Sepsis, Septic shock, Rapid atrial fibrillation, Elevated troponin I level - Physician Notifications Discussed Care Of Patient With: Alejo Austin Time Discussed With Above Provider: 06:00 Instructed by Provider To: Admit As Inpatient - admitted to ICU - Critical Care Time Critical Care Time: 30-74 min - 70 min Discharge - Discharge Plan Condition: Critical Disposition: ADMITTED TO [facility] The documentation as recorded by the Abbie alvares Gabriel accurately reflects the service I personally performed and the decisions made by , Andrade Hoover MD.
[2017-07-06] MEDS: Gabapentin CAP(*) 300 MG PO SCH ×3 (08:04→22:17)
[2017-07-06] MEDS: DULoxetine DR CAP* 30 MG CAP.DR PO SCH (08:04)
[2017-07-06] MEDS: Pregabalin CAP(*) 100 MG PO SCH ×3 (08:05→22:15)
[2017-07-06] MEDS: Amiodarone TAB* 400 MG PO SCH (08:05)
[2017-07-06] MEDS: Aspirin EC Low Dose* 81 MG TAB.EC PO SCH (08:05)
[2017-07-06] MEDS: OXcarbazepine TAB(*) 300 MG PO SCH ×2 (08:05→22:19)
[2017-07-06] MEDS: guaiFENesin ER TAB 600 MG PO SCH ×2 (08:06→22:19)
[2017-07-06] MEDS: Famotidine TAB* 20 MG PO SCH (08:06)
[2017-07-06] MEDS: predniSONE TAB* 10 MG PO SCH (08:06)
[2017-07-06] MEDS: Lisinopril TAB* 5 MG PO SCH (08:06)
--- NOTE | 2017-07-06 08:45 | PN ---
Subjective Date of Service: 07/06/17 Interval History: Feeling better. Afebrile. WBC jumped up to 22. Had attack of trigeminal neuralgia recently. Transferred from ICU to and around that time went back into Afib with rates 90-100s, hemodynamically stable. Pt reports went into Afib once last year during acute illness but then no concrete evidence that it returned until this admission. Pt reports wore holter monitor for several weeks with no e/o of Afib upon interrogation. Has been on actmera(toclizumab) an IL6 inhibitor for about 7 weeks and able to reduce her prednisone for PMR to 7mg daily. Objective Active Medications: Albuterol (Ventolin 2.5 Mg/3 Ml Neb.Navya*) 2.5 mg INH Q2H PRN PRN Reason: SOB/WHEEZING Amiodarone HCl (Cordarone Tab*) 400 mg PO DAILY [facility] Last Admin: 07/06/17 08:05 Dose: 400 mg Aspirin (Aspirin Ec Low Dose*) 81 mg PO DAILY [facility] Last Admin: 07/06/17 08:05 Dose: 81 mg Diltiazem HCl (Cardizem Tab*) 60 mg PO Q6HR [facility] Last Admin: 07/06/17 05:19 Dose: 60 mg Duloxetine HCl (Cymbalta Cap*) 30 mg PO DAILY [facility] Last Admin: 07/06/17 08:04 Dose: 30 mg Famotidine (Pepcid Tab*) 20 mg PO DAILY [facility] Last Admin: 07/06/17 08:06 Dose: 20 mg Fentanyl Citrate (Fentanyl*) 50 mcg IV SLOW PU Q4H PRN PRN Reason: PAIN Last Admin: 07/04/17 18:57 Dose: 50 mcg Gabapentin (Neurontin Cap(*)) 600 mg PO TID [facility] Last Admin: 07/06/17 08:04 Dose: 600 mg Guaifenesin (Mucinex*) 1,200 mg PO BID [facility] Last Admin: 07/06/17 08:06 Dose: 1,200 mg Hydralazine HCl (Apresoline Iv*) 5 mg IV SLOW PU Q6H PRN PRN Reason: BLOOD PRESSURE Levofloxacin/Dextrose (Levaquin 750 Mg Ivpremix(*)) 750 mg in 150 mls @ 100 mls /hr IVPB Q48H [facility] Last Admin: 07/06/17 03:40 Dose: 100 mls/hr Vancomycin HCl 1,000 mg/ (Sodium Chloride) 250 mls @ 166.667 mls/hr IVPB Q12H [facility] Last Admin: 07/06/17 05:19 Dose: 166.667 mls/hr Ketorolac Tromethamine (Toradol Inj*) 30 mg IV PUSH Q6H PRN PRN Reason: PAIN Stop: 07/08/17 16:36 Last Admin: 07/06/17 05:20 Dose: 30 mg Lisinopril (Prinivil Tab*) 5 mg PO DAILY [facility] Last Admin: 07/06/17 08:06 Dose: 5 mg Morphine Sulfate (Morphine Inj (Syringe)*) 4 mg IV Q4H PRN PRN Reason: PAIN Last Admin: 07/05/17 10:51 Dose: 4 mg Nitroglycerin (Nitroglycerin Tab 0.3 Mg*) 0.3 mg SL Q5M PRN PRN Reason: ANGINA Pto Nf Med* ( (Eletriptan 40 Mg)) 40 mg PO DAILY PRN PRN Reason: HEADACHE Oxcarbazepine (Trileptal Tab(*)) 150 mg PO BID [facility] Last Admin: 07/06/17 08:05 Dose: 150 mg Oxycodone HCl (Roxycodone Tab*) 5 mg PO Q4H PRN PRN Reason: PAIN Last Admin: 07/06/17 02:37 Dose: 5 mg Pharmacy Consult (Vancomycin Per Pharmacy*) 1 note FOLLOW UP .VANC PER PHARMACY [facility] Prednisone (Deltasone Tab*) 10 mg PO DAILY [facility] Last Admin: 07/06/17 08:06 Dose: 10 mg Pregabalin (Lyrica Cap(*)) 100 mg PO TID [facility] Last Admin: 07/06/17 08:05 Dose: 100 mg Topiramate (Topamax(*)) 200 mg PO BEDTIME [facility] Last Admin: 07/05/17 21:02 Dose: 200 mg Vital Signs - 8 hr 07/06/17 07/06/17 07/06/17 01:00 01:01 02:00 Pulse Rate 67 67 69 Respiratory 25 15 19 Rate Blood Pressure 107/58 111/67 (mmHg) O2 Sat by Pulse 95 95 93 Oximetry 07/06/17 07/06/17 07/06/17 02:01 03:00 04:00 Pulse Rate 69 70 68 Respiratory 16 16 13 Rate Blood Pressure 125/67 119/79 (mmHg) O2 Sat by Pulse 93 92 92 Oximetry 07/06/17 07/06/17 07/06/17 04:01 05:00 05:01 Pulse Rate 69 68 67 Respiratory 16 22 14 Rate Blood Pressure 114/59 (mmHg) O2 Sat by Pulse 92 92 91 Oximetry 07/06/17 07/06/17 07/06/17 06:00 06:01 07:00 Pulse Rate 62 63 69 Respiratory 13 14 16 Rate Blood Pressure 105/60 (mmHg) O2 Sat by Pulse 93 92 80 Oximetry 07/06/17 07/06/17 08:00 08:01 Pulse Rate 66 64 Respiratory 20 11 Rate Blood Pressure 115/66 (mmHg) O2 Sat by Pulse 90 89 Oximetry Oxygen Devices in Use Now: None Appearance: NAD. Eyes: No Scleral Icterus, PERRLA Ears/Nose/Mouth/Throat: NL Teeth, Lips, Gums Neck: NL Appearance and Movements; NL JVP Respiratory: - - rhonchi right middle lung field. Cardiovascular: NL Sounds; No Murmurs; No JVD, RRR Abdominal: NL Sounds; No Tenderness; No Distention Extremities: No Edema, No Clubbing, Cyanosis Skin: No Rash or Ulcers, No Nodules or Sclerosis Neurological: Alert and Oriented x 3, NL Sensation, NL Muscle Strength and Tone Nutrition: Taking PO's Result Diagrams: 07/06/17 05:35 07/06/17 05:35 Additional Lab and Data: Laboratory Results - last 24 hr 07/06/17 07/06/17 05:35 05:35 WBC 22.4 H RBC 2.91 L Hgb 9.8 L Hct 29 L MCV 101 H MCH 34 H MCHC 33 RDW 13 Plt Count 167 MPV 8 Neut % (Auto) 80.1 Lymph % (Auto) 11.1 L Gosper % (Auto) 7.0 Eos % (Auto) 1.3 Baso % (Auto) 0.5 Absolute Neuts (auto) 17.9 H Absolute Lymphs (auto) 2.5 Absolute Monos (auto) 1.6 H Absolute Eos (auto) 0.3 Absolute Basos (auto) 0.1 Absolute Nucleated RBC 0 Nucleated RBC % 0 Sodium 136 Potassium 3.9 Chloride 113 H Carbon Dioxide 18 L Anion Gap 5 BUN 27 H Creatinine 1.09 H Est GFR ( Amer) 63.6 Est GFR (Non-Af Amer) 49.5 BUN/Creatinine Ratio 24.8 H Glucose 95 Calcium 8.0 L Magnesium 1.6 L Triglycerides 105 Cholesterol 166 LDL Cholesterol 96 HDL Cholesterol 48.6 Microbiology and Other Data: Microbiology 07/04/17 09:00 Aerobic Blood Culture - Preliminary Blood Venous No Growth Day 2 Anaerobic Blood Culture - Preliminary No Growth Day 2 07/04/17 04:10 Aerobic Blood Culture - Preliminary Blood Venous No Growth Day 2 Anaerobic Blood Culture - Preliminary No Growth Day 2 07/04/17 07:17 Nasal Screen MRSA (PCR)(JESSIE) - Final Nasal Mrsa Negative 07/04/17 06:51 Legionella Urinary Antigen - Final Urine Negative Legionella Streptococcus pneumoniae Ag Screen - Final Negative S. pneumo Antigen 07/04/17 04:17 Influenza Types A,B Antigen (JESSIE) - Final Nasal Specimen received for Influenza A/B Molecular testing Assess/Plan/Problems-Billing Assessment: 72 yo female PMH PMR on prednisone and recently (7 weeks ago) IL6 inhibitor toclizumab, CHF, IDDM p/w syncope, afib w/ RVR, RUL pna in immunocompromised setting, septic shock requiring pressor in the ICU. On vanc, levaquin. 2L. stepped down 1/4 #Septic Shock requiring pressors(now off), 2/2 RUL PNA - currently vancomycin and levaquin. WBC did jump off of cefepime. MRSA nares negative. If jumps again would switch to stronger antipsuedomonal coverage given immunocompromised. If ID availiable consider consult. nontoxic appearing. - cultures negative though no sputum cx obtained. #pAfib w/ RVR in setting of sepsis. happended once before last year but no e/o on holter - continue amio 400mg daily - dilt 60mg po q6h - appreciate cardiology recs - replete Mg>2, K>4. Mg low today #PMR - hold toclizumab - f/u w/ Dr. Altamirano as outpatient - prednisone #CHF - ECHO with pEF 60-65% #IDDM - SSI POCT qachs #Trigeminal Neuralgia; Hx of chronic cluster headaches for which she has supplemental oxygen prn at home. - continue gabapentin 600mg TID, topomax 200mg qhs, elatriptan 40mg po daily prn , cymbalta 30mg daily, ketorlac prn CODE FULL Status and Disposition: medicine inpatient Attending: Harlan Pastor
[2017-07-06] MEDS: fentaNYL* 50 MCG/ML 2 ML VIAL (100 MCG VIAL) IV SLOW PU PRN ×3 (13:02→22:07)
[2017-07-06] MEDS: Cefepime 2 GM in Dextrose(*) 2 GM/50 ML BAG IV SCH ×2 (13:25→13:26)
[2017-07-06] MEDS: Topiramate TAB(*) 100 MG PO SCH (22:18)
[2017-07-06] MEDS ORDERED: Magnesium Sulfate IV* 3 GM in NS 0.9% 100 ML* 100 ML IVPB ONE (22:47)
[2017-07-06] MEDS: ELETRIPTAN 40 MG PO PRN (23:07)
[2017-07-07] MEDS: Diltiazem TAB* 60 MG PO SCH ×2 (00:02→05:04)
[2017-07-07] MEDS: oxyCODONE TAB* 5 MG TAB PO PRN ×2 (04:17→10:37)
[2017-07-07] MEDS: Vancomycin(*) 1,000 MG in NS 0.9% 250 ML* 250 ML IVPB SCH (05:04)
[2017-07-07] MEDS: Pregabalin CAP(*) 100 MG PO SCH ×3 (10:30→22:13)
[2017-07-07] MEDS: DULoxetine DR CAP* 30 MG CAP.DR PO SCH (10:30)
[2017-07-07] MEDS: Lisinopril TAB* 5 MG PO SCH (10:30)
[2017-07-07] MEDS: Aspirin EC Low Dose* 81 MG TAB.EC PO SCH (10:30)
[2017-07-07] MEDS: predniSONE TAB* 10 MG PO SCH (10:30)
[2017-07-07] MEDS: Famotidine TAB* 20 MG PO SCH (10:30)
[2017-07-07] MEDS: guaiFENesin ER TAB 600 MG PO SCH ×2 (10:32→22:13)
[2017-07-07] MEDS: OXcarbazepine TAB(*) 300 MG PO SCH ×2 (10:32→22:13)
[2017-07-07] MEDS: Gabapentin CAP(*) 300 MG PO SCH ×3 (10:32→22:13)
[2017-07-07] MEDS ORDERED: Diltiazem CD CAP* 180 MG PO ONE (10:59)
[2017-07-07] MEDS ORDERED: Diltiazem CD CAP* 120 MG PO ONE (11:00)
[2017-07-07] MEDS: Amiodarone TAB* 400 MG PO SCH (11:26)
--- NOTE | 2017-07-07 14:53 | PN ---
Subjective Date of Service: 07/07/17 Interval History: No c/o. Objective Active Medications: Hydrocodone Bitart/Acetaminophen ([place] 5-325 Tab*) 1 tab PO Q4H PRN PRN Reason: PAIN Albuterol (Ventolin 2.5 Mg/3 Ml Neb.Navya*) 2.5 mg INH Q2H PRN PRN Reason: SOB/WHEEZING Amiodarone HCl (Cordarone Tab*) 400 mg PO DAILY [facility] Last Admin: 07/07/17 11:26 Dose: 400 mg Aspirin (Aspirin Ec Low Dose*) 81 mg PO DAILY [facility] Last Admin: 07/07/17 10:30 Dose: 81 mg Duloxetine HCl (Cymbalta Cap*) 30 mg PO DAILY [facility] Last Admin: 07/07/17 10:30 Dose: 30 mg Eletriptan (Relpax (Nf)) 40 mg PO DAILY PRN PRN Reason: HEADACHE Last Admin: 07/06/17 23:07 Dose: 40 mg Famotidine (Pepcid Tab*) 20 mg PO DAILY [facility] Last Admin: 07/07/17 10:30 Dose: 20 mg Fentanyl Citrate (Fentanyl*) 50 mcg IV SLOW PU Q4H PRN PRN Reason: PAIN Last Admin: 07/06/17 22:07 Dose: 50 mcg Gabapentin (Neurontin Cap(*)) 300 mg PO TID [facility] Guaifenesin (Mucinex*) 1,200 mg PO BID [facility] Last Admin: 07/07/17 10:32 Dose: 1,200 mg Hydralazine HCl (Apresoline Iv*) 5 mg IV SLOW PU Q6H PRN PRN Reason: BLOOD PRESSURE Levofloxacin/Dextrose (Levaquin 750 Mg Ivpremix(*)) 750 mg in 150 mls @ 100 mls /hr IVPB Q48H [facility] Last Admin: 07/06/17 03:40 Dose: 100 mls/hr Vancomycin HCl 1,000 mg/ (Sodium Chloride) 250 mls @ 166.667 mls/hr IVPB Q12H [facility] Last Admin: 07/07/17 05:04 Dose: 166.667 mls/hr Ketorolac Tromethamine (Toradol Inj*) 30 mg IV PUSH Q6H PRN PRN Reason: PAIN Stop: 07/08/17 16:36 Last Admin: 07/06/17 05:20 Dose: 30 mg Lisinopril (Prinivil Tab*) 5 mg PO DAILY [facility] Last Admin: 07/07/17 10:30 Dose: 5 mg Nitroglycerin (Nitroglycerin Tab 0.3 Mg*) 0.3 mg SL Q5M PRN PRN Reason: ANGINA Oxcarbazepine (Trileptal Tab(*)) 150 mg PO BID [facility] Last Admin: 07/07/17 10:32 Dose: 150 mg Pharmacy Consult (Vancomycin Per Pharmacy*) 1 note FOLLOW UP .VANC PER PHARMACY [facility] Pharmacy Profile Note (Vancomycin Trough Check) 1 note FOLLOW UP ONCE ONE Stop: 07/09/17 04:31 Prednisone (Deltasone Tab*) 10 mg PO DAILY [facility] Last Admin: 07/07/17 10:30 Dose: 10 mg Pregabalin (Lyrica Cap(*)) 100 mg PO TID [facility] Last Admin: 07/07/17 10:30 Dose: 100 mg Topiramate (Topamax(*)) 200 mg PO BEDTIME [facility] Last Admin: 07/06/17 22:18 Dose: 200 mg Vital Signs - 8 hr 07/07/17 07/07/17 07/07/17 07:28 08:26 10:30 Temperature 97.7 F Pulse Rate 74 73 Respiratory 17 22 20 Rate Blood Pressure 166/68 (mmHg) O2 Sat by Pulse 93 83 Oximetry 07/07/17 07/07/17 10:32 10:37 Temperature Pulse Rate Respiratory 20 20 Rate Blood Pressure (mmHg) O2 Sat by Pulse Oximetry Oxygen Devices in Use Now: None Appearance: Alert, partly up in bed. PA in place. In good spirits. Looks comfortable. Eyes: No Scleral Icterus Respiratory: Symmetrical Chest Expansion and Respiratory Effort, Clear to Auscultation, Clear to Percussion Cardiovascular: NL Sounds; No Murmurs; No JVD, RRR, No Edema, - Extremities: No Edema, No Clubbing, Cyanosis, - Skin: No Rash or Ulcers, No Nodules or Sclerosis, - Neurological: Alert and Oriented x 3 - Pressure of speech noted. Somewhat tangential. , NL Sensation Result Diagrams: 07/06/17 05:35 07/06/17 05:35 Additional Lab and Data: Laboratory Results - last 24 hr 07/06/17 07/06/17 05:35 05:35 WBC 22.4 H RBC 2.91 L Hgb 9.8 L Hct 29 L MCV 101 H MCH 34 H MCHC 33 RDW 13 Plt Count 167 MPV 8 Neut % (Auto) 80.1 Lymph % (Auto) 11.1 L [place] % (Auto) 7.0 Eos % (Auto) 1.3 Baso % (Auto) 0.5 Absolute Neuts (auto) 17.9 H Absolute Lymphs (auto) 2.5 Absolute Monos (auto) 1.6 H Absolute Eos (auto) 0.3 Absolute Basos (auto) 0.1 Absolute Nucleated RBC 0 Nucleated RBC % 0 Sodium 136 Potassium 3.9 Chloride 113 H Carbon Dioxide 18 L Anion Gap 5 BUN 27 H Creatinine 1.09 H Est GFR ( Amer) 63.6 Est GFR (Non-Af Amer) 49.5 BUN/Creatinine Ratio 24.8 H Glucose 95 Calcium 8.0 L Magnesium 1.6 L Triglycerides 105 Cholesterol 166 LDL Cholesterol 96 HDL Cholesterol 48.6 Microbiology and Other Data: Microbiology 07/04/17 09:00 Aerobic Blood Culture - Preliminary Blood Venous No Growth Day 2 Anaerobic Blood Culture - Preliminary No Growth Day 2 07/04/17 04:10 Aerobic Blood Culture - Preliminary Blood Venous No Growth Day 2 Anaerobic Blood Culture - Preliminary No Growth Day 2 07/04/17 07:17 Nasal Screen MRSA (PCR)(JESSIE) - Final Nasal Mrsa Negative 07/04/17 06:51 Legionella Urinary Antigen - Final Urine Negative Legionella Streptococcus pneumoniae Ag Screen - Final Negative S. pneumo Antigen 07/04/17 04:17 Influenza Types A,B Antigen (JESSIE) - Final Nasal Specimen received for Influenza A/B Molecular testing Assess/Plan/Problems-Billing Assessment: 72 yo female PMH PMR on prednisone and recently (7 weeks ago) IL6 inhibitor toclizumab, CHF, IDDM p/w syncope, afib w/ RVR, RUL pna in immunocompromised setting, septic shock requiring pressor in the ICU. On vanc, levaquin. 2L. stepped down 1/4 #Septic Shock requiring pressors(now off), 2/2 RUL PNA - currently vancomycin and levaquin. WBC did jump off of cefepime. MRSA nares negative. If jumps again would switch to stronger antipsuedomonal coverage given immunocompromised. If ID availiable consider consult. nontoxic appearing. - cultures negative though no sputum cx obtained. #pAfib w/ RVR in setting of sepsis. happended once before last year but no e/o on holter - continue amio 400mg daily - dilt 60mg po q6h - appreciate cardiology recs - replete Mg>2, K>4. Mg low today #PMR - hold toclizumab - f/u w/ Dr. Altamirano as outpatient - prednisone #CHF - ECHO with pEF 60-65% #IDDM - SSI POCT qachs #Trigeminal Neuralgia; Hx of chronic cluster headaches for which she has supplemental oxygen prn at home. - continue gabapentin 600mg TID, topomax 200mg qhs, elatriptan 40mg po daily prn , cymbalta 30mg daily, ketorlac prn CODE FULL - Patient Problems (1) PAF (paroxysmal atrial fibrillation) Current Visit: No Status: Acute Code(s): I48.0 - PAROXYSMAL ATRIAL FIBRILLATION SNOMED Code(s): 438736169 Comment: Pt is in NSR 15 PM. Amiodarone 400 mg daily started 07/05; 360 mg IV given 07/04. As Afib likely precipitated by febrile episode, would recommend outpt monitoring to see if A fib is occuriing any other times. (2) PMR (polymyalgia rheumatica) Current Visit: No Status: Acute Code(s): M35.3 - POLYMYALGIA RHEUMATICA SNOMED Code(s): 53592649 Comment: Continue prednisone 10mg daily (reduced on 01/08/17). Follow up with Dr. Altamirano as outpatient. (3) Trigeminal neuralgia Current Visit: Yes Status: Acute Code(s): G50.0 - TRIGEMINAL NEURALGIA SNOMED Code(s): 26272088 Comment: Continue topiramate, eletriptan (4) Severe sepsis Current Visit: No Status: Acute Code(s): A41.9 - SEPSIS, UNSPECIFIED ORGANISM; R65.20 - SEVERE SEPSIS WITHOUT SEPTIC SHOCK SNOMED Code(s): 97613146 Comment: Due to RUL PNA. Continue levo, stop vanco. Repeat CBC, CRP 07/08. Note patient is immunocompromised. (5) Anemia Current Visit: Yes Status: Acute Code(s): D64.9 - ANEMIA, UNSPECIFIED SNOMED Code(s): 965960203 Comment: Chronic and stable. Status and Disposition: medicine inpatient
[2017-07-07] MEDS: Topiramate TAB(*) 100 MG PO SCH (22:12)
[2017-07-08] MEDS: HYDROcodone/ACETAMIN 5-325 MG* 1 TAB PO PRN ×4 (01:48→19:44)
[2017-07-08] MEDS: ELETRIPTAN 40 MG PO PRN (04:23)
[2017-07-08] MEDS: Levofloxacin 750 MG IVPREMIX(* 750 MG/150 ML BAG IVPB SCH (05:17)
[2017-07-08] MEDS: Ketorolac INJ* 30 MG/ML 1 ML VIAL IV PUSH PRN (08:06)
[2017-07-08] MEDS: Amiodarone TAB* 400 MG PO SCH (08:07)
[2017-07-08] MEDS: predniSONE TAB* 10 MG PO SCH (08:07)
[2017-07-08] MEDS: Gabapentin CAP(*) 300 MG PO SCH ×3 (08:07→20:36)
[2017-07-08] MEDS: DULoxetine DR CAP* 30 MG CAP.DR PO SCH (08:07)
[2017-07-08] MEDS: Lisinopril TAB* 5 MG PO SCH (08:08)
[2017-07-08] MEDS: Famotidine TAB* 20 MG PO SCH (08:08)
[2017-07-08] MEDS: Aspirin EC Low Dose* 81 MG TAB.EC PO SCH (08:08)
[2017-07-08] MEDS: OXcarbazepine TAB(*) 300 MG PO SCH ×2 (08:08→20:38)
[2017-07-08] MEDS: Pregabalin CAP(*) 100 MG PO SCH ×3 (08:08→20:37)
[2017-07-08] MEDS: guaiFENesin ER TAB 600 MG PO SCH ×2 (08:09→20:38)
[2017-07-08] MEDS ORDERED: guaiFENesin LIQ* 100 MG/5 ML UDC PO PRN (08:32)
--- NOTE | 2017-07-08 08:37 | PN ---
Subjective Date of Service: 07/08/17 Interval History: She states she only slept 1 hr last night due to non-productive cough. She is concerned about the stairs in her home but feels if she could manage them she could go home. Objective Active Medications: Hydrocodone Bitart/Acetaminophen ([place] 5-325 Tab*) 1 tab PO Q4H PRN PRN Reason: PAIN Last Admin: 07/08/17 08:07 Dose: 1 tab Albuterol (Ventolin 2.5 Mg/3 Ml Neb.Navya*) 2.5 mg INH Q2H PRN PRN Reason: SOB/WHEEZING Aspirin (Aspirin Ec Low Dose*) 81 mg PO DAILY [facility] Last Admin: 07/08/17 08:08 Dose: 81 mg Duloxetine HCl (Cymbalta Cap*) 30 mg PO DAILY [facility] Last Admin: 07/08/17 08:07 Dose: 30 mg Eletriptan (Relpax (Nf)) 40 mg PO DAILY PRN PRN Reason: HEADACHE Last Admin: 07/08/17 04:23 Dose: 40 mg Famotidine (Pepcid Tab*) 20 mg PO DAILY [facility] Last Admin: 07/08/17 08:08 Dose: 20 mg Fentanyl Citrate (Fentanyl*) 50 mcg IV SLOW PU Q4H PRN PRN Reason: PAIN Last Admin: 07/06/17 22:07 Dose: 50 mcg Gabapentin (Neurontin Cap(*)) 300 mg PO TID [facility] Last Admin: 07/08/17 08:07 Dose: 300 mg Guaifenesin (Mucinex*) 1,200 mg PO BID [facility] Last Admin: 07/08/17 08:09 Dose: 1,200 mg Hydralazine HCl (Apresoline Iv*) 5 mg IV SLOW PU Q6H PRN PRN Reason: BLOOD PRESSURE Ketorolac Tromethamine (Toradol Inj*) 30 mg IV PUSH Q6H PRN PRN Reason: PAIN Stop: 07/08/17 16:36 Last Admin: 07/08/17 08:06 Dose: 30 mg Levofloxacin (Levaquin Tab*) 500 mg PO Q24H [facility] Stop: 07/10/17 15:00 Lisinopril (Prinivil Tab*) 5 mg PO DAILY [facility] Last Admin: 07/08/17 08:08 Dose: 5 mg Nitroglycerin (Nitroglycerin Tab 0.3 Mg*) 0.3 mg SL Q5M PRN PRN Reason: ANGINA Oxcarbazepine (Trileptal Tab(*)) 150 mg PO BID [facility] Last Admin: 07/08/17 08:08 Dose: 150 mg Prednisone (Deltasone Tab*) 10 mg PO DAILY WITH MEAL [facility] Last Admin: 07/08/17 08:07 Dose: 10 mg Pregabalin (Lyrica Cap(*)) 100 mg PO TID [facility] Last Admin: 07/08/17 08:08 Dose: 100 mg Topiramate (Topamax(*)) 200 mg PO BEDTIME [facility] Last Admin: 07/07/17 22:12 Dose: 200 mg Vital Signs - 8 hr 07/08/17 07/08/17 07/08/17 01:48 03:27 04:34 Temperature 97.8 F Pulse Rate 44 Respiratory 18 18 20 Rate O2 Sat by Pulse 93 Oximetry 07/08/17 07/08/17 08:07 08:08 Temperature Pulse Rate Respiratory 20 20 Rate O2 Sat by Pulse Oximetry Oxygen Devices in Use Now: None Appearance: Alert, using walker in her room. In good spirits. Looks comfortable. No cough during my visit. Eyes: No Scleral Icterus Neck: NL Appearance and Movements; NL JVP, No Thyroid Enlargement, Masses Respiratory: Symmetrical Chest Expansion and Respiratory Effort, Clear to Auscultation, Clear to Percussion Cardiovascular: NL Sounds; No Murmurs; No JVD, RRR, No Edema, - Extremities: No Edema, No Clubbing, Cyanosis, - Skin: No Rash or Ulcers, No Nodules or Sclerosis, - Neurological: Alert and Oriented x 3, NL Sensation Result Diagrams: 07/08/17 09:26 07/08/17 09:26 Additional Lab and Data: Laboratory Results - last 24 hr 07/06/17 07/06/17 05:35 05:35 WBC 22.4 H RBC 2.91 L Hgb 9.8 L Hct 29 L MCV 101 H MCH 34 H MCHC 33 RDW 13 Plt Count 167 MPV 8 Neut % (Auto) 80.1 Lymph % (Auto) 11.1 L [place] % (Auto) 7.0 Eos % (Auto) 1.3 Baso % (Auto) 0.5 Absolute Neuts (auto) 17.9 H Absolute Lymphs (auto) 2.5 Absolute Monos (auto) 1.6 H Absolute Eos (auto) 0.3 Absolute Basos (auto) 0.1 Absolute Nucleated RBC 0 Nucleated RBC % 0 Sodium 136 Potassium 3.9 Chloride 113 H Carbon Dioxide 18 L Anion Gap 5 BUN 27 H Creatinine 1.09 H Est GFR ( Amer) 63.6 Est GFR (Non-Af Amer) 49.5 BUN/Creatinine Ratio 24.8 H Glucose 95 Calcium 8.0 L Magnesium 1.6 L Triglycerides 105 Cholesterol 166 LDL Cholesterol 96 HDL Cholesterol 48.6 Microbiology and Other Data: Microbiology 07/04/17 09:00 Aerobic Blood Culture - Preliminary Blood Venous No Growth Day 2 Anaerobic Blood Culture - Preliminary No Growth Day 2 07/04/17 04:10 Aerobic Blood Culture - Preliminary Blood Venous No Growth Day 2 Anaerobic Blood Culture - Preliminary No Growth Day 2 07/04/17 07:17 Nasal Screen MRSA (PCR)(JESSIE) - Final Nasal Mrsa Negative 07/04/17 06:51 Legionella Urinary Antigen - Final Urine Negative Legionella Streptococcus pneumoniae Ag Screen - Final Negative S. pneumo Antigen 07/04/17 04:17 Influenza Types A,B Antigen (JESSIE) - Final Nasal Specimen received for Influenza A/B Molecular testing Assess/Plan/Problems-Billing Assessment: 72 yo female PMH PMR on prednisone and recently (7 weeks ago) IL6 inhibitor toclizumab, CHF, IDDM p/w syncope, afib w/ RVR, RUL pna in immunocompromised setting, septic shock requiring pressor in the ICU. On vanc, levaquin. 2L. stepped down 1/4 #Septic Shock requiring pressors(now off), 2/2 RUL PNA - currently vancomycin and levaquin. WBC did jump off of cefepime. MRSA nares negative. If jumps again would switch to stronger antipsuedomonal coverage given immunocompromised. If ID availiable consider consult. nontoxic appearing. - cultures negative though no sputum cx obtained. #pAfib w/ RVR in setting of sepsis. happended once before last year but no e/o on holter - continue amio 400mg daily - dilt 60mg po q6h - appreciate cardiology recs - replete Mg>2, K>4. Mg low today #PMR - hold toclizumab - f/u w/ Dr. Altamirano as outpatient - prednisone #CHF - ECHO with pEF 60-65% #IDDM - SSI POCT qachs #Trigeminal Neuralgia; Hx of chronic cluster headaches for which she has supplemental oxygen prn at home. - continue gabapentin 600mg TID, topomax 200mg qhs, elatriptan 40mg po daily prn , cymbalta 30mg daily, ketorlac prn CODE FULL - Patient Problems (1) PAF (paroxysmal atrial fibrillation) Current Visit: No Status: Acute Code(s): I48.0 - PAROXYSMAL ATRIAL FIBRILLATION SNOMED Code(s): 225175650 Comment: Pt is in NSR 15 PM. Amiodarone 400 mg daily started 07/05; 360 mg IV given 07/04. As Afib likely precipitated by febrile episode, would recommend outpt monitoring to see if A fib is occuriing any other times. Amiodarone d/c'd. (2) PMR (polymyalgia rheumatica) Current Visit: No Status: Acute Code(s): M35.3 - POLYMYALGIA RHEUMATICA SNOMED Code(s): 33597242 Comment: Continue prednisone 10mg daily (reduced on 01/08/17). Follow up with Dr. Altamirano as outpatient. (3) Trigeminal neuralgia Current Visit: Yes Status: Acute Code(s): G50.0 - TRIGEMINAL NEURALGIA SNOMED Code(s): 55237179 Comment: Continue topiramate, eletriptan (4) Severe sepsis Current Visit: No Status: Acute Code(s): A41.9 - SEPSIS, UNSPECIFIED ORGANISM; R65.20 - SEVERE SEPSIS WITHOUT SEPTIC SHOCK SNOMED Code(s): 05663332 Comment: Due to RUL PNA. Continue levo po last day 07/10. Repeat CBC, CRP 07/08. Note patient is immunocompromised. Benzonatate schedule 200 mg bid in addition to PRN guifenesis/DXM. (5) Anemia Current Visit: Yes Status: Acute Code(s): D64.9 - ANEMIA, UNSPECIFIED SNOMED Code(s): 855672839 Comment: Chronic and stable. Status and Disposition: medicine inpatient
[2017-07-08 09:51] LABS: Hematocrit 36 % (35-47); Hemoglobin 12.2 g/dl (12.0-16.0); Mean Corpuscular HGB Conc 34 g/dl (31-36); Mean Corpuscular Hemoglobin 35 pg (27-31); Mean Corpuscular Volume 101 fL (80-97); Mean Platelet Volume 8 um3 (7.4-10.4); Platelet Count 212 10^3/ul (150-450); Red Blood Count 3.54 10^6/ul (4.0-5.4); Red Cell Distribution Width 13 % (10.5-15); White Blood Count 8.9 10^3/ul (3.5-10.8)
[2017-07-08 10:26] LABS: EGFR Non-African American 64.2 (>60)
[2017-07-08 10:35] LABS: ABS Basophils 0.1 10^3/ul (0-0.2); ABS Eosinophils 0.4 10^3/ul (0-0.6); ABS Lymphocytes 2.3 10^3/ul (1.0-4.8); ABS Monocytes 0.9 10^3/ul (0-0.8); ABS Neutrophils 5.3 10^3/ul (1.5-7.7); ABS Nucleated RBC 0 10^3/ul; Lymphocyte % 25.9 % (25-47); Nucleated Red Blood Cells % 0
[2017-07-08] MEDS: hydrALAZINE IV* 20 MG/ML VIAL IV SLOW PU PRN (20:01)
[2017-07-08] MEDS: Benzonatate CAP* 100 MG PO SCH (20:37)
[2017-07-08] MEDS: Topiramate TAB(*) 100 MG PO SCH (20:37)
[2017-07-09] MEDS: HYDROcodone/ACETAMIN 5-325 MG* 1 TAB PO PRN ×4 (02:47→19:46)
[2017-07-09] MEDS ORDERED: Vancomycin Trough Check NOTE FOLLOW UP ONE (04:30)
[2017-07-09 05:20] LABS: EGFR Non-African American 61.7 (>60)
[2017-07-09 05:35] LABS: Vancomycin Trough 8.1 mcg/mL
[2017-07-09] MEDS: DULoxetine DR CAP* 30 MG CAP.DR PO SCH (09:57)
[2017-07-09] MEDS: Pregabalin CAP(*) 100 MG PO SCH ×3 (09:58→20:20)
[2017-07-09] MEDS: Aspirin EC Low Dose* 81 MG TAB.EC PO SCH (09:58)
[2017-07-09] MEDS: guaiFENesin ER TAB 600 MG PO SCH ×2 (09:58→20:20)
[2017-07-09] MEDS: OXcarbazepine TAB(*) 300 MG PO SCH ×2 (09:59→20:20)
[2017-07-09] MEDS: Lisinopril TAB* 5 MG PO SCH (10:03)
[2017-07-09] MEDS: Gabapentin CAP(*) 300 MG PO SCH ×3 (10:03→20:20)
[2017-07-09] MEDS: Benzonatate CAP* 100 MG PO SCH ×2 (10:04→20:20)
[2017-07-09] MEDS: predniSONE TAB* 10 MG PO SCH (10:04)
[2017-07-09] MEDS: Famotidine TAB* 20 MG PO SCH (10:04)
[2017-07-09] MEDS: Levofloxacin TAB* 500 MG PO SCH (10:04)
--- NOTE | 2017-07-09 11:34 | PN ---
Subjective Date of Service: 07/09/17 Interval History: C/O L ear pain. Severe headache and/or triigeminal neuralgia attack L head. Cough better. Objective Active Medications: Hydrocodone Bitart/Acetaminophen ([place] 5-325 Tab*) 1 tab PO Q4H PRN PRN Reason: PAIN Last Admin: 07/09/17 09:57 Dose: 1 tab Albuterol (Ventolin 2.5 Mg/3 Ml Neb.Navya*) 2.5 mg INH Q2H PRN PRN Reason: SOB/WHEEZING Aspirin (Aspirin Ec Low Dose*) 81 mg PO DAILY [facility] Last Admin: 07/09/17 09:58 Dose: 81 mg Benzonatate (Tessalon Cap*) 200 mg PO BID [facility] Last Admin: 07/09/17 10:04 Dose: 200 mg Duloxetine HCl (Cymbalta Cap*) 30 mg PO DAILY [facility] Last Admin: 07/09/17 09:57 Dose: 30 mg Eletriptan (Relpax (Nf)) 40 mg PO DAILY PRN PRN Reason: HEADACHE Last Admin: 07/08/17 04:23 Dose: 40 mg Famotidine (Pepcid Tab*) 20 mg PO DAILY [facility] Last Admin: 07/09/17 10:04 Dose: 20 mg Fentanyl Citrate (Fentanyl*) 50 mcg IV SLOW PU Q4H PRN PRN Reason: PAIN Last Admin: 07/06/17 22:07 Dose: 50 mcg Gabapentin (Neurontin Cap(*)) 300 mg PO TID [facility] Last Admin: 07/09/17 10:03 Dose: 300 mg Guaifenesin (Mucinex*) 1,200 mg PO BID [facility] Last Admin: 07/09/17 09:58 Dose: 1,200 mg Guaifenesin (Robitussin*) 10 ml PO QID PRN PRN Reason: COUGH Hydralazine HCl (Apresoline Iv*) 5 mg IV SLOW PU Q6H PRN PRN Reason: BLOOD PRESSURE Last Admin: 07/08/17 20:01 Dose: 5 mg Levofloxacin (Levaquin Tab*) 500 mg PO Q24H [facility] Stop: 07/10/17 15:00 Last Admin: 07/09/17 10:04 Dose: 500 mg Lisinopril (Prinivil Tab*) 5 mg PO DAILY [facility] Last Admin: 07/09/17 10:03 Dose: 5 mg Nitroglycerin (Nitroglycerin Tab 0.3 Mg*) 0.3 mg SL Q5M PRN PRN Reason: ANGINA Oxcarbazepine (Trileptal Tab(*)) 150 mg PO BID [facility] Last Admin: 07/09/17 09:59 Dose: 150 mg Prednisone (Deltasone Tab*) 10 mg PO DAILY WITH MEAL [facility] Last Admin: 07/09/17 10:04 Dose: 10 mg Pregabalin (Lyrica Cap(*)) 100 mg PO TID [facility] Last Admin: 07/09/17 09:58 Dose: 100 mg Topiramate (Topamax(*)) 200 mg PO BEDTIME [facility] Last Admin: 07/08/17 20:37 Dose: 200 mg Vital Signs - 8 hr 07/09/17 07/09/17 07/09/17 05:17 08:13 09:57 Pulse Rate 55 Respiratory 18 18 20 Rate O2 Sat by Pulse 90 Oximetry 07/09/17 07/09/17 09:58 10:03 Pulse Rate Respiratory 20 20 Rate O2 Sat by Pulse Oximetry Oxygen Devices in Use Now: None Appearance: Alert, sitting up in bed. In fair spirits. Looks comfortable. Eyes: No Scleral Icterus Neck: NL Appearance and Movements; NL JVP, No Thyroid Enlargement, Masses Respiratory: Symmetrical Chest Expansion and Respiratory Effort, Clear to Auscultation, Clear to Percussion Cardiovascular: NL Sounds; No Murmurs; No JVD, RRR, No Edema, - Extremities: No Edema, No Clubbing, Cyanosis, - Skin: No Rash or Ulcers, No Nodules or Sclerosis, - Neurological: Alert and Oriented x 3, NL Sensation Result Diagrams: 07/08/17 09:26 07/09/17 04:26 Additional Lab and Data: Laboratory Results - last 24 hr 07/06/17 07/06/17 05:35 05:35 WBC 22.4 H RBC 2.91 L Hgb 9.8 L Hct 29 L MCV 101 H MCH 34 H MCHC 33 RDW 13 Plt Count 167 MPV 8 Neut % (Auto) 80.1 Lymph % (Auto) 11.1 L [place] % (Auto) 7.0 Eos % (Auto) 1.3 Baso % (Auto) 0.5 Absolute Neuts (auto) 17.9 H Absolute Lymphs (auto) 2.5 Absolute Monos (auto) 1.6 H Absolute Eos (auto) 0.3 Absolute Basos (auto) 0.1 Absolute Nucleated RBC 0 Nucleated RBC % 0 Sodium 136 Potassium 3.9 Chloride 113 H Carbon Dioxide 18 L Anion Gap 5 BUN 27 H Creatinine 1.09 H Est GFR ( Amer) 63.6 Est GFR (Non-Af Amer) 49.5 BUN/Creatinine Ratio 24.8 H Glucose 95 Calcium 8.0 L Magnesium 1.6 L Triglycerides 105 Cholesterol 166 LDL Cholesterol 96 HDL Cholesterol 48.6 Microbiology and Other Data: Microbiology 07/04/17 09:00 Aerobic Blood Culture - Preliminary Blood Venous No Growth Day 2 Anaerobic Blood Culture - Preliminary No Growth Day 2 07/04/17 04:10 Aerobic Blood Culture - Preliminary Blood Venous No Growth Day 2 Anaerobic Blood Culture - Preliminary No Growth Day 2 07/04/17 07:17 Nasal Screen MRSA (PCR)(JESSIE) - Final Nasal Mrsa Negative 07/04/17 06:51 Legionella Urinary Antigen - Final Urine Negative Legionella Streptococcus pneumoniae Ag Screen - Final Negative S. pneumo Antigen 07/04/17 04:17 Influenza Types A,B Antigen (JESSIE) - Final Nasal Specimen received for Influenza A/B Molecular testing Assess/Plan/Problems-Billing Assessment: 72 yo female PMH PMR on prednisone and recently (7 weeks ago) IL6 inhibitor toclizumab, CHF, IDDM p/w syncope, afib w/ RVR, RUL pna in immunocompromised setting, septic shock requiring pressor in the ICU. On vanc, levaquin. 2L. stepped down 1/4 #Septic Shock requiring pressors(now off), 2/2 RUL PNA - currently vancomycin and levaquin. WBC did jump off of cefepime. MRSA nares negative. If jumps again would switch to stronger antipsuedomonal coverage given immunocompromised. If ID availiable consider consult. nontoxic appearing. - cultures negative though no sputum cx obtained. #pAfib w/ RVR in setting of sepsis. happended once before last year but no e/o on holter - continue amio 400mg daily - dilt 60mg po q6h - appreciate cardiology recs - replete Mg>2, K>4. Mg low today #PMR - hold toclizumab - f/u w/ Dr. Altamirano as outpatient - prednisone #CHF - ECHO with pEF 60-65% #IDDM - SSI POCT qachs #Trigeminal Neuralgia; Hx of chronic cluster headaches for which she has supplemental oxygen prn at home. - continue gabapentin 600mg TID, topomax 200mg qhs, elatriptan 40mg po daily prn , cymbalta 30mg daily, ketorlac prn CODE FULL - Patient Problems (1) PAF (paroxysmal atrial fibrillation) Current Visit: No Status: Acute Code(s): I48.0 - PAROXYSMAL ATRIAL FIBRILLATION SNOMED Code(s): 235551550 Comment: Pt is in NSR 15 PM. Amiodarone 400 mg daily started 07/05; 360 mg IV given 07/04. As Afib likely precipitated by febrile episode, would recommend outpt monitoring to see if A fib is occuriing any other times. Amiodarone d/c'd. (2) PMR (polymyalgia rheumatica) Current Visit: No Status: Acute Code(s): M35.3 - POLYMYALGIA RHEUMATICA SNOMED Code(s): 99907147 Comment: Continue prednisone 10mg daily (reduced on 01/08/17). Follow up with Dr. Altamirano as outpatient. (3) Trigeminal neuralgia Current Visit: Yes Status: Acute Code(s): G50.0 - TRIGEMINAL NEURALGIA SNOMED Code(s): 45694549 Comment: Continue topiramate, eletriptan. She had a dose of eletriptan 04: 23 07/08, states she can take this twice a week. She sometimes gets relief from 20 minutes of O2 15 L/min by face mask--I ordered this q 4 hr PRN. (4) Severe sepsis Current Visit: No Status: Acute Code(s): A41.9 - SEPSIS, UNSPECIFIED ORGANISM; R65.20 - SEVERE SEPSIS WITHOUT SEPTIC SHOCK SNOMED Code(s): 79048237 Comment: Due to RUL PNA. Continue levo po last day 07/10. Repeat CBC, CRP 07/08. Note patient is immunocompromised. Benzonatate schedule 200 mg bid in addition to PRN guifenesis/DXM. (5) Anemia Current Visit: Yes Status: Acute Code(s): D64.9 - ANEMIA, UNSPECIFIED SNOMED Code(s): 677979479 Comment: Chronic and stable. Status and Disposition: medicine inpatient
[2017-07-09] MEDS: Topiramate TAB(*) 100 MG PO SCH (20:20)
[2017-07-09] MEDS: hydrALAZINE IV* 20 MG/ML VIAL IV SLOW PU PRN (23:52)
[2017-07-09] MEDS: ELETRIPTAN 40 MG PO PRN (23:54)
[2017-07-10] MEDS: HYDROcodone/ACETAMIN 5-325 MG* 1 TAB PO PRN (03:20)
[2017-07-10] MEDS: Levofloxacin TAB* 500 MG PO SCH (08:21)
[2017-07-10] MEDS: predniSONE TAB* 10 MG PO SCH (08:21)
[2017-07-10] MEDS: DULoxetine DR CAP* 30 MG CAP.DR PO SCH (08:21)
[2017-07-10] MEDS: Lisinopril TAB* 5 MG PO SCH (08:22)
[2017-07-10] MEDS: Pregabalin CAP(*) 100 MG PO SCH (08:22)
[2017-07-10] MEDS: guaiFENesin ER TAB 600 MG PO SCH (08:22)
[2017-07-10] MEDS: Gabapentin CAP(*) 300 MG PO SCH (08:22)
[2017-07-10] MEDS: Famotidine TAB* 20 MG PO SCH (08:22)
[2017-07-10] MEDS: Benzonatate CAP* 100 MG PO SCH (08:22)
[2017-07-10] MEDS: Aspirin EC Low Dose* 81 MG TAB.EC PO SCH (08:22)
[2017-07-10] MEDS: OXcarbazepine TAB(*) 300 MG PO SCH (08:23)
[2017-07-10] MEDS: ELETRIPTAN 40 MG PO PRN (08:24)
--- NOTE | 2017-07-10 08:24 | PN ---
"Progress Note - Progress Note Date of Service: 07/10/17 Note: Time spent on discharge 50 minutes. This report was requested by: Lanre Godoy | Reference #: [id number] Others' Prescriptions Patient Name: Jammie Saez Date: 1945 Address: [address] [place] [id number] Sex: Female Rx Written Rx Dispensed Drug Quantity Days Supply Prescriber Name 03/29/2017 06/28/2017 lyrica 100 mg capsule 360 90 Nichelle Burgess MD 03/29/2017 04/04/2017 lyrica 100 mg capsule 360 90 CottonNichelle MD 02/23/2017 03/29/2017 lyrica 50 mg capsule 60 30 Nichelle Burgess MD 03/12/2017 03/14/2017 lyrica 100 mg capsule 90 30 Nichelle Burgess MD 02/23/2017 02/25/2017 lyrica 50 mg capsule 60 30 Nichelle Burgess MD 01/19/2017 01/19/2017 oxycodone hcl er 10 mg tablet 20 10 Lamb, Mildred Aydee 01/19/2017 01/19/2017 oxycodone hcl 5 mg tablet 60 10 Lamb, Mildred Aydee 12/15/2016 12/15/2016 hydrocodone-acetaminophen 5-325 mg tablet 150 30 Nichelle Burgess MD 11/11/2016 11/15/2016 hydrocodone-acetaminophen 5-325 mg tablet 150 30 Nichelle Burgess MD 10/18/2016 10/18/2016 hydrocodone-acetaminophen 5-325 mg tablet 150 30 Nichelle Burgess MD 08/02/2016 08/02/2016 hydrocodone-acetaminophen 5-325 mg tablet 180 30 Nichelle Burgess MD Patient Name: Jammie Saez Date: 1945 Address: [address] [place] [address] Sex: Female Rx Written Rx Dispensed Drug Quantity Days Supply Prescriber Name 01/16/2017 01/16/2017 oxycodone hcl er 10 mg tablet 60 30 Lamb, Mildred Aydee 01/11/2017 01/11/2017 oxycodone hcl 10 mg tablet 42 7 Lamb, Mildred Aydee 01/11/2017 01/11/2017 oxycodone hcl er 10 mg tablet 14 7 Lamb, Mildred Aydee Patient Name: Jammie Saez Date: 1945 Address: [address] [place] [address] Sex: Female Rx Written Rx Dispensed Drug Quantity Days Supply Prescriber Name 07/19/2016 07/19/2016 oxycodone hcl 5 mg tablet 50 8 Monico Aquino MD"
[2017-07-10] MEDS ORDERED: Verapamil TAB* 120 MG PO SCH (09:00)
[2017-07-10 11:38] VITALS: BP 148/70
--- NOTE | 2017-07-11 01:30 | DS ---
CC: Dr. Burgess; Dr. Tarango.* DISCHARGE SUMMARY: DATE OF ADMISSION: 07/04/17 DATE OF DISCHARGE: 07/10/17. HOSPITAL COURSE: This is a 72-year-old woman who presented with shortness of breath. She had an upper respiratory infection, which rapidly became severe over the 24 hours before admission. She was short of breath. She states she passed out at home and was unconscious for a while and hit her head. She had copious diarrhea. In the emergency room, she was in atrial fibrillation with heart rate up to 160. Her blood pressure was in the 60s, she was felt to be in septic shock. She was admitted to the intensive care unit, given hydrocortisone IV, cefepime, vancomycin, levofloxacin. Her influenza rapid test was negative. She required pressors also. Blood cultures were no growth. She recovered quite well. She had quite a bit of trouble in the last few days in the hospital from her trigeminal neuralgia and cluster headaches, which did not seem to be responding to her usual treatment. She will call Dr. Tarango on the day of discharge for followup for this. She converted to normal sinus rhythm spontaneously early in her hospital course. This is the second episode, both episodes were associated with severe illness due to infection. I believe she had outpatient monitoring in the past. I would repeat outpatient monitoring, for example a 28-day event monitor, to see if she has any atrial fibrillation when she is not critically ill. At this time, I have not given her any additional cardiac medications. We did add benzonatate for her cough, which she will get a 10-day supply. She was also given hydrocodone/acetaminophen for her headache and back pain. FINAL DIAGNOSES: 1. Pneumonia with severe sepsis and septic shock. 2. Paroxysmal atrial fibrillation. 3. Polymyalgia rheumatica. 4. Trigeminal neuralgia and cluster headaches. 5. Anemia. DISCHARGE MEDICATIONS: 1. Benzonatate 200 mg b.i.d. 2. Hydrocodone/acetaminophen 5/325, 1 every 4 hours p.r.n. 3. Multivitamin with minerals daily. 4. Memantine XR 28 mg h.s. 5. Duloxetine 90 mg daily. 6. Lansoprazole 30 mg daily. 7. Diclofenac 1% gel q.i.d. p.r.n. 8. Verapamil 120 mg t.i.d. 9. Gabapentin 900 mg t.i.d. 10. Topiramate 200 mg h.s. 11. Eletriptan 40 mg twice weekly p.r.n. 12. Lactobacillus 1 capsule daily. 13. Potassium chloride 20 mEq daily. 14. Melatonin as prescribed. 15. Lisinopril 5 mg daily. 16. Magnesium 500 mg daily. 17. Acetaminophen 650 mg every 6 hours p.r.n. 18. Vitamin D 1000 units daily. 19. Lidocaine patch daily. 20. Oxycodone SR 10 mg b.i.d. 21. Oxycodone 10 mg every 4 hours p.r.n. 22. Prednisone 10 mg daily. 23. Polyethylene glycol 17 g b.i.d. p.r.n. [id number]/[facility] #: [id number] [facility]
== END 2017-07-10 12:10 | disposition home health service (06) | DRG 871 ==
LOC: ED 04:02 → ICU 05:53 → MED 07-06 11:13
PROVIDERS: ADMIT Hospitalist; ATTEND Internal Medicine
PROC: 05HM33Z Insertion of Infusion Device into Right Internal Jugular Vein, Percutaneous Approach (ICD-10-PCS; principal; 2017-07-04)
PROC: 5A2204Z Restoration of Cardiac Rhythm, Single (ICD-10-PCS; 2017-07-04)
PROC: 3E033XZ Introduction of Vasopressor into Peripheral Vein, Percutaneous Approach (ICD-10-PCS; 2017-07-04)
DX: A41.9 Sepsis, unspecified organism (principal); R65.21 Severe sepsis with septic shock; J18.9 Pneumonia, unspecified organism; E87.2 Acidosis; I11.0 Hypertensive heart disease with heart failure; E27.40 Unspecified adrenocortical insufficiency; I24.8 Other forms of acute ischemic heart disease; I48.0 Paroxysmal atrial fibrillation; I50.9 Heart failure, unspecified; D64.9 Anemia, unspecified; E11.9 Type 2 diabetes mellitus without complications; Z99.81 Dependence on supplemental oxygen; G25.81 Restless legs syndrome; E07.9 Disorder of thyroid, unspecified; F32.9 Major depressive disorder, single episode, unspecified; G43.909 Migraine, unspecified, not intractable, without status migrainosus; M06.9 Rheumatoid arthritis, unspecified; G47.33 Obstructive sleep apnea (adult) (pediatric); G58.8 Other specified mononeuropathies; K21.9 Gastro-esophageal reflux disease without esophagitis; M79.7 Fibromyalgia; M35.3 Polymyalgia rheumatica; K58.9 Irritable bowel syndrome, unspecified; G44.029 Chronic cluster headache, not intractable; M16.12 Unilateral primary osteoarthritis, left hip; G50.0 Trigeminal neuralgia; H92.02 Otalgia, left ear; R19.7 Diarrhea, unspecified; R05 Cough; M54.9 Dorsalgia, unspecified; Z79.52 Long term (current) use of systemic steroids; Z90.49 Acquired absence of other specified parts of digestive tract; Z88.0 Allergy status to penicillin; Z88.8 Allergy status to other drugs, medicaments and biological substances; Z83.3 Family history of diabetes mellitus; Z82.49 Family history of ischemic heart disease and other diseases of the circulatory system
CPT/HCPCS: 36415; 70450; 71045; 80048; 80053; 80061; 80202; 81003; 81015; 82550; 82565; 83605; 83735; 84484; 84520; 85014; 85018; 85025; 85610; 85730; 86140; 86850; 86900; 86901; 87040; 87502; 87641; 87899; 93005; 93306; 94760; A9270-GY; J0282; J0360; J0692; J1160; J1720; J1885; J2250; J2270; J3010; J3370; J3475; J3490; J7512

== ENCOUNTER 2018-01-22 08:28 | Emergency (ER) | payer MEDICARE, OTHER ==
--- NOTE | 2018-01-22 09:01 | ED ---
Syncope/Near Syncope - HPI Summary HPI Summary: This is scribe Kavyagunnar Russell documenting for attending Zachary Preston MD. 72 year old F BIB EMS to [facility] complains of syncopal episode at 08:00 this morning after a bowel movement. Symptoms aggravated by nothing. Symptoms alleviated by nothing. Patient additionally complains of lower abdominal pain that began this morning. She reports increasingly frequent bowel movements, nausea. She denies diarrhea. Patient states she has had increased activity cleaning the house over the last two days. - History Of Current Complaint Chief Complaint: EDSyncope Time Seen by Provider: 01/22/18 08:37 Hx Obtained From: Patient Onset/Duration: Sudden Onset, Resolved Context: Unwitnessed Activity At Onset: Other - after bowel movement Aggravating Factor(s): Nothing Alleviating Factor(s): Nothing Associated Signs And Symptoms: Negative - diarrhea, Other - lower abdominal pain , increasingly frequent bowel movements, nausea - Allergies/Home Medications Allergies/Adverse Reactions: Allergies Allergy/AdvReac Type Severity Reaction Status Date / Time Penicillins Allergy Intermediate Rash And Verified 01/22/18 08:42 Itching verapamil AdvReac See Comment Verified 01/22/18 08:42 Home Medications: Home Medications Cholecalciferol TAB* [Vitamin D TAB*] 5,000 units PO DAILY 01/22/18 [History Confirmed 01/22/18] Cyanocobalamin (Vitamin B-12) [Vitamin B-12] 5,000 mcg PO DAILY 01/22/18 [ History Confirmed 01/22/18] Fluticasone Propionate [Flovent Diskus] 100 mcg IH DAILY 01/22/18 [History Confirmed 01/22/18] Furosemide [Lasix] 20 mg PO DAILY PRN 01/22/18 [History Confirmed 01/22/18] OXcarbazepine [Trileptal 150 mg] 150 mg PO BID 01/22/18 [History Confirmed 01/22] Pregabalin [Lyrica] 100 mg PO BID 01/22/18 [History Confirmed 01/22/18] Tizanidine HCl [Zanaflex] 2 mg PO DAILY PRN 01/22/18 [History Confirmed 01/22/18 ] Tocilizumab [Actemra] 1 syringe IM WEEKLY 01/22/18 [History Confirmed 01/22/18] predniSONE TAB* [Deltasone 10 MG TAB*] 7.5 mg PO DAILY 01/22/18 [History Confirmed 01/22/18] PMH/Surg Hx/FS Hx/Imm Hx Previously Healthy: No Endocrine/Hematology History: Reports: Hx Thyroid Disease, Hx Anemia Denies: Hx Diabetes, Hx Unexplained Bleeding Comment Only: Other Endocrine/Hematological Disorders - hypothalmus related headaches Cardiovascular History: Reports: Hx Angina, Hx Congestive Heart Failure - HX OF D/T DRUG REACTION, Hx Hypertension Denies: Hx Aneurysm, Hx Angioplasty, Hx Auto Implanted Cardiovert Defib, Hx Cardiac Arrest, Hx Cardiomegaly, Hx Congenital Heart Disease, Hx Coronary Artery Disease, Hx Deep Vein Thrombosis, Hx Hypercholesterolemia, Hx Hypotension , Hx Pacemaker/ICD, Hx Peripheral Vascular Disease, Hx Rheumatic Fever, Hx Syncope, Hx Valvular Heart Disease, Other Cardiovascular Problems/Disorders Respiratory History: Reports: Hx Sleep Apnea - Bipap, Other Respiratory Problems /Disorders - SLEEP APNEA W/ BIPAP Denies: Hx Asthma, Hx Chronic Bronchitis, Hx Chronic Obstructive Pulmonary Disease (COPD), Hx Cystic Fibrosis, Hx Lung Cancer, Hx Pleural Effusion, Hx Pneumonia, Hx Pulmonary Edema, Hx Pulmonary Embolism, Hx Seasonal Allergies GI History: Reports: Hx Gall Bladder Disease, Hx Gastroesophageal Reflux Disease , Hx Irritable Bowel, Other GI Disorders - diverticulitis Denies: Hx Cirrhosis, Hx Crohn's Disease, Hx Diverticulosis, Hx Gastrointestinal Bleed, Hx Hiatal Hernia, Hx Jaundice, Hx Obstructive Bowel, Hx Ileostomy, Hx Pyloric Stenosis, Hx Ulcer History: Reports: Hx Renal Disease - abnormal gfr, Other Problems/ Disorders - Burning on urination Denies: Hx Dialysis Musculoskeletal History: Reports: Hx Arthritis, Hx Rheumatoid Arthritis - WAS TREATED FOR IT, THEN STOPPED HER MEDS, Hx Back Problems, Hx Bursitis - Hip, Other Musculoskeletal History - ARTHRITIS LEFT HIP Denies: Hx Fibromyalgia, Hx Gout, Hx Orthopedic Injury, Hx Osteoporosis, Hx Scoliosis, Hx Tendonitis Sensory History: Reports: Hx Contacts or Glasses Denies: Hx Cataracts, Hx Eye Injury, Hx Eye Prosthesis, Hx Glaucoma, Hx Legally Blind, Hx Macular Degeneration, Hx Vision Problem, Hx Deafness, Hx Hearing Aid, Hx Hearing Problem, Other Sensory Impairments Opthamlomology History: Reports: Hx Contacts or Glasses Denies: Hx Cataracts, Hx Eye Injury, Hx Eye Prosthesis, Hx Glaucoma, Hx Legally Blind, Hx Macular Degeneration, Hx Vision Problem, Other Sensory Impairments Neurological History: Reports: Hx Headaches - CHRONIC CLUSTER GARCIA, Hx Migraine Denies: Hx Dementia, Hx Developmental Delay, Hx Seizures, Hx Spinal Cord Injury, Hx Transient Ischemic Attacks (TIA), Other Neuro Impairments/Disorders Psychiatric History: Reports: Hx Depression Denies: Hx Anxiety, Hx Panic Disorder - Cancer History Hx Chemotherapy: No Hx Radiation Therapy: No - Surgical History Surgery Procedure, Year, and Place: CHOLECYESTOMY [facility], DEVIATED SEPTUM [facility] COLECTOMY Hx Anesthesia Reactions: No - Immunization History Date of Tetanus Vaccine: unknown Date of Influenza Vaccine: utd Infectious Disease History: No Infectious Disease History: Denies: Hx Clostridium Difficile, Hx Hepatitis, Hx Human Immunodeficiency Virus (HIV), Hx of Known/Suspected MRSA, Hx Shingles, Hx Tuberculosis, History Other Infectious Disease, Traveled Outside the [place] in Last 30 Days - Family History Known Family History: Positive: Other - COPD, AFIB - Social History Alcohol Use: None Hx Substance Use: No Substance Use Type: Reports: None Hx Tobacco Use: No Smoking Status (MU): Never Smoked Tobacco Have You Smoked in the Last Year: No Review of Systems Positive: Abdominal Pain - lower, Nausea, Other - increasingly freqeunt bowel movements. Negative: Diarrhea Positive: Syncope All Other Systems Reviewed And Are Negative: Yes Physical Exam - Summary Physical Exam Summary: Appearance: The patient is well-nourished in no acute distress and in no acute pain. Skin: The skin is warm and dry and skin color reflects adequate perfusion. HEENT: The head is normocephalic and atraumatic. The pupils are equal and reactive. The conjunctivae are clear and without drainage. Nares are patent and without drainage. Mouth reveals moist mucous membranes and the throat is without erythema and exudate. The external ears are intact. The ear canals are patent and without drainage. The tympanic membranes are intact. Neck: The neck is supple with full range of motion and non-tender. There are no carotid bruits. There is no neck vein distension. Respiratory: Chest is non-tender. Lungs are clear to auscultation and breath sounds are symmetrical and equal. Cardiovascular: Heart is regular rate and rhythm. There is no murmur or rub auscultated. There is no peripheral edema and pulses are symmetrical and equal. Abdomen: Tenderness in LLQ Musculoskeletal: There is no back tenderness noted. Extremities are non-tender with full range of motion. There is good capillary refill. There is no peripheral edema or calf tenderness elicited. Neurological: Patient is alert and oriented to person, place and time. The patient has symmetrical motor strength in all four extremities. Cranial nerves are grossly intact. Deep tendon reflexes are symmetrical and equal in all four extremities. Psychiatric: The patient has an appropriate affect and does not exhibit any anxiety or depression. Triage Information Reviewed: Yes Vital Signs On Initial Exam: Initial Vitals Temp Pulse Resp BP Pulse Ox 98.0 F 63 18 95/66 97 01/22/18 08:32 01/22/18 08:32 01/22/18 08:32 01/22/18 08:32 01/22/18 08:32 Vital Signs Reviewed: Yes Diagnostics - Vital Signs Vital Signs Temp Pulse Resp BP Pulse Ox 01/22/18 08:32 98.0 F 63 18 95/66 97 - Laboratory Result Diagrams: 01/22/18 09:25 01/22/18 09:25 Lab Statement: Any lab studies that have been ordered have been reviewed, and results considered in the medical decision making process. - CT Abd/Pel CT Interpretation Completed By: Radiologist - ATHEROSCLEROSIS. STATUS POST CHOLECYSTECTOMY. NO ACUTE NONCONTRAST CT PATHOLOGY OF THE VISUALIZED ABDOMEN OR PELVIS. ED physician has reviewed this report. Re-Evaluation - Re-Evaluation First Eval Re-Evaluation Time: 11:09 Comment: Patient informed on results that have come back. Urine still needs to be collected. Second Eval Re-Evaluation Time: 12:38 Comment: Patient informed of negative urine. Discussed discharge instructions. Patient is agreeable to discharge. Course/Dx Course Of Treatment: Ms. Saez presents complaining that she was moving her bowels profusely of formed stool this morning when she became lightheaded. She also complains of left lower quadrant pain with movement and when she was moving her bowels. The only symptom remaining is the left lower quadrant pain. She was mildly tender in the left lower quadrant and no hernia was appreciated. Labs and CT were within normal limits. She has been working a lot around the house trying to get it ready for visit by her grandchildren. I think this is a musculoskeletal pain and recommended rest and follow-up if not improved. - Diagnoses Provider Diagnoses: Abdominal pain Discharge - Sign-Out/Discharge Documenting (check all that apply): Patient Departure - Discharge - Discharge Plan Condition: Stable Disposition: HOME Patient Education Materials: Abdominal Pain (ED) Referrals: Nichelle Burgess MD [Primary Care Provider] - 3 Days Additional Instructions: Follow up with your primary care provider in 3 days. Return to the Emergency Department for new or worsening symptoms. - Billing Disposition and Condition Condition: STABLE Disposition: Home
[2018-01-22 09:40] LABS: ABS Basophils 0 10^3/ul (0-0.2); ABS Eosinophils 0 10^3/ul (0-0.6); ABS Lymphocytes 1.3 10^3/ul (1.0-4.8); ABS Monocytes 0.6 10^3/ul (0-0.8); ABS Nucleated RBC 0 10^3/ul; Eosinophil % 0.4 % (0-6); Hematocrit 32 % (35-47); Mean Corpuscular HGB Conc 35 g/dl (31-36); Mean Corpuscular Hemoglobin 35 pg (27-31); Mean Corpuscular Volume 102 fL (80-97); Mean Platelet Volume 6.7 um3 (7.4-10.4); Nucleated Red Blood Cells % 0; Platelet Count 217 10^3/ul (150-450); Red Blood Count 3.11 10^6/ul (4.00-5.40); Red Cell Distribution Width 13 % (10.5-15)
--- NOTE | 2018-01-22 09:53 | RAD ---
CLINICAL HISTORY: LLQ pain COMPARISON: October 18, 2014 TECHNIQUE: Multiple contiguous axial CT scans were obtained of the abdomen and pelvis, without intravenous contrast enhancement. Coronal and sagittal multiplanar reformations are submitted for review. Oral contrast was not administered. FINDINGS: The study is limited by the lack of intravenous contrast. This limits evaluation of the solid organs and vasculature. LUNG BASES: The lung bases are clear. LIVER: The liver is normal in shape, size, contour, and attenuation. BILE DUCTS: There is no intrahepatic or extrahepatic biliary dilatation. GALLBLADDER: The gallbladder is not visualized. Surgical clips are noted in the gallbladder fossa. PANCREAS: The pancreas is normal, without mass or ductal dilatation. SPLEEN: Normal in size and appearance. UPPER GI TRACT: Evaluation of the gastrointestinal tract is limited by incomplete gastric distention. The upper GI tract is unremarkable. SMALL BOWEL AND MESENTERY: The small bowel is normal in contour, course, and caliber. There is no obstruction or dilatation. COLON: The colon is normal in contour, course, caliber. There is no pericolonic inflammatory change. There is postsurgical change to the transverse colon. The patient appears to be status post left hemicolectomy. ADRENALS: Normal bilaterally. KIDNEYS: There are simple cysts of the kidneys bilaterally. Vascular calcifications are noted of the kidneys. There is no appreciable ureteral calculus or hydronephrosis. BLADDER: The bladder is smooth in contour. PELVIC ORGANS: The uterus and adnexa are grossly normal for technique. AORTA: There is calcific atherosclerotic disease of the abdominal aorta and its branches, without aneurysmal dilatation IVC: Unremarkable LYMPH NODES: There is no lymphadenopathy by size criteria. ABDOMINAL WALL: There is no evidence for abdominal wall hernia. BONES AND SOFT TISSUES: Mild degenerative changes are noted of the spine most pronounced at L4-L5. There is mild osteoarthritis of the hips. OTHER: None IMPRESSION: ATHEROSCLEROSIS. STATUS POST CHOLECYSTECTOMY. NO ACUTE NONCONTRAST CT PATHOLOGY OF THE VISUALIZED ABDOMEN OR PELVIS..
[2018-01-22 10:02] LABS: EGFR Non-African American 36.5 (>60)
[2018-01-22] MEDS ORDERED: Ibuprofen TAB* 600 MG PO ONE (10:21)
[2018-01-22 11:45] LABS: Urine Appearance Cloudy; Urine Blood Negative (Negative); Urine Color Yellow; Urine Ketones Negative (Negative); Urine Protein Negative (Negative); Urine Specific Gravity 1.011 (1.010-1.030); Urine Urobilinogen Negative (Negative)
[2018-01-22 12:57] VITALS: BP 116/56
== END 2018-01-22 12:55 | disposition home or self-care (01) ==
LOC: ED 08:28
DX: R10.32 Left lower quadrant pain (principal); R55 Syncope and collapse; I11.0 Hypertensive heart disease with heart failure; I50.9 Heart failure, unspecified; I70.0 Atherosclerosis of aorta; Z79.899 Other long term (current) drug therapy; Z90.49 Acquired absence of other specified parts of digestive tract; Z88.8 Allergy status to other drugs, medicaments and biological substances; Z88.0 Allergy status to penicillin
CPT/HCPCS: 36415; 74176; 80053; 81003; 83605; 83690; 84484; 85025; 86140; 99284; A9270-GY

== ENCOUNTER 2018-03-17 14:46 | Inpatient (IN) | payer MEDICARE, OTHER ==
[2018-03-17] MEDS ORDERED: Nitroglycerin 2% OINT* 1 GM PAK TOPICAL ONE (15:03)
[2018-03-17] MEDS ORDERED: Aspirin 81 mg CHEW TAB* 81 MG TAB.CHEW PO ONE (15:03)
[2018-03-17] MEDS ORDERED: Nitroglycerin TAB 0.4 MG* 0.4 MG TAB SL ONE (15:03)
[2018-03-17 15:29] LABS: ABS Basophils 0 10^3/ul (0-0.2); ABS Eosinophils 0 10^3/ul (0-0.6); ABS Lymphocytes 1.3 10^3/ul (1.0-4.8); ABS Monocytes 0.3 10^3/ul (0-0.8); ABS Neutrophils 3.3 10^3/ul (1.5-7.7); ABS Nucleated RBC 0 10^3/ul; Eosinophil % 0.3 % (0-6); Hematocrit 26 % (35-47); Lymphocyte % 25.5 % (25-47); Mean Corpuscular HGB Conc 34 g/dl (31-36); Mean Corpuscular Hemoglobin 32 pg (27-31); Mean Corpuscular Volume 94 fL (80-97); Mean Platelet Volume 6.8 um3 (7.4-10.4); Nucleated Red Blood Cells % 0.1; Platelet Count 266 10^3/ul (150-450); Red Cell Distribution Width 14 % (10.5-15); White Blood Count 4.9 10^3/ul (3.5-10.8)
[2018-03-17 15:33] LABS: INR 0.8 (0.77-1.02)
--- NOTE | 2018-03-17 15:41 | RAD ---
INDICATION: Chest pain. COMPARISON: Comparison is made with a prior study from February 28, 2017 and an exam from July 04, 2017. TECHNIQUE: A portable view of the chest was obtained. FINDINGS: Cardiac and mediastinal contours appear to be within normal limits. There is mild prominence of the interstitial markings which is unchanged from the prior studies. The lungs are otherwise clear. No pleural effusion is seen. IMPRESSION: NO EVIDENCE FOR ACUTE DISEASE.
[2018-03-17] MEDS ORDERED: Metoprolol Tartrate IV* 1 MG/ML 5 ML VIAL IV ONE (16:06)
[2018-03-17 16:58] LABS: Urine Appearance Clear; Urine Blood Negative (Negative); Urine Color Straw; Urine Ketones Negative (Negative); Urine Protein Negative (Negative); Urine Specific Gravity 1.005 (1.010-1.030); Urine Urobilinogen Negative (Negative)
--- NOTE | 2018-03-17 17:21 | ED ---
HPI Chest Pain - HPI Summary HPI Summary: Patient is a 72 y/o F w/ c/o chest pain gradually worsening over the past two weeks. She states that chest pain radiates to left arm and right jaw. She also reports SOB. SOB is aggravated by walking, chest pain is noted to be aggravated by walking up/down stairs. Patient was seen by PCP recently. EKG and bloodwork was done; EKG was normal, patient had negative d-dimer. Patient is scheduled for nuclear stress test, but this is not until 03/29/18. Patient's reports BP was 200/110 for patient this morning. In the room, patient notes that she is experiencing some chest tightening presently. Patient took a baby ASA today. She denies abdominal pain and BLE edema. Patient is not diabetic but takes lasix as needed for swelling. She reports an episode of drug induced CHF. Patient does not take opiates. She is on prednisone, 10 mg as well as lyrica. On triage, pain is rated 7/10, nothing is noted to aggravate/alleviate Sx. Home medications and allergies reviewed. - History of Current Complaint Chief Complaint: EDChestPainROMI Time Seen by Provider: 03/17/18 14:56 Hx Obtained From: Patient Onset/Duration: Started Weeks Ago - two weeks ago Timing: Constant, Lasting Days - 2 weeks Current Severity: Severe - 7/10 Pain Intensity: 7 Pain Scale Used: 0-10 Numeric - 7/10 Chest Pain Location: Diffuse Chest Pain Radiates: Yes Chest Pain Radiates To:: Arm - left, Jaw - right Character: Tightness - in room, described as tightness Aggravating Factor(s): Other: - walking aggravates SOB, going up/down stairs aggravates chest pain Alleviating Factor(s): Nothing Associated Signs and Symptoms: Positive: Chest Pain, Shortness of Breath, Other : - right jaw pain, left arm pain, high BP. Negative: Swelling, Abdominal Pain - Additional Pertinent History Primary Care Physician: [id number] - Allergy/Home Medications Allergies/Adverse Reactions: Allergies Allergy/AdvReac Type Severity Reaction Status Date / Time Penicillins Allergy Intermediate Rash And Verified 03/17/18 15:56 Itching oxycodone Allergy Altered Verified 03/17/18 15:58 Mental Status Home Medications: Home Medications Lidocaine 2% VISCOUS* [Xylocaine 2% Viscous*] 15 ml SWISH SPIT DAILY 03/17/18 [ History Confirmed 03/17/18] Melatonin 15 mg PO BEDTIME 03/17/18 [History Confirmed 03/17/18] PMH/Surg Hx/FS Hx/Imm Hx Endocrine/Hematology History: Reports: Hx Thyroid Disease, Hx Anemia Denies: Hx Diabetes, Hx Unexplained Bleeding Comment Only: Other Endocrine/Hematological Disorders - hypothalmus related headaches Cardiovascular History: Reports: Hx Angina, Hx Congestive Heart Failure - HX OF D/T DRUG REACTION, Hx Hypertension Denies: Hx Aneurysm, Hx Angioplasty, Hx Auto Implanted Cardiovert Defib, Hx Cardiac Arrest, Hx Cardiomegaly, Hx Congenital Heart Disease, Hx Coronary Artery Disease, Hx Deep Vein Thrombosis, Hx Hypercholesterolemia, Hx Hypotension , Hx Pacemaker/ICD, Hx Peripheral Vascular Disease, Hx Rheumatic Fever, Hx Syncope, Hx Valvular Heart Disease, Other Cardiovascular Problems/Disorders Respiratory History: Reports: Hx Sleep Apnea - Bipap, Other Respiratory Problems /Disorders - SLEEP APNEA W/ BIPAP Denies: Hx Asthma, Hx Chronic Bronchitis, Hx Chronic Obstructive Pulmonary Disease (COPD), Hx Cystic Fibrosis, Hx Lung Cancer, Hx Pleural Effusion, Hx Pneumonia, Hx Pulmonary Edema, Hx Pulmonary Embolism, Hx Seasonal Allergies GI History: Reports: Hx Gall Bladder Disease, Hx Gastroesophageal Reflux Disease , Hx Irritable Bowel, Other GI Disorders - diverticulitis Denies: Hx Cirrhosis, Hx Crohn's Disease, Hx Diverticulosis, Hx Gastrointestinal Bleed, Hx Hiatal Hernia, Hx Jaundice, Hx Obstructive Bowel, Hx Ileostomy, Hx Pyloric Stenosis, Hx Ulcer History: Reports: Hx Renal Disease - abnormal gfr, Other Problems/ Disorders - Burning on urination Denies: Hx Dialysis Musculoskeletal History: Reports: Hx Arthritis, Hx Rheumatoid Arthritis - WAS TREATED FOR IT, THEN STOPPED HER MEDS, Hx Back Problems, Hx Bursitis - Hip, Other Musculoskeletal History - ARTHRITIS LEFT HIP Denies: Hx Fibromyalgia, Hx Gout, Hx Orthopedic Injury, Hx Osteoporosis, Hx Scoliosis, Hx Tendonitis Sensory History: Reports: Hx Contacts or Glasses Denies: Hx Cataracts, Hx Eye Injury, Hx Eye Prosthesis, Hx Glaucoma, Hx Legally Blind, Hx Macular Degeneration, Hx Vision Problem, Hx Deafness, Hx Hearing Aid, Hx Hearing Problem, Other Sensory Impairments Opthamlomology History: Reports: Hx Contacts or Glasses Denies: Hx Cataracts, Hx Eye Injury, Hx Eye Prosthesis, Hx Glaucoma, Hx Legally Blind, Hx Macular Degeneration, Hx Vision Problem, Other Sensory Impairments Neurological History: Reports: Hx Headaches - CHRONIC CLUSTER GARCIA, Hx Migraine Denies: Hx Dementia, Hx Developmental Delay, Hx Seizures, Hx Spinal Cord Injury, Hx Transient Ischemic Attacks (TIA), Other Neuro Impairments/Disorders Psychiatric History: Reports: Hx Depression Denies: Hx Anxiety, Hx Panic Disorder - Cancer History Hx Chemotherapy: No Hx Radiation Therapy: No - Surgical History Surgery Procedure, Year, and Place: CHOLECYESTOMY [facility], DEVIATED SEPTUM [facility] COLECTOMY Hx Anesthesia Reactions: No - Immunization History Date of Tetanus Vaccine: unknown Date of Influenza Vaccine: utd Infectious Disease History: No Infectious Disease History: Denies: Hx Clostridium Difficile, Hx Hepatitis, Hx Human Immunodeficiency Virus (HIV), Hx of Known/Suspected MRSA, Hx Shingles, Hx Tuberculosis, History Other Infectious Disease, Traveled Outside the [place] in Last 30 Days - Family History Known Family History: Positive: Other - COPD, AFIB - Social History Alcohol Use: None Hx Substance Use: No Substance Use Type: Reports: None Hx Tobacco Use: No Smoking Status (MU): Never Smoked Tobacco Have You Smoked in the Last Year: No Review of Systems Positive: Chest Pain, Other - high BP Positive: Shortness Of Breath Negative: Abdominal Pain Positive: Other - chest pain radiates to left arm and right jaw . Negative: Edema All Other Systems Reviewed And Are Negative: Yes Physical Exam - Summary Physical Exam Summary: Appearance: Well appearing, no pain distress Skin: warm, dry, reflects adequate perfusion Head/face: normal Eyes: EOMI, SONAM ENT: normal Neck: supple, non-tender, no JVD Respiratory: CTA, breath sounds present Cardiovascular: RRR, pulses symmetrical Abdomen: non-tender, soft Bowel Sounds: present Musculoskeletal: strength/ROM intact; bounding pulses, no BLE edema Neuro: normal, sensory motor intact, A&Ox3 Triage Information Reviewed: Yes Vital Signs On Initial Exam: Initial Vitals Temp Pulse Resp BP Pulse Ox 97.7 F 102 16 163/74 97 03/17/18 14:53 03/17/18 14:53 03/17/18 14:53 03/17/18 14:53 03/17/18 14:53 Vital Signs Reviewed: Yes Diagnostics - Vital Signs Vital Signs Temp Pulse Resp BP Pulse Ox 03/17/18 16:10 87 14 152/79 94 03/17/18 16:03 99 18 143/88 96 03/17/18 16:00 25 03/17/18 15:55 94 03/17/18 15:40 90 14 159/87 97 03/17/18 15:11 89 25 162/86 97 03/17/18 15:09 89 25 97 03/17/18 14:53 97.7 F 102 16 163/74 97 - Laboratory Lab Results: Lab Results 03/17/18 03/17/18 03/17/18 Range/Units 15:17 15:17 15:17 WBC 4.9 (3.5-10.8) 10^3/ul RBC 2.80 L (4.00-5.40) 10^6/ul Hgb 9.0 L (12.0-16.0) g/dl Hct 26 L (35-47) % MCV 94 (80-97) fL MCH 32 H (27-31) pg MCHC 34 (31-36) g/dl RDW 14 (10.5-15) % Plt Count 266 (150-450) 10^3/ul MPV 6.8 L (7.4-10.4) um3 Neut % (Auto) 66.9 (38-83) % Lymph % (Auto) 25.5 (25-47) % Fergus % (Auto) 6.5 (0-7) % Eos % (Auto) 0.3 (0-6) % Baso % (Auto) 0.8 (0-2) % Absolute Neuts (auto) 3.3 (1.5-7.7) 10^3/ul Absolute Lymphs (auto) 1.3 (1.0-4.8) 10^3/ul Absolute Monos (auto) 0.3 (0-0.8) 10^3/ul Absolute Eos (auto) 0 (0-0.6) 10^3/ul Absolute Basos (auto) 0 (0-0.2) 10^3/ul Absolute Nucleated RBC 0 10^3/ul Nucleated RBC % 0.1 INR (Anticoag Therapy) 0.80 (0.77-1.02) Sodium 131 L (135-145) mmol/L Potassium 4.2 (3.5-5.0) mmol/L Chloride 100 L (101-111) mmol/L Carbon Dioxide 23 (22-32) mmol/L Anion Gap 8 (2-11) mmol/L BUN 14 (6-24) mg/dL Creatinine 0.95 (0.51-0.95) mg/dL Est GFR ( Amer) 70.2 (>60) Est GFR (Non-Af Amer) 58.0 (>60) BUN/Creatinine Ratio 14.7 (8-20) Glucose 126 H (70-100) mg/dL Lactic Acid (0.5-2.0) mmol/L Calcium 8.6 (8.6-10.3) mg/dL Total Bilirubin 0.30 (0.2-1.0) mg/dL AST 19 (13-39) U/L ALT 19 (7-52) U/L Alkaline Phosphatase 62 (34-104) U/L Troponin I 0.00 (<0.04) ng/mL B-Natriuretic Peptide ( - 100) pg/mL Total Protein 6.1 L (6.4-8.9) g/dL Albumin 4.0 (3.2-5.2) g/dL Globulin 2.1 (2-4) g/dL Albumin/Globulin Ratio 1.9 (1-3) 03/17/18 03/17/18 Range/Units 15:17 15:17 WBC (3.5-10.8) 10^3/ul RBC (4.00-5.40) 10^6/ul Hgb (12.0-16.0) g/dl Hct (35-47) % MCV (80-97) fL MCH (27-31) pg MCHC (31-36) g/dl RDW (10.5-15) % Plt Count (150-450) 10^3/ul MPV (7.4-10.4) um3 Neut % (Auto) (38-83) % Lymph % (Auto) (25-47) % Fergus % (Auto) (0-7) % Eos % (Auto) (0-6) % Baso % (Auto) (0-2) % Absolute Neuts (auto) (1.5-7.7) 10^3/ul Absolute Lymphs (auto) (1.0-4.8) 10^3/ul Absolute Monos (auto) (0-0.8) 10^3/ul Absolute Eos (auto) (0-0.6) 10^3/ul Absolute Basos (auto) (0-0.2) 10^3/ul Absolute Nucleated RBC 10^3/ul Nucleated RBC % INR (Anticoag Therapy) (0.77-1.02) Sodium (135-145) mmol/L Potassium (3.5-5.0) mmol/L Chloride (101-111) mmol/L Carbon Dioxide (22-32) mmol/L Anion Gap (2-11) mmol/L BUN (6-24) mg/dL Creatinine (0.51-0.95) mg/dL Est GFR ( Amer) (>60) Est GFR (Non-Af Amer) (>60) BUN/Creatinine Ratio (8-20) Glucose (70-100) mg/dL Lactic Acid 1.8 (0.5-2.0) mmol/L Calcium (8.6-10.3) mg/dL Total Bilirubin (0.2-1.0) mg/dL AST (13-39) U/L ALT (7-52) U/L Alkaline Phosphatase (34-104) U/L Troponin I (<0.04) ng/mL B-Natriuretic Peptide 190 H ( - 100) pg/mL Total Protein (6.4-8.9) g/dL Albumin (3.2-5.2) g/dL Globulin (2-4) g/dL Albumin/Globulin Ratio (1-3) Result Diagrams: 03/17/18 15:17 03/17/18 15:17 Lab Statement: Any lab studies that have been ordered have been reviewed, and results considered in the medical decision making process. - Radiology CXR Xray Interpretation: No Acute Changes Radiology Interpretation Completed By: Radiologist - no evidence for acute disease; this report was reviewed by ED physician - EKG 1502 Cardiac Rate: NL - rate of 96 bpm EKG Rhythm: Sinus Rhythm ST Segment: Normal EKG Interpretation: left axis deviation, q waves in lead 3 and avf Re-Evaluation - Re-Evaluation First Eval Re-Evaluation Time: 16:02 Comment: Discussed results of labs and tests with patient; she will be admitted to [facility] [place] for further workup. She understands and is agreeable with this plan. Chest Pain Course/Dx - Course Course Of Treatment: Patient with exertional chest discomfort and shortness of breath. Blood pressure is elevated. She was treated here with beta yann, nitroglycerin and aspirin and did not have any recurrence of her symptoms. Concern is for anginal pain. Initial troponin, EKG is nondiagnostic for ST elevation AR. Hospitalist contacted and will evaluate the patient in the ER for admission to telemetry. Patient did have a negative d-dimer study outpatient yesterday. - Chest Pain Differential Diagnosis/HQI/PQRI: Acute AR, ACS, Angina, CHF, Chest Wall, GI Disease, Lower Respiratory Infection, Pulmonary Edema, Pulmonary Embolism - Diagnoses Provider Diagnoses: Anemia, Angina effort, Chest pain - Provider Notifications Discussed Care Of Patient With: Sisi Aldana Time Discussed With Above Provider: 16:13 Instructed by Provider To: Other - Dr. Aldana was consulted on patient's case; Jovan accepts for admission to [facility] [place] - Critical Care Time Critical Care Time: 30-74 min - Critical care time is exclusive of separately billable procedures Discharge - Sign-Out/Discharge Documenting (check all that apply): Patient Departure - admit All imaging exams completed and their final reports reviewed: Yes - Discharge Plan Condition: Good Disposition: ADMITTED TO [facility] - Billing Disposition and Condition Condition: GOOD Disposition: Admitted to [facility] - Attestation Statements Document Initiated by Raeann: Yes Documenting Scribe: Bari Austin Provider For Whom Raeann is Documenting (Include Credential): Timmy Santos MD Scribe Attestation: Bari Dubois, scribed for Timmy Santos MD on 03/17/18 at 1931. Scribe Documentation Reviewed: Yes Provider Attestation: The documentation as recorded by the [email or web address] bedoya accurately reflects the service I personally performed and the decisions made by me, Timmy Santos MD
[2018-03-17] MEDS ORDERED: Nitroglycerin TAB 0.4 MG* 0.4 MG TAB SL PRN (17:26)
[2018-03-17] MEDS: Acetaminophen TAB* 325 MG PO PRN (20:38)
[2018-03-17] MEDS: Topiramate TAB(*) 100 MG PO SCH (20:53)
[2018-03-17] MEDS: Metoprolol Tartrate TAB* 25 MG PO SCH (20:54)
[2018-03-17] MEDS: Potassium Chlor TAB* 10 MEQ TAB.ER PO SCH (20:54)
[2018-03-17] MEDS: OXcarbazepine TAB(*) 300 MG PO SCH (20:55)
[2018-03-17] MEDS: Gabapentin CAP(*) 300 MG PO SCH (20:56)
[2018-03-17] MEDS: Pregabalin CAP(*) 100 MG PO SCH (20:56)
[2018-03-17] MEDS: Lidocaine Patch REMOVE* 1 NOTE MISC PATCH OFF SCH (20:59)
[2018-03-17] MEDS ORDERED: Memantine XR CAP* 28 MG CAP.XR PO SCH (21:00)
[2018-03-17] MEDS: Verapamil TAB* 120 MG PO SCH (21:24)
[2018-03-17] MEDS: Heparin VIAL(*) 5000 UNITS/ML VIAL (FIVE THOUSAND) SUBCUT SCH (21:24)
[2018-03-17] MEDS ORDERED: PTO: ELETRIPTAN 40 MG (NF) PO PRN (21:28)
--- NOTE | 2018-03-17 22:21 | HP ---
CC: Dr. Burgess; Dr. Root; Dr. Altamirano * HOSPITAL MEDICINE HISTORY AND PHYSICAL: DATE OF ADMISSION: 03/17/18 PRIMARY CARE PHYSICIAN: Dr. Burgess. RUBBER FACTORY WORKER: Dr. Root. CLINICAL MARKETING MANAGER: Dr. Altamirano. ATTENDING PHYSICIAN: Dr. Sisi Dudley * (dictation provided by Isha Quach NP ). CHIEF COMPLAINT: Worsening chest pain and dyspnea on exertion. HISTORY OF PRESENT ILLNESS: Ms. Saez is a 72-year-old female with a past medical history of polymyalgia rheumatica, on chronic prednisone therapy, as well as paroxysmal atrial fibrillation associated with illnesses, trigeminal neuralgia, cluster headaches, fibromyalgia, and hypertension. She was last admitted to our hospital in July 2017, at which time she had septic shock secondary to pneumonia as well as atrial fibrillation. During that admission, she had a troponin peak of 8.49, which was suspected secondary to AFib and septic shock requiring pressors. She states that in the middle of January, she followed up with Dr. Altamirano because she was having a PMR flare and severe headaches. Because of the pain with these illnesses, she has been less active. By 03/03/18, these symptoms had improved quite significantly and therefore she was becoming more active again. With her new activity, she noticed that she was much more short of breath than usual. She would notice that she was very short of breath walking up stairs for instance. The patient saw her wood window and door craftsman's nurse practitioner on 03/15/18 for routine 9-month followup and at that time described to her the new dyspnea on exertion and plans were made for check of a D-dimer (which was negative) and EKG and then for the patient to go on for a stress test. This was scheduled for approximately 1-1/2 weeks from then. In the interim time, Ms. Saez had noted that she was having worsening shortness of breath with exertion and now developing chest pain. She describes feeling short of breath even with just standing from her chair. This also has now become associated with chest pain that radiates from the right side of her chest to the left side of the chest and up into her jaw. She states the pain is relived with resting. She denies nausea or diaphoresis. She states she is currently pain-free. She denies any other acute complaints. She has had no fever, no chills, no cough. No nausea, vomiting, diarrhea, abdominal pain. In the emergency room, Ms. Saez had labs, which showed a troponin of 0.00 and EKG, which showed no evidence of ischemia. Again, she is chest pain-free. Other labs were remarkable only for anemia, which is down from her last check on 01/22/18; however, she has had a chronic intermittent anemia going back to at least 2011, which she suggests is due to difficulty absorbing iron. PAST MEDICAL HISTORY: 1. Polymyalgia rheumatica, on prednisone. 2. History of atrial fibrillation with illness. 3. Trigeminal neuralgia. 4. Cluster headaches. 5. Fibromyalgia. 6. Hypertension. 7. Obstructive sleep apnea. 8. GERD. 9. Depression. 10. Restless legs syndrome. MEDICATIONS: Outpatient are: 1. Melatonin 15 mg p.o. at bedtime. 2. Cholecalciferol 5000 units p.o. daily. 3. Acetaminophen 650 mg p.o. q.6 hours p.r.n. 4. Relpax 40 mg p.o. daily p.r.n. 5. Cyanocobalamin 2500 mcg p.o. daily. 6. Lactobacillus 1 cap p.o. daily. 7. Gabapentin 300 mg p.o. four times daily. 8. Namenda XR 56 mg p.o. b.i.d. 9. Verapamil 120 mg p.o. t.i.d. 10. Topamax 200 mg p.o. at bedtime. 11. Trileptal 150 mg p.o. b.i.d. 12. Multivitamin with mineral 1 tab p.o. daily. 13. Actemra 1 syringe IM weekly. 14. Prevacid 30 mg p.o. daily. 15. Cymbalta DR 90 mg p.o. daily. 16. Lisinopril 5 mg p.o. daily. 17. Voltaren 1% gel applied q.i.d. p.r.n. 18. Viscous lidocaine 2% swish and spit daily. 19. Lasix 20 mg p.o. daily p.r.n. 20. Lidocaine patch 5% daily. 21. Pregabalin 100 mg p.o. t.i.d. 22. Tizanidine 2 mg p.o. b.i.d. p.r.n. 23. Potassium chloride 10 mEq p.o. b.i.d. 24. Prednisone 10 mg p.o. daily. ALLERGIES: To PENICILLINS and OXYCODONE. FAMILY HISTORY: The patient reports her mother had PMR and related to stroke. Father at 86 from heart attack. SOCIAL HISTORY: No report of alcohol, tobacco, or drug use. She lives with her , who will be the healthcare proxy. REVIEW OF SYSTEMS: A 14-point review of systems was completed with Ms. Saez and all those not mentioned above were negative. PHYSICAL EXAMINATION GENERAL: Ms. Saez is lying in the bed. She is in good spirits and in no acute distress. VITAL SIGNS: Temperature 97.9, pulse rate 70, respiratory rate 13, O2 saturation 96% on room air. The patient's blood pressure has run from current value of 137/72, but has gone as high as 211/102. LUNGS: Clear to auscultation bilaterally with no accessory muscle use and good aeration. HEART: S1, S2. No murmur, rub, or gallop and regular. ABDOMEN: Soft, nontender with bowel sounds positive x4. EXTREMITIES: No cyanosis or edema. NEURO: She is alert. She is oriented x3. She moves all extremities equally. There is no facial asymmetry or focal weakness. Extraocular movements are intact. SKIN: Intact. DIAGNOSTIC STUDIES/LAB DATA: WBC 4.9, hemoglobin 9.0, hematocrit 26, platelet count 266. INR 0.80. Sodium 131, potassium 4.2, chloride 100, serum bicarbonate 23, BUN 14, creatinine of 0.95, glucose 126, lactic acid 1.8. Troponin 0.00. BNP 190. Urine shows no evidence of infection. EKG shows sinus rhythm with a heart rate of about 90 and no evidence of ischemia. Chest x-ray shows no acute process. ASSESSMENT AND PLAN: Ms. Saez is a 72-year-old female with a past medical history of atrial fibrillation paroxysmally and non-ST elevation myocardial infarction in the setting of septic shock in July 2017; polymyalgia rheumatica, on prednisone; trigeminal neuralgia and cluster headaches as well as hypertension, who presents to the hospital with concern for worsening dyspnea on exertion and chest pain. Our plans are for inpatient admission as I expect her length of stay to be greater than 2 days for the followin. Worsening chest pain and dyspnea on exertion. The patient's symptoms are consistent with unstable angina. She has been scheduled for an outpatient stress test, but due to her worsening unstable symptoms, she needs to be admitted to the hospital until stress testing can be performed on Monday. At this time, her first troponin is negative and her EKG is negative. She is chest pain-free. If she develops chest pain especially in the setting of an elevated troponin or EKG changes, we will consider initiation of heparin and a statin in addition aspirin which she is now on. I do plan to add low dose metoprolol for elevated blood pressure now. She will be monitored on telemetry unit. We will be rechecking an additional 2 troponins. 2. Hypertension. The patient's blood pressure has been erratic in the ED running from 130 to 200. I suspect if this is due to stress. Plan to continue her home lisinopril and verapamil and we can add additional agents as needed. I plan to start a low dose metoprolol given her elevated BP and her symptoms of unstable angina at 12.5 mg q.12 hours. 3. Anemia. According to the record, Dr. Reagan documents that the patient has a myelodysplasia. I cannot find any other documentation to that effect, but I do see where the patient has followed with Dr. Styles and I do see that she has had chronic intermittent anemia. Plan to monitor with repeat check tomorrow. She has no evidence of acute bleed and no report of dark tarry stools. 4. Chronic pain with fibromyalgia, polymyalgia rheumatica, trigeminal neuralgia , and cluster headaches. Plan to continue the patient's home medication regimen of topiramate, pregabalin, prednisone, lidocaine patch, gabapentin, duloxetine. 5. DVT prophylaxis: Heparin subcu. 6. Code status is full code. TIME SPENT: Approximately 60 minutes was spent on the admission of this patient , more than half the time spent with the patient at the bedside reviewing the events leading up to this hospitalization, performing the physical examination, and reviewing my plan of care. ISHA QUACH NP [id number]/[facility] #: [id number] MONIK
[2018-03-18] MEDS: Heparin VIAL(*) 5000 UNITS/ML VIAL (FIVE THOUSAND) SUBCUT SCH ×3 (05:39→21:40)
[2018-03-18 05:53] LABS: ABS Basophils 0.1 10^3/ul (0-0.2); ABS Eosinophils 0.1 10^3/ul (0-0.6); ABS Lymphocytes 3.1 10^3/ul (1.0-4.8); ABS Monocytes 0.6 10^3/ul (0-0.8); ABS Neutrophils 2.1 10^3/ul (1.5-7.7); ABS Nucleated RBC 0 10^3/ul; Eosinophil % 1.7 % (0-6); Hematocrit 24 % (35-47); Hemoglobin 8.3 g/dl (12.0-16.0); Mean Corpuscular HGB Conc 34 g/dl (31-36); Mean Corpuscular Hemoglobin 32 pg (27-31); Mean Corpuscular Volume 94 fL (80-97); Mean Platelet Volume 6.9 um3 (7.4-10.4); Nucleated Red Blood Cells % 0.1; Platelet Count 248 10^3/ul (150-450); Red Cell Distribution Width 14 % (10.5-15)
[2018-03-18] MEDS: Aspirin 81 mg CHEW TAB* 81 MG TAB.CHEW PO SCH (07:56)
[2018-03-18] MEDS: Cholecalciferol TAB* 1000 UNITS PO SCH (07:57)
[2018-03-18] MEDS: DULoxetine DR CAP* 30 MG CAP.DR PO SCH (07:58)
[2018-03-18] MEDS: Gabapentin CAP(*) 300 MG PO SCH ×4 (07:58→21:34)
[2018-03-18] MEDS: Lisinopril TAB* 5 MG PO SCH (07:59)
[2018-03-18] MEDS: Memantine XR CAP* 28 MG CAP.XR PO SCH (08:00)
[2018-03-18] MEDS: predniSONE TAB* 10 MG PO SCH (08:03)
[2018-03-18] MEDS: Potassium Chlor TAB* 10 MEQ TAB.ER PO SCH ×2 (08:03→21:35)
[2018-03-18] MEDS: OXcarbazepine TAB(*) 300 MG PO SCH ×2 (08:03→21:39)
[2018-03-18] MEDS: Pregabalin CAP(*) 100 MG PO SCH ×3 (08:04→21:35)
[2018-03-18] MEDS: Verapamil TAB* 120 MG PO SCH ×3 (08:04→21:38)
[2018-03-18] MEDS: Acetaminophen TAB* 325 MG PO PRN ×2 (08:05→16:55)
[2018-03-18] MEDS: Lidocaine 2% VISCOUS* 15 ML UDC SWISH SPIT SCH (08:11)
[2018-03-18] MEDS: Lidocaine PATCH 5%* 1 PATCH TRANSDERM SCH (08:11)
[2018-03-18] MEDS: Lansoprazole susp Kit 3 MG/ML (30 MG = 10 ML) PO SCH (08:11)
[2018-03-18] MEDS ORDERED: NS 0.9% 1000 ML* 1,000 ML IV ONE (10:30)
[2018-03-18 10:32] LABS: ABS Basophils 0 10^3/ul (0-0.2); ABS Eosinophils 0.1 10^3/ul (0-0.6); ABS Lymphocytes 4.5 10^3/ul (1.0-4.8); ABS Monocytes 0.5 10^3/ul (0-0.8); ABS Nucleated RBC 0 10^3/ul; Eosinophil % 0.8 % (0-6); Hematocrit 26 % (35-47); Hemoglobin 8.6 g/dl (12.0-16.0); Lymphocyte % 44.4 % (25-47); Mean Corpuscular HGB Conc 34 g/dl (31-36); Mean Corpuscular Hemoglobin 32 pg (27-31); Mean Corpuscular Volume 96 fL (80-97); Mean Platelet Volume 6.7 um3 (7.4-10.4); Nucleated Red Blood Cells % 0.1; Platelet Count 266 10^3/ul (150-450); Red Blood Count 2.67 10^6/ul (4.00-5.40); Red Cell Distribution Width 14 % (10.5-15); White Blood Count 10.2 10^3/ul (3.5-10.8)
[2018-03-18 10:54] LABS: EGFR Non-African American 54.7 (>60)
--- NOTE | 2018-03-18 11:10 | PN ---
Hospitalist Progress Note Date of Service: 03/18/18 CAT CALL EVENT NOTE I was called into the room for Ms. Saez's heart rate of 40s when she was on the bathroom. I went in to the bathroom with her nurse Keith and she was able to answer my questions including name and location but she felt weak and also appeared quite weak. Her initial HR was in the 40s and her BP was 80s/40s. 1L NS was hung wide open and we helped her back to bed with full assistance. Her is here and says this has happened to her before in response to all her medications. I questioned which medications she usually takes in the morning and whether it is fewer than we have given her this morning, but they are both unsure. On physical exam, she is drowsy but awake, her face is symmetric, she follows all commands, strength is 5/5. HR is regular, lungs are clear, I see no JVP. Pupils are equal. BG was 145. EKG shows sinus bradycardia with LVH. Assessment: This is a 72 year old lady with history of PMR on chronic steroids ( which they report have not recently been titrated), afib in relation to sepsis, and cluster headaches. The differential for her hypotension and bradycardia is broad but at this point I think medication effects are most likely. Her daughter is going to fax us her home medications and the schedule that she takes them at home. I am holding verapamil for the rest of the day; her bb has already been held. Also on the differential are acute adrenal insufficiency, but she has been on the same dose of prednisone at home and has no clearly identifiable "stress" at this point to cause that. Of course septic shock should be on the differential but I see no clear localizing source at this point. I will check a TTE to rule out tamponade and as part of her SIU work up , but her EKG voltage is normal. I have a stat troponin, lactate, bmp, cbc pending. Will also check blood cultures, urine, a new CXR. A 2nd peripheral IV was obtained with NS running wide open. We will repeat a BP after 1L NS and MAP is still low will consider transfer to ICU for closer monitoring. Strict Is /Os. I have also discussed her case with her astrophysics professor, Dr. Root who has followed her for many years, and says this has occurred for her multiple times and is always related to her medications.
[2018-03-18] MEDS: Metoprolol Tartrate TAB* 25 MG PO SCH ×2 (11:48→21:37)
--- NOTE | 2018-03-18 11:59 | RAD ---
INDICATION: Altered mental status COMPARISON: Most recent comparison CT the brain is dated July 04, 2017 TECHNIQUE: Contiguous axial sections of the brain were obtained from the skull base to the vertex without contrast. FINDINGS: The ventricles, cisterns and sulci exhibit mild symmetrical involutional changes. Again seen is mild periventricular and subcortical white matter hypoattenuation similar in appearance to the most recent CT of the brain and most consistent with chronic microvascular disease. Otherwise the pate-white matter differentiation is adequately maintained and there is no sulcal effacement. No significant focal abnormality or mass effect is present. There is no evidence for intracranial hemorrhage. No significant focal osseous abnormality is present. Incidental note is made of hyperostosis frontalis interna. The visualized portion of the paranasal sinuses appear clear. The mastoid air cells are well aerated bilaterally. IMPRESSION: No CT apparent acute intracranial abnormality.
--- NOTE | 2018-03-18 12:46 | ECHO ---
Patient: ROEL FRY [facility] Rec#: [id number] : 1945 Date: 03/18/2018 Age: 72y Height: 160.02 cm / 63.0 in Weight: 76.2 kg / 167.9 lbs Sex: F BSA: 1.8 Room#: 453 Admit Date#: 03/17/2018 Type: Inpatient Referring: Agustina Bautista MD Reading: Paradise Root MD Aircraft Instrument Repairer: Abigail Villavicencio EAN CC: Nichelle Burgess MD Transthoracic Echocardiogram Indication: Abn EKG BP: 132/61 HR: 54 Rhythm: Bradycardia Findings History: Polymyalgia rheumatica,PAF,trigeminal neuralgia,HTN,DONTRELL,GERD. Was a CAT call prior to this study(hypotension and unresponsiveness). Technical Comments: The study quality is good. Completed at 1150. Left Ventricle: The left ventricular chamber size is decreased. Septal wall hypertrophy is observed. There is normal left ventricular systolic function. The estimated ejection fraction is 55-60%. There is no consistent Doppler evidence of clinically significant diastolic dysfunction. Left Atrium: The left atrial chamber size is normal. Right Ventricle: The right ventricular cavity size is normal. The right ventricular global systolic function is normal. Right Atrium: The right atrium is mildly dilated. There is evidence of an atrial septal aneurysm. Aortic Valve: The aortic valve is trileaflet. There is no evidence of aortic regurgitation. There is no evidence of aortic stenosis. Mitral Valve: The mitral valve leaflets are mildly thickened. There is mild mitral regurgitation. There is no evidence of mitral stenosis. Tricuspid Valve: The tricuspid valve leaflets are normal. There is mild tricuspid regurgitation. There is evidence of mild pulmonary hypertension. There is no tricuspid stenosis. Pulmonic Valve: The pulmonic valve appears normal. There is no evidence of pulmonic regurgitation. There is no pulmonic stenosis. Pericardium: A pericardial fat pad is visualized. Aorta: There is no dilatation of the ascending aorta. There is no dilatation of the aortic arch. There is no dilation of the aortic root. Pulmonary Artery: The main pulmonary artery appears normal. Venous: The inferior vena cava appears normal in size. There is a greater than 50% respiratory change in the inferior vena cava dimension. Summary: There are changes noted when compared to the previous study done on 07/04/2017, now ascending aorta is upper limit of normal instead of mildly dilated then. Conclusions The left ventricular chamber size is decreased. Septal wall hypertrophy is observed. There is normal left ventricular systolic function. The estimated ejection fraction is 55-60%. There is no consistent Doppler evidence of clinically significant diastolic dysfunction. There is mild mitral regurgitation. There is mild tricuspid regurgitation. There is evidence of mild pulmonary hypertension. There are changes noted when compared to the previous study done on 07/04/2017, now ascending aorta is upper limit of normal instead of mildly dilated then. Measurements Name Value Normal Range RVIDd (AP) 2D 3 cm (0.9 - 2.6) RVDdMajor (2D) 3.1 cm (2.2 - 4.4) RAd ISD 4CH 5.1 cm (3.4 - 4.9) RA (A4C)W 2.8 cm (2.9 - 4.6) IVSd (2D) 1.1 cm (0.6 - 1) LVPWd (2D) 0.9 cm (0.6 - 1) LVIDd (2D) 3.4 cm (3.6 - 5.4) LVIDs (2D) 2.9 cm - LV FS (2D) 15 % (25 - 45) Aortic Annulus 2.1 cm (1.4 - 2.6) Ao root diameter (2D) 3.4 cm (2.1 - 3.5) Ascending Ao 3.4 cm (2.1 - 3.4) Aortic arch 2.1 cm (1.8 - 3.4) Descending Ao 0.7 cm - LA dimension (AP) 2D 3.1 cm (2.3 - 3.8) LAd ISD 4CH 6 cm (2.9 - 5.3) LA ISD 4CH W 3.8 cm (2.5 - 4.5) Name Value Normal Range LA ESV SP 4CH (A/L) 53 ml - LA ESV SP 2CH (A/L) 47 ml - LA ESV BP (A/L) 52 ml - LA ESV BP (A/L) index 28.75 ml/m2 - LA ESV SP 4CH (MOD) 50 ml - LA ESV SP 2CH (MOD) 44 ml - Name Value Normal Range MV E-wave Vmax 1.2 m/sec - MV deceleration time 196 msec - MV A-wave Vmax 0.8 m/sec - MV E:A ratio 1.51 ratio - LV septal e' Vmax 0.1 m/sec - LV lateral e' Vmax 0.09 m/sec - LV E:e' septal ratio 12 ratio - LV E:e' lateral ratio 13.33 ratio - Name Value Normal Range AV Vmax 1.7 m/sec - AV VTI 37.6 cm - AV peak gradient 11.82 mmHg - AV mean gradient 5.38 mmHg - LVOT Vmax 1.2 m/sec - LVOT VTI 34.8 cm - LVOT peak gradient 5.94 mmHg - LVOT mean gradient 3.3 mmHg - Name Value Normal Range MR Vmax 4.9 m/sec - MR VTI 194.2 cm - Name Value Normal Range TR Vmax 2.9 m/sec - TR peak gradient 33 mmHg - RAP 3 mmHg - RVSP 36 mmHg - IVC diameter 1.9 cm - Name Value Normal Range PV Vmax 0.9 m/sec - PV peak gradient 3.42 mmHg -
[2018-03-18] MEDS ORDERED: NS 0.9% 1000 ML* 1,000 ML IV SCH (14:30)
--- NOTE | 2018-03-18 17:15 | PN ---
Subjective Date of Service: 03/18/18 Interval History: CAT call this morning--see event note for details. Later today she feels much better and back to normal. Objective Active Medications: Acetaminophen (Tylenol Tab*) 650 mg PO Q6H PRN PRN Reason: pain/fever Last Admin: 03/18/18 16:55 Dose: 650 mg Aspirin (Aspirin 81 Mg Chew Tab*) 81 mg PO DAILY [facility] Last Admin: 03/18/18 07:56 Dose: 81 mg Cholecalciferol (Vitamin D Tab*) 5,000 units PO DAILY [facility] Last Admin: 03/18/18 07:57 Dose: 5,000 units Duloxetine HCl (Cymbalta Cap*) 90 mg PO DAILY [facility] Last Admin: 03/18/18 07:58 Dose: 90 mg Eletriptan (Relpax (Nf)) 40 mg PO DAILY PRN PRN Reason: HEADACHE Gabapentin (Neurontin Cap(*)) 300 mg PO QID [facility] Last Admin: 03/18/18 16:55 Dose: 300 mg Heparin Sodium (Porcine) (Heparin Vial(*)) 5,000 units SUBCUT Q8HR [facility] Last Admin: 03/18/18 14:16 Dose: 5,000 units Sodium Chloride (Ns 0.9% 1000 Ml*) 1,000 mls @ 125 mls/hr IV PER RATE [facility] Last Admin: 03/18/18 12:30 Dose: 125 mls/hr Lansoprazole (Lansoprazole Susp Kit) 30 mg PO DAILY [facility] Last Admin: 03/18/18 08:11 Dose: Not Given Lidocaine (Xylocaine 2% Viscous*) 15 ml SWISH SPIT DAILY [facility] Last Admin: 03/18/18 08:11 Dose: Not Given Lidocaine (Lidoderm 5% Patch*) 1 patch TRANSDERM DAILY [facility] Last Admin: 03/18/18 08:11 Dose: Not Given Lisinopril (Prinivil Tab*) 5 mg PO DAILY [facility] Last Admin: 03/18/18 07:59 Dose: 5 mg Melatonin (Melatonin) 3 mg PO BEDTIME PRN; Protocol PRN Reason: SLEEP Memantine (Namenda Xr Cap*) 28 mg PO DAILY [facility] Last Admin: 03/18/18 08:00 Dose: 28 mg Metoprolol Tartrate (Lopressor Tab*) 12.5 mg PO Q12HR [facility] Last Admin: 03/18/18 11:48 Dose: Not Given Nitroglycerin (Nitroglycerin Tab 0.4 Mg*) 0.4 mg SL Q5M PRN PRN Reason: ANGINA Oxcarbazepine (Trileptal Tab(*)) 150 mg PO BID [facility] Last Admin: 03/18/18 08:03 Dose: 150 mg Pharmacy Profile Note (Lidocaine Patch Remove*) 1 note PATCH OFF 2100 [facility] Last Admin: 03/17/18 20:59 Dose: Not Given Potassium Chloride (Klor Con Er Tab*) 10 meq PO BID [facility] Last Admin: 03/18/18 08:03 Dose: 10 meq Prednisone (Deltasone Tab*) 10 mg PO DAILY [facility] Last Admin: 03/18/18 08:03 Dose: 10 mg Pregabalin (Lyrica Cap(*)) 100 mg PO TID [facility] Last Admin: 03/18/18 14:17 Dose: Not Given Topiramate (Topamax(*)) 200 mg PO BEDTIME [facility] Last Admin: 03/17/18 20:53 Dose: 200 mg Verapamil HCl (Calan Tab*) 120 mg PO TID [facility] Last Admin: 03/18/18 13:24 Dose: Not Given Vital Signs - 8 hr 03/18/18 03/18/18 03/18/18 10:40 10:53 10:55 Temperature 98 F Pulse Rate Respiratory 14 Rate Blood Pressure 85/40 94/69 96/38 (mmHg) O2 Sat by Pulse 97 Oximetry 03/18/18 03/18/18 03/18/18 11:10 11:25 11:54 Temperature Pulse Rate Respiratory Rate Blood Pressure 114/49 95/41 116/49 (mmHg) O2 Sat by Pulse Oximetry 03/18/18 03/18/18 03/18/18 12:10 12:25 12:40 Temperature Pulse Rate Respiratory Rate Blood Pressure 105/39 126/46 120/44 (mmHg) O2 Sat by Pulse Oximetry 03/18/18 03/18/18 03/18/18 12:55 13:19 13:25 Temperature Pulse Rate Respiratory Rate Blood Pressure 123/51 138/56 125/55 (mmHg) O2 Sat by Pulse Oximetry 03/18/18 03/18/18 03/18/18 13:40 13:55 14:10 Temperature Pulse Rate Respiratory Rate Blood Pressure 138/50 128/53 139/44 (mmHg) O2 Sat by Pulse Oximetry 03/18/18 03/18/18 03/18/18 14:25 14:40 14:55 Temperature Pulse Rate Respiratory Rate Blood Pressure 135/48 127/51 161/71 (mmHg) O2 Sat by Pulse Oximetry 03/18/18 03/18/18 03/18/18 15:00 15:10 15:25 Temperature Pulse Rate 72 Respiratory Rate Blood Pressure 150/68 148/62 (mmHg) O2 Sat by Pulse 96 Oximetry 03/18/18 03/18/18 03/18/18 15:40 15:55 16:00 Temperature Pulse Rate 66 67 Respiratory Rate Blood Pressure 159/63 152/59 (mmHg) O2 Sat by Pulse 98 98 Oximetry 03/18/18 03/18/18 03/18/18 16:10 16:25 16:40 Temperature Pulse Rate 68 75 Respiratory Rate Blood Pressure 143/67 125/54 169/72 (mmHg) O2 Sat by Pulse 97 96 Oximetry 03/18/18 03/18/18 16:42 16:55 Temperature Pulse Rate 69 Respiratory 20 Rate Blood Pressure 165/72 (mmHg) O2 Sat by Pulse 97 Oximetry Oxygen Devices in Use Now: None Appearance: alert oriented, well appearing Eyes: No Scleral Icterus Ears/Nose/Mouth/Throat: NL Teeth, Lips, Gums Neck: NL Appearance and Movements; NL JVP Respiratory: Symmetrical Chest Expansion and Respiratory Effort, Clear to Auscultation Cardiovascular: NL Sounds; No Murmurs; No JVD, RRR Abdominal: NL Sounds; No Tenderness; No Distention Lymphatic: No Cervical Adenopathy Extremities: No Edema Skin: No Rash or Ulcers Neurological: Alert and Oriented x 3 Result Diagrams: 03/18/18 10:26 03/18/18 10:26 Additional Lab and Data: Lab Results 03/17/18 03/17/18 03/17/18 Range/Units 15:17 15:17 15:17 WBC 4.9 (3.5-10.8) 10^3/ul RBC 2.80 L (4.00-5.40) 10^6/ul Hgb 9.0 L (12.0-16.0) g/dl Hct 26 L (35-47) % MCV 94 (80-97) fL MCH 32 H (27-31) pg MCHC 34 (31-36) g/dl RDW 14 (10.5-15) % Plt Count 266 (150-450) 10^3/ul MPV 6.8 L (7.4-10.4) um3 Neut % (Auto) 66.9 (38-83) % Lymph % (Auto) 25.5 (25-47) % [place] % (Auto) 6.5 (0-7) % Eos % (Auto) 0.3 (0-6) % Baso % (Auto) 0.8 (0-2) % Absolute Neuts (auto) 3.3 (1.5-7.7) 10^3/ul Absolute Lymphs (auto) 1.3 (1.0-4.8) 10^3/ul Absolute Monos (auto) 0.3 (0-0.8) 10^3/ul Absolute Eos (auto) 0 (0-0.6) 10^3/ul Absolute Basos (auto) 0 (0-0.2) 10^3/ul Absolute Nucleated RBC 0 10^3/ul Nucleated RBC % 0.1 INR (Anticoag Therapy) 0.80 (0.77-1.02) Sodium 131 L (135-145) mmol/L Potassium 4.2 (3.5-5.0) mmol/L Chloride 100 L (101-111) mmol/L Carbon Dioxide 23 (22-32) mmol/L Anion Gap 8 (2-11) mmol/L BUN 14 (6-24) mg/dL Creatinine 0.95 (0.51-0.95) mg/dL Est GFR ( Amer) 70.2 (>60) Est GFR (Non-Af Amer) 58.0 (>60) BUN/Creatinine Ratio 14.7 (8-20) Glucose 126 H (70-100) mg/dL Lactic Acid (0.5-2.0) mmol/L Calcium 8.6 (8.6-10.3) mg/dL Total Bilirubin 0.30 (0.2-1.0) mg/dL AST 19 (13-39) U/L ALT 19 (7-52) U/L Alkaline Phosphatase 62 (34-104) U/L Troponin I 0.00 (<0.04) ng/mL B-Natriuretic Peptide ( - 100) pg/mL Total Protein 6.1 L (6.4-8.9) g/dL Albumin 4.0 (3.2-5.2) g/dL Globulin 2.1 (2-4) g/dL Albumin/Globulin Ratio 1.9 (1-3) 03/17/18 03/17/18 Range/Units 15:17 15:17 WBC (3.5-10.8) 10^3/ul RBC (4.00-5.40) 10^6/ul Hgb (12.0-16.0) g/dl Hct (35-47) % MCV (80-97) fL MCH (27-31) pg MCHC (31-36) g/dl RDW (10.5-15) % Plt Count (150-450) 10^3/ul MPV (7.4-10.4) um3 Neut % (Auto) (38-83) % Lymph % (Auto) (25-47) % [place] % (Auto) (0-7) % Eos % (Auto) (0-6) % Baso % (Auto) (0-2) % Absolute Neuts (auto) (1.5-7.7) 10^3/ul Absolute Lymphs (auto) (1.0-4.8) 10^3/ul Absolute Monos (auto) (0-0.8) 10^3/ul Absolute Eos (auto) (0-0.6) 10^3/ul Absolute Basos (auto) (0-0.2) 10^3/ul Absolute Nucleated RBC 10^3/ul Nucleated RBC % INR (Anticoag Therapy) (0.77-1.02) Sodium (135-145) mmol/L Potassium (3.5-5.0) mmol/L Chloride (101-111) mmol/L Carbon Dioxide (22-32) mmol/L Anion Gap (2-11) mmol/L BUN (6-24) mg/dL Creatinine (0.51-0.95) mg/dL Est GFR ( Amer) (>60) Est GFR (Non-Af Amer) (>60) BUN/Creatinine Ratio (8-20) Glucose (70-100) mg/dL Lactic Acid 1.8 (0.5-2.0) mmol/L Calcium (8.6-10.3) mg/dL Total Bilirubin (0.2-1.0) mg/dL AST (13-39) U/L ALT (7-52) U/L Alkaline Phosphatase (34-104) U/L Troponin I (<0.04) ng/mL B-Natriuretic Peptide 190 H ( - 100) pg/mL Total Protein (6.4-8.9) g/dL Albumin (3.2-5.2) g/dL Globulin (2-4) g/dL Albumin/Globulin Ratio (1-3) Microbiology and Other Data: Microbiology 03/17/18 16:00 Stool Occult Blood (JESSIE) - Final Stool Assess/Plan/Problems-Billing Assessment: 72 year old female with history of cluster headaches, polymyalgia rheumatica, and paroxysmal afib (only in relation to sepsis) admitted with chest pain. Course has been complicated by hypotension and bradycardia this morning after her am medications - Patient Problems (1) Chest pain Current Visit: Yes Status: Acute Code(s): R07.9 - CHEST PAIN, UNSPECIFIED SNOMED Code(s): 98826842 Comment: atypical but was scheduled for an outpatient stress test, so we will get one tomorrow ACS ruled out with normal ekg and negative troponins (2) Polypharmacy Current Visit: Yes Status: Acute Code(s): Z79.899 - OTHER JAIL (CURRENT ) DRUG THERAPY SNOMED Code(s): 829145489 Comment: I suspect this is the etiology of her fluctuating blood pressure, heart rate, and mental status occasionally I am decreasing her verapamil (though I know this has been titrated for her cluster headaches) and we need to discuss polypharmacy with her--I am concerned about the combination of neuro medications on the BEERS criteria (3) Cluster headache Current Visit: No Status: Acute Comment: again, on too many medications that are likely contribiting to episodes like she had this morning that resulted in a CAT call (4) HTN (hypertension) Current Visit: No Status: Acute Code(s): I10 - ESSENTIAL (PRIMARY) HYPERTENSION SNOMED Code(s): 05908812 Comment: at goal-- reduce verapamil as above (5) PAF (paroxysmal atrial fibrillation) Current Visit: No Status: Acute Code(s): I48.0 - PAROXYSMAL ATRIAL FIBRILLATION SNOMED Code(s): 995305469 Comment: has been in NSR today follows with cardiology-- no AC since it was precipitated only by acute illness (6) PMR (polymyalgia rheumatica) Current Visit: No Status: Acute Code(s): M35.3 - POLYMYALGIA RHEUMATICA SNOMED Code(s): 06499127 Comment: Continue prednisone 10mg daily
[2018-03-18] MEDS: Lidocaine Patch REMOVE* 1 NOTE MISC PATCH OFF SCH (21:21)
[2018-03-18] MEDS: Melatonin 3 MG TAB PO PRN (21:35)
[2018-03-18] MEDS: Topiramate TAB(*) 100 MG PO SCH (21:39)
[2018-03-19] MEDS: Heparin VIAL(*) 5000 UNITS/ML VIAL (FIVE THOUSAND) SUBCUT SCH ×3 (06:13→21:36)
[2018-03-19] MEDS: Lidocaine PATCH 5%* 1 PATCH TRANSDERM SCH (07:35)
[2018-03-19] MEDS: Lidocaine 2% VISCOUS* 15 ML UDC SWISH SPIT SCH (07:35)
[2018-03-19] MEDS: Lansoprazole susp Kit 3 MG/ML (30 MG = 10 ML) PO SCH (07:35)
[2018-03-19] MEDS: Metoprolol Tartrate TAB* 25 MG PO SCH (07:35)
[2018-03-19] MEDS: Cholecalciferol TAB* 1000 UNITS PO SCH (09:19)
[2018-03-19] MEDS: DULoxetine DR CAP* 30 MG CAP.DR PO SCH (09:19)
[2018-03-19] MEDS: Lisinopril TAB* 5 MG PO SCH (09:19)
[2018-03-19] MEDS: predniSONE TAB* 10 MG PO SCH (09:22)
[2018-03-19] MEDS: Aspirin 81 mg CHEW TAB* 81 MG TAB.CHEW PO SCH (09:22)
[2018-03-19] MEDS: Pregabalin CAP(*) 100 MG PO SCH ×3 (09:22→21:35)
[2018-03-19] MEDS: Verapamil TAB* 120 MG PO SCH ×3 (09:23→21:31)
[2018-03-19] MEDS: Potassium Chlor TAB* 10 MEQ TAB.ER PO SCH ×2 (09:23→21:36)
[2018-03-19] MEDS: OXcarbazepine TAB(*) 300 MG PO SCH ×2 (09:24→21:33)
[2018-03-19] MEDS: Gabapentin CAP(*) 300 MG PO SCH ×4 (09:32→21:29)
[2018-03-19] MEDS: Memantine XR CAP* 28 MG CAP.XR PO SCH (09:33)
[2018-03-19 11:09] LABS: ABS Basophils 0.1 10^3/ul (0-0.2); ABS Eosinophils 0.1 10^3/ul (0-0.6); ABS Lymphocytes 2.8 10^3/ul (1.0-4.8); ABS Monocytes 0.5 10^3/ul (0-0.8); ABS Neutrophils 3.4 10^3/ul (1.5-7.7); ABS Nucleated RBC 0 10^3/ul; Eosinophil % 1.5 % (0-6); Hematocrit 28 % (35-47); Hemoglobin 9.4 g/dl (12.0-16.0); Lymphocyte % 40.4 % (25-47); Mean Corpuscular HGB Conc 33 g/dl (31-36); Mean Corpuscular Hemoglobin 32 pg (27-31); Mean Corpuscular Volume 96 fL (80-97); Mean Platelet Volume 6.9 um3 (7.4-10.4); Nucleated Red Blood Cells % 0.1; Platelet Count 265 10^3/ul (150-450); Red Blood Count 2.95 10^6/ul (4.00-5.40); Red Cell Distribution Width 14 % (10.5-15); White Blood Count 6.8 10^3/ul (3.5-10.8)
[2018-03-19 11:27] LABS: EGFR Non-African American 60.2 (>60)
[2018-03-19] MEDS ORDERED: Aminophylline IV* 25 MG/ML 10 ML VIAL ONE (11:43)
[2018-03-19] MEDS ORDERED: Regadenoson* 0.4 MG/5 ML SYRINGE ONE (11:43)
--- NOTE | 2018-03-19 13:41 | RAD ---
Edited for charges. INDICATION: Chest pain. Worsening dyspnea on exertion. Hypertension. Family history of heart disease. Atrial fibrillation. COMPARISON: May 14, 2015 TECHNIQUE: 10.250 mCi of Tc-99m Myoview were administered IV. SPECT images of the heart were obtained. Later on the same day. Under the direction of Dr. Denny, the patient was given an IV injection of a pharmacologic stress agent. Subsequently, the patient was given an IV injection of 25.300 mCi Tc-99m Myoview. SPECT images of the heart were obtained and a gated wall motion study was performed. FINDINGS: Gated wall motion images were obtained at stress and demonstrate wall motion to be within normal limits. The calculated left ventricular ejection fraction is 70 % at stress. Estimated LEFT ventricular end diastolic volume is 77 mL. TID 1.21. Diaphragmatic attenuation noted. Based on review of the attenuation corrected and non corrected images the distribution of radiopharmaceutical within the myocardium on the stress and rest images is within normal limits. No fixed or reversible regions of hypoperfusion evident. IMPRESSION: #. No evidence for stress induced myocardial ischemia or presence of an infarct. #. Normal left ventricular wall motion and ejection fraction. ASSESSMENT: Low risk based on nuclear portion. Based on imaging criteria from ACC/AHA 2002 Guideline Update for the Management of Patients With Chronic Stable Angina Table 23. Noninvasive Risk Stratification. MTDD
--- NOTE | 2018-03-19 15:47 | PN ---
Subjective Date of Service: 03/19/18 Interval History: Nuclear stress test was negative this morning. SHe walked in the hallway and felt okay but still feels worried about her shortness of breath and dyspnea on exertion. She has had no further chest pain. No melena or hematochezia. Objective Active Medications: Acetaminophen (Tylenol Tab*) 650 mg PO Q6H PRN PRN Reason: pain/fever Last Admin: 03/18/18 16:55 Dose: 650 mg Aspirin (Aspirin 81 Mg Chew Tab*) 81 mg PO DAILY [facility] Last Admin: 03/19/18 09:22 Dose: 81 mg Cholecalciferol (Vitamin D Tab*) 5,000 units PO DAILY [facility] Last Admin: 03/19/18 09:19 Dose: 5,000 units Duloxetine HCl (Cymbalta Cap*) 90 mg PO DAILY [facility] Last Admin: 03/19/18 09:19 Dose: 90 mg Gabapentin (Neurontin Cap(*)) 300 mg PO QID [facility] Last Admin: 03/19/18 14:10 Dose: 300 mg Heparin Sodium (Porcine) (Heparin Vial(*)) 5,000 units SUBCUT Q8HR [facility] Last Admin: 03/19/18 14:10 Dose: 5,000 units Lansoprazole (Lansoprazole Susp Kit) 30 mg PO DAILY [facility] Last Admin: 03/19/18 07:35 Dose: Not Given Lidocaine (Xylocaine 2% Viscous*) 15 ml SWISH SPIT DAILY [facility] Last Admin: 03/19/18 07:35 Dose: Not Given Lidocaine (Lidoderm 5% Patch*) 1 patch TRANSDERM DAILY [facility] Last Admin: 03/19/18 07:35 Dose: Not Given Lisinopril (Prinivil Tab*) 5 mg PO DAILY [facility] Last Admin: 03/19/18 09:19 Dose: 5 mg Melatonin (Melatonin) 3 mg PO BEDTIME PRN; Protocol PRN Reason: SLEEP Last Admin: 03/18/18 21:35 Dose: 3 mg Memantine (Namenda Tab*) 10 mg PO BID [facility] Nitroglycerin (Nitroglycerin Tab 0.4 Mg*) 0.4 mg SL Q5M PRN PRN Reason: ANGINA Oxcarbazepine (Trileptal Tab(*)) 150 mg PO BID [facility] Last Admin: 03/19/18 09:24 Dose: 150 mg Pharmacy Profile Note (Lidocaine Patch Remove*) 1 note PATCH OFF 2100 [facility] Last Admin: 03/18/18 21:21 Dose: Not Given Potassium Chloride (Klor Con Er Tab*) 10 meq PO BID [facility] Last Admin: 03/19/18 09:23 Dose: 10 meq Prednisone (Deltasone Tab*) 10 mg PO DAILY [facility] Last Admin: 03/19/18 09:22 Dose: 10 mg Pregabalin (Lyrica Cap(*)) 100 mg PO TID [facility] Last Admin: 03/19/18 14:11 Dose: 100 mg Topiramate (Topamax(*)) 200 mg PO BEDTIME [facility] Last Admin: 03/18/18 21:39 Dose: 200 mg Verapamil HCl (Calan Tab*) 90 mg PO TID [facility] Last Admin: 03/19/18 14:11 Dose: 90 mg Vital Signs - 8 hr 03/19/18 03/19/18 03/19/18 07:56 09:22 09:25 Temperature Pulse Rate Respiratory 16 Rate Blood Pressure 109/80 138/62 (mmHg) O2 Sat by Pulse Oximetry 03/19/18 03/19/18 03/19/18 09:32 13:14 14:10 Temperature 97.8 F Pulse Rate 73 Respiratory 16 18 Rate Blood Pressure 126/79 (mmHg) O2 Sat by Pulse 99 Oximetry 03/19/18 14:11 Temperature Pulse Rate Respiratory 18 Rate Blood Pressure (mmHg) O2 Sat by Pulse Oximetry Oxygen Devices in Use Now: None Appearance: alert, pale, no distress, breathing comfortably Eyes: No Scleral Icterus Ears/Nose/Mouth/Throat: NL Teeth, Lips, Gums Neck: NL Appearance and Movements; NL JVP Respiratory: Symmetrical Chest Expansion and Respiratory Effort, Clear to Auscultation Cardiovascular: NL Sounds; No Murmurs; No JVD, RRR Abdominal: NL Sounds; No Tenderness; No Distention Lymphatic: No Cervical Adenopathy Extremities: No Edema Skin: No Rash or Ulcers Neurological: Alert and Oriented x 3 Result Diagrams: 03/19/18 10:49 03/19/18 10:49 Additional Lab and Data: Lab Results 03/17/18 03/17/18 03/17/18 Range/Units 15:17 15:17 15:17 WBC 4.9 (3.5-10.8) 10^3/ul RBC 2.80 L (4.00-5.40) 10^6/ul Hgb 9.0 L (12.0-16.0) g/dl Hct 26 L (35-47) % MCV 94 (80-97) fL MCH 32 H (27-31) pg MCHC 34 (31-36) g/dl RDW 14 (10.5-15) % Plt Count 266 (150-450) 10^3/ul MPV 6.8 L (7.4-10.4) um3 Neut % (Auto) 66.9 (38-83) % Lymph % (Auto) 25.5 (25-47) % [place] % (Auto) 6.5 (0-7) % Eos % (Auto) 0.3 (0-6) % Baso % (Auto) 0.8 (0-2) % Absolute Neuts (auto) 3.3 (1.5-7.7) 10^3/ul Absolute Lymphs (auto) 1.3 (1.0-4.8) 10^3/ul Absolute Monos (auto) 0.3 (0-0.8) 10^3/ul Absolute Eos (auto) 0 (0-0.6) 10^3/ul Absolute Basos (auto) 0 (0-0.2) 10^3/ul Absolute Nucleated RBC 0 10^3/ul Nucleated RBC % 0.1 INR (Anticoag Therapy) 0.80 (0.77-1.02) Sodium 131 L (135-145) mmol/L Potassium 4.2 (3.5-5.0) mmol/L Chloride 100 L (101-111) mmol/L Carbon Dioxide 23 (22-32) mmol/L Anion Gap 8 (2-11) mmol/L BUN 14 (6-24) mg/dL Creatinine 0.95 (0.51-0.95) mg/dL Est GFR ( Amer) 70.2 (>60) Est GFR (Non-Af Amer) 58.0 (>60) BUN/Creatinine Ratio 14.7 (8-20) Glucose 126 H (70-100) mg/dL Lactic Acid (0.5-2.0) mmol/L Calcium 8.6 (8.6-10.3) mg/dL Total Bilirubin 0.30 (0.2-1.0) mg/dL AST 19 (13-39) U/L ALT 19 (7-52) U/L Alkaline Phosphatase 62 (34-104) U/L Troponin I 0.00 (<0.04) ng/mL B-Natriuretic Peptide ( - 100) pg/mL Total Protein 6.1 L (6.4-8.9) g/dL Albumin 4.0 (3.2-5.2) g/dL Globulin 2.1 (2-4) g/dL Albumin/Globulin Ratio 1.9 (1-3) 03/17/18 03/17/18 Range/Units 15:17 15:17 WBC (3.5-10.8) 10^3/ul RBC (4.00-5.40) 10^6/ul Hgb (12.0-16.0) g/dl Hct (35-47) % MCV (80-97) fL MCH (27-31) pg MCHC (31-36) g/dl RDW (10.5-15) % Plt Count (150-450) 10^3/ul MPV (7.4-10.4) um3 Neut % (Auto) (38-83) % Lymph % (Auto) (25-47) % Flagler % (Auto) (0-7) % Eos % (Auto) (0-6) % Baso % (Auto) (0-2) % Absolute Neuts (auto) (1.5-7.7) 10^3/ul Absolute Lymphs (auto) (1.0-4.8) 10^3/ul Absolute Monos (auto) (0-0.8) 10^3/ul Absolute Eos (auto) (0-0.6) 10^3/ul Absolute Basos (auto) (0-0.2) 10^3/ul Absolute Nucleated RBC 10^3/ul Nucleated RBC % INR (Anticoag Therapy) (0.77-1.02) Sodium (135-145) mmol/L Potassium (3.5-5.0) mmol/L Chloride (101-111) mmol/L Carbon Dioxide (22-32) mmol/L Anion Gap (2-11) mmol/L BUN (6-24) mg/dL Creatinine (0.51-0.95) mg/dL Est GFR ( Amer) (>60) Est GFR (Non-Af Amer) (>60) BUN/Creatinine Ratio (8-20) Glucose (70-100) mg/dL Lactic Acid 1.8 (0.5-2.0) mmol/L Calcium (8.6-10.3) mg/dL Total Bilirubin (0.2-1.0) mg/dL AST (13-39) U/L ALT (7-52) U/L Alkaline Phosphatase (34-104) U/L Troponin I (<0.04) ng/mL B-Natriuretic Peptide 190 H ( - 100) pg/mL Total Protein (6.4-8.9) g/dL Albumin (3.2-5.2) g/dL Globulin (2-4) g/dL Albumin/Globulin Ratio (1-3) Microbiology and Other Data: Microbiology 03/17/18 16:00 Stool Occult Blood (JESSIE) - Final Stool Assess/Plan/Problems-Billing Assessment: 72 year old female with history of cluster headaches, polymyalgia rheumatica, and paroxysmal afib (only in relation to sepsis) admitted with chest pain. Course has been complicated by hypotension and bradycardia yesterday after her am medications - Patient Problems (1) Chest pain Current Visit: Yes Status: Acute Code(s): R07.9 - CHEST PAIN, UNSPECIFIED SNOMED Code(s): 31375193 Comment: ACS ruled out with normal ekg and negative troponins stress test negative this morning concerning for a reflection of anemia -- see below (2) Anemia Current Visit: Yes Status: Acute Code(s): D64.9 - ANEMIA, UNSPECIFIED SNOMED Code(s): 369204483 Comment: normocytic, add on b12 to am labs FOBT was + consult GI for consideration of EGD/colon--> she is stable but is going on a trip next week and is worried about traveling (3) Polypharmacy Current Visit: Yes Status: Acute Code(s): Z79.899 - OTHER [facility] (CURRENT ) DRUG THERAPY SNOMED Code(s): 025847011 Comment: I suspect this is the etiology of her fluctuating blood pressure, heart rate, and mental status occasionally (though metroprolol was also added at admission for chest pain, which has since been discontinued but may have contributed to her symptoms yesterday) I am decreased her verapamil (though I know this has been titrated for her cluster headaches) and have discussed this with her--I am concerned about the combination of neuro medications on the BEERS criteria (4) Cluster headache Current Visit: No Status: Acute Comment: again, on too many medications that are likely contribiting to episodes like she had yesterday that resulted in a CAT call (5) HTN (hypertension) Current Visit: No Status: Acute Code(s): I10 - ESSENTIAL (PRIMARY) HYPERTENSION SNOMED Code(s): 73083158 Comment: at goal-- reduce verapamil as above of note, metoprolol had been added at admission for chest pain, which also may have contributed to her hypotension yesterday (6) PAF (paroxysmal atrial fibrillation) Current Visit: No Status: Acute Code(s): I48.0 - PAROXYSMAL ATRIAL FIBRILLATION SNOMED Code(s): 399033688 Comment: has been in NSR today follows with cardiology-- no AC since it was precipitated only by acute illness (7) PMR (polymyalgia rheumatica) Current Visit: No Status: Acute Code(s): M35.3 - POLYMYALGIA RHEUMATICA SNOMED Code(s): 49150179 Comment: Continue prednisone 10mg daily
[2018-03-19] MEDS: Memantine TAB* 10 MG PO SCH (21:34)
[2018-03-19] MEDS: Topiramate TAB(*) 100 MG PO SCH (21:36)
[2018-03-19] MEDS: Acetaminophen TAB* 325 MG PO PRN (21:46)
[2018-03-19] MEDS: Melatonin 3 MG TAB PO PRN (21:47)
[2018-03-19] MEDS: Lidocaine Patch REMOVE* 1 NOTE MISC PATCH OFF SCH (21:49)
--- NOTE | 2018-03-19 22:41 | CONS ---
CC: Dr. Burgess * CONSULTATION REPORT: DATE OF CONSULT: 03/19/18 REQUESTING PHYSICIAN: Dr. Bautista PRIMARY CARE PHYSICIAN: Dr. Burgess INDICATION: Shortness of breath. NARRATIVE: Mrs. Saez is a 72-year-old female who is admitted to the hospital couple of days ago for worsening shortness of breath. The patient underwent a cardiac evaluation and no cardiac etiology was found for her shortness of breath. The patient was also found to have worsening anemia. She has been anemic going back to 2011, at which time her hemoglobins were in the mid to upper 9 range. The patient did undergo an EGD and colonoscopy by myself in 2013 for diarrhea and a history of polyps. Her upper endoscopy did reveal mild gastritis and biopsies for celiac disease were normal. Colonoscopy with biopsies for microscopic colitis were normal. The patient then in 2014 became anemic again until and in 2015 her anemia had resolved and then again in early 2016 her hemoglobin dropped drown to 8.4. The patient is still complaining of shortness of breath. She denies significant abdominal pain, but does say that she will have a "belly ache" every now and then. She denies any nausea or vomiting. She states that her bowel habits really have not changed over the past few months. She describes dark stool, but does not describe any black and tarry stools. No maroon stools. No bright red blood. She does take nonsteroidals on a regular basis. She takes 600 mg of ibuprofen at least 4 to 5 times per week. She states that she has been doing this for many many months. No family history of GI malignancies or gastrointestinal bleeding. PAST MEDICAL HISTORY: She has GERD, DONTRELL, hypertension, history of headaches, PMR. MEDICATIONS: Her medications upon admission include 24 different medications. She is on: 1. Prednisone 10 mg a day. 2. Ibuprofen 600 mg 4 to 5 times per week as needed. 3. Potassium. 4. Lasix. 5. Voltaren gel. 6. Lisinopril 5 mg p.o. daily. 7. Prevacid 30 mg a day. She states she does remember to take this every day. 8. Trileptal. 9. Topamax. 10. Verapamil. 11. Namenda. 12. Gabapentin. 13. Relpax. 14. Melatonin. ALLERGIES: She is allergic to PENICILLIN. FAMILY HISTORY: Significant for coronary artery disease. SOCIAL HISTORY: She denies any tobacco or alcohol use. REVIEW OF SYSTEMS: Twelve systems were reviewed, other than that mentioned in the HPI were unremarkable. PHYSICAL EXAM: Temperature is 97.8, blood pressure is 126/79, pulse is 73, respiratory rate of 18, 99% on room air. General: Well-appearing female, appears her stated age, alert, oriented, pleasant, fluent. HEENT: Mucous membranes are moist without lesions, ulcers, or exudate. Neck is supple. Trachea is midline. Conjunctivae are slightly pale. Heart: Regular rate and rhythm. Lungs: Clear to auscultation. Abdomen: Obese, positive bowel sounds. Soft, nontender, nondistended. No hepatosplenomegaly, masses, rebound , or guarding. Skin is warm and dry. No rashes or ulcers were seen. LABORATORY DATA: Labs of note, white count is 6.8; hemoglobin is 9.4, when she presented on 03/17/18, she was 9.0, back in December she was 11, July she was 9.8 ; platelets count of 265, MCV 96. Sed rate 15, BUN is normal at 14. Sodium is 134, creatinine is 0.92. ASSESSMENT AND PLAN: This is a 72-year-old female with waxing and waning anemia since 2011. The patient is complaining of shortness of breath, did not appear to be related to cardiac etiology. Anemia could explain her shortness of breath. Question is why she is anemic. She did undergo a gastrointestinal evaluation in 2013 for other reasons, however, she had been anemic in the previous 2 years prior to that and she has been anemic since. EGD and colonoscopy at that time were unremarkable. At this point, she is on 10 mg of prednisone every day for her polymyalgia rheumatica. She does take 600 mg of ibuprofen 4 to 5 times per week. Her BUN is not elevated, however, I would recommend that we start with an upper endoscopy to evaluate for any peptic ulcer disease. Her last colonoscopy was just 4 years ago and I would hold on that right now and pursue the upper endoscopy first. We will make arrangements for tomorrow. [id number]/[facility] #: [id number] [facility]
[2018-03-20] MEDS: Heparin VIAL(*) 5000 UNITS/ML VIAL (FIVE THOUSAND) SUBCUT SCH ×3 (05:34→21:31)
[2018-03-20 06:34] LABS: ABS Basophils 0.1 10^3/ul (0-0.2); ABS Eosinophils 0.1 10^3/ul (0-0.6); ABS Lymphocytes 3.3 10^3/ul (1.0-4.8); ABS Monocytes 0.7 10^3/ul (0-0.8); ABS Neutrophils 2.7 10^3/ul (1.5-7.7); ABS Nucleated RBC 0 10^3/ul; Eosinophil % 1.2 % (0-6); Hematocrit 26 % (35-47); Hemoglobin 8.9 g/dl (12.0-16.0); Lymphocyte % 48.7 % (25-47); Mean Corpuscular HGB Conc 34 g/dl (31-36); Mean Corpuscular Hemoglobin 32 pg (27-31); Mean Corpuscular Volume 94 fL (80-97); Mean Platelet Volume 7.3 um3 (7.4-10.4); Nucleated Red Blood Cells % 0; Platelet Count 266 10^3/ul (150-450); Red Blood Count 2.78 10^6/ul (4.00-5.40); Red Cell Distribution Width 15 % (10.5-15); White Blood Count 6.9 10^3/ul (3.5-10.8)
[2018-03-20 07:01] LABS: EGFR Non-African American 59.4 (>60)
[2018-03-20] MEDS: DULoxetine DR CAP* 30 MG CAP.DR PO SCH (09:50)
[2018-03-20] MEDS: Cholecalciferol TAB* 1000 UNITS PO SCH (09:50)
[2018-03-20] MEDS: Aspirin 81 mg CHEW TAB* 81 MG TAB.CHEW PO SCH (09:50)
[2018-03-20] MEDS: Potassium Chlor TAB* 10 MEQ TAB.ER PO SCH ×2 (09:51→21:29)
[2018-03-20] MEDS: OXcarbazepine TAB(*) 300 MG PO SCH ×2 (09:51→21:30)
[2018-03-20] MEDS: Verapamil TAB* 120 MG PO SCH ×3 (09:51→21:29)
[2018-03-20] MEDS: Memantine TAB* 10 MG PO SCH ×2 (09:51→21:29)
[2018-03-20] MEDS: Gabapentin CAP(*) 300 MG PO SCH ×4 (09:51→21:30)
[2018-03-20] MEDS: predniSONE TAB* 10 MG PO SCH (09:51)
[2018-03-20] MEDS: Lisinopril TAB* 5 MG PO SCH (09:51)
[2018-03-20] MEDS: Pregabalin CAP(*) 100 MG PO SCH ×3 (09:51→21:30)
[2018-03-20] MEDS ORDERED: fentaNYL* 50 MCG/ML 2 ML VIAL (100 MCG VIAL) ONE (10:07)
[2018-03-20] MEDS ORDERED: Midazolam* 1 MG/ML 10 ML VIAL (10 MG) ONE (10:08)
[2018-03-20] MEDS: Lansoprazole susp Kit 3 MG/ML (30 MG = 10 ML) PO SCH (11:36)
[2018-03-20] MEDS: Lidocaine PATCH 5%* 1 PATCH TRANSDERM SCH (11:54)
[2018-03-20] MEDS: Lidocaine 2% VISCOUS* 15 ML UDC SWISH SPIT SCH (11:54)
--- NOTE | 2018-03-20 16:30 | PN ---
Subjective Date of Service: 03/20/18 Interval History: EGD this morning only showed duodenitis but no explanation for anemia. When she returned from EGD, she walked to the bathroom with her nurse and felt short of breath and dizzy. Her heart rate increased to 130. When I saw her, she was eating lunch and had no complaints except feeling concerned about her ongoing shortness of breath, dizziness, and feeling ill every time she gets up to walk. Objective Active Medications: Acetaminophen (Tylenol Tab*) 650 mg PO Q6H PRN PRN Reason: pain/fever Last Admin: 03/19/18 21:46 Dose: 650 mg Aspirin (Aspirin 81 Mg Chew Tab*) 81 mg PO DAILY [facility] Last Admin: 03/20/18 09:50 Dose: Not Given Cholecalciferol (Vitamin D Tab*) 5,000 units PO DAILY [facility] Last Admin: 03/20/18 09:50 Dose: Not Given Duloxetine HCl (Cymbalta Cap*) 90 mg PO DAILY [facility] Last Admin: 03/20/18 09:50 Dose: Not Given Ferrous Sulfate (Ferrous Sulfate Tab*) 325 mg PO DAILY [facility] Gabapentin (Neurontin Cap(*)) 300 mg PO QID [facility] Last Admin: 03/20/18 13:12 Dose: 300 mg Heparin Sodium (Porcine) (Heparin Vial(*)) 5,000 units SUBCUT Q8HR [facility] Last Admin: 03/20/18 13:12 Dose: 5,000 units Lansoprazole (Lansoprazole Susp Kit) 30 mg PO DAILY [facility] Last Admin: 03/20/18 11:36 Dose: Not Given Lidocaine (Xylocaine 2% Viscous*) 15 ml SWISH SPIT DAILY [facility] Last Admin: 03/20/18 11:54 Dose: Not Given Lidocaine (Lidoderm 5% Patch*) 1 patch TRANSDERM DAILY [facility] Last Admin: 03/20/18 11:54 Dose: Not Given Lisinopril (Prinivil Tab*) 5 mg PO DAILY [facility] Last Admin: 03/20/18 09:51 Dose: Not Given Melatonin (Melatonin) 3 mg PO BEDTIME PRN; Protocol PRN Reason: SLEEP Last Admin: 03/19/18 21:47 Dose: 3 mg Memantine (Namenda Tab*) 10 mg PO BID [facility] Last Admin: 03/20/18 09:51 Dose: Not Given Nitroglycerin (Nitroglycerin Tab 0.4 Mg*) 0.4 mg SL Q5M PRN PRN Reason: ANGINA Oxcarbazepine (Trileptal Tab(*)) 150 mg PO BID [facility] Last Admin: 03/20/18 09:51 Dose: Not Given Pharmacy Profile Note (Lidocaine Patch Remove*) 1 note PATCH OFF 2100 [facility] Last Admin: 03/19/18 21:49 Dose: Not Given Potassium Chloride (Klor Con Er Tab*) 10 meq PO BID [facility] Last Admin: 03/20/18 09:51 Dose: Not Given Prednisone (Deltasone Tab*) 10 mg PO DAILY [facility] Last Admin: 03/20/18 09:51 Dose: Not Given Pregabalin (Lyrica Cap(*)) 100 mg PO TID [facility] Last Admin: 03/20/18 13:12 Dose: 100 mg Topiramate (Topamax(*)) 200 mg PO BEDTIME [facility] Last Admin: 03/19/18 21:36 Dose: 200 mg Verapamil HCl (Calan Tab*) 90 mg PO TID [facility] Last Admin: 03/20/18 13:13 Dose: 90 mg Vital Signs - 8 hr 03/20/18 03/20/18 03/20/18 11:48 12:57 13:12 Temperature 97.8 F 98.6 F Pulse Rate 88 77 Respiratory 16 20 16 Rate Blood Pressure 144/59 149/65 (mmHg) O2 Sat by Pulse 95 99 Oximetry 03/20/18 03/20/18 03/20/18 15:50 16:17 16:18 Temperature Pulse Rate 91 117 Respiratory 12 18 18 Rate Blood Pressure 123/45 129/76 (mmHg) O2 Sat by Pulse 97 Oximetry Oxygen Devices in Use Now: None Appearance: alert, pale, no distress Eyes: No Scleral Icterus Ears/Nose/Mouth/Throat: NL Teeth, Lips, Gums Neck: NL Appearance and Movements; NL JVP Respiratory: Symmetrical Chest Expansion and Respiratory Effort, Clear to Auscultation Cardiovascular: NL Sounds; No Murmurs; No JVD, RRR Abdominal: NL Sounds; No Tenderness; No Distention Lymphatic: No Cervical Adenopathy Extremities: No Edema Skin: No Rash or Ulcers Neurological: Alert and Oriented x 3 Result Diagrams: 03/20/18 06:12 03/20/18 06:12 Additional Lab and Data: Lab Results 03/17/18 03/17/18 03/17/18 Range/Units 15:17 15:17 15:17 WBC 4.9 (3.5-10.8) 10^3/ul RBC 2.80 L (4.00-5.40) 10^6/ul Hgb 9.0 L (12.0-16.0) g/dl Hct 26 L (35-47) % MCV 94 (80-97) fL MCH 32 H (27-31) pg MCHC 34 (31-36) g/dl RDW 14 (10.5-15) % Plt Count 266 (150-450) 10^3/ul MPV 6.8 L (7.4-10.4) um3 Neut % (Auto) 66.9 (38-83) % Lymph % (Auto) 25.5 (25-47) % Gates % (Auto) 6.5 (0-7) % Eos % (Auto) 0.3 (0-6) % Baso % (Auto) 0.8 (0-2) % Absolute Neuts (auto) 3.3 (1.5-7.7) 10^3/ul Absolute Lymphs (auto) 1.3 (1.0-4.8) 10^3/ul Absolute Monos (auto) 0.3 (0-0.8) 10^3/ul Absolute Eos (auto) 0 (0-0.6) 10^3/ul Absolute Basos (auto) 0 (0-0.2) 10^3/ul Absolute Nucleated RBC 0 10^3/ul Nucleated RBC % 0.1 INR (Anticoag Therapy) 0.80 (0.77-1.02) Sodium 131 L (135-145) mmol/L Potassium 4.2 (3.5-5.0) mmol/L Chloride 100 L (101-111) mmol/L Carbon Dioxide 23 (22-32) mmol/L Anion Gap 8 (2-11) mmol/L BUN 14 (6-24) mg/dL Creatinine 0.95 (0.51-0.95) mg/dL Est GFR ( Amer) 70.2 (>60) Est GFR (Non-Af Amer) 58.0 (>60) BUN/Creatinine Ratio 14.7 (8-20) Glucose 126 H (70-100) mg/dL Lactic Acid (0.5-2.0) mmol/L Calcium 8.6 (8.6-10.3) mg/dL Total Bilirubin 0.30 (0.2-1.0) mg/dL AST 19 (13-39) U/L ALT 19 (7-52) U/L Alkaline Phosphatase 62 (34-104) U/L Troponin I 0.00 (<0.04) ng/mL B-Natriuretic Peptide ( - 100) pg/mL Total Protein 6.1 L (6.4-8.9) g/dL Albumin 4.0 (3.2-5.2) g/dL Globulin 2.1 (2-4) g/dL Albumin/Globulin Ratio 1.9 (1-3) 03/17/18 03/17/18 Range/Units 15:17 15:17 WBC (3.5-10.8) 10^3/ul RBC (4.00-5.40) 10^6/ul Hgb (12.0-16.0) g/dl Hct (35-47) % MCV (80-97) fL MCH (27-31) pg MCHC (31-36) g/dl RDW (10.5-15) % Plt Count (150-450) 10^3/ul MPV (7.4-10.4) um3 Neut % (Auto) (38-83) % Lymph % (Auto) (25-47) % Gates % (Auto) (0-7) % Eos % (Auto) (0-6) % Baso % (Auto) (0-2) % Absolute Neuts (auto) (1.5-7.7) 10^3/ul Absolute Lymphs (auto) (1.0-4.8) 10^3/ul Absolute Monos (auto) (0-0.8) 10^3/ul Absolute Eos (auto) (0-0.6) 10^3/ul Absolute Basos (auto) (0-0.2) 10^3/ul Absolute Nucleated RBC 10^3/ul Nucleated RBC % INR (Anticoag Therapy) (0.77-1.02) Sodium (135-145) mmol/L Potassium (3.5-5.0) mmol/L Chloride (101-111) mmol/L Carbon Dioxide (22-32) mmol/L Anion Gap (2-11) mmol/L BUN (6-24) mg/dL Creatinine (0.51-0.95) mg/dL Est GFR ( Amer) (>60) Est GFR (Non-Af Amer) (>60) BUN/Creatinine Ratio (8-20) Glucose (70-100) mg/dL Lactic Acid 1.8 (0.5-2.0) mmol/L Calcium (8.6-10.3) mg/dL Total Bilirubin (0.2-1.0) mg/dL AST (13-39) U/L ALT (7-52) U/L Alkaline Phosphatase (34-104) U/L Troponin I (<0.04) ng/mL B-Natriuretic Peptide 190 H ( - 100) pg/mL Total Protein (6.4-8.9) g/dL Albumin (3.2-5.2) g/dL Globulin (2-4) g/dL Albumin/Globulin Ratio (1-3) Microbiology and Other Data: Microbiology 03/17/18 16:00 Stool Occult Blood (JESSIE) - Final Stool Assess/Plan/Problems-Billing Assessment: 72 year old female with history of cluster headaches, polymyalgia rheumatica, and paroxysmal afib (only in relation to sepsis) admitted with chest pain, SOB, and SIU. - Patient Problems (1) Dyspnea on exertion Current Visit: Yes Status: Acute Code(s): R06.09 - OTHER FORMS OF DYSPNEA SNOMED Code(s): 31081428 Comment: She has had an extensive work up this admission so far without a clear explanation for why she feels so poorly when she exerts herself. Orthostatics today are positive for HR but she appears euvolemic; she may have autonomic dysfunction. I will try a liter of fluid overnight and see if her orthostasis improves tomorrow. Certainly polypharmacy is a consideration I also reduced her verapamil due to concern that it was causing hypotension/ bradycardia, but she had also received metoprolol which may have caused that, so I am going to increase her verapamil back up to her usual dose A stress test and echo have been unrevealing for a cause of SIU (2) Anemia Current Visit: Yes Status: Acute Code(s): D64.9 - ANEMIA, UNSPECIFIED SNOMED Code(s): 731080446 Comment: It is possible that this is causing her symptoms FOBT was + Normocytic but iron is low, b12 is normal. Ferritin is pending. Start po iron and if ferritin is low, we can start IV iron. An EGD was negative; I discussed the case with Dr. Simpson, who does not recommend a colonoscopy (3) Chest pain Current Visit: Yes Status: Acute Code(s): R07.9 - CHEST PAIN, UNSPECIFIED SNOMED Code(s): 52586177 Comment: ACS ruled out with normal ekg and negative troponins stress test negative ? related to anemia, but I would not expect a hgb of 9 to cause chest pain (4) Polypharmacy Current Visit: Yes Status: Acute Code(s): Z79.899 - OTHER HALFWAY (CURRENT ) DRUG THERAPY SNOMED Code(s): 908451527 Comment: I suspect this is the etiology of her fluctuating blood pressure, heart rate, and mental status occasionally (though metroprolol was also added at admission for chest pain, which has since been discontinued but may have contributed to her symptoms yesterday) I am concerned about the combination of neuro medications on the BEERS criteria but this regimen she says is the only way her cluster headaches have been manageable She is not willing to reduce or discontinue any of the neuro meds (5) Cluster headache Current Visit: No Status: Acute Comment: again, on too many medications that are likely contribiting to episodes like she had Monday that resulted in a CAT call (6) HTN (hypertension) Current Visit: No Status: Acute Code(s): I10 - ESSENTIAL (PRIMARY) HYPERTENSION SNOMED Code(s): 31463221 Comment: at goal (7) PAF (paroxysmal atrial fibrillation) Current Visit: No Status: Acute Code(s): I48.0 - PAROXYSMAL ATRIAL FIBRILLATION SNOMED Code(s): 690464785 Comment: has been in NSR follows with cardiology-- no AC since it was precipitated only by acute illness (8) PMR (polymyalgia rheumatica) Current Visit: No Status: Acute Code(s): M35.3 - POLYMYALGIA RHEUMATICA SNOMED Code(s): 18336478 Comment: Continue prednisone 10mg daily Status and Disposition: needs PT, improved ability to ambulate, improvement in orthostasis, and possibly IV iron pending ferritin
[2018-03-20] MEDS ORDERED: Verapamil TAB* 120 MG PO ONE (16:58)
[2018-03-20] MEDS: NS 0.9% 1000 ML* 1,000 ML IV SCH (17:04)
[2018-03-20] MEDS: Acetaminophen TAB* 325 MG PO PRN (17:26)
[2018-03-20] MEDS ORDERED: Metoprolol Tartrate IV* 1 MG/ML 5 ML VIAL IV ONE (17:50)
[2018-03-20] MEDS ORDERED: traMADol TAB* 50 MG PO PRN (21:11)
[2018-03-20] MEDS: Topiramate TAB(*) 100 MG PO SCH (21:29)
[2018-03-20] MEDS: Melatonin 3 MG TAB PO PRN (21:30)
[2018-03-20] MEDS: Lidocaine Patch REMOVE* 1 NOTE MISC PATCH OFF SCH (21:37)
[2018-03-21] MEDS: NS 0.9% 1000 ML* 1,000 ML IV SCH (03:37)
[2018-03-21] MEDS: Heparin VIAL(*) 5000 UNITS/ML VIAL (FIVE THOUSAND) SUBCUT SCH ×2 (05:04→13:15)
[2018-03-21 06:45] LABS: ABS Basophils 0.1 10^3/ul (0-0.2); ABS Eosinophils 0.1 10^3/ul (0-0.6); ABS Lymphocytes 2.1 10^3/ul (1.0-4.8); ABS Monocytes 0.5 10^3/ul (0-0.8); ABS Neutrophils 1.6 10^3/ul (1.5-7.7); ABS Nucleated RBC 0 10^3/ul; Eosinophil % 2.2 % (0-6); Hematocrit 26 % (35-47); Hemoglobin 8.7 g/dl (12.0-16.0); Lymphocyte % 48.1 % (25-47); Mean Corpuscular HGB Conc 34 g/dl (31-36); Mean Corpuscular Hemoglobin 32 pg (27-31); Mean Corpuscular Volume 95 fL (80-97); Mean Platelet Volume 6.6 um3 (7.4-10.4); Nucleated Red Blood Cells % 0.1; Platelet Count 229 10^3/ul (150-450); Red Cell Distribution Width 15 % (10.5-15); White Blood Count 4.4 10^3/ul (3.5-10.8)
[2018-03-21 07:01] LABS: EGFR Non-African American 61.7 (>60)
[2018-03-21] MEDS: Memantine TAB* 10 MG PO SCH (08:39)
[2018-03-21] MEDS: Gabapentin CAP(*) 300 MG PO SCH ×2 (08:39→13:15)
[2018-03-21] MEDS: Cholecalciferol TAB* 1000 UNITS PO SCH (08:39)
[2018-03-21] MEDS: Pregabalin CAP(*) 100 MG PO SCH ×2 (08:39→13:15)
[2018-03-21] MEDS: DULoxetine DR CAP* 30 MG CAP.DR PO SCH (08:39)
[2018-03-21] MEDS: Aspirin 81 mg CHEW TAB* 81 MG TAB.CHEW PO SCH (08:39)
[2018-03-21] MEDS: predniSONE TAB* 10 MG PO SCH (08:39)
[2018-03-21] MEDS: Lisinopril TAB* 5 MG PO SCH (08:39)
[2018-03-21] MEDS: Verapamil TAB* 120 MG PO SCH ×2 (08:40→13:15)
[2018-03-21] MEDS: Potassium Chlor TAB* 10 MEQ TAB.ER PO SCH (08:40)
[2018-03-21] MEDS: OXcarbazepine TAB(*) 300 MG PO SCH (08:40)
[2018-03-21] MEDS: Lansoprazole susp Kit 3 MG/ML (30 MG = 10 ML) PO SCH (08:45)
[2018-03-21] MEDS: Lidocaine 2% VISCOUS* 15 ML UDC SWISH SPIT SCH (08:45)
[2018-03-21] MEDS: Lidocaine PATCH 5%* 1 PATCH TRANSDERM SCH (08:45)
[2018-03-21] MEDS ORDERED: Ferrous Sulfate TAB* 325 MG PO SCH (09:00)
[2018-03-21] MEDS ORDERED: Ferric Gluconate IV* 25 MG in NS 0.9% 50 ML* 50 ML IVPB ONE (10:26)
--- NOTE | 2018-03-21 11:54 | PRO ---
DATE: 03/20/18 - ROOM #[id number] REFERRING PHYSICIANS: Nichelle Burgess, Agustina Bautista, Adam Mares.* PROCEDURE: Upper gastrointestinal endoscopy and gastric biopsy and CLOtest. INDICATION: This 72-year-old woman admitted to evaluate shortness of breath and fatigue with exertion, but no cardiac or pulmonary explanation discovered. Her CBC, which has shown anemia a number of times over the last 6 to 7 years, has shown her hemoglobin falling to 8.3, but then back up to 8.9. Her MCV was normal at 96. She has been treated for polymyalgia rheumatica with prednisone and Actemra. She takes Prevacid 30 mg each morning and ibuprofen 600 mg 4 to 5 times a week. She also takes a large amount of verapamil, Topamax, and regular Namenda, and Trileptal. She had a bidirectional endoscopy workup, August 2013, including biopsies to rule out microscopic colitis and duodenal biopsies. As an outpatient recently, she has had an occasional episode of a belly ache, but no vomiting and her appetite has been good. Her stools sometimes have been dark. Her Hemoccult done on admission was positive. Whether any have been done recently as an outpatient is unknown. Iron level yesterday was 23 and ferritin 11.6 and a second stool Hemoccult was negative. ENDOSCOPIST: Dr. Simpson. MEDICATIONS: Midazolam 8, fentanyl 75. FINDINGS: She is a frail-appearing older woman, appearing a little older than stated age. She was positioned on her side. Conscious sedation was induced with increments of Versed and fentanyl. EGD: Larynx - symmetric views without obvious Monilia. Esophagus - easily entered and the mucosa is normal in the upper, mid, and lower esophagus with a slight loosening of the EG junction at 36 and a small hiatal hernia. There were no erosions. Stomach - generally normal mucosa in the cardia, fundus, body, and antrum. Duodenum - the pylorus was normal. The bulb had some granularity and some very small erosions, superficial and not bleeding. The second through fourth portions of the duodenum were normal. On slow withdrawal, there were no additional findings and a CLOtest taken. IMPRESSION: 1. Duodenitis - mild and not potential explanation for her observation of dark stools as an outpatient. Pepto-Bismol use could be explored as might empiric use of iron. The duodenitis fits expectation given her over 20 medications and use of ibuprofen. 2. Small hiatal hernia - no erosions. 3. Anemia - with borderline iron level and likely multifactorial. A second stool Hemoccult during this admission is negative. Empiric oral iron and possibly an iron shot and then tracking her Hemoccult as an outpatient is suggested. Clotest - negative [id number]/[facility] #: [id number] [facility]
[2018-03-21] MEDS ORDERED: Ferric Gluconate IV* 100 MG in NS 0.9% 100 ML* 100 ML IVPB ONE (13:00)
[2018-03-21 15:32] VITALS: BP 109/52
--- NOTE | 2018-03-22 14:58 | DS ---
CC: Dr. Burgess; Dr. Root; Dr. Mares; Dr. Altamirano; Dr. Simpson * DISCHARGE SUMMARY: DATE OF ADMISSION: 03/19/18 DATE OF DISCHARGE: 03/21/18 PRIMARY CARE PROVIDER: Dr. Burgess. DISCHARGE DIAGNOSES: 1. Dyspnea on exertion, likely due to iron-deficiency anemia. 2. Anemia, likely due to on and off gastrointestinal bleed with upper endoscopy showing duodenitis. SECONDARY DIAGNOSES: 1. Polymyalgia rheumatica. 2. History of atrial fibrillation with acute illness. 3. History of trigeminal neuralgia. 4. History of cluster headaches. 5. Fibromyalgia. 6. Hypertension. 7. Obstructive sleep apnea. 8. Gastroesophageal reflux disease. 9. Depression. 10. History of restless legs syndrome. MEDICATIONS AT DISCHARGE: Include: 1. Vitamin D3 5000 units daily. 2. Vitamin B12 2500 mcg daily. 3. Voltaren gel 1% one application topically to affected areas daily. 4. Cymbalta 90 mg daily. 5. Relpax 40 mg daily. 6. Furosemide 20 mg daily p.r.n. 7. Neurontin 300 mg 4 times a day. 8. Acidophilus lactobacillus 1 capsule daily. 9. Prevacid 30 mg daily. 10. Viscous lidocaine 50 mL swish and spit p.r.n. 11. Lisinopril 5 mg daily. 12. Melatonin 15 mg p.o. at bedtime. 13. Namenda XR 56 mg b.i.d. 14. Multivitamin 1 tablet daily. 15. Trileptal 150 mg b.i.d. 16. Prednisone 10 mg daily. 17. Lyrica 100 mg 3 times a day. 18. Zanaflex 2 mg b.i.d. p.r.n. 19. Tocilizumab one-third IM every Monday. 20. Topamax 100 mg at bedtime. 21. Ferrous sulfate 325 mg daily. 22. Potassium chloride 10 mEq 3 times a day. 23. Verapamil 120 mg 3 times a day. 24. Lidocaine patch 5% on a p.r.n. basis. LABORATORY DATA AND STUDIES PERFORMED DURING THE HOSPITAL STAY: On 03/21/18, white blood cell count 4.4, hemoglobin of 8.7, hematocrit of 26, and platelets of 229. Sodium of 137, potassium of 4.0, chloride 108, carbon dioxide 22, BUN 14, creatinine 0.9. The patient's iron level was 28, TIBC 370, percent iron saturation 8, transferrin 264, ferritin 11.6. The patient's vitamin B12 level was above 1450, folate above 20. Liver function tests were obtained on admission and were remarkable. Transthoracic echocardiogram obtained on 03/18/18 showed EF of 55% to 60% with septal wall hypertrophy, mild mitral regurgitation and mild aortic regurgitation , and evidence of mild pulmonary hypertension. Ascending aorta of upper limit of normal. Nuclear medicine cardiac stress test was documented on 03/19/18 showed low risk with calculated left ventricular ejection fraction of 70% at stress and wall motion within normal limits. EGD obtained by Dr. Simpson on 03/20/18. Impression: 1. "Duodenitis. Mild and not potential explanation for her observation of dark stools as outpatient. Pepto-Bismol use could be explored as might impaired use of iron. A duodenitis fits expectation given her over 20 medications and use of ibuprofen. 2. Small hiatal hernia, no erosions. 3. Anemia with moderate iron level and likely multifactorial. 4. A second stool Hemoccult during this admission is negative. Empiric oral iron and possibly an iron shot and then tracking her Hemoccult as an outpatient is suggested p.r.n." The patient's stool occult blood was initially positive on 03/17/18 and negative on 03/20/18. CLOtest was negative. HOSPITALIZATION COURSE: Jammie Saez is a 72-year-old female with history of polymyalgia rheumatic, on chronic prednisone, who presented to the hospital complaining of dyspnea on exertion. She was admitted to the hospital, initially was ruled out from cardiac standpoint with transthoracic echocardiogram as well as stress test, both of them were unremarkable. She was noted to have iron-deficiency anemia and her initial stool was heme positive. Dr. Simpson performed an upper endoscopy, which showed duodenitis, which was not a clear-cut explanation of patient's history of black stools as outpatient. Her second Hemoccult was negative. The patient received an iron infusion x1 on the day of discharge due to history of having problems with iron absorption several years ago, when she had problems with anemia. The patient did have an episode of cluster headache during her hospital stay that resolved. She has a history of paroxysmal atrial fibrillation only with acute illness and anticoagulation was required for this patient in the past. She was on telemetry bed with no significant arrhythmias, although she would go into sinus tachycardia when ambulating. In addition, the patient was prescribed p.o. iron. She is recommended to follow up with the primary care provider approximately 4 to 7 days. She is scheduled with Dr. Mares for a followup on 04/18/18 at 1:30 p.m. It is recommended for the patient to be reevaluated as outpatient for her anemia and possibly need of iron infusion in the future. PHYSICAL EXAM AT THE TIME OF DISCHARGE: Blood pressure of 109/52, heart rate of 18 and regular, respiratory rate 16, oxygen saturation 99% on room air, temperature 98.4. General: The patient is very pleasant 72-year-old female who is not in acute distress. Alert and oriented x3. HEENT: Head atraumatic and normocephalic. Eyes: Pupils are equal and reactive to light and accommodation. Oropharynx clear, mucosa moist. Neck: Supple. No JVD. No bruits bilaterally. Cardiovascular: Regular rate and rhythm. No murmur. Respiratory: Clear to auscultation bilaterally. Abdomen: Soft and nontender. Bowel sounds are present in all 4 quadrants. Extremities: There is trace bilateral ankle edema. Pulses are +2 bilaterally. No clubbing or cyanosis. Neurologic: Speech clear. Cranial nerves II through XII are grossly intact. Motor strength is 5/5 bilaterally. Please note that this is a short summary of the patient's hospitalization. Please refer to further medical records for details. TIME SPENT: Approximately 35 minutes was spent on the patient's discharge. [id number]/[facility] #: [id number] [facility] [place] DIVISIONJaylyn
== END 2018-03-21 18:45 | disposition home or self-care (01) | DRG 812 ==
LOC: ED 14:46 → MEDTELE 16:17 → OBSVTOIN 03-19 16:00
PROVIDERS: ADMIT Internal Medicine; ATTEND Internal Medicine
PROC: 4A12XM4 Monitoring of Cardiac Stress, External Approach (ICD-10-PCS; 2018-03-19)
PROC: 0DB68ZX Excision of Stomach, Via Natural or Artificial Opening Endoscopic, Diagnostic (ICD-10-PCS; principal; 2018-03-20)
DX: D50.0 Iron deficiency anemia secondary to blood loss (chronic) (principal); M35.3 Polymyalgia rheumatica; K29.80 Duodenitis without bleeding; R07.9 Chest pain, unspecified; D46.9 Myelodysplastic syndrome, unspecified; G89.29 Other chronic pain; G50.0 Trigeminal neuralgia; I48.0 Paroxysmal atrial fibrillation; G47.33 Obstructive sleep apnea (adult) (pediatric); K21.9 Gastro-esophageal reflux disease without esophagitis; F32.9 Major depressive disorder, single episode, unspecified; G25.81 Restless legs syndrome; I50.9 Heart failure, unspecified; E07.9 Disorder of thyroid, unspecified; I11.0 Hypertensive heart disease with heart failure; K58.9 Irritable bowel syndrome, unspecified; M06.9 Rheumatoid arthritis, unspecified; M16.12 Unilateral primary osteoarthritis, left hip; G43.909 Migraine, unspecified, not intractable, without status migrainosus; K44.9 Diaphragmatic hernia without obstruction or gangrene; I08.0 Rheumatic disorders of both mitral and aortic valves; I27.20 Pulmonary hypertension, unspecified; I95.9 Hypotension, unspecified; R00.1 Bradycardia, unspecified; T46.1X5A Adverse effect of calcium-channel blockers, initial encounter; I25.2 Old myocardial infarction; Z88.1 Allergy status to other antibiotic agents; Z88.0 Allergy status to penicillin; Z82.3 Family history of stroke; Z82.49 Family history of ischemic heart disease and other diseases of the circulatory system; Z99.81 Dependence on supplemental oxygen; Z90.49 Acquired absence of other specified parts of digestive tract; Z83.6 Family history of other diseases of the respiratory system; Z86.010 Personal history of colon polyps; Z79.52 Long term (current) use of systemic steroids; Z23 Encounter for immunization; G44.009 Cluster headache syndrome, unspecified, not intractable
CPT/HCPCS: 36415; 70450; 71045; 78452; 80048; 80053; 81003; 82270; 82272; 82607; 82728; 82746; 83540; 83550; 83605; 83880; 84484; 85025; 85610; 87077; 90686; 93005; 93017; 93306; 99156; 99284; A9270-GY; A9502; G0378; G8978-GP-CJ; G8979-GP-CH; J0280; J1644; J2250; J2785; J2916; J3010; J3490; J7512

== ENCOUNTER 2018-09-20 12:19 | Observation (INO) | payer MEDICARE, OTHER ==
--- NOTE | 2018-09-20 13:02 | ED ---
HPI Chest Pain - HPI Summary HPI Summary: A 73 y/o female brought in by [facility] ambulance presents to [facility] with a chief complaint of chest pain since two days ago. She reports that her pain is across her chest from shoulder to shoulder, and she also has pain in her upper thighs and pelvic area. She reports that these are her usual symptoms for polymyalgia, except they have been lasting for two days and is not getting better with Prednisone. At triage she rated her pain as a 5/10 in severity. In addition to her usual symptoms for polymyalgia, she reports a sore-throat, noting difficulty swallowing, her legs being swollen, and SOB with movement. She reports having a surgery in her groin area on 09/13/18, Vital signs while in room HR: 72 bpm, O2 Sat: 97, BP: 176/88 - History of Current Complaint Chief Complaint: EDChestPainROMI Time Seen by Provider: 09/20/18 12:27 Hx Obtained From: Patient, EMS Onset/Duration: Started Days Ago, Still Present Timing: Constant, Lasting Days Initial Severity: Moderate Current Severity: Moderate Pain Intensity: 5 Pain Scale Used: 0-10 Numeric Chest Pain Location: Diffuse - shoulder to shoulder Chest Pain Radiates: No Character: Other: - like her usual polymyalgia symptoms Aggravating Factor(s): Movement Alleviating Factor(s): Nothing Associated Signs and Symptoms: Positive: Shortness of Breath, Edema, Other: - sore throat - Additional Pertinent History Primary Care Physician: [id number] - Allergy/Home Medications Allergies/Adverse Reactions: Allergies Allergy/AdvReac Type Severity Reaction Status Date / Time Penicillins Allergy Intermediate Rash And Verified 09/20/18 12:26 Itching oxycodone Allergy Altered Verified 09/20/18 12:26 Mental Status Home Medications: Home Medications Atorvastatin* [Lipitor*] 40 mg PO QPM 09/20/18 [History Confirmed 09/20/18] Cyanocobalamin (Vitamin B-12) [Vitamin B12] 5,000 mcg PO DAILY 09/20/18 [ History Confirmed 09/20/18] Eletriptan 40 mg (Nf)* [Relpax (NF)] 40 mg PO DAILY PRN MDD 80 mg 09/20/18 [ History Confirmed 09/20/18] Erythromycin TOPICAL GEL* [Erythromycin OPTH OINT*] 1 applic TOPICAL TID PRN [History Confirmed 09/20/18] Fluticasone NASAL SPRAY 50MCG* [Flonase NASAL SPRAY 50MCG*] 2 spray BOTH NARES DAILY PRN 09/20/18 [History Confirmed 09/20/18] Lansoprazole CAP (NF) [Prevacid CAP (NF)] 30 mg PO QAM 09/20/18 [History Confirmed 09/20/18] Lidocaine PATCH 5%* [Lidoderm 5% Patch*] 1 patch TRANSDERM DAILY MDD 3 patches 09/20/18 [History Confirmed 09/20/18] Lutein/Zeaxanthin [Ocuvite Lutein 25 25-5 mg] 1 cap PO DAILY 09/20/18 [History Confirmed 09/20/18] Melatonin (NF) 15 mg PO BEDTIME 09/20/18 [History Confirmed 09/20/18] Memantine TAB* [Namenda TAB*] 10 mg PO BID 09/20/18 [History Confirmed 09/20/18] Pregabalin CAP(*) [Lyrica CAP(*)] 100 mg PO TID 09/20/18 [History Confirmed ] Ranolazine (NF) [Ranexa (NF)] 500 mg PO BID 09/20/18 [History Confirmed 09/20/18 ] Tocilizumab [Actemra] 162 mg SUBCUT GIBSON 09/20/18 [History Confirmed 09/20/18] Zinc 50 mg PO DAILY 09/20/18 [History Confirmed 09/20/18] tiZANidine TAB* [Zanaflex TAB*] 2 mg PO DAILY PRN 09/20/18 [History Confirmed ] PMH/Surg Hx/FS Hx/Imm Hx Endocrine/Hematology History: Reports: Hx Thyroid Disease, Hx Anemia Denies: Hx Diabetes, Hx Unexplained Bleeding Comment Only: Other Endocrine/Hematological Disorders - hypothalmus related headaches Cardiovascular History: Reports: Hx Angina, Hx Congestive Heart Failure - HX OF D/T DRUG REACTION, Hx Hypertension Denies: Hx Aneurysm, Hx Angioplasty, Hx Auto Implanted Cardiovert Defib, Hx Cardiac Arrest, Hx Cardiomegaly, Hx Congenital Heart Disease, Hx Coronary Artery Disease, Hx Deep Vein Thrombosis, Hx Hypercholesterolemia, Hx Hypotension , Hx Myocardial Infarction, Hx Pacemaker/ICD, Hx Peripheral Vascular Disease, Hx Rheumatic Fever, Hx Syncope, Hx Valvular Heart Disease, Other Cardiovascular Problems/Disorders Respiratory History: Reports: Hx Sleep Apnea - Bipap, Other Respiratory Problems /Disorders - SLEEP APNEA W/ BIPAP Denies: Hx Asthma, Hx Chronic Bronchitis, Hx Chronic Obstructive Pulmonary Disease (COPD), Hx Cystic Fibrosis, Hx Lung Cancer, Hx Pleural Effusion, Hx Pneumonia, Hx Pulmonary Edema, Hx Pulmonary Embolism, Hx Seasonal Allergies GI History: Reports: Hx Gall Bladder Disease, Hx Gastroesophageal Reflux Disease , Hx Irritable Bowel, Other GI Disorders - diverticulitis Denies: Hx Cirrhosis, Hx Crohn's Disease, Hx Diverticulosis, Hx Gastrointestinal Bleed, Hx Hiatal Hernia, Hx Jaundice, Hx Obstructive Bowel, Hx Ileostomy, Hx Pyloric Stenosis, Hx Ulcer History: Reports: Hx Renal Disease - abnormal gfr, Other Problems/ Disorders - Burning on urination Denies: Hx Dialysis Musculoskeletal History: Reports: Hx Arthritis, Hx Rheumatoid Arthritis - WAS TREATED FOR IT, THEN STOPPED HER MEDS, Hx Back Problems, Hx Bursitis - Hip, Other Musculoskeletal History - ARTHRITIS LEFT HIP Denies: Hx Fibromyalgia, Hx Gout, Hx Orthopedic Injury, Hx Osteoporosis, Hx Scoliosis, Hx Tendonitis Sensory History: Reports: Hx Contacts or Glasses Denies: Hx Cataracts, Hx Eye Injury, Hx Eye Prosthesis, Hx Glaucoma, Hx Legally Blind, Hx Macular Degeneration, Hx Vision Problem, Hx Deafness, Hx Hearing Aid, Hx Hearing Problem, Other Sensory Impairments Opthamlomology History: Reports: Hx Contacts or Glasses Denies: Hx Cataracts, Hx Eye Injury, Hx Eye Prosthesis, Hx Glaucoma, Hx Legally Blind, Hx Macular Degeneration, Hx Vision Problem, Other Sensory Impairments Neurological History: Reports: Hx Headaches - CHRONIC CLUSTER GARCIA, Hx Migraine Denies: Hx Dementia, Hx Developmental Delay, Hx Seizures, Hx Spinal Cord Injury, Hx Transient Ischemic Attacks (TIA), Other Neuro Impairments/Disorders Psychiatric History: Reports: Hx Depression Denies: Hx Anxiety, Hx Panic Disorder - Cancer History Hx Chemotherapy: No Hx Radiation Therapy: No - Surgical History Surgery Procedure, Year, and Place: CHOLECYESTOMY [facility],. DEVIATED SEPTUM [facility],. COLECTOMY, Hx Anesthesia Reactions: No - Immunization History Date of Tetanus Vaccine: unknown Date of Influenza Vaccine: utd Infectious Disease History: No Infectious Disease History: Denies: Hx Clostridium Difficile, Hx Hepatitis, Hx Human Immunodeficiency Virus (HIV), Hx of Known/Suspected MRSA, Hx Shingles, Hx Tuberculosis, History Other Infectious Disease, Traveled Outside the [place] in Last 30 Days - Family History Known Family History: Positive: Other - COPD, AFIB - Social History Alcohol Use: None Hx Substance Use: No Substance Use Type: Reports: None Hx Tobacco Use: No Smoking Status (MU): Never Smoked Tobacco Have You Smoked in the Last Year: No Review of Systems Positive: Sore Throat Positive: Chest Pain Positive: Shortness Of Breath Positive: Arthralgia, Myalgia, Edema All Other Systems Reviewed And Are Negative: Yes Physical Exam - Summary Physical Exam Summary: Appearance: The patient is well-nourished in no acute distress and in no acute pain. Skin: The skin is warm and dry and skin color reflects adequate perfusion. HEENT: The head is normocephalic and atraumatic. The pupils are equal and reactive. The conjunctivae are clear and without drainage. Nares are patent and without drainage. Mouth reveals moist mucous membranes and the posterior pharynx is erythematous. The external ears are intact. The ear canals are patent and without drainage. The tympanic membranes are intact. Neck: The neck is supple with full range of motion and non-tender. There are no carotid bruits. There is no neck vein distension. Respiratory: Chest is non-tender. Wet cough. rhonchi. Cardiovascular: Heart is regular rate and rhythm. There is no murmur or rub auscultated. There is no peripheral edema and pulses are symmetrical and equal. Abdomen: The abdomen is soft and non-tender. There are normal bowel sounds heard in all four quadrants and there is no organomegaly palpated. Musculoskeletal: There is no back tenderness noted. Extremities are non-tender with full range of motion. There is good capillary refill. There is no peripheral edema or calf tenderness elicited. Neurological: Patient is alert and oriented to person, place and time. The patient has symmetrical motor strength in all four extremities. Cranial nerves are grossly intact. Deep tendon reflexes are symmetrical and equal in all four extremities. Psychiatric: The patient has an appropriate affect and does not exhibit any anxiety or depression. Triage Information Reviewed: Yes Vital Signs On Initial Exam: Initial Vitals Temp Pulse Resp BP Pulse Ox 98 F 69 18 170/94 95 09/20/18 12:20 09/20/18 12:20 09/20/18 12:20 09/20/18 12:20 09/20/18 12:20 Vital Signs Reviewed: Yes Diagnostics - Vital Signs Vital Signs Temp Pulse Resp BP Pulse Ox 09/20/18 12:35 68 09/20/18 12:20 98 F 69 18 170/94 95 - Laboratory Result Diagrams: 09/20/18 13:20 09/20/18 13:20 Lab Statement: Any lab studies that have been ordered have been reviewed, and results considered in the medical decision making process. - Radiology CXR Radiology Interpretation Completed By: Radiologist Summary of Radiographic Findings: NO ACTIVE CARDIOPULMONARY DISEASE. ED physician has reviewed this imaging report. - EKG 13:17 Cardiac Rate: NL - 70 bpm EKG Rhythm: Sinus Rhythm Summary of EKG Findings: Normal sinus rhythm at 70 bpm, normal ST, no ectopy, no STEMI Chest Pain Course/Dx - Course Course Of Treatment: Ms. Saez presented with a chest pain which she states was very similar to the pain she has had multiple times from polymyalgia but is worse and lasting longer. It is not accompanied by associated symptoms aside from diffuse pains; she is especially complains of myalgias and arthralgias. She was nontoxic in appearance and her vital signs are stable. Laboratory work was obtained and her troponin was elevated at 0.07 in the indeterminate range. The last troponin she had was a few months ago and was 0. I asked the hospitalist to evaluate her for new chest pain and mildly elevated troponin. - Diagnoses Provider Diagnoses: Chest pain - Provider Notifications Discussed Care Of Patient With: Citllai Garay Time Discussed With Above Provider: 14:13 Instructed by Provider To: Admit As Inpatient Discharge - Sign-Out/Discharge Documenting (check all that apply): Patient Departure - admit Patient Received Moderate/Deep Sedation with Procedure: No - Discharge Plan Condition: Fair Disposition: ADMITTED TO [facility] - Billing Disposition and Condition Condition: FAIR Disposition: Admitted to [facility] - Attestation Statements Document Initiated by Moiibe: Yes Documenting Scribe: Adan Del Real Provider For Whom Raeann is Documenting (Include Credential): Zachary Preston MD Scribe Attestation: Adan Dubois, scribed for Zachary Preston MD on 09/20/18 at 1709. Scribe Documentation Reviewed: Yes Provider Attestation: The documentation as recorded by the Adan alvares accurately reflects the service I personally performed and the decisions made by me, Zachary Preston MD Status of Scribe Document: Viewed
[2018-09-20] MEDS ORDERED: traMADol TAB* 50 MG PO ONE (13:08)
[2018-09-20 13:30] LABS: ABS Basophils 0 10^3/ul (0-0.2); ABS Eosinophils 0 10^3/ul (0-0.6); ABS Lymphocytes 1.3 10^3/ul (1.0-4.8); ABS Monocytes 0.2 10^3/ul (0-0.8); ABS Neutrophils 6.9 10^3/ul (1.5-7.7); ABS Nucleated RBC 0 10^3/ul; Eosinophil % 0 %; Hematocrit 26 % (33-41); Hemoglobin 8.7 g/dL (12.0-16.0); Lymphocyte % 15.6 %; Mean Corpuscular HGB Conc 33 g/dL (31-36); Mean Corpuscular Hemoglobin 31 pg (27-31); Mean Corpuscular Volume 94 fL (80-97); Nucleated Red Blood Cells % 0; Platelet Count 273 10^3/uL (150-450); Red Blood Count 2.79 10^6 /uL (3.70-4.87); Red Cell Distribution Width 15 % (10.5-15); White Blood Count 8.6 10^3/uL (3.5-10.8)
[2018-09-20 13:57] LABS: ALT 20 U/L (7-52); AST 22 U/L (13-39); Albumin 3.9 g/dL (3.2-5.2); Albumin/Globulin Ratio 2.2 (1-3); Alkaline Phosphatase 51 U/L (34-104); Anion Gap 6 mmol/L (2-11); BUN/Creatinine Ratio 15.2 (8-20); Blood Urea Nitrogen 15 mg/dL (6-24); C Reactive Protein < 1.00 mg/L (<8.01); CO2 Carbon Dioxide 25 mmol/L (22-32); Calcium 8.6 mg/dL (8.6-10.3); Chloride 100 mmol/L (101-111); EGFR African American 66.7 (>60); EGFR Non-African American 55.1 (>60); Globulin 1.8 g/dL (2-4); Glucose 121 mg/dL (70-100); Potassium 4.3 mmol/L (3.5-5.0); Sodium 131 mmol/L (135-145); Total Protein 5.7 g/dL (6.4-8.9)
[2018-09-20 14:01] LABS: Troponin I 0.07 ng/mL (<0.04)
[2018-09-20 14:03] LABS: Influenza A Molecular NEGATIVE (Negative); Influenza B Molecular NEGATIVE (Negative)
[2018-09-20 15:44] LABS: Urine Appearance Clear; Urine Bacteria Absent (Absent); Urine Bilirubin Negative (Negative); Urine Blood 1+ (Negative); Urine Color Straw; Urine Glucose Negative (Negative); Urine Ketones Negative (Negative); Urine Nitrite Negative (Negative); Urine Protein Negative (Negative); Urine Red Blood Cell Trace(0-2/hpf) (Absent); Urine Specific Gravity 1.005 (1.010-1.030); Urine Squamous Epithelial Cell Present (Absent); Urine Urobilinogen Negative (Negative); Urine White Blood Cell Absent (Absent)
[2018-09-20] MEDS ORDERED: Furosemide TAB* 20 MG PO PRN (15:52)
[2018-09-20] MEDS ORDERED: tiZANidine TAB* 2 MG PO PRN (15:52)
[2018-09-20] MEDS ORDERED: Lisinopril TAB* 5 MG PO ONE (15:55)
--- NOTE | 2018-09-20 16:23 | HP ---
CONTINUATION ADDENDUM NOW INCLUDED ON THIS REPORT CC: Dr. Burgess; Dr. Root * HISTORY AND PHYSICAL: DATE OF ADMISSION: 09/20/18 PRIMARY CARE PROVIDER: Dr. Burgess. SNOWBLOWER MECHANIC: Dr. Root. CHIEF COMPLAINT: Chest pain. HISTORY OF PRESENT ILLNESS: Ms. Saez is a 73-year-old female with a complicated past medical history significant for polymyalgia rheumatica which has been difficult to control on chronic high-dose prednisone, paroxysmal atrial fibrillation, hypertension, DONTRELL, depression and GERD, who presents to the emergency room with complaints of chest pain. 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 She believes that the surgery went well. She does continue to have some pain at the incision site and in her groin, but otherwise it is improved. Since that surgery, however, she has noted pain in her throat. That pain has been since immediately postop. She also noted that her voice is hoarse and that she has a slight cough. Approximately a day and a half ago, she also now noted that she was very shaky and twitchy as well as having chest pain. The patient states that she has chronic bilateral shoulder and upper chest discomfort, which she attributes to her PMR, which is currently flared per her description. This chest discomfort that she is now experiencing she states is different. This is more in the center of her chest. She states that she is very winded with any activity, though prior outpatient notes from Dr. Altamirano and Dr. Burgess indicate that she is not able to do much at baseline. The patient does feel like she is much more short of breath than usual with going up the stairs or with ambulating long distances. It was also noted last evening that her blood pressure was up in the 200s. This is dramatically different from her baseline, though she also notes that her blood pressure recently has been labile. The patient states that over the last 1 week she has had extremely high doses of prednisone. Her estimates that she has had in the range of 200 to 300 mg of prednisone over the last 1 week due to remaining on her baseline prednisone dose and then subsequently receiving high- dose prednisone in the perioperative period and following surgery due to her perceived flare. PAST MEDICAL HISTORY: 1. PMR. 2. Paroxysmal atrial fibrillation. 3. Trigeminal neuralgia. 4. Cluster headaches. 5. RLS. 6. Hypertension. 7. DONTRELL. 8. GERD. 9. Depression. PAST SURGICAL HISTORY: 1. Laparoscopic sacrospinous ligament transection on the left. 2. Partial bowel resection for a polyp that was unable to be removed endoscopically. 3. Cholecystectomy. MEDICATIONS: 1. Zinc 50 mg p.o. daily. 2. Ocuvite Lutein 25 one cap p.o. daily. 3. Vitamin B12 5000 mcg p.o. daily. 4. Lactobacillus 1 cap p.o. daily. 5. Vitamin D 5000 units p.o. daily. 6. Multivitamin 1 tab p.o. daily. 7. Melatonin 15 mg p.o. q.h.s. 8. Duloxetine DR 90 mg p.o. daily. 9. Relpax 40 mg p.o. daily p.r.n. migraine. 10. Potassium chloride 10 mEq p.o. t.i.d. 11. Lisinopril 5 mg p.o. daily. 12. Viscous lidocaine 15 mL swish and spit daily p.r.n. mouth sores. 13. Diclofenac gel apply topically 4 times daily p.r.n. pain. 14. Verapamil 120 mg p.o. t.i.d. 15. Prevacid 30 mg p.o. daily. 16. Lidocaine patch applied topically daily p.r.n. pain. 17. Lasix 20 mg p.o. daily p.r.n. swelling. 18. Actemra 162 mg subcutaneous q. Monday. 19. Tizanidine 2 mg p.o. daily p.r.n. spasm. 20. Lyrica 100 mg p.o. t.i.d. 21. Topamax 200 mg p.o. daily. 22. Gabapentin 300 mg p.o. 4 times daily. 23. Flonase 2 squirts to both nostrils daily p.r.n. allergies. 24. Lipitor 40 mg p.o. q.h.s. 25. Erythromycin gel topically t.i.d. p.r.n. wound. 26. Prednisone 40 mg p.o. daily. 27. Ranexa 500 mg p.o. b.i.d. 28. Namenda 10 mg p.o. b.i.d. 29. Oxcarbazepine 150 mg p.o. b.i.d. ALLERGIES: PENICILLIN and OXYCODONE. CONTINUATION ADDENDUM: FAMILY HISTORY: Mom of CVA. She also had a longstanding history of PMR. Dad of an [place]. SOCIAL HISTORY: The patient is a nonsmoker. She does not drink alcohol. She worked in [employer]. She is . She has 1 child. Her , You, is her healthcare proxy. REVIEW OF SYSTEMS: The patient states that she believes she had a low-grade fever once over the last 1 week. No chills. She states her appetite has been poor over the last few days. She has not been sleeping well at night. She admits to chest pain as above. She also notes that she has had marked increase in her lower extremity edema. She admits to intermittent cough, which is new since surgery. She also admits to shortness of breath with exertion. She feels that her voice is hoarse and that she is bringing up some phlegm at this point. No nausea, vomiting. She does complain of mild upper abdomen pain. No significant diarrhea or constipation. No hematochezia, no hematuria, no dysuria. She denies any focal weakness and slurred speech, but she does note that she is substituting words because she cannot say the words that she wants at times. She feels that this is new over the last 1 week. There are no sudden changes in vision. She does complain of pain with swallowing since surgery. She has joint pains as above. In addition to the shoulder discomfort , she also complains of baseline jaw, shoulder, upper chest, and hip discomfort. She has no rashes. No admits to anxiety and depression. PHYSICAL EXAMINATION GENERAL: The patient is a well-developed, elderly female with significant cushingoid features, sitting in the stretcher, in no acute distress. VITAL SIGNS: Blood pressure 175/85, pulse 74, respirations 21, temp 98, O2 sat 96% on room air. HEENT: Pupils are equal and round. Extraocular muscles are intact. Oropharynx is moist. There does appear to be a slight amount of thrush especially noted on the tongue and the posterior pharynx. NECK: There is no submandibular, cervical, or supraclavicular adenopathy. PULMONARY: Lungs are clear to auscultation bilaterally. CARDIAC: Normal S1, S2. Regular rate and rhythm. I do not appreciate any murmurs. There is 2 to 3+ bilateral lower extremity pitting edema up to the hips. ABDOMEN: Bowel sounds are present. Abdomen is soft, nontender, nondistended. MUSCULOSKELETAL: There is no cyanosis or clubbing of the digits. There is full active range of motion of all 4 extremities. NEURO: Cranial nerves II through XII appear to be grossly intact. Sensation is intact to light touch throughout. Strength is 5/5 and symmetric in both upper and lower extremities bilaterally. PSYCH: The patient is alert. She is oriented x3. She is generally a very poor historian. SKIN: Warm and dry. There are no rashes. DIAGNOSTIC STUDIES/LAB DATA: WBC 8.6, hemoglobin 8.7, hematocrit 26, platelets 273. Sodium 131, potassium 4.3, chloride 100, CO2 25, BUN 15, creatinine 0.99, glucose 121, lactic acid 1.1, calcium 8.6. Bilirubin 0.5, AST 22, ALT 50, alk phos 51. Troponin 0.07. CRP less than 1. Albumin 3.9. Influenza A and B negative. Rapid group A strep negative. EKG reveals normal sinus rhythm without any acute ST-T wave abnormalities. Chest x-ray reveals no active cardiopulmonary disease. ASSESSMENT AND PLAN: Ms. Saez is a 73-year-old female with a complicated medical history consisting of polymyalgia rheumatica, for which she frequently is on high- dose prednisone, paroxysmal atrial fibrillation, hypertension, obstructive sleep apnea and obesity, who presents to the emergency room with complaints of chest pain. 1. Chest pain. It is unclear what the patient's chest pain is from at this point. I do question if she may have Mavis esophagitis as she states that it is very painful to swallow and I do see thrush in the posterior pharynx. Cardiac source is possible. She did have a stress test in March 2018, which revealed no evidence for stress-induced myocardial ischemia or evidence of infarct. She also had an echocardiogram at that time, which revealed an EF of 55% to 60% with septal wall hypertrophy. There was no evidence of clinically significant diastolic dysfunction. There was evidence of mild pulmonary hypertension. The patient will be admitted and evaluated with subsequent troponins and EKGs. I do not believe she should undergo another stress test at this point; however, I will order repeat transthoracic echocardiogram as she is now having worsened lower extremity edema. I do question if this lower extremity edema may be secondary to diastolic congestive heart failure, but this also could be secondary to high-dose prednisone. 2. Tremulousness. I suspect this is from high-dose steroids over the last 1 week. Again, her believes that she may have had anywhere between 200 to 300 mg of prednisone in the last 1 week. She is always a little bit shaky, but she states that it is worse now. We will monitor this. 3. Shortness of breath with exertion. I suspect this is due to deconditioning. Additionally, the patient now has marked lower extremity edema. While there is no identified pulmonary edema on chest x-ray, this would be a possibility as a cause to her shortness of breath. 4. Sore throat/hoarse voice and cough. I suspect much of this is secondary to being intubated last week. Additionally, I think she has thrush. She will be started on nystatin. We will monitor symptoms. 5. Polymyalgia rheumatica. For now, we will continue prednisone 40 mg daily. 6. Paroxysmal atrial fibrillation. We will monitor on telemetry. 7. Intractable migraines. The patient will continue on her usual doses of gabapentin, Trileptal, Lyrica, and tizanidine as well as Topamax. 8. Hypertension. The patient will continue on her usual dose of verapamil and I am going to increase her lisinopril to 10 mg daily as her blood pressure is uncontrolled currently. 9. DVT prophylaxis: According to the Adult Thrombosis Prophylaxis Risk Factor Assessment Guide, the patient has a total risk factor score of 4, making her high risk. She will be placed on heparin 5000 units subcutaneous q.8 hours. 10. Code status is full. TIME SPENT: Sixty five minutes were spent admitting this patient. [id number]/[facility] #: [id number]/CPS #: [id number] MONIK
--- NOTE | 2018-09-20 16:56 | HP ---
CC: Dr. Burgess; Dr. Root HISTORY AND PHYSICAL: ADDENDUM: FAMILY HISTORY: Mom of CVA. She also had a longstanding history of PMR. Dad of an [place]. SOCIAL HISTORY: The patient is a nonsmoker. She does not drink alcohol. She worked in [employer]. She is . She has 1 child. Her , You, is her healthcare proxy. REVIEW OF SYSTEMS: The patient states that she believes she had a low-grade fever once over the last 1 week. No chills. She states her appetite has been poor over the last few days. She has not been sleeping well at night. She admits to chest pain as above. She also notes that she has had marked increase in her lower extremity edema. She admits to intermittent cough, which is new since surgery. She also admits to shortness of breath with exertion. She feels that her voice is hoarse and that she is bringing up some phlegm at this point. No nausea, vomiting. She does complain of mild upper abdomen pain. No significant diarrhea or constipation. No hematochezia, no hematuria, no dysuria. She denies any focal weakness and slurred speech, but she does note that she is substituting words because she cannot say the words that she wants at times. She feels that this is new over the last 1 week. There are no sudden changes in vision. She does complain of pain with swallowing since surgery. She has joint pains as above. In addition to the shoulder discomfort , she also complains of baseline jaw, shoulder, upper chest, and hip discomfort. She has no rashes. No admits to anxiety and depression. PHYSICAL EXAMINATION GENERAL: The patient is a well-developed, elderly female with significant cushingoid features, sitting in the stretcher, in no acute distress. VITAL SIGNS: Blood pressure 175/85, pulse 74, respirations 21, temp 98, O2 sat 96% on room air. HEENT: Pupils are equal and round. Extraocular muscles are intact. Oropharynx is moist. There does appear to be a slight amount of thrush especially noted on the tongue and the posterior pharynx. NECK: There is no submandibular, cervical, or supraclavicular adenopathy. PULMONARY: Lungs are clear to auscultation bilaterally. CARDIAC: Normal S1, S2. Regular rate and rhythm. I do not appreciate any murmurs. There is 2 to 3+ bilateral lower extremity pitting edema up to the hips. ABDOMEN: Bowel sounds are present. Abdomen is soft, nontender, nondistended. MUSCULOSKELETAL: There is no cyanosis or clubbing of the digits. There is full active range of motion of all 4 extremities. NEURO: Cranial nerves II through XII appear to be grossly intact. Sensation is intact to light touch throughout. Strength is 5/5 and symmetric in both upper and lower extremities bilaterally. PSYCH: The patient is alert. She is oriented x3. She is generally a very poor historian. SKIN: Warm and dry. There are no rashes. DIAGNOSTIC STUDIES/LAB DATA: WBC 8.6, hemoglobin 8.7, hematocrit 26, platelets 273. Sodium 131, potassium 4.3, chloride 100, CO2 25, BUN 15, creatinine 0.99, glucose 121, lactic acid 1.1, calcium 8.6. Bilirubin 0.5, AST 22, ALT 50, alk phos 51. Troponin 0.07. CRP less than 1. Albumin 3.9. Influenza A and B negative. Rapid group A strep negative. EKG reveals normal sinus rhythm without any acute ST-T wave abnormalities. Chest x-ray reveals no active cardiopulmonary disease. ASSESSMENT AND PLAN: Ms. Saez is a 73-year-old female with a complicated medical history consisting of polymyalgia rheumatica, for which she frequently is on high- dose prednisone, paroxysmal atrial fibrillation, hypertension, obstructive sleep apnea and obesity, who presents to the emergency room with complaints of chest pain. 1. Chest pain. It is unclear what the patient's chest pain is from at this point. I do question if she may have Mavis esophagitis as she states that it is very painful to swallow and I do see thrush in the posterior pharynx. Cardiac source is possible. She did have a stress test in March 2018, which revealed no evidence for stress-induced myocardial ischemia or evidence of infarct. She also had an echocardiogram at that time, which revealed an EF of 55% to 60% with septal wall hypertrophy. There was no evidence of clinically significant diastolic dysfunction. There was evidence of mild pulmonary hypertension. The patient will be admitted and evaluated with subsequent troponins and EKGs. I do not believe she should undergo another stress test at this point; however, I will order repeat transthoracic echocardiogram as she is now having worsened lower extremity edema. I do question if this lower extremity edema may be secondary to diastolic congestive heart failure, but this also could be secondary to high-dose prednisone. 2. Tremulousness. I suspect this is from high-dose steroids over the last 1 week. Again, her believes that she may have had anywhere between 200 to 300 mg of prednisone in the last 1 week. She is always a little bit shaky, but she states that it is worse now. We will monitor this. 3. Shortness of breath with exertion. I suspect this is due to deconditioning. Additionally, the patient now has marked lower extremity edema. While there is no identified pulmonary edema on chest x-ray, this would be a possibility as a cause to her shortness of breath. 4. Sore throat/hoarse voice and cough. I suspect much of this is secondary to being intubated last week. Additionally, I think she has thrush. She will be started on nystatin. We will monitor symptoms. 5. Polymyalgia rheumatica. For now, we will continue prednisone 40 mg daily. 6. Paroxysmal atrial fibrillation. We will monitor on telemetry. 7. Intractable migraines. The patient will continue on her usual doses of gabapentin, Trileptal, Lyrica, and tizanidine as well as Topamax. 8. Hypertension. The patient will continue on her usual dose of verapamil and I am going to increase her lisinopril to 10 mg daily as her blood pressure is uncontrolled currently. 9. DVT prophylaxis: According to the Adult Thrombosis Prophylaxis Risk Factor Assessment Guide, the patient has a total risk factor score of 4, making her high risk. She will be placed on heparin 5000 units subcutaneous q.8 hours. 10. Code status is full. TIME SPENT: Sixty five minutes were spent admitting this patient. [id number]/[facility] #: [id number] MONIK
[2018-09-20 17:04] LABS: Troponin I 0.07 ng/mL (<0.04)
[2018-09-20] MEDS: Nystatin SUSPENSION* 100000 UNITS/ML 5 ML UDC PO SCH ×2 (17:25→20:51)
[2018-09-20] MEDS: Gabapentin CAP(*) 300 MG PO SCH ×2 (17:26→20:49)
[2018-09-20] MEDS ORDERED: Atorvastatin* 40 MG TAB PO SCH (18:00)
[2018-09-20] MEDS: Verapamil TAB* 120 MG PO SCH (20:47)
[2018-09-20] MEDS: Pregabalin CAP(*) 100 MG PO SCH (20:47)
[2018-09-20] MEDS: OXcarbazepine TAB(*) 300 MG PO SCH (20:48)
[2018-09-20] MEDS: Potassium Chlor TAB* 10 MEQ TAB.ER PO SCH (20:49)
[2018-09-20] MEDS: Memantine TAB* 10 MG PO SCH (20:49)
[2018-09-20] MEDS: Acetaminophen TAB* 325 MG PO PRN (20:50)
[2018-09-20] MEDS ORDERED: Melatonin 3 MG TAB PO SCH (21:00)
[2018-09-20] MEDS: Heparin VIAL(*) 5000 UNITS/ML VIAL (FIVE THOUSAND) SUBCUT SCH (21:55)
[2018-09-21] MEDS: Acetaminophen TAB* 325 MG PO PRN ×3 (01:56→14:11)
[2018-09-21] MEDS: Heparin VIAL(*) 5000 UNITS/ML VIAL (FIVE THOUSAND) SUBCUT SCH ×2 (05:34→14:13)
[2018-09-21] MEDS: Nystatin SUSPENSION* 100000 UNITS/ML 5 ML UDC PO SCH ×2 (08:53→14:13)
[2018-09-21] MEDS: Memantine TAB* 10 MG PO SCH (08:54)
[2018-09-21] MEDS: Gabapentin CAP(*) 300 MG PO SCH ×2 (08:54→14:12)
[2018-09-21] MEDS: Potassium Chlor TAB* 10 MEQ TAB.ER PO SCH ×2 (08:54→14:13)
[2018-09-21] MEDS: Pregabalin CAP(*) 100 MG PO SCH ×2 (08:54→14:12)
[2018-09-21] MEDS: Verapamil TAB* 120 MG PO SCH ×2 (08:54→14:13)
[2018-09-21] MEDS: OXcarbazepine TAB(*) 300 MG PO SCH (08:55)
[2018-09-21] MEDS ORDERED: DULoxetine DR CAP* 30 MG CAP.DR PO SCH (09:00)
[2018-09-21] MEDS ORDERED: predniSONE TAB* 20 MG PO SCH (09:00)
[2018-09-21] MEDS ORDERED: Lisinopril TAB* 10 MG PO SCH (09:00)
[2018-09-21] MEDS ORDERED: Topiramate TAB(*) 100 MG PO SCH (09:00)
[2018-09-21] MEDS ORDERED: Pantoprazole TAB * 40 MG TAB PO SCH (09:00)
[2018-09-21] MEDS ORDERED: Multivitamins/Minerals TAB PO SCH (09:00)
[2018-09-21] MEDS ORDERED: Cholecalciferol TAB* 1000 UNITS PO SCH (09:00)
[2018-09-21 09:18] LABS: Troponin I 0.07 ng/mL (<0.04)
--- NOTE | 2018-09-21 09:46 | ECHO ---
Patient: ROEL FRY [facility] Rec#: [id number] : 1945 Date: 09/21/2018 Age: 73y Height: 160 cm / 63.0 in Weight: 79 kg / 174.1 lbs Sex: F BSA: 1.82 Room#: [facility] Admit Date#: 09/20/2018 Type: Inpatient Referring: Citlali Garay DO Reading: Eduardo Merino MD Bi Developer: Beba Izaguirre RDCS CC: Nichelle Burgess MD Transthoracic Echocardiogram Indication: Chest pain BP: 147/71 HR: 74 Rhythm: NSR with PVCs Findings History: Polymyalgia rheumatica, PAF, HTN, DONTRELL, anemia. Technical Comments: The study quality is fair. Completed at 0835. Left Ventricle: The left ventricular chamber size is normal. Mild concentric left ventricular hypertrophy is observed. Global left ventricular wall motion and contractility are within normal limits. There is normal left ventricular systolic function. The estimated ejection fraction is 55-60%. There is an E to A reversal in the mitral valve flow pattern suggestive of diastolic dysfunction. Left Atrium: The left atrial chamber size is normal. Right Ventricle: Moderator Band present. The right ventricular cavity size is normal. The right ventricular global systolic function is normal. Right Atrium: The right atrium is mildly dilated. There is evidence of an atrial septal aneurysm. without clear shunting on doppler color interrogation. Aortic Valve: The aortic valve is trileaflet. The aortic valve leaflets are mildly thickened. There is no evidence of aortic regurgitation. There is no evidence of aortic stenosis. Mitral Valve: The mitral valve leaflets are mildly thickened. There is no evidence of mitral regurgitation. Tricuspid Valve: The tricuspid valve leaflets are normal. There is trace tricuspid regurgitation. The right ventricular systolic pressure is estimated at 26 mmHg. No pulmonary hypertension is noted. Pulmonic Valve: The pulmonic valve appears normal. There is a trace pulmonic regurgitation. There is no pulmonic stenosis. Pericardium: There is no significant pericardial effusion. A pericardial fat pad is visualized. Aorta: There is no dilatation of the ascending aorta. There is no dilatation of the aortic arch. The aortic root is normal in size. Pulmonary Artery: The main pulmonary artery is not well visualized. Venous: The inferior vena cava appears normal in size. There is a greater than 50% respiratory change in the inferior vena cava dimension. Conclusions There is normal left ventricular (LV) systolic function. The estimated ejection fraction is 55-60%. Global left ventricular wall motion and contractility are within normal limits. The left ventricular chamber size is normal. Mild concentric left ventricular hypertrophy is observed. There is an E to A reversal in the mitral valve flow pattern suggestive of diastolic dysfunction. The right atrium is mildly dilated. Functionally benign heart valves. Since the prior echocardiogram completed 03/18/18, pertinent change is prior decreased LV size reported. Measurements Name Value Normal Range RVIDd (AP) 2D 2.8 cm (0.9 - 2.6) RVDdMajor (2D) 4 cm (2.2 - 4.4) RAd ISD 4CH 5.3 cm (3.4 - 4.9) RA (A4C)W 3.1 cm (2.9 - 4.6) IVSd (2D) 1.2 cm (0.6 - 1) LVPWd (2D) 1.1 cm (0.6 - 1) LVIDd (2D) 4.2 cm (3.6 - 5.4) LVIDs (2D) 3 cm - LV FS (2D) 30 % (25 - 45) Aortic Annulus 1.9 cm (1.4 - 2.6) Ao root diameter (2D) 3.3 cm (2.1 - 3.5) Ascending Ao 3.3 cm (2.1 - 3.4) Aortic arch 3.1 cm (1.8 - 3.4) LA dimension (AP) 2D 3.2 cm (2.3 - 3.8) LAd ISD 4CH 4.8 cm (2.9 - 5.3) LA ISD 4CH W 4.2 cm (2.5 - 4.5) Name Value Normal Range LA ESV BP (A/L) index 33 ml/m2 - Name Value Normal Range MV E-wave Vmax 0.7 m/sec - MV deceleration time 218 msec - MV A-wave Vmax 0.9 m/sec - MV E:A ratio 0.7 ratio - LV septal e' Vmax 0.05 m/sec - LV lateral e' Vmax 0.1 m/sec - LV E:e' septal ratio 14 ratio - LV E:e' lateral ratio 7 ratio - Name Value Normal Range TR Vmax 2.4 m/sec - TR peak gradient 23 mmHg - RAP 3 mmHg - RVSP 26 mmHg - IVC diameter 2 cm - Name Value Normal Range PV Vmax 0.8 m/sec - PV peak gradient 3 mmHg -
[2018-09-21 12:19] VITALS: BP 116/48
--- NOTE | 2018-09-21 23:15 | DS ---
CC: Dr. Burgess; Dr. Root.* DISCHARGE SUMMARY: DATE OF ADMISSION: 09/20/18 DATE OF DISCHARGE: 09/21/18 PRIMARY CARE PROVIDER: Dr. Burgess. CEMETERY VAULT INSTALLER: Dr. Root. PRINCIPAL DIAGNOSES: 1. Noncardiac chest pain - possible Mavis esophagitis. 2. Polymyalgia rheumatica. SECONDARY DIAGNOSES: 1. Paroxysmal atrial fibrillation. 2. Trigeminal neuralgia. 3. Cluster headaches. 4. Restless leg syndrome. 5. Hypertension. 6. Obstructive sleep apnea. 7. Gastroesophageal reflux disease. 8. Depression. DISCHARGE MEDICATIONS: 1. Aspirin 81 mg p.o. daily (new). 2. Tramadol 50 mg p.o. q.8 hours p.r.n. for pain, dispensed 4 days' worth. 3. Zinc 50 mg p.o. daily. 4. Ocuvite lutein 25 one cap p.o. daily. 5. Vitamin B12 at 5000 mcg p.o. daily. 6. Lactobacillus 1 cap p.o. daily. 7. Vitamin D 5000 units p.o. daily. 8. Multivitamin 1 tab p.o. daily. 9. Melatonin 15 mg p.o. at bedtime. 10. Duloxetine DR 90 mg p.o. daily. 11. Relpax 40 mg p.o. daily p.r.n. for migraine. 12. Potassium chloride 10 mEq p.o. t.i.d. 13. Lisinopril 10 mg p.o. daily (increased dose). 14. Viscous lidocaine 15 mL swish and spit daily p.r.n. for mouth sores. 15. Diclofenac gel applied topically 4 times daily p.r.n. for pain. 16. Verapamil 120 mg p.o. t.i.d. 17. Prevacid 30 mg p.o. daily. 18. Lidocaine patch apply topically daily p.r.n. for pain. 19. Lasix 20 mg p.o. daily x5 days, then use as needed. 20. Actemra 162 mg subcutaneous q. Monday. 21. Tizanidine 2 mg p.o. daily p.r.n. for spasm. 22. Lyrica 100 mg p.o. t.i.d. 23. Topamax 200 mg p.o. daily. 24. Gabapentin 300 mg p.o. 4 times daily. 25. Flonase 2 squirts both nostrils daily p.r.n. for allergies. 26. Lipitor 40 mg p.o. at bedtime. 27. Erythromycin gel topically t.i.d. p.r.n. 28. Prednisone 40 mg p.o. daily. 29. Ranexa 500 mg p.o. b.i.d. 30. Namenda 10 mg p.o. b.i.d. 31. Oxcarbazepine 150 mg p.o. b.i.d. 32. Diflucan 200 mg p.o. daily x14 days. HOSPITAL COURSE: Ms. Saez is a 73-year-old female with complicated medical history who presents to the emergency room with complaints of different chest pain from normal. The patient states that recently she has had a flare of her PMR. She states that she constantly has pain across her chest, shoulders, and up into her jaw, but she has developed centrally located chest discomfort over the last 1 week or so. It has been coming and going. She is a very poor historian and otherwise hard to get information out of. The patient initially was found to have a troponin of 0.07 in the ER. She was admitted to rule out MD. Subsequent troponins remained flat at 0.07. The patient did have a transthoracic echocardio-gram obtained which revealed EF of 55% to 60%. Global left ventricular wall motion and contractility were felt to be within normal limits. There is suggestion of diastolic dysfunction. She has functionally benign heart valves. I do not feel stress test was warranted as she did have a stress test in March 2018 which was negative for ischemia. I did, however, feel that she should be started on an aspirin for possible stable underlying coronary artery disease. At this point, it is felt the patient is stable to return home. I have asked that she follow up with both her primary and Dr. Root for further determination of how to proceed for evaluation of any further chest pain. I do suspect that her chest pain may be related to Mavis esophagitis. She has been on high-dose prednisone recently and appears to have thrush in her oral cavity. She also describes severe pain on swallowing. Because of this, my suspicion is that she does have Mavis esophagitis which could be the cause of her chest pain. She has been started on Diflucan 200 mg p.o. daily x14 days. On the day of discharge, the patient is awake, alert, and oriented, sitting up in bed, in no acute distress. Her cardiac exam reveals a normal S1 and S2 with a regular rate and rhythm. Her lungs are clear. Her abdomen is soft, nontender , and nondistended. FOLLOWUP CONCERNS: The patient is being discharged home today, 09/21/18. ACTIVITY LEVEL: As tolerated. DIET: Heart healthy. CONDITION ON DISCHARGE: Stable. TIME SPENT: Twenty-five minutes were spent discharging this patient. [id number]/CPS #: [id number]
== END 2018-09-21 15:58 | disposition home or self-care (01) ==
LOC: ED 12:19 → MEDTELE 15:11
PROVIDERS: ADMIT Hospitalist; ATTEND Internal Medicine
DX: R07.89 Other chest pain (principal); M35.3 Polymyalgia rheumatica; I48.0 Paroxysmal atrial fibrillation; G50.0 Trigeminal neuralgia; G44.009 Cluster headache syndrome, unspecified, not intractable; G25.81 Restless legs syndrome; I10 Essential (primary) hypertension; G47.33 Obstructive sleep apnea (adult) (pediatric); K21.9 Gastro-esophageal reflux disease without esophagitis; F32.9 Major depressive disorder, single episode, unspecified; Z79.82 Long term (current) use of aspirin; R60.9 Edema, unspecified; Z88.0 Allergy status to penicillin
CPT/HCPCS: 36415; 71045; 80053; 81003; 81015; 83605; 84484; 85025; 86140; 87651; 93005; 93306; 96372; 99284; A9270-GY; G0378; J1644; J7512